=== PATIENT | female | born 1950 | race Caucasian/White ===

== ENCOUNTER 2022-01-04 08:15 | Outpatient (RCR) | payer OTHER, SELFPAY ==
[2021-12-28 10:35] VITALS: BP 167/90; PULSE 66; TEMP 36.6
--- NOTE | 2021-12-28 10:52 | HP.PCM_ITS ---
History of Present Illness Date of Service: 12/28/21 Progress of Wound: This 71-year-old female was seen for varicosities noted to bilateral legs with edema and irritation to her medial left ankle there is no evidence of full- thickness wound formation at this time patient denies any constitutional symptoms denies any pain to the site itchiness or irritation. Patient denies any use of elevation compression for edema management. No other complaints at this time. PFSH Home Medications calcium 167 mg-vitamin D3 1.67 mcg-magnesium 83 mg capsule cap PO 12/28/21 [History Last Taken Unknown] omega-3 fatty acids PO 12/28/21 [History Last Taken Unknown] Physical Exam Narrative Patient is alert oriented person place and time. Vascular: Dorsalis pedis posterior tibial pulses palpable 2 out of 4 to bilateral lower extremity. +1 pitting edema noted to Venkatesh malleoli region bilaterally. There is noted to be tortuous white varicosities bilaterally with hemosiderin deposits and a focal varicosity noted to the medial malleoli region as well as the distal lateral malleolus on the left side. Some skin irritation to the site. Patient notes is from tape from a dressing she has been applying at home. Neurologic: Light touch protective sensation intact to bilateral feet and Achilles tendon deep tendon reflex intact. Dermatologic: No evidence of full-thickness wound breakdown at this time. Musculoskeletal: No pain with calf squeeze or palpation of popliteal fossa. No gross deformity at this time. Debridement Note Debridement Note Post-Debridement Measurements and Additional Note: Post-Debridement Measurements/Treatment WC - Nurse 2 - General Ulcer CM Notes Start: 12/28/21 10:30 Freq: Status: Active Protocol: Activity Type Activity Date Activity User E-sign Co-sign Detail Recorded Client Recorded Date Recorded By Document 12/28/21 10:30 MW [id number] 12/28/21 10:33 MW 12/28/21 10:30 Pain Scale: 0-10 Numeric Is Patient Pain Free? Yes Assessment/Plan Assessment/Plan (1) Venous insufficiency (chronic) (peripheral): CODE(S): I87.2 - Venous insufficiency (chronic) (peripheral) PLAN: Patient examined evaluated, all findings cussed patient detail. Patient is condition and etiology as well as prognosis and treatment discussed with patient in great detail. Irritation appears to be secondary to venous insufficiency. At this time I recommend compression, elevation and exercise for edema management. Today we ordered venous studies Patient was wrapped in an Unna boot she will follow-up in 1 week for evaluation by Dr. Pugh. In the meantime she will continue compression elevation and exercise for edema management, patient will likely require compression stockings to to manage edema long-term and pending venous studies she will follow up with Dr. Pugh for possible intervention.
[2022-01-04 08:31] VITALS: BP 155/61; PULSE 87; TEMP 36.3
--- NOTE | 2022-01-04 14:10 | HP.PCM_ITS ---
History of Present Illness Date of Service: 01/04/22 Chief Complaint: Chronic venous insufficiency, venous hypertension with in flammation and ulceration, venous ulceration of the left lower extremity History of Wound: This is a 71-year-old female with a longstanding history of chronic venous disease. She has had swelling and edema in her lower extremities for many years. She has had 2 recent episodes of spontaneous bleeding from a varicosity near the left medial malleolus. She is currently being treated with an Unna boot to the left lower extremity. The patient sleeps on a flat surface at night. She claims to be active. She denies a history of thrombophlebitis. She is a Ab0. COUNT INCLUDES THE [facility] Medical History Arthritis Leg edema Leg swelling Spontaneous hemorrhage Venous hypertension, chronic, with ulcer and inflammation Venous stasis ulcer of ankle Home Medications calcium 167 mg-vitamin D3 1.67 mcg-magnesium 83 mg capsule cap PO 12/28/21 [H istory Last Taken Unknown] omega-3 fatty acids PO 12/28/21 [History Last Taken Unknown] Vital Signs Vital Signs Vital Signs: 01/04/22 08:31 Temperature 97.4 F L Temperature Source Temporal Pulse Rate 87 Blood Pressure 155/61 H Blood Pressure Mean 92 Blood Pressure Source Monitor Blood Pressure Position Sitting Blood Pressure Location Right Arm Physical Exam Const alert, oriented x3, no apparent distress and well nourished General Appearance: cooperative, comfortable, well kempt and well developed Orientation / Consciousness: awake, oriented to person, oriented to place and oriented to time HEENT normocephalic and head/scalp atraumatic Head and Scalp: normal to inspection, normocephalic and atraumatic External Ear: external ears normal Eyes PERRL and EOMs intact bilaterally General Eye: normal appearance of both eyes Resp normal respiratory effort, normal air movement, no retractions and no use of accessory muscles Effort and Inspection: able to speak in complete sentences Extremity no calf tenderness General Extremity: Negative for clubbing or cyanosis Skin Wound Narrative: Multiple large varicosities are noted in the lower extremities bilaterally. The varicosities are more prominent in the left lower extremity, and located primarily in the calf. A prominent vein is noted overlying the left medial malleolus, the site of 2 recent episodes of spontaneous bleeding. Mild hemosiderin staining is noted in the left gaiter area. Neuro oriented x3 and CN's II-XII intact bilaterally Sensorium / Orientation: awake, alert, oriented to person, oriented to place and oriented to time Psych Appearance: grossly normal and appropriate Attitude: calm Activity / Motor Behavior: appropriate eye contact Speech: normal speech Mood & Affect: euthymic mood Thought Process: normal thought process Thought Content: normal thought content Attention / Concentration: attention grossly intact Debridement Note Debridement Note Post-Debridement Measurements and Additional Note: Post-Debridement Measurements/Treatment - Nurse 1 - General Ulcer Assessment Start: 12/28/21 10:30 Freq: Status: Active Protocol: [employer] Activity Type Activity Date Activity User E-sign Co-sign Detail Recorded Client Recorded Date Recorded By Document 12/28/21 10:35 [email or web address] [id number] 12/28/21 10:53 AK Document 01/04/22 08:31 KR [id number] 01/04/22 08:36 KR 12/28/21 01/04/22 10:35 08:31 - Today's Visit Information Type of service Initial Visit 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 Any new allergies or adverse reactions No Had a fall/change in ADL's that may No increase risk of falls Signs or symptoms of abuse and/or No neglect since last visit Have you been in the hospital since your No last visit? Has dressing in place as prescribed Yes Has compression in place as prescribed Yes Has offloadiing in place as prescribed N/A Experienced any changes in pain level or No management Left Footwear Regular Shoe Regular Shoe Right Footwear Regular Shoe Regular Shoe Pain Scale: 0-10 Numeric Is Patient Pain Free? Yes Yes - Nurse 1 - General Ulcer Measurement Start: 12/28/21 10:30 Freq: Status: Active Protocol: Activity Type Activity Date Activity User E-sign Co-sign Detail Recorded Client Recorded Date Recorded By Document 12/28/21 10:35 AK [id number] 12/28/21 10:53 AK Document 01/04/22 08:31 KR [id number] 01/04/22 08:36 KR 12/28/21 01/04/22 10:35 08:31 Wound Center Nurse 1 Lower Limb Edema Present No Right Calf (cm) 31 Right Ankle (cm) 22 Left Calf (cm) 35 36 Left Ankle (cm) 22.5 23 WC - Nurse 2 - General Ulcer CM Notes Start: 12/28/21 10:30 Freq: Status: Active Protocol: Activity Type Activity Date Activity User E-sign Co-sign Detail Recorded Client Recorded Date Recorded By Document 12/28/21 10:30 MW [id number] 12/28/21 10:33 MW 12/28/21 10:30 Pain Scale: 0-10 Numeric Is Patient Pain Free? Yes - Nurse 3 - General Ulcer D/C NN Start: 12/28/21 10:30 Freq: Status: Active Protocol: Activity Type Activity Date Activity User E-sign Co-sign Detail Recorded Client Recorded Date Recorded By Document 12/28/21 10:53 AK [id number] 12/28/21 10:53 AK Document 01/04/22 10:01 KR [id number] 01/04/22 10:01 KR 12/28/21 01/04/22 10:53 10:01 Wound Care Nurse 3 Right -Tubular Bandage Double Layer -Size of Tubigrip Used Size D -Size D ($) 2 Left -Multi-Layered Wrap Application Unna Boot - Left ($) -Tubular Bandage Double Layer -Size of Tubigrip Used Size D -Size D ($) 2 Pain Scale: 0-10 Numeric Is Patient Pain Free? Yes Yes WC - Visit Discharge Discharge Condition Stable Stable Ambulatory Status Ambulatory Ambulatory Transportation Private Auto Private Auto Accompanied by daughter Medication Reconcilliation completed & Yes provided to patient/care provider Clinical Summary of Care Provided Yes Assessment/Plan Assessment/Plan (1) Venous insufficiency (chronic) (peripheral): CODE(S): I87.2 - Venous insufficiency (chronic) (peripheral) (2) Venous hypertension, chronic, with ulcer and inflammation: CODE(S): I87.339 - Chronic venous hypertension (idiopathic) with ulcer and inflammation of unspecified lower extremity; L97.909 - Non-pressure chronic ulcer of unspecified part of unspecified lower leg with unspecified severity (3) Venous stasis ulcer of ankle: CODE(S): I83.003 - Varicose veins of unspecified lower extremity with ulcer of ankle; L97.309 - Non-pressure chronic ulcer of unspecified ankle with unspecified severity (4) Leg swelling: CODE(S): M79.89 - Other specified soft tissue disorders (5) Leg edema: CODE(S): R60.0 - Localized edema (6) Spontaneous hemorrhage: CODE(S): R58 - Hemorrhage, not elsewhere classified (7) Arthritis: CODE(S): M19.90 - Unspecified osteoarthritis, unspecified site PLAN: Plan This is a 71-year-old female with very profound and severe venous insufficiency in her lower extremities. She has large varicosities in both lower extremities, particularly on the left. She has had 2 recent episodes of spontaneous bleeding from the superficial varicosity near the left medial malleolus. We are to implement conservative treatment measures relative to the patient's venous disease. Leg elevation has been recommended. The patient is to continue sleeping on a flat surface at night. Her legs are to be elevated to heart level, or higher, is much as possible each day. Activity has been encouraged. Prolonged idle sitting has been discouraged. A prescription has been provided for graduated compression stockings of 20 to 30 mmHg compression these are to be obtained and worn on a daily basis, from the time she arises in the morning, until bedtime. Until which time she obtains the graduated compression stockings, Tubigrip's of 20 to 30 mmHg compression have been dispensed. The patient is scheduled for a venous duplex examination to evaluate the deep and superficial venous systems in the lower extremities. She is to return in 3 weeks for reevaluation. It is likely that she will be a candidate for a venous ablation procedure, which will depend upon the findings on venous duplex examination. Total time: 60 minutes
== END 2022-01-23 23:59 | disposition home or self-care (01) ==
LOC: WC 08:15
PROVIDERS: PCP Nurse Practitioner Family; Visit Provider Surgery
DX: I83.893 Varicose veins of bilateral lower extremities with other complications (principal); L97.309 Non-pressure chronic ulcer of unspecified ankle with unspecified severity; I87.2 Venous insufficiency (chronic) (peripheral); M19.90 Unspecified osteoarthritis, unspecified site; R60.0 Localized edema; M79.89 Other specified soft tissue disorders
CPT/HCPCS: 29580; 99203; 99213; G0463

== ENCOUNTER 2022-02-01 07:54 | Outpatient (RCR) | payer OTHER, SELFPAY ==
[2022-01-24 00:06] VITALS: BP 155/61; PULSE 87; TEMP 36.3
--- NOTE | 2022-02-01 07:57 | VDLE_ITS ---
Reason For Study: Edema RIGHT LEFT GSV is normal. GSV is normal. CFV is compressible, spontaneous, phasic, CFV is compressible, spontaneous, phasic, competent and demonstrates normal competent, and demonstrates normal augmentation. augmentation. FV is compressible, spontaneous, phasic, FV is compressible, spontaneous, phasic, competent and demonstrates normal competent and demonstrates normal augmentation. augmentation. POP V is compressible, spontaneous, phasic, POP V is compressible, spontaneous, phasic, competent and demonstrates normal competent and demonstrates normal augmentation. augmentation. T/P Trunk is compressible. T/P Trunk is compressible. PTV is compressible. PTV is compressible. RT PerV is compressible. LT PerV is compressible. Procedure This is a venous duplex using B-mode, color flow and spectral Doppler. Exam performed in department. A preliminary report was called and/or faxed to . VL/Venous Duplex US - Alejandro Extrem Interpretation Summary Deep veins of the lower extremities are bilaterally patent and compressible seg mentally. There is no evidence of deep vein thrombosis on either side. Valvular competence appears in tact within the proximal deep venous systems bilaterally. The great saphenous veins appear bila terally patent and compressible segmentally. Ordering Physician: Cornell Yun Referring Physician: Peace Silver Performed By: Shayy Mcallister RVT
[2022-02-01 08:34] VITALS: BP 153/77; PULSE 63; RESP 20; TEMP 36.6
--- NOTE | 2022-02-01 09:07 | PCM.WC.HP ---
History of Present Illness Date of Service: 02/01/22 Chief Complaint: Chronic venous insufficiency, venous hypertension with inflammation and ulceration, venous ulceration of the left lower extremity History of Wound: This is a 71-year-old female with a longstanding history of chronic venous disease. She has had swelling and edema in her lower extremities for many years. She has had 2 recent episodes of spontaneous bleeding from a varicosity near the left medial malleolus. Upon intake, she was being treated with an Unna boot to the left lower extremity. The patient sleeps on a flat surface at night. She claims to be active. She denies a history of thrombophlebitis. She is a Ab0. [facility] Medical History Arthritis Leg edema Leg swelling Spontaneous hemorrhage Venous hypertension, chronic, with ulcer and inflammation Venous stasis ulcer of ankle Home Medications calcium 167 mg-vitamin D3 1.67 mcg-magnesium 83 mg capsule cap PO 12/28/21 [History Last Taken Unknown] omega-3 fatty acids PO 12/28/21 [History Last Taken Unknown] Vital Signs Vital Signs Vital Signs: 02/01/22 08:34 Temperature 97.9 F Temperature Source Temporal Pulse Rate 63 Respiratory Rate 20 H Blood Pressure 153/77 H Blood Pressure Mean 102 Blood Pressure Source Monitor Weight Weight: 143 lb 4.176 oz Physical Exam Const alert, oriented x3, no apparent distress and well nourished General Appearance: cooperative, comfortable, well kempt and well developed Orientation / Consciousness: awake, oriented to person, oriented to place and oriented to time HEENT normocephalic and head/scalp atraumatic Head and Scalp: normal to inspection, normocephalic and atraumatic External Ear: external ears normal Eyes PERRL and EOMs intact bilaterally General Eye: normal appearance of both eyes Resp normal respiratory effort, normal air movement, no retractions and no use of accessory muscles Effort and Inspection: able to speak in complete sentences Extremity no calf tenderness General Extremity: Negative for clubbing or cyanosis Skin Wound Narrative: Multiple large varicosities are noted in the lower extremities bilaterally. The varicosities are more prominent in the left lower extremity, and located primarily in the calf. A prominent vein is noted overlying the left medial malleolus, the site of 2 recent episodes of spontaneous bleeding. A small, punctate scab is noted at the site of previous bleeding. No active bleeding is currently noted. Mild hemosiderin staining is noted in the left gaiter area. Neuro oriented x3, CN's II-XII intact bilaterally and moves all extremities Sensorium / Orientation: awake, alert, oriented to person, oriented to place and oriented to time Psych Appearance: grossly normal and appropriate Attitude: calm Activity / Motor Behavior: appropriate eye contact Speech: normal speech Mood & Affect: euthymic mood Thought Process: normal thought process Thought Content: normal thought content Attention / Concentration: attention grossly intact Debridement Note Debridement Note No debridement was completed: No debridement was completed today (There are no open wounds or ulcerations.) Post-Debridement Measurements and Additional Note: Post-Debridement Measurements/Treatment WC - Nurse 1 - General Ulcer Assessment Start: 02/01/22 08:34 Freq: Status: Active Protocol: EDUARDO.MAITE Activity Type Activity Date Activity User E-sign Co-sign Detail Recorded Client Recorded Date Recorded By Document 02/01/22 08:34 DL [id number] 02/01/22 08:42 DL 02/01/22 08:34 WC - Today's Visit Information Type of service Follow-up 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 (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 [employer] ) Arrival Mode Ambulatory Transfer Assistance None Patient Identification Verified (Name & Yes ) Patient Requires Transmission-Based No Precautions Height and Weight Weight 143 lb 4.176 oz Weight in Pounds 143.3 lbs Weight Measurement Method Standing Scale Vital Signs Temperature (97.8 F-99.1 F) 97.9 F Temperature Source Temporal Pulse Rate (60-100) 63 Pulse Location Monitor Respiratory Rate (12-18) 20 H Respiratory rate source Observation Blood Pressure (90/60-120/80) 153/77 H Blood Pressure Mean 102 Source Monitor History Since Last Visit- (Skip if this is Patient's initial visit) Have you changed medications since your No last visit? Any new allergies or adverse reactions No Had a fall/change in ADL's that may No increase risk of falls Signs or symptoms of abuse and/or No neglect since last visit Have you been in the hospital since your No last visit? Has dressing in place as prescribed Yes Has offloadiing in place as prescribed N/A Left Footwear Regular Shoe Right Footwear Regular Shoe Pain Scale: 0-10 Numeric Is Patient Pain Free? Yes - Nurse 1 - General Ulcer Measurement Start: 02/01/22 08:34 Freq: Status: Active Protocol: Activity Type Activity Date Activity User E-sign Co-sign Detail Recorded Client Recorded Date Recorded By Document 02/01/22 08:34 DL [id number] 02/01/22 08:42 DL 02/01/22 08:34 Wound Center Nurse 1 #1 L Med Ankle -Current Size (cm) - Length 0.1 -Current Size (cm) - Width 0.1 -Current Size (cm) - Depth 0.1 -Total Square Cm 0.01 -Photo Taken No -Exudate Amt None Present -Wound Margin Flat & Intact -Granulation Amt None Present (0 %) -Necrosis Amt None Present (0 %) -Structure Exposed N/A -Texture (Tanya-wound Skin Appearance) No Abnormality -Moisture (Tanya-wound Skin Appearance) No Abnormality -Color (Tanya-wound Skin Appearance) No Abnormality -Temperature (Tanya-wound Skin No Abnormality Appearance) (Pt Warm) -Tenderness on Palpation (Tanya-wound No Skin Appearance) -Ulcer Cleansing Rinsed/ Irrigated with Saline -Foul Odor after Cleansing No Left Calf (cm) 34 Left Ankle (cm) 21 WC - Nurse 3 - General Ulcer D/C NN Start: 02/01/22 08:34 Freq: Status: Active Protocol: Activity Type Activity Date Activity User E-sign Co-sign Detail Recorded Client Recorded Date Recorded By Document 02/01/22 09:02 MW Desktop 02/01/22 09:04 MW 02/01/22 09:02 Wound Care Nurse 3 Left -Lotion applied to leg before No compression wrap -Size of Tubigrip Used Size E -Size E ($) 1 -Stockings No Treatment Response Procedure Tolerated Well Pain Scale: 0-10 Numeric Is Patient Pain Free? Yes Teaching: Wound Center Compression Wraps & Stockings -Person Taught Patient -Teaching Method Discussion -Response to teaching Verbalize understanding WC - Visit Discharge Discharge Condition Stable Ambulatory Status Ambulatory Transportation Transportation Medication Reconcilliation completed & No provided to patient/care provider Clinical Summary of Care Provided Yes Assessment/Plan Assessment/Plan (1) Venous insufficiency (chronic) (peripheral): CODE(S): I87.2 - Venous insufficiency (chronic) (peripheral) (2) Venous hypertension, chronic, with ulcer and inflammation: CODE(S): I87.339 - Chronic venous hypertension (idiopathic) with ulcer and inflammation of unspecified lower extremity; L97.909 - Non-pressure chronic ulcer of unspecified part of unspecified lower leg with unspecified severity (3) Venous stasis ulcer of ankle: CODE(S): I83.003 - Varicose veins of unspecified lower extremity with ulcer of ankle; L97.309 - Non-pressure chronic ulcer of unspecified ankle with unspecified severity (4) Leg swelling: CODE(S): M79.89 - Other specified soft tissue disorders (5) Leg edema: CODE(S): R60.0 - Localized edema (6) Spontaneous hemorrhage: CODE(S): R58 - Hemorrhage, not elsewhere classified (7) Arthritis: CODE(S): M19.90 - Unspecified osteoarthritis, unspecified site PLAN: Plan This is a 71-year-old female with very profound and severe venous insufficiency in her lower extremities. She has large varicosities in both lower extremities, particularly on the left. She has had 2 recent episodes of spontaneous bleeding from the superficial varicosity near the left medial malleolus. We are to continue conservative treatment measures relative to the patient's venous disease. Leg elevation has been recommended. The patient is to continue sleeping on a flat surface at night. Her legs are to be elevated to heart level, or higher, as much as possible each day. Activity has been encouraged. Prolonged idle sitting has been discouraged. A prescription has been provided for graduated compression stockings of 20 to 30 mmHg compression, which the patient has obtained. She has been advised to wear on a daily basis, donning each morning, and wearing until bedtime each day. However, the patient has been noncompliant with this recommendation. She has been advised once again to wear her compression stockings daily. The patient is scheduled for a venous duplex examination to evaluate the deep and superficial venous systems in the lower extremities. A venous duplex examination was performed today, but limited as to assessment for thrombosis. Arrangements are to be made for the patient return for assessment of competence in the deep and superficial venous system in the left lower extremity. She will then return thereafter, for discussion of the results, and a determination as to whether procedural intervention may be to her benefit. It is likely that she will be a candidate for a venous ablation procedure, which will depend upon the findings on venous duplex examination. Total time: 29 minutes
== END 2022-02-23 23:59 | disposition home or self-care (01) ==
LOC: WC 07:54
PROVIDERS: PCP Nurse Practitioner Family; Referring Provider Podiatrist; Visit Provider Surgery
DX: L97.319 Non-pressure chronic ulcer of right ankle with unspecified severity (principal); L97.329 Non-pressure chronic ulcer of left ankle with unspecified severity; M19.90 Unspecified osteoarthritis, unspecified site; R60.0 Localized edema; I87.2 Venous insufficiency (chronic) (peripheral); I83.90 Asymptomatic varicose veins of unspecified lower extremity
CPT/HCPCS: 93970; 99213; G0463

== ENCOUNTER 2022-03-15 08:49 | Outpatient (RCR) | payer OTHER, SELFPAY ==
[2022-03-11 00:04] VITALS: BP 153/77; PULSE 63; RESP 20; TEMP 36.6
[2022-03-15 08:57] VITALS: BP 138/56; PULSE 55; RESP 16; TEMP 36.1
--- NOTE | 2022-03-15 15:07 | HP.PCM_ITS ---
History of Present Illness Date of Service: 03/15/22 Chief Complaint: Chronic venous insufficiency, venous hypertension with in flammation and ulceration, venous ulceration of the left lower extremity History of Wound: This is a 71-year-old female with a longstanding history of chronic venous disease. She has had swelling and edema in her lower extremities for many years. She has had 2 recent episodes of spontaneous bleeding from a varicosity near the left medial malleolus. Upon intake, she was being treated with an Unna boot to the left lower extremity. The patient sleeps on a flat surface at night. She claims to be active. She denies a history of thrombophlebitis. She is a Ab0. [facility] Medical History Arthritis Leg edema Leg swelling Spontaneous hemorrhage Venous hypertension, chronic, with ulcer and inflammation Venous stasis ulcer of ankle Home Medications calcium 167 mg-vitamin D3 1.67 mcg-magnesium 83 mg capsule cap PO 12/28/21 [History Last Taken Unknown] omega-3 fatty acids PO 12/28/21 [History Last Taken Unknown] Vital Signs Vital Signs Vital Signs: 03/15/22 08:57 Temperature 97.0 F L Temperature Source Temporal Pulse Rate 55 L Respiratory Rate 16 Blood Pressure 138/56 H Blood Pressure Mean 83 Blood Pressure Source Monitor Blood Pressure Position Sitting Blood Pressure Location Right Forearm Oxygen Delivery Method Room Air Weight Weight: 143 lb 4.176 oz Physical Exam Const alert, oriented x3, no apparent distress and well nourished General Appearance: cooperative, comfortable, well kempt and well developed Orientation / Consciousness: awake, oriented to person, oriented to place and oriented to time HEENT normocephalic and head/scalp atraumatic Head and Scalp: normal to inspection, normocephalic and atraumatic External Ear: external ears normal Eyes PERRL and EOMs intact bilaterally General Eye: normal appearance of both eyes Resp normal respiratory effort, normal air movement, no retractions and no use of accessory muscles Effort and Inspection: able to speak in complete sentences Extremity no calf tenderness General Extremity: Negative for clubbing or cyanosis Skin Wound Narrative: Multiple large varicosities are noted in the lower extremities bilaterally. The varicosities are more prominent in the left lower extremity, and located primarily in the calf. A prominent vein is noted overlying the left medial malleolus, the site of 2 recent episodes of spontaneous bleeding. A small, punctate scab is noted at the site of previous bleeding. No active bleeding is currently noted, and the patient denies any recent bleeding episodes. Mild hemosiderin staining is noted in the left gaiter area. Neuro oriented x3, CN's II-XII intact bilaterally and moves all extremities Sensorium / Orientation: awake, alert, oriented to person, oriented to place and oriented to time Psych Appearance: grossly normal and appropriate Attitude: calm Activity / Motor Behavior: appropriate eye contact Speech: normal speech Mood & Affect: euthymic mood Thought Process: normal thought process Thought Content: normal thought content Attention / Concentration: attention grossly intact Debridement Note Debridement Note No debridement was completed: No debridement was completed today Post-Debridement Measurements and Additional Note: Post-Debridement Measurements/Treatment - Nurse 1 - General Ulcer Assessment Start: 03/15/22 08:56 Freq: Status: Active Protocol: WC.LOWEXT Activity Type Activity Date Activity User E-sign Co-sign Detail Recorded Client Recorded Date Recorded By Document 03/15/22 08:57 [id number] 03/15/22 09:01 03/15/22 08:57 - Today's Visit Information Type of service Follow-up Visit (Physician/ENGINEER PROCESS ) Arrival Mode Ambulatory Transfer Assistance None Accompanied by self Patient Identification Verified (Name & Yes ) Patient Requires Transmission-Based No Precautions Vital Signs Temperature (97.8 F-99.1 F) 97.0 F L Temperature Source Temporal Pulse Rate (60-100) 55 L Pulse Location Monitor Respiratory Rate (12-18) 16 Respiratory rate source Observation Oxygen Delivery Method Room Air Blood Pressure (90/60-120/80) 138/56 H Blood Pressure Mean 83 Source Monitor Position Sitting Blood Pressure Location Right Forearm History Since Last Visit- (Skip if this is Patient's initial visit) Have you changed medications since your No last visit? Any new allergies or adverse reactions No Had a fall/change in ADL's that may No increase risk of falls Signs or symptoms of abuse and/or No neglect since last visit Have you been in the hospital since your No last visit? Has dressing in place as prescribed Yes Has compression in place as prescribed Yes Has offloadiing in place as prescribed N/A Experienced any changes in pain level or No management Left Footwear Regular Shoe Right Footwear Regular Shoe Pain Scale: 0-10 Numeric Is Patient Pain Free? Yes Teaching: Wound Center Compression Wraps & Stockings -Person Taught Patient -Teaching Method Discussion -Response to teaching Verbalize understanding WC - Nurse 1 - General Ulcer Measurement Start: 03/15/22 08:56 Freq: Status: Active Protocol: Activity Type Activity Date Activity User E-sign Co-sign Detail Recorded Client Recorded Date Recorded By Document 03/15/22 08:57 MW [id number] 03/15/22 09:01 MW 03/15/22 08:57 Wound Center Nurse 1 #1 L Med Ankle -Combined with other wound No -Current Size (cm) - Length 0 -Current Size (cm) - Width 0 -Current Size (cm) - Depth 0 -Total Square Cm 0 -Photo Taken No -Epithelialization Large 67-100% -Tunneling No -Undermining/Tunneling No -Circular Undermining No Lower Limb Edema Present Yes Right Calf (cm) 34.0 Right Ankle (cm) 20.0 Left Calf (cm) 33.0 Left Ankle (cm) 20.4 WC - Nurse 2 - General Ulcer CM Notes Start: 03/15/22 08:56 Freq: Status: Active Protocol: Activity Type Activity Date Activity User E-sign Co-sign Detail Recorded Client Recorded Date Recorded By Document 03/15/22 09:15 MW [id number] 03/15/22 09:17 MW 03/15/22 09:15 Wound Center Nurse 2 #1 L Med Ankle -Time 09:15 -Correct Patient Yes -Correct Side, Site, Position Yes -Correct Procedure Yes -Procedure Performed No -Post Debridement (cm) - Length 0 -Post Debridement (cm) - Width 0 -Post Debridement (cm) - Depth 0 -Total Square (Post) (cm) 0 -Tunneling No -Undermining/Tunneling No -Circular Undermining No -Wound/Ulcer Outcome Healed- Epithelialized Pain Scale: 0-10 Numeric Is Patient Pain Free? Yes WC - Nurse 3 - General Ulcer D/C NN Start: 03/15/22 08:56 Freq: Status: Active Protocol: Activity Type Activity Date Activity User E-sign Co-sign Detail Recorded Client Recorded Date Recorded By Document 03/15/22 09:17 MW [id number] 03/15/22 09:21 MW 03/15/22 09:17 Wound Care Nurse 3 Right -Lotion applied to leg before No compression wrap -Stockings Yes Left -Lotion applied to leg before No compression wrap -Stockings Yes Pain Scale: 0-10 Numeric Is Patient Pain Free? Yes Teaching: Wound Center Control Swelling with Leg Elevation -Person Taught Patient -Teaching Method Discussion -Response to teaching Verbalize understanding Compression Wraps & Stockings -Person Taught Patient -Teaching Method Discussion -Response to teaching Verbalize understanding WC - Visit Discharge Discharge Condition Stable Ambulatory Status Ambulatory Transportation Private Auto Accompanied by self Medication Reconcilliation completed & No provided to patient/care provider Clinical Summary of Care Provided Yes Assessment/Plan Assessment/Plan (1) Venous insufficiency (chronic) (peripheral): CODE(S): I87.2 - Venous insufficiency (chronic) (peripheral) (2) Venous hypertension, chronic, with ulcer and inflammation: CODE(S): I87.339 - Chronic venous hypertension (idiopathic) with ulcer and inflammation of unspecified lower extremity; L97.909 - Non-pressure chronic u lcer of unspecified part of unspecified lower leg with unspecified severity (3) Venous stasis ulcer of ankle: CODE(S): I83.003 - Varicose veins of unspecified lower extremity with u lcer of ankle; L97.309 - Non-pressure chronic ulcer of unspecified ankle with unspecified severity (4) Leg swelling: CODE(S): M79.89 - Other specified soft tissue disorders (5) Leg edema: CODE(S): R60.0 - Localized edema (6) Spontaneous hemorrhage: CODE(S): R58 - Hemorrhage, not elsewhere classified (7) Arthritis: CODE(S): M19.90 - Unspecified osteoarthritis, unspecified site PLAN: Plan This is a 71-year-old female with very profound and severe venous insufficiency and venous hypertension in her lower extremities. She has large varicosities in both lower extremities, particularly on the left. She has had 2 recent episodes of spontaneous bleeding from the superficial varicosity near the left medial malleolus. The patient underwent venous duplex examination earlier today, where it was noted that the patient had incompetence of the left great saphenous vein, the left small saphenous vein, and a auto body mechanic apprentice vein approximately 8 cm proximal to the left medial malleolus. The implications of this finding have been discussed with the patient in detail. The options of management have been thoroughly explained. We are to continue conservative treatment measures relative to the patient's venous disease. Leg elevation has been recommended. The patient is to continue sleeping on a flat surface at night. Her legs are to be elevated to heart level, or higher, as much as possible each day. Activity has been encouraged. Prolonged idle sitting has been discouraged. A p rescription has been provided for graduated compression stockings of 20 to 30 mmHg compression, which the patient has obtained. She has been advised to wear on a daily basis, donning each morning, and wearing until bedtime each day. A more aggressive and definitive approach has been discussed with the patient as well, which includes endothermal ablation of the left great saphenous vein and incompetent auto body mechanic apprentice vein. The nature of the procedure has been discussed with the patient. Its indications and risks have been discussed. Expectations have been explained as well. It would be anticipated that the procedure itself would minimize the likelihood of spontaneous bleeding from the varicosity near the left medial malleolus. The patient's questions have been answered. She has considered her options, and has decided to forego any consideration of an endothermal ablation procedure at this time. Currently, she appears to be benefiting from the conservative treatment measures which have been implemented, and is to be discharged at this time. She will follow-up henceforth on an as- needed basis. She has indicated that any further bleeding episodes will likely prompt her to reconsider the option of endothermal ablation of the incompetent superficial veins in the left lower extremity. Total time: 28 minutes
== END 2022-03-15 16:06 | disposition home or self-care (01) ==
LOC: WC 08:49
PROVIDERS: PCP Nurse Practitioner Family; Referring Provider Podiatrist; Visit Provider Surgery
DX: I83.223 Varicose veins of left lower extremity with both ulcer of ankle and inflammation (principal); L97.329 Non-pressure chronic ulcer of left ankle with unspecified severity; R60.0 Localized edema; M19.90 Unspecified osteoarthritis, unspecified site
CPT/HCPCS: 99212; G0463

== ENCOUNTER → 2022-03-15 | Outpatient (CLI) | payer SELFPAY, OTHER ==
--- NOTE | 2022-03-15 07:56 | VDLE_ITS ---
Reason For Study: wound Procedure LEFT This is a venous duplex using B-mode, color CFV is compressible, spontaneous, phasic, flow and spectral Doppler. competent, and demonstrates normal Exam performed in department. augmentation. The exam was abbreviated due to the COVID 19 FV is compressible, spontaneous, phasic, protocol. competent and demonstrates normal The exam was diagnostic. augmentation. POP V is compressible, spontaneous, phasic, competent and demonstrates normal augmentation. T/P Trunk is compressible. PTV is compressible. LT PerV is compressible. SFJ is INCOMPETENT and measures .91 cm. GSV proximal thigh measures 1.04 x 1.07 cm. GSV at knee measures .71 x .69 cm. GSV INCOMPETENT throughout for greater than 0.5 seconds. SSV proximal calf is INCOMPETENT for greater than 0.5 seconds and measures .42 x .51 cm. Brinell Tester V 8 cm proximal to the medial malleolus is incompetent for greater than .5 seconds. VL/Venous Duplex US, Unilateral Interpretation Summary Deep veins of the left lower extremity are patent and compressible segmentally. There is no evidence of left lower extremity deep vein thrombosis. Valvular competence appears intac t within the proximal deep venous system on the left . The left great saphenous vein appears patent a nd compressible segmentally. The left sapheno-femoral junction is incompetent . The left great saphenous vein appears segmentally incompetent. The left small saphenous vein is patent and in competent. An incompetent assistant property manager vein is noted in the left calf, located 8 centimeters pr oximal to the left medial malleolus. Ordering Physician: Sam Pugh Performed By: Fab Puckett RVT
== END | disposition home or self-care (01) ==
LOC: CVS 07:54
PROVIDERS: PCP Nurse Practitioner Family; Referring Provider Surgery; Visit Provider Surgery
DX: S81.802A Unspecified open wound, left lower leg, initial encounter (principal)
CPT/HCPCS: 93971

== ENCOUNTER 2025-05-07 20:33 | Inpatient (IN) | payer OTHER, SELFPAY ==
[2025-05-07] VITALS (7 sets, daily range): BP systolic 140–185; BP diastolic 85–105; PULSE 64–75; RESP 16–19; TEMP -17.7–35.6; O2SAT 93–98; BMI 26.6
--- NOTE | 2025-05-07 20:52 | EKG12_ITS ---
Test Reason : DIZZY Blood Pressure : */* mmHG Vent. Rate : 72 BPM Atrial Rate : * BPM P-R Int : * ms QRS Dur : 100 ms QT Int : 418 ms P-R-T Axes : * 43 25 degrees QTcB Int : 457 ms Atrial fibrillation Minimal voltage criteria for LVH, may be normal variant ( Sokolow-Dias ) Septal infarct , age undetermined Abnormal ECG Confirmed by VIRIDIANA CHARLES, DOMENIC ([id number]), associate editor CLAUS ALMEIDA ([id number]) on 05/12/2025 8:28:11 AM Referred By: Confirmed By: DOMENIC KEMP MD
[2025-05-07] MEDS: 0.9% Normal Saline (1000mL) 1,000 ML 999 ML IV (21:09)
--- NOTE | 2025-05-07 21:20 | CT_ITS ---
PROCEDURE: ABDOMEN/PELVIS W IV CONT ONLY 05/07/2025 REASON FOR EXAM: ABDOMINAL PAIN TECHNIQUE: Procedure Code: [id number] Modality: CT Procedure: ABDOMEN/PELVIS W IV CONT ONLY Coronal and Sagittal reconstruction series were provided. CONTRAST: OMNIPAQUE 350 VOLUME: 100 mL One or more dose reduction techniques were used (e.g., Automated exposure control, adjustment of the mA and/or kV according to patient size, use of iterative reconstruction technique. RADIATION DOSE SUMMARY: CTDlvol: 17.51 mGy DLP: 1681 mGycm COMPARISON: None. FINDINGS: Bilateral basilar atelectatic pulmonary changes. Mild cardiomegaly. Distended bladder. Mild bilateral fullness of the collecting systems, probably reflux. Moderate amount of fecal residue in the rectum. Diffuse colonic diverticulosis. Thickening of the sigmoid colon, probably acute diverticulitis without perforation or abscess formation. Diffuse thickening of the stomach suggestive of gastritis. Fat containing umbilical hernia without incarceration. 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 Moderate focal spondylosis at L5-S1. Left renal simple cyst measuring 1.5 cm. Right adrenal nodule measuring 1.6 cm, probably benign adenoma. Normal liver. Normal gallbladder and extrahepatic biliary system. Normal spleen. Normal pancreas. Normal left adrenal gland. Normal size of the right kidney. There is no right renal mass. There are no right renal calculi. Normal size of the left kidney. There is no left renal mass. There are no left renal calculi. Normal visualized stomach. Normal small intestine. The appendix is visualized and appears normal. There is no demonstrated peritoneal fluid. Normal abdominal aorta. Normal inferior vena cava. Normal retroperitoneum. There is no pelvic mass lesion or lymphadenopathy. There is no pelvic fluid. CT/Abdomen/Pelvis W IV Cont ONLY IMPRESSION: Bilateral basilar atelectatic pulmonary changes. Mild cardiomegaly. Distended bladder. Mild bilateral fullness of the collecting systems, probably reflux. Moderate amount of fecal residue in the rectum. Diffuse colonic diverticulosis. Thickening of the sigmoid colon, probably acute diverticulitis without perforat ion or abscess formation. Diffuse thickening of the stomach suggestive of gastritis. Fat containing umbilical hernia without incarceration. 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 Moderate focal spondylosis at L5-S1. Left renal simple cyst measuring 1.5 cm. Right adrenal nodule measuring 1.6 cm, probably benign adenoma. Reading Location: [facility]
--- NOTE | 2025-05-07 21:20 | CT_ITS ---
PROCEDURE: CT BRAIN/HEAD WITHOUT CONTRAST 05/07/2025 REASON FOR EXAM: AMS TECHNIQUE: Procedure Code: CTBR Modality: CT Procedure: BRAIN/HEAD WITHOUT CONTRAST Coronal and Sagittal reconstruction series were provided. One or more dose reduction techniques were used (e.g., Automated exposure control, adjustment of the mA and/or kV according to patient size, use of iterative reconstruction technique. RADIATION DOSE SUMMARY: CTDlvol: 44.99 mGy DLP: 779.24 mGycm COMPARISON: None. FINDINGS: No acute intracranial hemorrhage, extra-axial collection, mass effect or evidence of acute infarct. Mild generalized brain parenchymal volume loss and chronic microangiopathic changes. Unremarkable orbits. Intact skull base and calvarium. Clear imaged paranasal sinuses and mastoids. CT/Brain/Head without Contrast IMPRESSION: No acute intracranial abnormality. Mild parenchymal volume loss and chronic microangiopathic changes. Reading Location: [id number]
--- NOTE | 2025-05-07 21:25 | RAD_ITS ---
PROCEDURE: CHEST 1 VIEW (PORTABLE) 05/07/2025 REASON FOR EXAM: EVAL FOR PNEUMONIA TECHNIQUE: Frontal view of the chest. FINDINGS: Right basilar ill-defined opacity suspicious for pneumonia. The heart borders are unremarkable. No acute osseous abnormalities. RAD/Chest 1 View (Portable) IMPRESSION: Probable pneumonia. Reading Location: [id number]
[2025-05-07 21:34] LABS: SITE Not entered; VBG BASE EXCESS 7 mmol/L (-1.0-3.5); VBG PO2 26 mmHg (25-40); VBG SO2 44 % (50-70); VBG TCO2 35 mmol/L (23-33)
[2025-05-07 21:44] LABS: Mucous, Urine 0 SEEN /hpf (<or=2+); Squamous Epithelial Cells - UA 0 SEEN /hpf (5-10)
[2025-05-07 21:52] LABS: Hematocrit 45.4 % (37-47); Hemoglobin 15.0 g/dL (12.0-15.0); Immature Granulocytes Count 0.010 X10^3/uL (0.0-0.0); Mean Corp Hgb Conc 33.0 g/dL (32-36); Mean Corpuscular Volume 89.9 fL (81-99); Mean Platelet Vol. 10.4 fl (6.2-12.0); NRBC Flagged by Analyzer 0 % (0-5); Platelet Count 214 K/mm3 (150-450); RBC Distribution Width CV 12.7 % (11.6-14.6); RBC Distribution Width SD 41.8 fl (35.1-43.9); Red Blood Count 5.05 M/mm3 (4.2-5.4); White Blood Count 6.3 K/mm3 (4.4-11.0)
[2025-05-07 21:56] LABS: Color, Urine Straw (Yellow); Glucose, Dipstick Normal (Normal); Ketone-Dipstick Negative (Negative); Leukocyte Esterase-Dipstick Negative /ul (Negative); Nitrite-Dipstick Negative (Negative); Occult Blood-Urine 25 /ul (Negative); Protein-Dipstick 15 mg/dl (Negative); Specific Gravity, Urine 1.010 (1.002-1.030); Urine Bilirubin Dipstick Negative (Negative)
--- OUTSIDE RECORDS SUMMARY | 2025-05-07 21:56 | XMS RPT_ITS | CCD ---
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 Date Transcribed: 03/15/22 2330 Welfare Case Worker: Signed [facility] History AND Physic yao 03-15-2022 Wound Ctr History & Physical [facility] [address] [place] [address] H P Exam - Wound Care 03/15/22 1507 MR#: [id number] Acct: [id number] Name: PHANI OLSEN Rep #: [id number] : 1950 71 From: Sam Pugh MD PCP: SARAHY Govea Status:REG RCR Location: History of Present Illness Date of Service: 03/15/22 Chief Complaint: Chronic venous insufficiency, venous hypertension with inflammation and ulceration, venous ulceration of the left lower extremity History of Wound: This is a 71-year-old female with a longstanding history of chronic venous disease. She has had swelling and edema in her lower extremities for many years. She has had 2 recent episodes of spontaneous bleeding from a varicosity near the left medial malleolus. Upon intake, she was being treated with an Unna boot to the left lower extremity. The patient sleeps on a flat surface at night. She claims to be active. She denies a history of thrombophlebitis. She is a Ab0. [facility] Medical History Arthritis Leg edema Leg swelling Spontaneous hemorrhage Venous hypertension, chronic, with ulcer and inflammation Venous stasis ulcer of ankle Home Medications calcium 167 mg-vitamin D3 1.67 mcg-magnesium 83 mg capsule cap PO 12/28/21 [History Last Taken Unknown] omega-3 fatty acids PO 12/28/21 [History Last Taken Unknown] Vital Signs Vital Signs Vital Signs: 03/15/22 08:57 Temperature 97.0 F L Temperature Source Temporal Pulse Rate 55 L Respiratory Rate 16 Blood Pressure 138/56 H Blood Pressure Mean 83 Blood Pressure Source Monitor Blood Pressure Position Sitting Blood Pressure Location Right Forearm Oxygen Delivery Method Room Air Weight Weight: 143 lb 4.176 oz Physical Exam Const alert, oriented x3, no apparent distress and well nourished General Appearance: cooperative, comfortable, well kempt and well developed Orientation / Consciousness: awake, oriented to person, oriented to place and oriented to time HEENT normocephalic and head/scalp atraumatic Head and Scalp: normal to inspection, normocephalic and atraumatic External Ear: external ears normal Eyes PERRL and EOMs intact bilaterally General Eye: normal appearance of both eyes Resp normal respiratory effort, normal air movement, no retractions and no use of accessory muscles Effort and Inspection: able to speak in complete sentences Extremity no calf tenderness General Extremity: Negative for clubbing or cyanosis Skin Wound Narrative: Multiple large varicosities are noted in the lower extremities bilaterally. The varicosities are more prominent in the left lower extremity, and located primarily in the calf. A prominent vein is noted overlying the left medial malleolus, the site of 2 recent episodes of spontaneous bleeding. A small, punctate scab is noted at the site of previous bleeding. No active bleeding is currently noted, and the patient denies any recent bleeding episodes. Mild hemosiderin staining is noted in the left gaiter area. Neuro oriented x3, CN's II-XII intact bilaterally and moves all extremities Sensorium / Orientation: awake, alert, oriented to person, oriented to place and oriented to time Psych Appearance: grossly normal and appropriate Attitude: calm Activity / Motor Behavior: appropriate eye contact Speech: normal speech Mood Affect: euthymic mood Thought Process: normal thought process Thought Content: normal thought content Attention / Concentration: attention grossly intact Debridement Note Debridement Note No debridement was completed: No debridement was completed today Post-Debridement Measurements and Additional Note: Post-Debridement Measurements/Treatmen t - Nurse 1 - General Ulcer Assessment Start: 03/15/22 08:56 Freq: Status: Active Protocol: WC.LOWEXT Activity Type Activity Date Activity User E-sign Co-sign Detail Recorded Client Recorded Date Recorded By Document 03/15/22 08:57 [id number] 03/15/22 09:01 03/15/22 08:57 - Today's Visit Information Type of service Follow-up Visit (Physician/WILDLIFE BIOSTATION RESEARCH ECOLOGIST ) Arrival Mode Ambulatory Transfer Assistance None Accompanied by self Patient Identification Verified (Name Yes ) Patient Requires Transmission-Based No Precautions Vital Signs Temperature (97.8 F-99.1 F) 97.0 F L Temperature Source Temporal Pulse Rate (60-100) 55 L Pulse Location Monitor Respiratory Rate (12-18) 16 Respiratory rate source Observation Oxygen Delivery Method Room Air Blood Pressure (90/60-120/80) 138/56 H Blood Pressure Mean 83 Source Monitor Position Sitting Blood Pressure Location Right Forearm History Since Last Visit- (Skip if this is Mel (more content not included)... [facility] Venous Duplex US - Alejandro Extre [facility] 02-01-2022 Venous Duplex US - Alejandro Extrem [facility] [address] [place] [address] Venous Duplex US - Alejandro Extrem 02/01/22 0808 MR#: [id number] Acct: [id number] Name: PHANI OLSEN Rep #: [id number] : 1950 71 From: Sam Pugh MD Attending Dr: Dr. Cornell Yun, DPM Status: R EG RCR Ordering Dr: Cornell Yun DPM Date: 02/01/22 Location: [facility]S Sex: F C Admitted: Reason For Study: Edema RIGHT LEFT GSV is normal. GSV is normal. CFV is compressible, spontaneous, phasic, CFV is compressible, spontaneous, phasic, competent and demonstrates normal competent, and demonstrates normal augmentation. augmentation. FV is compressible, spontaneous, phasic, FV is compressible, spontaneous, phasic, competent and demonstrates normal competent and demonstrates normal augmentation. augmentation. POP V is compressible, spontaneous, phasic, POP V is compressible, spontaneous, phasic, competent and demonstrates normal competent and demonstrates normal augmentation. augmentation. T/P Trunk is compressible. T/P Trunk is compressible. PTV is compressible. PTV is compressible. RT PerV is compressible. LT PerV is compressible. Procedure This is a venous duplex using B-mode, color flow and spectral Doppler. Exam performed in department. A preliminary report was called and/or faxed to . VL/Venous Duplex US - Alejandro Extrem Interpretation Summary Deep veins of the lower extremities are bilaterally patent and compressible segmentally. There is no evidence of deep vein thrombosis on either side. Valvular competence appears intact within the proximal deep venous systems bilaterally. The great saphenous veins appear bilaterally patent and compressible segmentally. _ Ordering Physician: Cornell Yun Referring Physician: Melonie Silver Performed By: Shayy Mcallister RVHair 02/01/222209 Date Sam Pugh MD CC: DPOdalys Yun; DIRECTOR OF ANNUAL GIVING-C Melonie Silver Date Dictated: 02/01/22807 Date Transcribed: 02/01/222209 Welfare Case Worker: Signed [facility] History AND Physic yao 02-01-2022 Wound Ctr History & Physical [facility] [address] [place] [address] H P Exam - Wound Care 02/01/22906 MR#: [id number] Acct: [id number] Name: PHANI OLSEN Rep #: [id number] : 1950 71 From: Sam Pugh MD PCP: SARAHY Govea Status:REG RCR Location: [facility] History of Present Illness Date of Service: 02/01/22 Chief Complaint: Chronic venous insufficiency, venous hypertension with inflammation and ulceration, venous ulceration of the left lower extremity History of Wound: This is a 71-year-old female with a longstanding history of chronic venous disease. She has had swelling and edema in her lower extremities for many years. She has had 2 recent episodes of spontaneous bleeding from a varicosity near the left medial malleolus. Upon intake, she was being treated with an Unna boot to the left lower extremity. The patient sleeps on a flat surface at night. She claims to be active. She denies a history of thrombophlebitis. She is a Ab0. [facility] Medical History Arthritis Leg edema Leg swelling Spontaneous hemorrhage Venous hypertension, chronic, with ulcer and inflammation Venous stasis ulcer of ankle Home Medications calcium 167 mg-vitamin D3 1.67 mcg-magnesium 83 mg capsule cap PO 12/28/21 [History Last Taken Unknown] omega-3 fatty acids PO 12/28/21 [History Last Taken Unknown] Vital Signs Vital Signs Vital Signs: 02/01/22 08:34 Temperature 97.9 F Temperature Source Temporal Pulse Rate 63 Respiratory Rate 20 H Blood Pressure 153/77 H Blood Pressure Mean 102 Blood Pressure Source Monitor Weight Weight: 143 lb 4.176 oz Physical Exam Const alert, oriented x3, no apparent distress and well nourished General Appearance: cooperative, comfortable, well kempt and well developed Orientation / Consciousness: awake, oriented to person, oriented to place and oriented to time HEENT normocephalic and head/scalp atraumatic Head and Scalp: normal to inspection, normocephalic and atraumatic External Ear: external ears normal Eyes PERRL and EOMs intact bilaterally General Eye: normal appearance of both eyes Resp normal respiratory effort, normal air movement, no retractions and no use of accessory muscles Effort and Inspection: able to speak in complete sentences Extremity no calf tenderness General Extremity: Negative for clubbing or cyanosis Skin Wound Narrative: Multiple large varicosities are noted in the lower extremities bilaterally. The varicosities are more prominent in the left lower extremity, and located primarily in the calf. A prominent vein is noted overlying the left medial malleolus, the site of 2 recent episodes of spontaneous bleeding. A small, punctate scab is noted at the site of previous bleeding. No active bleeding is currently noted. Mild hemosiderin staining is noted in the left gaiter area. Neuro oriented x3, CN's II-XII intact bilaterally and moves all extremities Sensorium / Orientation: awake, alert, oriented to person, oriented to place and oriented to time Psych Appearance: grossly normal and appropriate Attitude: calm Activity / Motor Behavior: appropriate eye contact Speech: normal speech Mood Affect: euthymic mood Thought Process: normal thought process Thought Content: normal thought content Attention / Concentration: attention grossly intact Debridement Note Debridement Note No debridement was completed: No debridement was completed today (There are no open wounds or ulcerations.) Post-Debridement Measurements and Additional Note: Post-Debridement Measurements/Treatmen t - Nurse 1 - General Ulcer Assessment Start: 02/01/22 08:34 Freq: Status: Active Protocol: WC.LOWEXT Activity Type Activity Date Activity User E-sign Co-sign Detail Recorded Client Recorded Date Recorded By Document 02/01/22 08:34 DL [id number] 02/01/22 08:42 DL 02/01/22 08:34 - Today's Visit Information Type of service Follow-up Visit (Physician/WILDLIFE BIOSTATION RESEARCH ECOLOGIST ) Arrival Mode Ambulatory Transfer Assistance None Patient Identification Verified (Name Yes ) Patient Requires Transmission-Based No Precautions Height and Weight Weight 143 lb 4.176 oz Weight in Pounds 143.3 lbs Weight Measurement Method Standing Scale Vital Signs Temperature (97.8 F-99.1 F) 97.9 F Temperature Source Temporal Pulse Rate (60-100) 63 Pulse Location Monitor Respiratory Rate (12-18) 20 H Respiratory rate source Observation Blood Pressure (90/60-120/80) 153/77 H Blood Pressure Mean 102 Source Monitor History Since Last Visit- (Skip if this is Patient's initial visit) Have you changed medications since your No last visit? Any new allergies or adverse reacti (more content not included)... [facility] History AND Physic yao 01-04-2022 Wound Ctr History & Physical [facility] [address] [place] [address] H P Exam - Wound Care 01/04/22 1410 MR#: [id number] Acct: [id number] Name: PHAIN OLSEN Rep #: [id number] : 1950 71 From: Sam Pugh MD PCP: SARAHY Govea Status:REG RCR Location: History of Present Illness Date of Service: 01/04/22 Chief Complaint: Chronic venous insufficiency, venous hypertension with inflammation and ulceration, venous ulceration of the left lower extremity History of Wound: This is a 71-year-old female with a longstanding history of chronic venous disease. She has had swelling and edema in her lower extremities for many years. She has had 2 recent episodes of spontaneous bleeding from a varicosity near the left medial malleolus. She is currently being treated with an Unna boot to the left lower extremity. The patient sleeps on a flat surface at night. She claims to be active. She denies a history of thrombophlebitis. She is a Ab0. [facility] Medical History Arthritis Leg edema Leg swelling Spontaneous hemorrhage Venous hypertension, chronic, with ulcer and inflammation Venous stasis ulcer of ankle Home Medications calcium 167 mg-vitamin D3 1.67 mcg-magnesium 83 mg capsule cap PO 12/28/21 [History Last Taken Unknown] omega-3 fatty acids PO 12/28/21 [History Last Taken Unknown] Vital Signs Vital Signs Vital Signs: 01/04/22 08:31 Temperature 97.4 F L Temperature Source Temporal Pulse Rate 87 Blood Pressure 155/61 H Blood Pressure Mean 92 Blood Pressure Source Monitor Blood Pressure Position Sitting Blood Pressure Location Right Arm Physical Exam Const alert, oriented x3, no apparent distress and well nourished General Appearance: cooperative, comfortable, well kempt and well developed Orientation / Consciousness: awake, oriented to person, oriented to place and oriented to time HEENT normocephalic and head/scalp atraumatic Head and Scalp: normal to inspection, normocephalic and atraumatic External Ear: external ears normal Eyes PERRL and EOMs intact bilaterally General Eye: normal appearance of both eyes Resp normal respiratory effort, normal air movement, no retractions and no use of accessory muscles Effort and Inspection: able to speak in complete sentences Extremity no calf tenderness General Extremity: Negative for clubbing or cyanosis Skin Wound Narrative: Multiple large varicosities are noted in the lower extremities bilaterally. The varicosities are more prominent in the left lower extremity, and located primarily in the calf. A prominent vein is noted overlying the left medial malleolus, the site of 2 recent episodes of spontaneous bleeding. Mild hemosiderin staining is noted in the left gaiter area. Neuro oriented x3 and CN's II-XII intact bilaterally Sensorium / Orientation: awake, alert, oriented to person, oriented to place and oriented to time Psych Appearance: grossly normal and appropriate Attitude: calm Activity / Motor Behavior: appropriate eye contact Speech: normal speech Mood Affect: euthymic mood Thought Process: normal thought process Thought Content: normal thought content Attention / Concentration: attention grossly intact Debridement Note Debridement Note Post-Debridement Measurements and Additional Note: Post-Debridement Measurements/Treatmen t - Nurse 1 - General Ulcer Assessment Start: 12/28/21 10:30 Freq: Status: Active Protocol: RAY Activity Type Activity Date Activity User E-sign Co-sign Detail Recorded Client Recorded Date Recorded By Document 12/28/21 10:35 AK [id number] 12/28/21 10:53 AK Document 01/04/22 08:31 KR [id number] 01/04/22 08:36 KR 12/28/21 01/04/22 10:35 08:31 - Today's Visit Information Type of service Initial Visit Follow-up Visit (Physician/WILDLIFE BIOSTATION RESEARCH ECOLOGIST ) Arrival Mode Ambulatory Ambulatory Patient Identification Verified (Name Yes Yes ) Patient Requires Transmission-Based No Precautions Vital Signs Temperature (97.8 F-99.1 F) 97.9 F 97.4 F L Temperature Source Temporal Temporal Pulse Rate (60-100) 66 87 Pulse Location Monitor Monitor Blood Pressure (90/60-120/80) 167/90 H 155/61 H Blood Pressure Mean 115 92 Source Monitor Monitor Position Sitting Blood Pressure Location Right Arm History Since Last Visit- (Skip if this is Patient's initial visit) Have you changed medications since your No last visit? Any new allergies or adverse reactions No Had a fall/change in ADL's that may No increase risk of falls Signs or symptoms of abuse and/or No neglect since last visit Have you been in the hospital since your No last visit? Has dressing in place as prescribed Yes Thompson (more content not included)... [facility] History AND Physic yao 12-28-2021 Wound Ctr History & Physical [facility] [address] [place] [address] H P Exam - Wound Care 12/28/21 1052 MR#: [id number] Acct: [id number] Name: PHANI OLSEN Rep #: [id number] : 1950 71 From: Cornell Yun DPM PCP: SARAHY Govea Status:REG RCR Location: History of Present Illness Date of Service: 12/28/21 Progress of Wound: This 71-year-old female was seen for varicosities noted to bilateral legs with edema and irritation to her medial left ankle there is no evidence of full-thickness wound formation at this time patient denies any constitutional symptoms denies any pain to the site itchiness or irritation. Patient denies any use of elevation compression for edema management. No other complaints at this time. [facility] Home Medications calcium 167 mg-vitamin D3 1.67 mcg-magnesium 83 mg capsule cap PO 12/28/21 [History Last Taken Unknown] omega-3 fatty acids PO 12/28/21 [History Last Taken Unknown] Physical Exam Narrative Patient is alert oriented person place and time. Vascular: Dorsalis pedis posterior tibial pulses palpable 2 out of 4 to bilateral lower extremity. +1 pitting edema noted to Venkatesh malleoli region bilaterally. There is noted to be tortuous white varicosities bilaterally with hemosiderin deposits and a focal varicosity noted to the medial malleoli region as well as the distal lateral malleolus on the left side. Some skin irritation to the site. Patient notes is from tape from a dressing she has been applying at home. Neurologic: Light touch protective sensation intact to bilateral feet and Achilles tendon deep tendon reflex intact. Dermatologic: No evidence of full-thickness wound breakdown at this time. Musculoskeletal: No pain with calf squeeze or palpation of popliteal fossa. No gross deformity at this time. Debridement Note Debridement Note Post-Debridement Measurements and Additional Note: Post-Debridement Measurements/Treatmen t WC - Nurse 2 - General Ulcer CM Notes Start: 12/28/21 10:30 Freq: Status: Active Protocol: Activity Type Activity Date Activity User E-sign Co-sign Detail Recorded Client Recorded Date Recorded By Document 12/28/21 10:30 MW [id number] 12/28/21 10:33 MW 12/28/21 10:30 Pain Scale: 0-10 Numeric Is Patient Pain Free? Yes Assessment/Plan Assessment/Plan (1) Venous insufficiency (chronic) (peripheral): CODE(S): I87.2 - Venous insufficiency (chronic) (peripheral) PLAN: Patient examined evaluated, all findings cussed patient detail. Patient is condition and etiology as well as prognosis and treatment discussed with patient in great detail. Irritation appears to be secondary to venous insufficiency. At this time I recommend compression, elevation and exercise for edema management. Today we ordered venous studies Patient was wrapped in an Unna boot she will follow-up in 1 week for evaluation by Dr. Pugh. In the meantime she will continue compression elevation and exercise for edema management, patient will likely require compression stockings to to manage edema long-term and pending venous studies she will follow up with Dr. Pugh for possible intervention. 12/28/21 1058 Cosigner Signature (if applicable): CC: Signed [facility] EMERGENCY REPORTon EMERGENCY REPORT [facility] EMERGENCY ROOM REPORT NAME ACCOUNT SEX AGE ADMIT DISCHARGE PT MED. RECORD# NUMBER DATE DATE TYPE PHANI OLSEN [id number] F 70 01/21/21 01/21/21 3 ROOM: ER DATE OF : 1950 DICTATING PHYSICIAN: Enrrique Hunt CHIEF COMPLAINT: Fall with facial and nasal injury. HISTORY OF PRESENT ILLNESS: The patient states that she was pulling up a small incline on her driveway and slipped, falling directly forward onto the driveway onto her face. She states that her face and nose struck directly causing marked nasal bleeding. She did not have any loss of consciousness. She was able to get up and was ambulatory since. He is complaining of pain only to the face and nasal area. No neck pain. No chest pain. No extremity pain. No numbness or tingling to the extremities. She states that she had a lot of bleeding initially from the front of the nose. She states now it feels like her nose is all stuffy and clotted, and she has some mild blood running down her throat. No respiratory distress or other complaints. PAST MEDICAL HISTORY: Significant for hypertension. Otherwise, no medical problems. She has had diverticulitis in the past. She is not on any blood thinning products. PAST SURGICAL HISTORY: She has not had previous surgeries. ALLERGIES: No allergies. SOCIAL HISTORY: The patient is Protestant. She lives at home. She does not smoke or drink alcohol, accompanied here with family. REVIEW OF SYSTEMS: No recent illnesses. No injuries, cough or congestion. No underlying heart or lung disease or bowel or bladder symptoms. PHYSICAL EXAMINATION: This is a 70-year-old, generally thin Protestant female who is awake, alert and appropriate. She does not appear toxic. Her skin is pink, warm and dry. She has moderate nasal swelling diffusely but no open areas. No obvious deformity. There is some blood in the nares but no septal hematoma or any obvious active bleeding. Head and scalp appear normal. Pupils are equal, round and reactive to light. Extraocular muscles are intact. TMs are normal. Nose is normal. Mouth and throat appear normal. Neck is supple without adenopathy. Lungs are clear without crackles or wheezes. She moves all extremities appropriately without any pain or tenderness to the extremities. Normal neurovascular examination. Vital signs: Temperature is 97.6, pulse 71, respirations 17, blood pressure 174/107, and oxygen saturation 98%. Page 1 of 2 PHANI OLSEN Emergency Room Report PHANI OLSEN : 1950 DIAGNOSTIC DATA: CT did not show any definitive fracture, though there was significant edema to the right superior and inferior nasal turbinates. Air-fluid level in the maxillary sinuses. EMERGENCY DEPARTMENT COURSE AND TREATMENT: We proceeded to get a facial CT. No findings that would suggest any surgical need. I discussed management with them. I recommended limited activity over the next 24-48 hours. Ice to the area. I did give her a prescription for amoxicillin for 5 to 7 days. She is to return if symptoms worsen. Follow up with family doctor in 2 to 3 days. DIAGNOSIS: Fall with significant nasal and facial contusions - suspect occult nasal and possible maxillary fractures. Dictated By: Enrrique Hunt MD 01/21/21 21:17 JOB #: [id number] Transcribed By: felicity 01/22/21 09:08 Electronically signed by: ALICE Hunt M.D. 01/29/21 07:24 Page 2 of 2 PHANI OLSEN Emergency Room Report [facility] CT FACIAL BONES W/O CONTRAST on 01-21-2021 CT FACIAL BONES W/O CONTRAST [place] [address] Patient: PHANI OLSEN. Phone#: : 1950 Age: 70 Gender: F Pt. Type: ER Account: [id number] Location: 052 Ordering: ENRRIQUE HUNT Exam Date: 01/21/2021/17:41 Family Phys: GATITO HUNT Charge Code: 032408 Physician: [place] Order #: [id number] DLP Dose#: 27.8 PROCEDURE: CT FACIAL BONES WITHOUT CONTRAST COMPARISON: None. INDICATIONS: Trauma. TECHNIQUE: After obtaining the patient's consent, CT images were created without non-ionic intravenous contrast. All CT scans at this facility use dose modulation, iterative reconstruction, and/or weight based dosing when appropriate to reduce radiation dose to as low as reasonably achievable. IV CONTRAST: No IV contrast used,0ml TOTAL DOSE: 27.8 CTDIvol(mGy) FINDINGS: FACIAL BONES: Normal. No bony lesion or fracture SINUSES: There is mucosal thickening in the right orbital meatal junction. There is minimal mucosal thickening in the ethmoid and maxillary sinuses. NASAL FOSSA: Nasal septum is deviated to the left. The right superior and inferior nasal turbinates are edematous. SKULL BASE: Normal. No mass or bone destruction. ORBITS: Normal. No visible mass, hematoma, edema or fracture. CAVERNOUS SINUS: Normal. Symmetric appearance with no visible lesion. SALIVARY GLANDS: Normal. The parotid and submandibular glands are unremarkable. OTHER: Degenerative changes of the spine are present.. The nasopharynx, oropharynx, and oral cavity are unremarkable. No lymphadenopathy. CONCLUSION: 1. There is no evidence of acute fracture. 2. There is edema of the right superior and inferior nasal turbinates. 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 [place] [id number] Patient: PHANI OLSEN Phone#: : [phone] Age: 70 Gender: F Pt. Type: ER Account: [id number] Location: [id number] Ordering: ENRRIQUE HUNT Exam Date: 01/21/2021/17:41 Family Phys: GATITO GILBERT Charge Code: [id number] Physician: [place] Order #: [id number] DLP Dose#: [id number] Dictated by: Marzena Zaragoza MD on 01/21/2021 at 17:51 Approved by: Marzena Zaragoza MD on 01/21/2021 at 17:55 Normal [facility] Laboratory - Chemistry and C hemistry - challengeon 02-21-2018 Cholesterol [Mass/Vol] 267 mg/dL Abnormal 50 - 199 mg/dL [facility] Cholesterol in HDL [Mass/Vol] 85 mg/dL Abnormal 40 - 59 mg/dL [facility]. Cholesterol in LDL [Mass/Vol] 163 mg/dL Abnormal 0 - 129 mg/dL [facility] Triglyceride [Mass/Vol] 96 mg/dL Normal 3 - 149 mg/dL [facility] Laboratory - Chemistry and C hemistry - challengeon 08-02-2017 Albumin BCP dye [Mass/Vol] 4.1 g/dL Normal 3.2 - 4.8 g/dL [facility] Albumin/Globulin [Mass ratio] 1.1 {ratio} Normal 0.9 - 1.6 {ratio} [facility]. ALP [Catalytic activity/Vol] 88 U/L Normal 38 - 126 U/L [facility]. ALT With P-5'-P [Catalytic activity/Vol] 30 U/L Normal 10 - 49 U/L [facility]. AST With P-5'-P [Catalytic activity/Vol] 25 U/L Normal 8 - 34 U/L [facility]. Bilirubin [Mass/Vol] 0.7 mg/dL Normal 0.2 - 1.2 mg/dL [facility] Calcium [Mass/Vol] 9.3 mg/dL Normal 8.4 - 10. 1 mg/dL [facility] Chloride [Moles/Vol] 106 mmol/L Normal 98 - 110 meq/L [facility] Cholesterol [Mass/Vol] 280 mg/dL Abnormal 50 - 199 mg/dL [facility] Cholesterol in HDL [Mass/Vol] 90 mg/dL Abnormal 40 - 59 mg/dL [facility] Cholesterol in LDL [Mass/Vol] 164 mg/dL Abnormal 0 - 129 mg/dL [facility] CO2 [Moles/Vol] 30 mmol/L Normal 22 - 32 meq/L [facility]; [facility] Creatinine [Mass/Vol] 0.88 mg/dL Normal 0.50 - 1.20 mg/dL [facility] GFR/1.73 sq M.predicted among blacks MDRD (S/P/Bld) [Vol rate/Area] mL/min/{1.73_m2} Normal [facility] Work Phone: GFR/1.73 sq M.predicted among non-blacks MDRD (S/P/Bld) [Vol rate/Area] mL/min/{1.73_m2} Normal [facility] Work Phone: Globulin (S) [Mass/Vol] 3.6 g/dL Normal 1.5 - 3.8 g/dL [facility] Glucose [Mass/Vol] 79 mg/dL Abnormal 82 - 115 mg/dL [facility]; [facility] Glucose Glucometer (BldC) [Moles/Vol] 82 mg/dL Normal 60 - 105 mg/dL [facility] Iron [Mass/Vol] 149 ug/dL Normal 37 - 170 ug/dL [facility] Potassium [Moles/Vol] 4.2 mmol/L Normal 3.5 - 5.0 meq/L [facility] Protein [Mass/Vol] 7.7 g/dL Normal 6.0 - 8.5 g/dL [facility] Sodium [Moles/Vol] 142 mmol/L Normal 136 - 145 meq/L [facility]; [facility] Triglyceride [Mass/Vol] 129 mg/dL Normal 3 - 149 mg/dL [facility] TSH Qn 2.870 m[IU]/L Normal 0.360 - 3.740 {mcIU/mL} [facility] Urea nitrogen [Mass/Vol] 17.0 mg/dL Normal 8.0 - 22.0 mg/dL [facility] Urea nitrogen/Creatinine [Mass ratio] 19.3 {ratio} Normal 10.0 - 22.0 {ratio} [facility] Laboratory - Hematology and Cell countson 08-02-2017 Basophils (Bld) [#/Vol] 0.10 10 Normal 0.00 - 0.27 10 [facility] Work Phone: Basophils/100 WBC (Bld) 1.4 % Normal 0.0 - 2.5 % [facility] Work Phone: Eosinophils/100 WBC (Bld) 1.8 % Normal 0.0 - 6.0 % [facility] Work Phone: Erythrocyte distribution width (RBC) [Ratio] 13.8 % Normal 11.5 - 15.5 % [facility] Hematocrit (Bld) [Volume fraction] 40.9 % Normal 34.0 - 46.0 % [facility] Hemoglobin (Bld) [Mass/Vol] 13.6 g/dL Normal 12.0 - 16.0 g/dL [facility].; [facility] Lymphocytes (Bld) [#/Vol] 1.60 10 Normal 0.90 - 4.[address] [facility].; [facility]. Work Phone: Lymphocytes/100 WBC (Bld) 34.7 % Normal 20.0 - 40.0 % [facility]. Work Phone: MCH (RBC) [Entitic mass] 29.7 pg Normal 27.0 - 33.0 pg [facility].; [facility]. MCHC (RBC) [Mass/Vol] 33.1 g/dL Normal 32.0 - 36.0 g/dL [facility]. MCV (RBC) [Entitic vol] 89.7 fL Normal 80.0 - 99.[address] [facility].; [facility]. Monocytes (Bld) [#/Vol] 0.40 10 Normal 0.09 - 1.40 10 [facility].; [facility]. Work Phone: Monocytes/100 WBC (Bld) 8.8 % Normal 2.0 - 13.0 % [facility].; [facility]. Work Phone: Neutrophils (Bld) [#/Vol] 2.50 10 Normal 2.25 - 8.10 10 [facility].; [facility]. Work Phone: Neutrophils/100 WBC (Bld) 53.3 % Normal 50.0 - 75.0 % [facility].; [facility]. Work Phone: Platelet mean volume (Bld) [Entitic vol] 8.5 fL Normal 6.6 - 10.[address] [facility].; [facility] Platelets (Bld) [#/Vol] 213 10 Normal 150 - 450 10 [facility].; [facility]. RBC (Bld) [#/Vol] 4.56 10 Normal 4.10 - 5.30 10 [facility]. WBC (Bld) [#/Vol] 4.70 10 Normal 4.50 - 10.80 10 [facility]. No Panel Informationon 08-02 Electrolyte Balance 6.0 meq/L Normal 4.0 - 15 .0 meq/L [facility].; [facility] Eosinophil, Absolute 0.10 10 Normal 0.00 - 0.65 10 [facility].; [facility] Work Phone: Laboratory - Chemistry and C hemistry - challengeon 04-16-2016 Albumin [Mass/Vol] 4.2 g/dL Normal 3.4 - 4.8 g/dL [facility].; [facility]. Work Phone: Albumin [Mass/Vol] 1.7 g/dL Abnormal 0.9 - 1.6 [facility].; [facility]. Work Phone: ALT [Catalytic activity/Vol] 21 U/L Normal 8 - 35 U/L [facility].; [facility] Work Phone: Anion gap [Moles/Vol] 14 mmol/L Normal 10 - 20 mmol/L [facility].; [facility]. Work Phone: AST [Catalytic activity/Vol] 37 U/L Normal 13 - 39 U/L [facility]. Work Phone: Bilirubin [Mass/Vol] 0.4 mg/dL Normal 0.0 - 1.5 mg/dL [facility] Work Phone: Calcium [Mass/Vol] 9.1 mg/dL Normal 8.6 - 10. 2 mg/dL [facility]. Work Phone: Chloride [Moles/Vol] 106 mmol/L Normal 98 - 107 mmol/L [facility] Work Phone: CO2 [Moles/Vol] 27.0 mmol/L Normal 21.0 - 31.0 mmol/L [facility]. Work Phone: Creatinine [Mass/Vol] 0.9 mg/dL Normal 0.6 - 1.2 mg/dL [facility]. Work Phone: GFR/1.73 sq M.predicted among blacks MDRD (S/P/Bld) [Vol rate/Area] mL/min/{1.73_m2} Normal 60 - 999 {ML/MINUTE} [facility].; [facility]. Work Phone: GFR/1.73 sq M.predicted MDRD (S/P/Bld) [Vol rate/Area] mL/min/{1.73_m2} Normal 60 - 999 {ML/MINUTE} [facility].; [facility]. Work Phone: Globulin (S) [Mass/Vol] 2.5 g/dL Normal 1.5 - 3.8 g/dL [facility] Work Phone: Glucose [Mass/Vol] 87 mg/dL Normal 74 - 106 mg/dL [facility]; [facility] Work Phone: Potassium [Moles/Vol] 4.6 mmol/L Normal 3.5 - 5.1 mmol/L [facility] Work Phone: Protein [Mass/Vol] 6.7 g/dL Normal 6.4 - 8.3 g/dL [facility]; [facility] Work Phone: Sodium [Moles/Vol] 142 mmol/L Normal 136 - 145 mmol/L [facility] Work Phone: Troponin I.cardiac Qn 0.01 ng/mL Normal 0.00 - 0.05 ng/mL [facility] Work Phone: Urea nitrogen [Mass/Vol] 21 mg/dL Abnormal 6 - 20 mg/dL [facility] Work Phone: Urea nitrogen/Creatinine [Mass ratio] 23 {ratio} Normal 0 - 30 {ratio} [facility] Work Phone: Laboratory - Hematology and Cell countson 04-16-2016 Basophils (Bld) [#/Vol] 0.10 {x10EE3/UL} Normal 0.00 - 0.10 {x10EE3/UL} [facility] Work Phone: Basophils/100 WBC (Bld) 1.2 % Normal 0.0 - 2.0 % [facility] Work Phone: CBC panel Auto (Bld) Normal [facility] Work Phone: Eosinophils (Bld) [#/Vol] 0.10 {x10EE3/UL} Normal 0.00 - 0.50 {x10EE3/UL} [facility]. Work Phone: Eosinophils/100 WBC (Bld) 2.3 % Normal 0.0 - 7.0 % [facility] Work Phone: Erythrocyte distribution width (RBC) [Ratio] 13.3 % Normal 12.0 - 15.6 % [facility] Work Phone: Hematocrit (Bld) [Volume fraction] 40.2 % Normal 34.0 - 46.0 % [facility] Work Phone: Hemoglobin (Bld) [Mass/Vol] 13.5 g/dL Normal 12.0 - 16.0 g/dL [facility]. Work Phone: Lymphocytes (Bld) [#/Vol] 1.70 {x10EE3/UL} Normal 0.80 - 2.80 {x10EE3/UL} [facility] Work Phone: Lymphocytes/100 WBC (Bld) 26.6 % Normal 20.0 - 45.0 % [facility] Work Phone: MCH (RBC) [Entitic mass] 29 pg Normal 27 - 33 pg [facility] Work Phone: MCHC (RBC) [Mass/Vol] 34 {X10_3} Normal 32 - 36 {X10_3} [facility]; [facility] Work Phone: MCV (RBC) [Entitic vol] 88 fL Normal 80 - 99 fL [facility]; [facility] Work Phone: Monocytes (Bld) [#/Vol] 0.50 {x10EE3/UL} Normal 0.20 - 1.00 {x10EE3/UL} [facility].; [facility]. Work Phone: Monocytes/100 WBC (Bld) 7.4 % Normal 0.0 - 10.0 % [facility]; [facility]. Work Phone: Morphology Silas (Bld) [Interp] N/A Normal [facility]; [facility]. Work Phone: Neutrophils (Bld) [#/Vol] 4.00 {x10EE3/UL} Normal 1.50 - 7.10 {x10EE3/UL} [facility].; [facility] Work Phone: Neutrophils/100 WBC (Bld) 62.5 % Normal 46.0 - 76.0 % [facility]; [facility] Work Phone: Platelet mean volume (Bld) [Entitic vol] 8.3 fL Normal 6.6 - 10.5 fL [facility]; [facility] Work Phone: Platelets (Bld) [#/Vol] 254 {x10EE3/UL} Normal 150 - 450 {x10EE3/UL} [facility]. Work Phone: RBC (Bld) [#/Vol] 4.57 {x_10EE6/UL} Normal 4.10 - 5.30 {x_10EE6/UL} [facility] Work Phone: WBC (Bld) [#/Vol] 6.4 {x_10EE3/UL} Normal 4.5 - 10.8 {x_10EE3/UL} [facility] Work Phone: No Panel Informationon 04-16 AGE 65 {years} Normal [facility].; [facility]. Work Phone: ALK PHOS 59 U/L Normal 38 - 126 U/L [facility] [employer] [place]; [employer] [facility]. Work Phone: CMP with eGFR Normal [facility] [place]; [facility]. Work Phone: MANUAL DIFF N/A Normal [facility]; [facility]. Work Phone: Laboratory - Chemistry and C hemistry - challengeon 08-18-2014 TSH Qn 2.19 m[IU]/L Normal 0.36 - 3.74 {mcIU/mL} [facility].; [facility] Laboratory - Hematology and Cell countson 08-18-2014 ESR Photometric method (Bld) [Velocity] 26 mm/h Normal 0 - 30 mm/h [facility]; [facility] Vital Signs Date Time Vital Sign Value Performing Clinician Faci lity 09-02-2024 16:04-0400 Body height 160.02 cm Dilcia Culver RN [facility]; [facility] 09-02-2024 16:04-0400 Body mass index (BMI) [Ratio] 24.8 kg/m2 Dilcia Culver RN [facility] 09-02-2024 16:04-0400 Body surface area Derived from formula 1.66 m2 Dilcia Culver RN [facility] 09-02-2024 16:04-0400 Body weight 63.5 kg Dilcia Culver RN [facility].; [facility] 09-02-2024 16:04-0400 Diastolic blood pressure 78 mm[Hg] Dilcia Culver RN [facility] [employer]. Comment on above: Patient Position: Sitting; Cuff Location : Left Arm; Cuff Size: Large 09-02-2024 16:04-0400 Heart rate 62 /min Dilcia Culver RN [facility]. Comment on above: Pattern: Regular 09-02-2024 16:04-0400 Systolic blood pressure 158 mm[Hg] Dilcia Culver RN [facility]. Comment on above: Patient Position: Sitting; Cuff Location : Left Arm; Cuff Size: Large 08-16-2022 14:57-0500 Body height 160.02 cm Dilcia Culver RN [facility] 08-16-2022 14:57-0500 Body mass index (BMI) [Ratio] 24.8 kg/m2 Dilcia Culver RN [facility] 08-16-2022 14:57-0500 Body surface area Derived from formula 1.66 m2 Dilcia Culver RN [facility] 08-16-2022 14:57-0500 Body temperature 99.4 [degF] Dilcia Culver RN [facility].; [place] [facility]. Comment on above: Method: Oral 08-16-2022 14:57-0500 Body weight 63.5 kg Dilcia Culver RN [facility].; [facility] 08-16-2022 14:57-0500 Diastolic blood pressure 77 mm[Hg] Dilcia Culver RN [facility].; [facility]. Comment on above: Patient Position: Sitting; Cuff Location : Left Arm; Cuff Size: Large 08-16-2022 14:57-0500 Heart rate 98 /min Dilcia Culver RN [facility].; [facility]. Comment on above: Pattern: Regular 08-16-2022 14:57-0500 Inhaled oxygen concentration 21 % Dilcia Culver RN [facility].; [facility]. Comment on above: Room air 08-16-2022 14:57-0500 SaO2% (BldA) [Mass fraction] 94 % Dilcia Culver RN [facility].; [facility]. 08-16-2022 14:57-0500 Systolic blood pressure 130 mm[Hg] Dilcia Culver RN [facility].; [facility]. Comment on above: Patient Position: Sitting; Cuff Location : Left Arm; Cuff Size: Large 03-15-2022 08:57-0400 Body temperature 97 [degF] [facility] Work Phone: 03-15-2022 08:57-0400 Diastolic blood pressure 56 mm[Hg] [facility] Work Phone: 03-15-2022 08:57-0400 Heart rate 55 /min [facility] Work Phone: 03-15-2022 08:57-0400 Respiratory rate 16 /min [facility] Work Phone: 03-15-2022 08:57-0400 Systolic blood pressure 138 mm[Hg] [facility] Work Phone: 03-11-2022 00:04-0400 Body weight 64.98 kg [facility] Work Phone: 02-01-2022 08:34-0400 Body temperature 97.9 [degF] [facility] Work Phone: 02-01-2022 08:34-0400 Body weight 64.98 kg [facility] Work Phone: 02-01-2022 08:34-0400 Diastolic blood pressure 77 mm[Hg] [facility] Work Phone: 02-01-2022 08:34-0400 Heart rate 63 /min [facility] Work Phone: 02-01-2022 08:34-0400 Respiratory rate 20 /min [facility] Work Phone: 02-01-2022 08:34-0400 Systolic blood pressure 153 mm[Hg] [facility] Work Phone: 01-04-2022 08:31-0400 Body temperature 97.4 [degF] [facility] Work Phone: 01-04-2022 08:31-0400 Diastolic blood pressure 61 mm[Hg] [facility] Work Phone: 01-04-2022 08:31-0400 Heart rate 87 /min [facility] Work Phone: 01-04-2022 08:31-0400 Systolic blood pressure 155 mm[Hg] [facility] Work Phone: 11-03-2021 15:39-0400 Body height 160.02 cm Dilcia Culver RN [facility].; [facility]. 11-03-2021 15:39-0400 Body mass index (BMI) [Ratio] 26.39 kg/m2 Dilcia Culver RN [facility].; [facility]. 11-03-2021 15:39-0400 Body surface area Derived from formula 1.71 m2 Dilcia Culver RN [facility].; [facility]. 11-03-2021 15:39-0400 Body temperature 97.9 [degF] Dilcia Culver RN [facility], [employer].; [facility] Comment on above: Method: Oral 11-03-2021 15:39-0400 Body weight 67.59 kg Dilcia Culver RN [facility] 11-03-2021 15:39-0400 Diastolic blood pressure 79 mm[Hg] Dilcia Culver RN [facility], [facility].; [facility] Comment on above: Patient Position: Sitting; Cuff Location : Left Arm; Cuff Size: Large 11-03-2021 15:39-0400 Heart rate 57 /min Dilcia Culver RN [facility], [employer].; [facility] Comment on above: Pattern: Regular 11-03-2021 15:39-0400 Inhaled oxygen concentration 21 % Dilcia Culver RN [facility] Comment on above: Room air 11-03-2021 15:39-0400 SaO2% (BldA) [Mass fraction] 96 % Dilcia Culver RN [facility] 11-03-2021 15:39-0400 Systolic blood pressure 158 mm[Hg] Dilcia Culver RN [facility] [place] [facility] Comment on above: Patient Position: Sitting; Cuff Location : Left Arm; Cuff Size: Large 04-15-2020 13:54-0400 Body height 160.02 cm Dilcia Culver RN [facility] 04-15-2020 13:54-0400 Body mass index (BMI) [Ratio] 25.54 kg/m2 Dilcia Culver RN [facility], Inc.; [facility], Inc. 04-15-2020 13:54-0400 Body surface area Derived from formula 1.68 m2 Dilcia Culver RN [facility], Inc.; [facility], Inc. 04-15-2020 13:54-0400 Body temperature 97.8 [degF] Dilcia Culver RN [facility] [employer] [facility] Emergency DepartmentLGL/[employer].; [employer], Inc. Comment on above: Method: Oral 04-15-2020 13:54-0400 Body weight 65.41 kg Dilcia Culver RN [facility] [facility], Inc.; [employer], Inc. 04-15-2020 13:54-0400 Diastolic blood pressure 85 mm[Hg] Dilcia Culver RN [facility] [facility], Inc.; [employer], Inc. Comment on above: Patient Position: Sitting; Cuff Location : Left Arm; Cuff Size: Large 04-15-2020 13:54-0400 Heart rate 69 /min Dilcia Culver RN [facility] [facility], [employer], [employer]. Comment on above: Pattern: Regular 04-15-2020 13:54-0400 Systolic blood pressure 146 mm[Hg] Dilcia Culver RN [facility] [employer] [facility], Inc.; [employer], Inc. Comment on above: Patient Position: Sitting; Cuff Location : Left Arm; Cuff Size: Large 10-25-2018 13:12-0400 Body height 160.02 cm Dilcia Culver RN [facility], Inc.; [employer] [facility] Antony [employer] [facility], Inc. 10-25-2018 13:12-0400 Body mass index (BMI) [Ratio] 25.33 kg/m2 Dilcia Culver RN [facility] [facility], Inc.; [employer] [facility] Antony [facility], Inc. 10-25-2018 13:12-0400 Body surface area Derived from formula 1.68 m2 Dilcia Culver RN [facility] [facility], Inc.; [employer] [facility] [employer], Inc. 10-25-2018 13:12-0400 Body weight 64.86 kg Dilcia Culver RN [facility], Inc.; [employer] [facility] Antony [employer], Inc[employer] 10-25-2018 13:12-0400 Diastolic blood pressure 74 mm[Hg] Dilcia Culver RN [facility] [facility], Inc.; [employer], Inc. Comment on above: Patient Position: Sitting; Cuff Location : Left Arm; Cuff Size: Large 10-25-2018 13:12-0400 Heart rate 62 /min Dilcia Culver RN [employer] [facility], Inc.; [employer], Inc. Comment on above: Pattern: Regular 10-25-2018 13:12-0400 Systolic blood pressure 125 mm[Hg] Dilcia Culver RN [facility] [employer] [facility], Inc.; [employer], Inc. Comment on above: Patient Position: Sitting; Cuff Location : Left Arm; Cuff Size: Large 10-11-2018 13:43-0400 Body height 160.02 cm Dilcia Culver RN [facility] [employer] [facility], Inc.; [employer], Inc. 10-11-2018 13:43-0400 Body mass index (BMI) [Ratio] 24.98 kg/m2 Dilcia Culver RN [facility] [employer] [facility], Inc.; [employer], Inc. 10-11-2018 13:43-0400 Body surface area Derived from formula 1.67 m2 Dilcia Culver RN [facility] [employer] [facility], Inc.; [employer], Inc. 10-11-2018 13:43-0400 Body weight 63.96 kg Dilcia Culver RN [facility] [employer] [facility], Inc.; [employer], Inc. 10-11-2018 13:43-0400 Diastolic blood pressure 99 mm[Hg] Dilcia Culver RN [facility] [employer] [facility], Inc.; [employer], Inc. Comment on above: Patient Position: Sitting; Cuff Location : Left Arm; Cuff Size: Large 10-11-2018 13:43-0400 Heart rate 81 /min Dilcia Culver RN [facility] [employer], Inc.; [employer], Inc. Comment on above: Pattern: Regular 10-11-2018 13:43-0400 Systolic blood pressure 159 mm[Hg] Dilcia Culver RN [employer], [employer], Inc. Comment on above: Patient Position: Sitting; Cuff Location : Left Arm; Cuff Size: Large 09-29-2018 11:06-0400 Body height 160.02 cm Apple El RN [employer], Inc.; [employer], Inc. 09-29-2018 11:06-0400 Body mass index (BMI) [Ratio] 24.62 kg/m2 Apple El RN [facility], Inc.; [employer] [facility] Antony [facility], Inc. 09-29-2018 11:06-0400 Body surface area Derived from formula 1.66 m2 Apple El RN [facility], Inc.; [employer] [facility] Antony [facility], Inc. 09-29-2018 11:06-0400 Body temperature 97.9 [degF] Apple El RN [facility] [facility], Inc.; [employer], Inc. Comment on above: Method: Oral 09-29-2018 11:060400 Body weight 63.05 kg Apple El RN [facility], Inc.; [employer] [facility] Antony [employer], Inc[employer] 09-29-2018 11:06-0400 Diastolic blood pressure 86 mm[Hg] Apple El RN [facility], Inc.; [employer], Inc. Comment on above: Patient Position: Sitting; Cuff Location : Left Arm; Cuff Size: Standard 09-29-2018 11:06-0400 Heart rate 77 /min Apple El RN [facility] [facility], Inc.; [employer] [facility] [employer], Inc. Comment on above: Pattern: Regular 09-29-2018 11:06-0400 Systolic blood pressure 135 mm[Hg] Apple El RN [facility] [facility], Inc.; [employer] [facility] [employer], Inc. Comment on above: Patient Position: Sitting; Cuff Location : Left Arm; Cuff Size: Standard 03-23-2018 13:090400 Body height 160.02 cm Apple El RN [facility] Antony [facility], Inc.; [employer] [facility] Anotny [employer], Inc. 03-23-2018 13:09-0400 Body mass index (BMI) [Ratio] 24.45 kg/m2 Apple El RN [facility], Inc.; [employer] [facility] [employer], Inc[employer] 03-23-2018 13:09-0400 Body surface area Derived from formula 1.65 m2 Apple El RN [facility] [facility], Inc.; [employer], Inc. 03-23-2018 13:09-0400 Body temperature 97.7 [degF] Apple El RN [facility] [facility], Inc.; [employer] [facility], Inc. Comment on above: Method: Oral 03-23-2018 13:0400 Body weight 62.6 kg Apple El RN [facility], Inc.; [employer], Inc. 03-23-2018 13:090400 Diastolic blood pressure 70 mm[Hg] Apple El RN [facility] [facility], Inc.; [employer], Inc. Comment on above: Patient Position: Sitting; Cuff Location : Left Arm; Cuff Size: Standard 03-23-2018 13:0400 Heart rate 60 /min Apple El RN [facility] [employer] [facility], Inc.; [employer] [facility] Antony [employer], Inc. Comment on above: Pattern: Regular 03-23-2018 13:090400 Systolic blood pressure 138 mm[Hg] Apple El RN [facility] [employer] [facility], Inc.; [employer], Inc. Comment on above: Patient Position: Sitting; Cuff Location : Left Arm; Cuff Size: Standard 03-16-2018 13:450400 Body height 160.02 cm Apple El RN [facility] [facility], Inc.; [facility], Inc. 03-16-2018 13:45-0400 Body mass index (BMI) [Ratio] 24.09 kg/m2 Apple El RN [facility] [facility], Inc.; [employer] [facility] Antony [facility] [facility], Inc. 03-16-2018 13:45-0400 Body surface area Derived from formula 1.64 m2 Apple El RN [facility] [employer] [facility], Inc.; [employer], Inc. 03-16-2018 13:45-0400 Body temperature 97.7 [degF] Apple El RN [facility] [employer] [facility], Inc.; [employer], Inc. Comment on above: Method: Oral 03-16-2018 13:450400 Body weight 61.69 kg Apple El RN [facility] [employer] [facility], Inc.; [employer], Inc. 03-16-2018 13:45-0400 Diastolic blood pressure 74 mm[Hg] Apple El RN [facility], Inc.; [employer] [facility] [facility], Inc. Comment on above: Patient Position: Sitting; Cuff Location : Left Arm; Cuff Size: Standard 03-16-2018 13:45-0400 Heart rate 71 /min Apple El RN [facility], Inc.; [employer] [facility] Antony [employer], Inc. Comment on above: Pattern: Regular 03-16-2018 13:45-0400 Systolic blood pressure 135 mm[Hg] Apple El RN [facility] [facility], Inc.; [employer] [facility] [employer] [facility], Inc. Comment on above: Patient Position: Sitting; Cuff Location : Left Arm; Cuff Size: Standard 03-09-2018 12:49-0400 Body height 160.02 cm rEin Christian RN [facility] [facility], Inc.; [employer] [facility], Inc. 03-09-2018 12:49-0400 Body mass index (BMI) [Ratio] 24.27 kg/m2 Erin Christian RN [facility] [facility], Inc.; [employer] [facility], Inc. 03-09-2018 12:49-0400 Body surface area Derived from formula 1.65 m2 Erin Christian RN [facility] [employer] [facility], Inc.; [employer] [facility], Inc. 03-09-2018 12:49-0400 Body temperature 97.9 [degF] Erin Christian RN [facility] [employer] [facility], Inc.; [employer] [facility] [employer], Inc. Comment on above: Method: Oral 03-09-2018 12:49-0400 Body weight 62.14 kg Erin Christian RN [facility] [employer] [facility], Inc.; [employer] [facility] Antony [employer], Inc. 03-09-2018 12:49-0400 Diastolic blood pressure 77 mm[Hg] Erin hCristian RN [facility] [employer] [facility], Inc.; [employer] [facility] [employer], Inc. Comment on above: Patient Position: Sitting; Cuff Location : Left Arm; Cuff Size: Large 03-09-2018 12:49-0400 Heart rate 58 /min Erin Christian RN [facility] [employer] [facility], Inc.; [employer] [facility] [employer], Inc. Comment on above: Pattern: Regular 03-09-2018 12:49-0400 Systolic blood pressure 123 mm[Hg] Erin Christian RN [facility] [employer] [facility], [employer] [facility], Inc. Comment on above: Patient Position: Sitting; Cuff Location : Left Arm; Cuff Size: Large 02-21-2018 09:07-0400 Body height 160.02 cm Apple El RN [facility] [employer] [facility], Inc.; [employer] [facility], Inc. 02-21-2018 09:07-0400 Body mass index (BMI) [Ratio] 24.45 kg/m2 Apple El RN [facility] [employer] [facility], Inc.; [employer] [facility] [employer] [facility], Inc. 02-21-2018 09:07-0400 Body surface area Derived from formula 1.65 m2 Apple El RN [facility] [employer] [facility], Inc.; [employer], Inc. 02-21-2018 09:07-0400 Body temperature 98 [degF] Apple El [email or web address], Inc.; [employer], Inc. Comment on above: Method: Oral 02-21-2018 09:07-0400 Body weight 62.6 kg Apple El RN [facility] [employer] [facility], Inc.; [employer] [facility] Antony [employer], Inc. 02-21-2018 09:07-0400 Diastolic blood pressure 75 mm[Hg] Apple El RN [facility] [employer] [facility], Inc.; [employer], Inc. Comment on above: Patient Position: Sitting; Cuff Location : Left Arm; Cuff Size: Standard 02-21-2018 09:07-0400 Heart rate 60 /min Apple El RN [facility] [employer] [facility], Inc.; [employer] [facility] [employer], Inc. Comment on above: Pattern: Regular 02-21-2018 09:07-0400 Systolic blood pressure 121 mm[Hg] Apple El RN [facility] [employer] [facility], Inc.; [employer] [facility] [employer], Inc. Comment on above: Patient Position: Sitting; Cuff Location : Left Arm; Cuff Size: Standard 08-16-2017 10:08-0500 Body height 160.02 cm Dilcia Culver RN [email or web address], Inc.; [employer] 08-16-2017 10:08-0500 Body mass index (BMI) [Ratio] 23.91 kg/m2 Dilcia Culver RN [facility] [employer] [facility], Inc.; [employer] [facility], Inc. 08-16-2017 10:08-0500 Body surface area Derived from formula 1.64 m2 Dilcia Culver RN [facility] [employer] [facility], Inc.; [employer], Inc. 08-16-2017 10:08-0500 Body weight 61.24 kg Dilcia Culver RN [facility] [employer] [facility] Emergency DepartmentLGL/[employer].; [employer], Inc. 08-16-2017 10:08-0500 Diastolic blood pressure 68 mm[Hg] Dilcia Culver RN [employer] [facility] Emergency DepartmentLGL/[employer].; [employer], [employer]. Comment on above: Patient Position: Sitting; Cuff Location : Left Arm; Cuff Size: Large 08-16-2017 10:08-0500 Heart rate 59 /min Dilcia Culver RN [facility] [facility] Emergency DepartmentLGL/[employer].; [employer]. Comment on above: Pattern: Regular 08-16-2017 10:08-0500 Systolic blood pressure 149 mm[Hg] Dilcia Culver RN [employer] [facility] Emergency DepartmentLGL/[employer]. Comment on above: Patient Position: Sitting; Cuff Location : Left Arm; Cuff Size: Large 08-02-2017 10:21-0500 Body height 160.02 cm Divina Graham [employer] [facility] Emergency DepartmentLGL/[employer].; [employer], Inc. 08-02-2017 10:21-0500 Body mass index (BMI) [Ratio] 23.74 kg/m2 Divina Coleman [employer], Inc[employer] 08-02-2017 10:21-0500 Body surface area Derived from formula 1.63 m2 Divina Coleman [employer], Inc.; [employer], Inc. 08-02-2017 10:21-0500 Body temperature 97.4 [degF] Divina Coleman [employer], Inc. Comment on above: Method: Oral 08-02-2017 10:21-0500 Body weight 60.78 kg Divina Coleman [employer], Inc.; [employer], Inc. 08-02-2017 10:21-0500 Diastolic blood pressure 78 mm[Hg] Divina Coleman [employer], Inc.; [employer], Inc. Comment on above: Patient Position: Sitting; Cuff Location : Left Arm; Cuff Size: Standard 08-02-2017 10:21-0500 Heart rate 54 /min Divina Graham [employer], Inc.; [employer], Inc. Comment on above: Pattern: Regular 08-02-2017 10:21-0500 Systolic blood pressure 173 mm[Hg] Divina Graham [employer], Inc.; [employer], Inc. Comment on above: Patient Position: Sitting; Cuff Location : Left Arm; Cuff Size: Standard 02-09-2017 10:48-0400 Body height 159.38 cm Erin Christian RN [facility] [employer] [facility], Inc.; [employer], Inc. 02-09-2017 10:48-0400 Body mass index (BMI) [Ratio] 23.57 kg/m2 Erin Christian RN [facility] [employer] [facility], Inc.; [employer] [facility] [employer] [facility], Inc. 02-09-2017 10:48-0400 Body surface area Derived from formula 1.62 m2 Erin Christian RN [facility] [employer] [facility], Inc.; [employer] [facility] [employer], Inc. 02-09-2017 10:48-0400 Body weight 59.88 kg Erin Christian RN [facility] [employer] [facility], Inc.; [employer], Inc. 02-09-2017 10:48-0400 Diastolic blood pressure 74 mm[Hg] Erin Christian RN [facility] [employer] [facility], Inc.; [employer], Inc. Comment on above: Patient Position: Sitting; Cuff Location : Left Arm; Cuff Size: Large 02-09-2017 10:48-0400 Heart rate 56 /min Erin Christian RN [facility] [employer] [facility], Inc.; [employer], Inc. Comment on above: Pattern: Regular 02-09-2017 10:48-0400 Systolic blood pressure 143 mm[Hg] Erin Christian RN [employer]. Comment on above: Patient Position: Sitting; Cuff Location : Left Arm; Cuff Size: Large 12-23-2016 13:06-0400 Body height 159.38 cm [employer] Work Phone: [employer] 12-23-2016 13:06-0400 Body mass index (BMI) [Ratio] 23.75 kg/m2 [employer] Work Phone: [employer] 12-23-2016 13:06-0400 Body surface area Derived from formula 1.62 m2 [employer] Work Phone: [employer] 12-23-2016 13:06-0400 Body weight 60.33 kg [employer] Work Phone: [employer]. 12-17-2015 13:50-0400 Body height 160.02 cm Dilcia Culver RN [employer]. 12-17-2015 13:50-0400 Body mass index (BMI) [Ratio] 24.98 kg/m2 Dilcia Culver RN [employer] 12-17-2015 13:50-0400 Body surface area Derived from formula 1.67 m2 Dilcia Culver RN [employer]. 12-17-2015 13:50-0400 Body weight 63.96 kg Dilcia Culver RN [employer]. 12-17-2015 13:50-0400 Diastolic blood pressure 91 mm[Hg] Dilcia Culver RN [facility], Inc.; [facility] [employer] [facility], Inc. Comment on above: Patient Position: Sitting; Cuff Location : Left Arm; Cuff Size: Standard 12-17-2015 13:50-0400 Heart rate 55 /min Dilcia Culver RN [facility], Inc.; [facility] [employer] [facility], Inc. Comment on above: Pattern: Regular 12-17-2015 13:50-0400 Systolic blood pressure 152 mm[Hg] Dilcia Culver RN [facility], Inc.; [facility] [employer] [facility], Inc. Comment on above: Patient Position: Sitting; Cuff Location : Left Arm; Cuff Size: Standard 08-18-2014 09:55-0500 Body height 160.66 cm Apple El RN [facility], Inc.; [facility], Inc. 08-18-2014 09:55-0500 Body mass index (BMI) [Ratio] 24.69 kg/m2 Apple El RN [facility], Inc.; [facility] [employer] [facility], Inc. 08-18-2014 09:55-0500 Body surface area Derived from formula 1.67 m2 Apple El RN [facility], Inc.; [facility] [employer] [facility], Inc. 08-18-2014 09:55-0500 Body temperature 98.4 [degF] Apple El RN [facility], Inc.; [employer] [facility], Inc. Comment on above: Method: Oral 08-18-2014 09:55-0500 Body weight 63.73 kg Apple El RN [facility], Inc.; [employer] [facility] [employer], Inc. 08-18-2014 09:55-0500 Diastolic blood pressure 85 mm[Hg] Apple El RN [facility], Inc.; [employer] [facility] [employer] [facility], Inc. Comment on above: Patient Position: Sitting; Cuff Location : Left Arm; Cuff Size: Standard 08-18-2014 09:55-0500 Heart rate 71 /min Apple El RN [facility] [employer] [facility], Inc.; [employer] [facility] Antony [employer] [facility], Inc. Comment on above: Pattern: Regular 08-18-2014 09:55-0500 Systolic blood pressure 146 mm[Hg] Apple El RN [facility], Inc.; [employer] [facility], [employer]. Comment on above: Patient Position: Sitting; Cuff Location : Left Arm; Cuff Size: Standard 05-06-2014 11:05-0500 Body height 160.02 cm Erin Christian RN [facility] 05-06-2014 11:05-0500 Body mass index (BMI) [Ratio] 25.15 kg/m2 Erin Christian RN [facility] 05-06-2014 11:05-0500 Body surface area Derived from formula 1.67 m2 Erin Christian RN [facility], [facility] 05-06-2014 11:05-0500 Body temperature 97.7 [degF] Erin Christian RN [facility] Comment on above: Method: Oral 05-06-2014 11:05-0500 Body weight 64.41 kg Erin Christian RN [facility].; [facility] 05-06-2014 11:05-0500 Diastolic blood pressure 81 mm[Hg] Erni Christian RN [facility] Comment on above: Patient Position: Sitting; Cuff Location : Left Arm; Cuff Size: Large 05-06-2014 11:05-0500 Heart rate 78 /min Erin Christian RN [facility] Comment on above: Pattern: Regular 05-06-2014 11:05-0500 Systolic blood pressure 136 mm[Hg] Erin Christian RN [facility] Comment on above: Patient Position: Sitting; Cuff Location : Left Arm; Cuff Size: Large 07-16-2012 14:50-0500 Body height 160.02 cm Erin Christian RN [facility], [facility] 07-16-2012 14:50-0500 Body mass index (BMI) [Ratio] 25.86 kg/m2 Erin Christian RN [facility] 07-16-2012 14:50-0500 Body surface area Derived from formula 1.69 m2 Erin Christian RN [facility] 07-16-2012 14:50-0500 Body weight 66.23 kg Erin Christian RN [facility] 07-16-2012 14:50-0500 Diastolic blood pressure 101 mm[Hg] Erin Christian RN [facility], [facility], [employer]. Comment on above: Patient Position: Sitting; Cuff Location : Left Arm; Cuff Size: Large 07-16-2012 14:50-0500 Heart rate 60 /min Erin Christian RN [facility], [facility] [employer]. Comment on above: Pattern: Regular 07-16-2012 14:50-0500 Systolic blood pressure 171 mm[Hg] Erin Christian RN [facility], [facility], [employer]. Comment on above: Patient Position: Sitting; Cuff Location : Left Arm; Cuff Size: Large 10-24-2011 10:45-0400 Body height 160.02 cm Erin Christian RN [facility] 10-24-2011 10:45-0400 Body mass index (BMI) [Ratio] 24.8 kg/m2 Erin Christian RN [facility] 10-24-2011 10:45-0400 Body surface area Derived from formula 1.66 m2 Erin Christian RN [facility], [employer]. 10-24-2011 10:45-0400 Body temperature 97.9 [degF] Erin Christian RN [facility], [employer] [facility] Comment on above: Method: Oral 10-24-2011 10:45-0400 Body weight 63.5 kg Erin Christian RN [facility] 10-24-2011 10:45-0400 Diastolic blood pressure 88 mm[Hg] Erin Christian RN [facility] Comment on above: Patient Position: Sitting; Cuff Location : Left Arm; Cuff Size: Large 10-24-2011 10:45-0400 Heart rate 71 /min Erin Christian RN [facility] Comment on above: Pattern: Regular 10-24-2011 10:45-0400 Systolic blood pressure 144 mm[Hg] Erin Christian RN [facility] Comment on above: Patient Position: Sitting; Cuff Location : Left Arm; Cuff Size: Large 10-11-2010 11:03-0400 Body height 162.56 cm Erin Christian RN [facility] 10-11-2010 11:03-0400 Body mass index (BMI) [Ratio] 25.06 kg/m2 Erin Christian RN [facility] 10-11-2010 11:03-0400 Body surface area Derived from formula 1.71 m2 Erin Christian RN [facility] 10-11-2010 11:03-0400 Body weight 66.23 kg Erin Christian RN [facility], [employer].; [facility] 10-11-2010 11:03-0400 Diastolic blood pressure 74 mm[Hg] Erin Christian RN [facility] Comment on above: Patient Position: Sitting; Cuff Location : Left Arm; Cuff Size: Large 10-11-2010 11:03-0400 Heart rate 58 /min Erin Christian RN [facility] [employer] [facility] DepartmentL[facility]/[employer].; [facility], [employer]. Comment on above: Pattern: Regular 10-11-2010 11:03-0400 Systolic blood pressure 151 mm[Hg] Erin Christian [email or web address] DepartmentL[facility]/[employer].; [employer] [facility] Comment on above: Patient Position: Sitting; Cuff Location : Left Arm; Cuff Size: Large 09-03-2010 09:11-0500 Body temperature 97.7 [degF] Erin Christian RN [email or web address] DepartmentL[facility]/[employer].; [facility] Comment on above: Method: Oral 09-03-2010 09:11-0500 Diastolic blood pressure 81 mm[Hg] Erin Christian RN [email or web address] DepartmentLGL/[employer].; [employer] [facility], [employer]. Comment on above: Patient Position: Sitting; Cuff Location : Left Arm; Cuff Size: Large 09-03-2010 09:11-0500 Heart rate 61 /min Erin Christian RN [facility] [employer] [facility] DepartmentLGL/[employer].; [employer] [facility] Emergency DepartmentSeaMicro Inc. Comment on above: Pattern: Regular 09-03-2010 09:11-0500 Systolic blood pressure 171 mm[Hg] Eirn Christian RN [facility] [employer] [facility] DepartmentLGL/[employer].; [facility] Comment on above: Patient Position: Sitting; Cuff Location : Left Arm; Cuff Size: Large 09-03-2010 08:56-0500 Body height 160.02 cm ANDREZ RIZZO TILTING HEAD BAND SAWYER-C Work Phone: [email or web address] Emergency DepartmentLGL/[employer].; [employer] [facility] Emergency DepartmentSeaMicro Inc. 09-03-2010 08:56-0500 Body mass index (BMI) [Ratio] 26.22 kg/m2 ANDREZ ANALIA TILTING HEAD BAND SAWYER-C Work Phone: [email or web address] Emergency DepartmentLGL/[employer].; [employer] [facility] 09-03-2010 08:56-0500 Body surface area Derived from formula 1.7 m2 ANDREZ TIM [employer]-C Work Phone: [facility]; [facility] 09-03-2010 08:56-0500 Body weight 67.13 kg ANDREZ TURNERLABACH TILTING HEAD BAND SAWYER-C Work Phone: [facility]; [facility] Encounters Encounter Date Encounter Type Care Provider Facility Start: 09-02-2024 End: 09-02-2024 Office outpatient visit 10 minutes ANDREZ ANALIA TILTING HEAD BAND SAWYER-C Work Phone: [facility] Start: 08-22-2024 Review [facility]REZ [facility] [facility] [employer]-C Work Phone: [facility] Start: 08-16-2022 End: 08-16-2022 Office outpatient visit 15 minutes ANDREZ ANALIA TILTING [employer] B[employer] SAWYER-C Work Phone: [facility] Start: 03-15-2022 End: 03-15-2022 ambulatory [facility] Facility:[facility] Start: 03-15-2022 End: 03-15-2022 [facility] Start: 03-15-2022 End: 03-15-2022 ambulatory [facility] Work Phone: Start: 03-15-2022 End: 03-15-2022 Patient encounter procedure [facility] Start: 02-01-2022 End: 02-24-2022 ambulatory [facility] Facility:[facility] Start: 02-01-2022 End: 02-23-2022 ambulatory [facility] Work Phone: Start: 02-01-2022 End: 02-23-2022 [facility] Start: 01-04-2022 End: 01-24-2022 ambulatory [facility] Facility:[facility] Start: 01-04-2022 End: 01-23-2022 [facility] Start: 11-24-2021 End: 11-24-2021 Transition of Care ANDREZ ANALIA TILTING HEAD BAND SAWYER-C Work Phone: [facility] [employer] Start: 11-03-2021 End: 11-03-2021 Office outpatient visit 10 minutes ANDREZ ANALIA TILTING HEAD BAND SAWYER-C Work Phone: [employer] Start: 01-21-2021 End: 01-21-2021 Emergency department patient visit DR ENRRIQUE HUNT [facility] Start: 04-15-2020 End: 04-15-2020 Office outpatient visit 10 minutes ANDREZ ANALIA TILTING [employer] B[employer] SAWYER-C Work Phone: [employer] Start: 10-25-2018 End: 10-25-2018 Office outpatient visit 10 minutes ANDREZ ANALIA TILTING [employer] BAND SAWYER-C Work Phone: [employer] Start: 10-11-2018 End: 10-11-2018 Office outpatient visit 15 minutes ANDREZ ANALIA TILTING [employer]ER-C Work Phone: [employer] Start: 09-29-2018 End: 09-29-2018 Office outpatient visit 15 minutes ANDREZ ANALIA TILTING [employer]-C Work Phone: [employer] Start: 03-23-2018 End: 03-23-2018 Office outpatient visit 10 minutes ANDREZ ANALIA TILTING [employer]-C Work Phone: [employer] Start: 03-16-2018 End: 03-16-2018 Office outpatient visit 10 minutes ANDREZ ANALIA TILTING [employer]-C Work Phone: [employer] Start: 03-09-2018 End: 03-09-2018 Office outpatient visit 10 minutes ANDREZ ANALIA TILTING [employer] B[employer] SAWYER-C Work Phone: [employer] Start: 02-22-2018 End: 02-22-2018 Results Review ANDREZ ANALIA TILTING HEAD BAND SAWYER-C Work Phone: [facility] [employer] Start: 02-21-2018 End: 02-21-2018 Office outpatient visit 15 minutes ANDERZ TURNERLABACH TILTING HEAD BAND SAWYER-C Work Phone: [employer] [facility] [employer]. Start: 02-21-2018 End: 02-21-2018 Physical examination ANDREZ RIZZO TILTING HEAD BAND SAWYER-C Work Phone: [facility] [employer] [facility] [employer] Start: 08-16-2017 End: 08-16-2017 Historical Summary ANDREZ TURNERLABACH TILTING HEAD BAND SAWYER-C Work Phone: [facility] [employer]. Start: 08-16-2017 End: 08-16-2017 Office outpatient visit 15 minutes ANDREZ TURNERLABACH TILTING HEAD B[employer] SAWYER-C Work Phone: [employer] [facility] [employer]. Start: 08-08-2017 End: 08-08-2017 Follow-up encounter ANDREZ TURNERLABACH TILTING HEAD BAND SAWYER-C Work Phone: [employer] [facility] [employer]. Start: 08-03-2017 End: 08-03-2017 Nutrition therapy ANDREZ TURNERLABACH TILTING [employer] B[employer] SAWYER-C Work Phone: [facility] [employer]. Start: 08-02-2017 End: 08-02-2017 Office outpatient visit 15 minutes ANDREZ TURNERLABACH TILTING [employer] B[employer] SAWYER-C Work Phone: [employer] [facility] [employer]. Start: 02-09-2017 End: 02-09-2017 Office outpatient visit 10 minutes NADREZ ANALIA TILTING [employer]-C Work Phone: [employer] [facility] [employer]. Start: 12-23-2016 End: 12-23-2016 Office outpatient visit 10 minutes ANDREZ ANALIA TILTING [employer]-C Work Phone: [employer] [facility] [employer]. Start: 04-20-2016 End: 04-20-2016 Historical Summary ANDREZ ANALIA TILTING HEAD B[employer] SAWYER-C Work Phone: [facility] Emergency DepartmentLGL/[employer]. Start: 04-18-2016 End: 04-18-2016 Procedure Order ANDREZ ANALIA TILTING HEAD [employer]-C Work Phone: [facility] [facility] Start: 12-17-2015 End: 12-17-2015 Office outpatient visit 10 minutes ANDREZ ANALIA TILTING [employer]-C Work Phone: [facility] Start: 08-18-2014 End: 08-18-2014 Results Review ANDREZ ANALIA TILTING HEAD B[employer]WYER-C Work Phone: [facility] Emergency DepartmentLGL/[employer]. Start: 08-18-2014 End: 08-18-2014 Office outpatient visit 10 minutes ANDREZ ANALIA TILTING HEAD [employer]-C Work Phone: [employer] [facility] [employer]. Start: 05-06-2014 End: 05-06-2014 Office outpatient visit 15 minutes ANDREZ ANALIA TILTING HEAD BAND SAWYER-C Work Phone: [employer] [facility] [employer] Start: 07-16-2012 End: 07-16-2012 Patient encounter procedure ANDREZ ANALIA TILTING HEAD BAND SAWYER-C Work Phone: [facility] Start: 10-24-2011 End: 10-24-2011 Patient encounter procedure ANDREZ ANALIA TILTING HEAD BAND SAWYER-C Work Phone: [facility] Emergency DepartmentSeaMicro Inc. Start: 10-11-2010 End: 10-11-2010 Patient encounter procedure ANDREZ ANALIA TILTING HEAD BAND SAWYER-C Work Phone: [employer] [facility] [employer]. Start: 09-03-2010 End: 09-03-2010 Patient encounter procedure ANDREZ ANALIA TILTING HEAD BAND SAWYER-C Work Phone: [employer] [facility] [employer]. Start: 09-03-2010 End: 10-24-2011 Historical Summary ANDREZ ANALIA TILTING HEAD BAND [employer]WYER-C Work Phone: [facility] Physical examination MELONIE CANADA TILTING HEAD BAND SAWYER-C [facility] Procedures Date Procedure Procedure Detail Performing Clinician Start: 09-02-2024 End: 09-02-2024 Dischrg meds reconciled w/current med list GATITO HUNT MD Work Phone: Start: 08-16-2022 End: 08-16-2022 Ecg routine ecg w/least 12 lds w/i&r R VAHID DELONG MD Work Phone: Start: 08-16-2022 End: 08-16-2022 Dischrg meds reconciled w/current med list Christian DELONG MD Work Phone: Start: 11-03-2021 End: 11-03-2021 Removal impacted cerumen irrigation/lvg unilat MELONIE SILVER TILTING HEAD BAND SAWYER-C Start: 11-03-2021 End: 11-03-2021 Dischrg meds reconciled w/current med list MELONIE GROSS-C Start: 04-15-2020 End: 04-15-2020 Dischrg meds reconciled w/current med list MELONIE SILVER TILTING HEAD BAND SAWYER-C Start: 04-15-2020 End: 04-15-2020 Urinary Incontinence Dilcia Culver RN Comment on above: Negative. Start: 10-25-2018 End: 10-25-2018 Dischrg meds reconciled w/current med list VAHID HUNT MD Work Phone: Start: 10-11-2018 End: 10-11-2018 Dischrg meds reconciled w/current med list VAHID HUNT MD Work Phone: Start: 09-29-2018 End: 09-29-2018 Dischrg meds reconciled w/current med list VAHID HUNT MD Work Phone: Start: 03-09-2018 End: 03-09-2018 Adacel MELONIE GROSS-C Start: 02-21-2018 End: 02-21-2018 Fall Risk Assessment MELONIE SILVER TILTING HEAD BAND SAWYER-C Comment on above: 0 Start: 08-16-2017 End: 08-16-2017 Removal impacted cerumen irrigation/lvg unilat ZANE QUEZADA MD Work Phone: Start: 08-02-2017 End: 08-08-2017 Complete tthrc echo congenital cardiac anomaly ZANE QUEZADA MD Work Phone: Start: 08-02-2017 End: 08-08-2017 Duplex scan extracranial art compl bi study ZANE QUEZADA MD Work Phone: Start: 08-02-2017 End: 08-08-2017 Mri brain brain stem w/o contrast material ZANE QUEZADA MD Work Phone: Start: 02-09-2017 End: 02-09-2017 Falls risk assessment documented GATITO HUNT MD Work Phone: Start: 07-27-2016 End: 07-27-2016 Ophthalmic examination and evaluation MELONIE GROSS-Gemma Comment on above: Within Normal Limits. Start: 04-19-2016 End: 04-19-2016 Cardiovascular Stress Test - Lexiscan MELONIE GROSS-Gemma Comment on above: Negative. EF 67% Start: 05-06-2014 End: 05-10-2014 Ct abdomen & pelvis w/contrast material Christian DELONG MD Work Phone: Comment on above: Please evaluate for diverticulitis, abce ss, etc. Start: 12-23-2009 End: 12-23-2009 Esophagogastroduodenoscopy MELONIE GROSS-Gemma Comment on above: Abnormal. gastritis Start: 12-23-2009 End: 12-23-2009 Screening colonoscopy MELONIE ROTHMAN Comment on above: diverticulosis No Known Past Surgical History MELONIE OLMSTEADP-Gemma Screening mammography UMER GROSS-Gemma Comment on above: iaz thompson Plan of Treatment Date Care Activity Detail Author Start: 08-16-2022 Blood occult peroxidase actv qual feces 1 deter OCCULT BLOOD FECES SCREEN X3 (IN OFFICE) (48541) Start: 16-Aug-2022 16:49-05:00 Request [employer]; [employer]. Start: 08-16-2022 Adv care pln/ no alt dcsn mkr docd or refusal ADV CARE PLAN DISCUSSED & DOCUMENTED, NO SURROGATE OR PLAN (1124F) Start: 16-Aug-2022 Intent [employer]; [employer]. Start: 10-25-2018 Dup-scan xtr veins unilateral/limited study VENOUS US FOR DVT (13969) Start: 25-Oct-2018 Intent [employer]; [employer]. Start: 09-29-2018 Patient Education SPRAINS Indication: Sprain o f left knee, subsequent encounter Start: 29-Sep-2018 Instruction Type: Patient Education [employer]; [employer]. Start: 02-21-2018 End: 02-21-2018 Falls risk assessment documented FALL RISK ASSESSMENT (3288F) Date: 21-Feb-2018 [employer]; [employer]. Start: 08-16-2017 Patient Education HYPERLIPIDEMIA Indication: Hypercholesteremia (Renamed from Hypercholesterolemia) Start: 16-Aug-2017 Instruction Type: Patient Education [employer]; [employer]. Start: 08-02-2017 Patient Education TIA Indication: Transient cerebral ischemia, unspecified type Start: 02-Aug-2017 Instruction Type: Patient Education [employer]; [employer]. Start: 08-02-2017 End: 08-02-2017 Falls risk assessment documented FALL RISK ASSESSMENT (3288F) Date: 02-Aug-2017 [employer]; [employer]. Start: 04-18-2016 Cv strs tst xers&/or rx cont ecg w/si&r CARDIOVASCULAR EXERCISE STRESS TEST - WITH IMAGING (31210) ([id number]) Start: 18-Apr-2016 Intent [employer]; [employer]. Start: 08-18-2014 Patient Education FATIGUE Indication: Fatigue, unspecified type Start: 18-Aug-2014 Instruction Type: Patient Education [employer]. Start: 05-06-2014 Assay of amylase AMYLASE ([id number]) Start: 06-May-2014 12:04-05:00 Request [employer]. Start: 05-06-2014 Assay of lipase LIPASE ([id number]) Start: 06-May-2014 12:04-05:00 [employer]. Start: 05-06-2014 C-reactive protein C-REACTIVE PROTEIN ([id number]) Start: 06-May-2014 12:03-05:00 Request [employer] [facility] [employer]. Start: 05-06-2014 Comprehensive metabolic panel METABOLIC PANEL, COMPREHENSIVE ([id number]) Start: 06-May-2014 12:03-05:00 [employer]. Start: 09-03-2010 Patient Education DASH Diet: blood pressure Indication: Elevated blood pressure reading Start: 03-Sep-2010 Instruction Type: Patient Education [employer]. Work Phone: Immunizations Immunization Date Immunization Notes Care Provider Lizandro roman 03-09-2018 *IMMUNIZATION ADMIN ([id number]) ANDREZ ANALIA TILTING HEAD BAND SAWYER-C Work Phone: [employer]; [employer]. 03-09-2018 tetanus toxoid, redu anuel diphtheria toxoid, and acellular pertussis vaccine, adsorbed ANDREZ ANALIA TILTING HEAD BAND SAWYER-C Work Phone: [employer]; [employer]. Comment on above: Site: Right Funmi goodman: * Tdap (Tetanus, Diphtheria, Pertussis) (08/19/14) 07-16-2012 tetanus toxoid, redu anuel diphtheria toxoid, and acellular pertussis vaccine, adsorbed ANDREZ ANALIA TILTING HEAD BAND SAWYER-C Work Phone: [employer]; [facility] Emergency DepartmentClickyreserva Comment on above: Site: Gluteus (Right ) 07-16-2012 *IMMUNIZATION ADMIN ([id number]) ANDREZ TURNERLABACH TILTING HEAD BAND SAWYER-C Work Phone: [employer]; [employer] [facility] [facility] Emergency DepartmentLGL/[employer]. influenza virus vaccine, unspecified formulation ANDREZ ANALIA TILTING HEAD BAND SAWYER-C Work Phone: [employer]; [employer] [facility] Emergency DepartmentClickyreserva Comment on above: Refused. 04/15/2020 pneumococcal conjuga te vaccine, 13 valent ANDREZ ANALIA TILTING HEAD BAND SAWYER-C Work Phone: [employer]; [employer] [facility] H5 Comment on above: Refused. 08/16/2017 pneumococcal Conjuga te, unspecified formulation ANDREZ ANALIA TILTING HEAD BAND SAWYER-C Work Phone: [employer]; [employer] [facility] [employer]. Comment on above: Refused. 08/16/2017 Payers Date Payer Category Payer Unknown . [id number] 2021 Self-pay [id number] 2021 Unknown [id number] 2021 Unknown [id number] 1950 Unknown [id number] Unknown 74 Unknown [facility] [id number] Unknown [id number] [id number] Unknown [id number] Unknown [id number] [id number] Unknown [id number] [id number] Social History Date Type [facility]ail [facility] Work Phone: Start: 1950 Sex Assigned At Female W [facility] Work Phone: Alcohol Use: Alcohol Use: ; N o Alcohol Use. [employer]; [employer] [facility] [employer] Education [employer] velma Attained: Highest Education Level Attained: ; Less than high school. [employer]; [employer] [facility] [employer] Tobacco use: Tobacco use: ; N ever smoker. [employer]; [employer] [facility] [employer] Never smoked tobacco [facility] H5; [employer] [facility] [employer] Work Phone: Evaluation note Note Date & Type Note Facility Evaluation note Diagnosis Onset Date Arthritis acute Leg edema acute Leg swelling acute Spontaneous hemorrhage acute Venous stasis ulcer of ankle acute Venous hypertension, chronic , with ulcer and inflammation chronic Venous insufficiency (chronic) (peripheral) [facility] Work Phone: Evaluation note Note Date & Type Note Facility Evaluation note Diagnosis Onset Date Arthritis acute Leg edema acute Leg swelling acute Spontaneous hemorrhage acute Venous stasis ulcer of ankle acute Venous hypertension, chronic , with ulcer and inflammation chronic Venous insufficiency (chronic) (peripheral) chronic Arthritis acute Leg edema acute Leg swelling acute Spontaneous hemorrhage acute Venous stasis ulcer of ankle acute Venous hypertension, chronic , with ulcer and inflammation chronic Venous insufficiency (chronic) (peripheral) [facility] Work Phone: Evaluation note Note Date & Type Note Facility Evaluation note Diagnosis Onset Date Arthritis acute Leg edema acute Leg swelling acute Spontaneous hemorrhage acute Venous stasis ulcer of ankle acute Venous hypertension, chronic , with ulcer and inflammation chronic Venous insufficiency (chronic) (peripheral) chronic Arthritis acute Leg edema acute Leg swelling acute Spontaneous hemorrhage acute Venous stasis ulcer of ankle acute Venous hypertension, chronic , with ulcer and inflammation chronic Venous insufficiency (chronic) (peripheral) chronic Arthritis acute Leg edema acute Leg swelling acute Spontaneous hemorrhage acute Venous stasis ulcer of ankle acute Venous hypertension, chronic , with ulcer and inflammation chronic Venous insufficiency (chronic) (peripheral) chronic [facility] Work Phone: Summary Purpose Family History Brother (s) Status:Active Comments:In good health. 7 Daughter (s) Status:Active Comments:In good health. 4 one with anxiety Father Status:Active Comments: d. age 80's altzheimers Mother Status:Active Comments: d. age 92, PVD Sister (s) Status:Active Comments:6 oldes t from cancer Son (s) Status:Active Comments:In good health. 5 Advance Directives No Advanced Directives Records FoundNo Advanced Directives Records Found Chief Complaint and Reason for Visit Chief Complaint WOUND Reason for Visit Arthritis Leg edema Leg swelling Spontaneous hemorrhage Venous stasis ulcer of ankle Venous hypertension, chronic, with ulcer and inflammation Venous insufficiency (chronic) (peripheral) Chief Complaint WOUND WOUND Reason for Visit Arthritis Leg edema Leg swelling Spontaneous hemorrhage Venous stasis ulcer of ankle Venous hypertension, chronic, with ulcer and inflammation Venous insufficiency (chronic) (peripheral) Arthritis Leg edema Leg swelling Spontaneous hemorrhage Venous stasis ulcer of ankle Venous hypertension, chronic, with ulcer and inflammation Venous insufficiency (chronic) (peripheral) Chief Complaint WOUND WOUND NON HEALING WOUND *WOUND CENTER PROTOCOL* WOUND Reason for Visit Arthritis Leg edema Leg swelling Spontaneous hemorrhage Venous stasis ulcer of ankle Venous hypertension, chronic, with ulcer and inflammation Venous insufficiency (chronic) (peripheral) Arthritis Leg edema Leg swelling Spontaneous hemorrhage Venous stasis ulcer of ankle Venous hypertension, chronic, with ulcer and inflammation Venous insufficiency (chronic) (peripheral) Arthritis Leg edema Leg swelling Spontaneous hemorrhage Venous stasis ulcer of ankle Venous hypertension, chronic, with ulcer and inflammation Venous insufficiency (chronic) (peripheral) Additional Source Comments INFORMATION SOURCE (unrecogn ized section and content) DATE CREATED AUTHOR 01/30/2021 Eren Paredes [facility] DATE CREATED AUTHOR AUTHOR'S LOBO ROSS 05/05/2022 [facility] Goals (unrecognized section and content) Goals may be documented in a n alternate sectionGoals may be documented in an alternate sectionGoals may be documented in an alternate sectionGoals may be documented in an alternate section FOR RECORDS PERTAINING TO PATIENTS WHO ARE OR HAVE BEEN ENROLLED IN A CHEMICAL DEPENDENCY/SUBSTANCEABUSE PROGRAM, SOME INFORMATION MAY BE OMITTED. This clinical summary was aggregated from multiple sources. Caution should be exercised in using it in the provision of clinical care. This summary normalizes information from multiple sources, and as a consequence, information in this document may materially change the coding, format and clinical context of patient data. In addition, data may be omitted in some cases. CLINICAL DECISIONS SHOULD BE BASED ON THE PRIMARY CLINICAL RECORDS. [facility] provides no warranty or guarantee of the accuracy or completeness of information in this document.
[2025-05-07 22:02] LABS: Red Blood Cells-Urine 5-10 SEEN /hpf (0-5)
[2025-05-07 22:10] LABS: AST(SGOT) 29 U/L (<=31); Alanine Aminotransfer ALT/SGPT 21 U/L (<=34); Albumin, Serum 4.8 g/dL (3.4-4.8); Alkaline Phosphatase 91 U/L (35-104); Anion Gap 13 (5-15); BUN 21 mg/dL (4-19); BUN/Creat Ratio 22.5 RATIO (10-20); Calcium,Total 10.2 mg/dL (7.6-11.0); Carbon Dioxide 26.9 mmol/L (21.0-32.0); Chloride 103 mmol/L (98-108); Estimated Creatinine Clearance 45.61 ml/min (50-250); Globulin 3.6 g/dL (2.2-4.2); Glucose 136 mg/dL (70-99); Potassium 3.1 mmol/L (3.3-5.1); Troponin T High Sensitivity < 6 ng/L (<=14)
[2025-05-07 22:13] LABS: Prothrombin Time (Protime)PT. 11.9 SECONDS (11.7-14.9)
[2025-05-07 22:14] LABS: Partial Thromboplast Time 28.8 Seconds (24.1-36.2)
[2025-05-07] MEDS: Ceftriaxone 2 GM in 0.9% Normal Saline (50mL MB+) 50 ML IV (22:50)
[2025-05-07 23:32] LABS: Troponin T High Sens 2 HR < 6 ng/L (<=14)
--- NOTE | 2025-05-07 23:48 | EDS_ITS ---
HPI History of Present Illness Chief Complaint: Dizziness Narrative Narrative: Patient was seen and examined after presenting to ED for acting unlike herself and having multiple episodes of emesis this began around 1930 according to her family as she was otherwise her normal self prior to this. [facility] Medical History Venous insufficiency (chronic) (peripheral) Arthritis Home Medications Medication Instructions Recorded Last Taken Type calcium 167 mg-vitamin D3 1.67 cap PO 12/28/21 Unknown History mcg-magnesium 83 mg capsule omega-3 fatty acids PO 12/28/21 Unknown History Allergy/AdvReac Type Severity Reaction Status Date / Time No Known Allergies Allergy Verified 05/07/25 20:50 Social History household members: spouse and family Smoking Status: Never smoker alcohol intake: never substance use type: does not use ROS ROS ED ROS Narrative Acute care caveat applies EXAM Physical Exam Narrative Exam Narrative: Patient is hypothermic she is tachycardic and tachypneic she appears unwell actively vomiting abdomen is soft nondistended but diffusely tender she has intact MSPs in her extremities she is encephalopathic Const Vital Signs: 05/07/25 20:38 05/07/25 20:52 05/07/25 21:12 Temperature 0 F L Temperature Source Oral Pulse Rate 71 Respiratory Rate 16 Respiratory Effort Blood Pressure 185/105 H Blood Pressure Mean 131 Pulse Ox 98 95 Oxygen Delivery Method Room Air Room Air Room Air 05/07/25 21:15 05/07/25 21:33 05/07/25 22:00 Temperature 94.7 F L Temperature Source Rectal Pulse Rate 72 64 Respiratory Rate 16 19 H Respiratory Effort Normal Non-Labored Blood Pressure 167/92 H Blood Pressure Mean 117 Pulse Ox 96 93 Oxygen Delivery Method Room Air Room Air 05/07/25 22:53 05/07/25 23:43 05/07/25 23:53 Temperature 94.8 F L 96 F L 96.1 F L Temperature Source Rectal Core Core Pulse Rate 67 75 Respiratory Rate 16 18 Respiratory Effort Blood Pressure 157/98 H 140/85 H Blood Pressure Mean 117 103 Pulse Ox 98 97 Oxygen Delivery Method Room Air Room Air 05/08/25 01:00 05/08/25 01:00 Temperature 97.1 F L Temperature Source Core Pulse Rate 73 73 Respiratory Rate 17 17 Respiratory Effort Blood Pressure 139/79 H 139/79 H Blood Pressure Mean 99 99 Pulse Ox 99 99 Oxygen Delivery Method Room Air Sepsis Attestation Sepsis Alert: Yes Sepsis Attestation: Agree w/Sepsis Date exam was performed: 05/07/25 Time exam was performed: 20:39 Possible Source of Sepsis: Pulmonary Sepsis Organ Dysfunction Criteria Present: New/Unexplained change in mental status Fluid Resuscitation Fluid resuscitation indicated?: Yes Fluid Resuscitation ordered: Lesser volume fluid bolus ordered Amount of fluid ordered: 1,000 Reason for lesser fluid bolus:: Other (lactic acid less than 4 and not hypotensive) Sepsis Note Date exam was performed: 05/07/25 Time exam was performed: 23:48 Sepsis Attestation: Sepsis re-evaluation was performed Response to fluids: Fluid responsive hypotension (never hypotensive) MDM MDM MDM Narrative Medical decision making narrative: Nursing notes, triage notes, available previous documentation, and vital signs were reviewed. Any discrepancies noted were addressed. Differential Diagnoses: Sepsis either respiratory cause or intra-abdominal or urinary source Interventions: Zofran Antibiotics Given: Ceftriaxone Fluids Given: 1 L normal saline Labs Reviewed: No leukocytosis or leukopenia or anemia coagulopathy or significant electrolyte abnormality creatinine was 0.9 no transaminitis lactic acid was 1.6 troponin was less than 6 with delta troponin also less than 6. Urine without evidence of infection Imaging Reviewed: Personally reviewed and interpreted by me: Chest x-ray it appears that she has pneumonia CT head was without acute pathology EKG: Rate of [address] segment elevation sinus rhythm with arrhythmia. EKG interpretation is noted and agreed to in the EMR. The interpretation of this patient's EKG contributed directly to the care and management of this patient. Previous Documentation Reviewed: None available or applicable at this time. ED Course: Patient presenting with encephalopathy treating her as sepsis appears to have pneumonia we are still waiting on her CT of her abdomen and pelvis patient is not hypotensive but she is hypothermic respiratory panel is unremarkable. 05/08/2025 0130: Still pending the results of the patient CT of the abdomen and pelvis this has been endorsed to oncoming physician plan is to still admit this patient but it depends on whether there is a surgical process that needs to be addressed This note was made utilizing voice recognition software. All attempts were made to correct spelling or other errors prior to note completion. However, due to the fast-paced nature of emergency medicine, some errors may still be present. Lab Data Labs: Laboratory Results - last 24 hr 05/07/25 05/07/25 05/07/25 20:39 20:45 21:04 WBC 6.3 RBC 5.05 Hgb 15.0 Hct 45.4 MCV 89.9 MCH 29.7 MCHC 33.0 RDW Std Deviation 41.8 RDW Coeff of Shane 12.7 Plt Count 214 MPV 10.4 Immature Gran % (Auto) 0.200 Neut % (Auto) 39.4 L Lymph % (Auto) 49.8 H Ventura % (Auto) 7.6 Eos % (Auto) 1.7 Baso % (Auto) 1.3 H Absolute Neuts (auto) 2.5 Absolute Lymphs (auto) 3.15 Nucleated RBC % 0 PT 11.9 INR 0.9 APTT 28.8 Sodium 142 Potassium 3.1 L Chloride 103 Carbon Dioxide 26.9 Anion Gap 13 BUN 21 H Creatinine 0.95 Estim Creat Clear Calc 45.61 L Est GFR (MDRD) Non-Af 63 BUN/Creatinine Ratio 22.5 H Glucose 136 H Lactic Acid 1.6 Calcium 10.2 Total Bilirubin 0.35 AST 29 ALT 21 Alkaline Phosphatase 91 Troponin T High Sens < 6 Troponin T Hi Sens 2 Hr Total Protein 8.3 Albumin 4.8 Globulin 3.6 Albumin/Globulin Ratio 1.3 Urine Color Straw Urine Clarity Clear Urine pH 7.0 Ur Specific Newton 1.010 Urine Protein 15 H Urine Glucose (UA) Normal Urine Ketones Negative Urine Occult Blood 25 H Urine Nitrite Negative Urine Bilirubin Negative Urine Urobilinogen Normal Ur Leukocyte Esterase Negative Urine RBC 5-10 SEEN Urine WBC 0 SEEN Ur Squamous Epith Cells 0 SEEN Urine Bacteria RARE Urine Mucus 0 SEEN POC Glucose 131 H 05/07/25 22:58 WBC RBC Hgb Hct MCV MCH MCHC RDW Std Deviation RDW Coeff of Shane Plt Count MPV Immature Gran % (Auto) Neut % (Auto) Lymph % (Auto) Ventura % (Auto) Eos % (Auto) Baso % (Auto) Absolute Neuts (auto) Absolute Lymphs (auto) Nucleated RBC % PT INR APTT Sodium Potassium Chloride Carbon Dioxide Anion Gap BUN Creatinine Estim Creat Clear Calc Est GFR (MDRD) Non-Af BUN/Creatinine Ratio Glucose Lactic Acid Calcium Total Bilirubin AST ALT Alkaline Phosphatase Troponin T High Sens Troponin T Hi Sens 2 Hr < 6 Total Protein Albumin Globulin Albumin/Globulin Ratio Urine Color Urine Clarity Urine pH Ur Specific Newton Urine Protein Urine Glucose (UA) Urine Ketones Urine Occult Blood Urine Nitrite Urine Bilirubin Urine Urobilinogen Ur Leukocyte Esterase Urine RBC Urine WBC Ur Squamous Epith Cells Urine Bacteria Urine Mucus POC Glucose ABG Data ABG results: ABG 05/07/25 21:30 Specimen Type ALEKSANDRA Sample Site Not entered VBG pH 7.35 VBG pO2 26 VBG HCO3 33 H VBG Total CO2 35 H VBG O2 Sat (Calc) 44 L VBG Base Excess 7 H POC Mix VBG pCO2 Pt Tmp 59.6 H O2 Delivery Device Room Air Radiography Diagnostic Testing: Clinical Impression(s) from Imaging Studies Brain CT 05/07/25 21:20 IMPRESSION: No acute intracranial abnormality. Mild parenchymal volume loss and chronic microangiopathic changes. Reading Location: [facility] Chest X-Ray 05/07/25 21:25 IMPRESSION: Probable pneumonia. Reading Location: [facility] Discharge Plan Triage Chief Complaint: Dizziness ED Provider: Pura Woods Dx/Rx/DC Orders Clinical Impression: Sepsis, Pneumonia, Nausea & vomiting, Encephalopathy Prescriptions: No Action Yamil 3 Fish Oil Concentrate Capsule PO calcium 26-vit D3-magnesium 15 167 mg calcium- 1.67 mcg-83 mg Capsule PO Primary Care Provider: Jhon Herrera Referrals: Care Physician,No Primary [Non-Staff, Medical] Print Language: Croatian D/C Safety Score for UGIB Assessment Ralph-Blatchford Bleeding Score (GBS): Stratifies upper GI bleeding patients who are "low-risk" and candidates for outpatient management. Hemoglobin, BUN, Recent Vital Signs: Hgb 15.0 g/dL (12.0-15.0) 05/07/25 20:45 BUN 21 mg/dL (4-19) H 05/07/25 20:45 Pulse Rate 73 Blood Pressure 139/79 Score Interpretation: Score of 0: A GBS of 0 is a “Low Risk” GI bleed, and is highly sensitive (99.6% in a 2007 retrospective study) for predicting which patients did not require any “medical intervention”: blood transfusion, endoscopy, or surgery. This was confirmed in a 2009 Lanc study where patients with a score of 0 were actually discharged and had no GI bleeding mortality at 6 month followup Score above 0: A GBS greater than zero suggests a “High Risk” GI bleed that is likely to require “medical intervention”: transfusion, endoscopy, or surgery. A higher GBS also correlated with a higher likelihood of needing intervention Scores >/= 6 are associated with >50% risk of needing intervention D/C Safety Score for LGIB Assessment Assessment Tool: Readmission and adverse event risk in patients with acute lower GI bleeding. Hemoglobin and Recent Vital Signs: Hgb 15.0 g/dL (12.0-15.0) 05/07/25 20:45 Pulse Rate 73 05/08/25 01:00 Blood Pressure 139/79 05/08/25 01:00 Score Interpretation: Probability Percentage of safe discharge (absence of rebleeding, blood transfusion, therapeutic intervention, 28 day readmission, or ) Score of 8 or below: Consider discharge, with appropriate precautions. Score of 9 or above: Discharge NOT recommended. Consider admission with further workup and resuscitation as necessary.
[2025-05-08] VITALS (18 sets, daily range): BP systolic 139–169; BP diastolic 67–85; PULSE 63–81; RESP 13–20; TEMP 36.2–37.6; O2SAT 94–100; BMI 26.6
--- NOTE | 2025-05-08 02:51 | HP.PCM.HOS_ITS ---
HPI - General General Date of Admission: 05/08/25 Date of Service: 05/08/25 Chief Complaint: N,V, abd pain, confusion, ? aphasia. HPI Narrative The patient is a 74 y/o F w/ PMHx: Chronc venous insufficiency who presents to [facility] ED on 05/08/2025 with history of significant onset at approximately 1930 on the day prior nausea and intractable emesis with confusion/encephalopathy and dizziness with difficulty following commands and altered speech noted upon ED arrival.in the ED patient noted to have difficulty expressing herself although encephalopathic. Workup in the ED included T94.7 Rectal, heart rate 71, BP 185/105, respiratory rate 16, 98% on room air with most recent repeat vitals T94.8 Rectal, heart rate 67, BP 157/98, respiratory rate 16, 98% room air, CBC with WBC 6.3, Heenan 15, platelet 214 without marked shift, unremarkable coags, VBG with pH 7.35, pO2 26, bicarb 33, total CO2 35, CMP with potassium 3.1, BUN/Cryan 21/0.95, GFR 63, glucose 136, initial troponin less than 6, lactic acid 1.6, unremarkable hepatic profile, urinalysis unremarkable, CT of the brain with no acute intracranial findings with mild parenchymal volume loss and chronic microangiopathic changes, chest x-ray with right basilar ill-defined opacity suspicious for pneumonia, CT abdomen and pelvis with bibasilar bilateral atelectatic changes but no infiltrate, mild cardiomegaly, distended bladder, moderate amount fecal residue in the rectum, probable acute diverticulitis without perforation or abscess in the sigmoid colon, diffuse thickening of the stomach suggestive of gastritis, EKG with sinus rhythm with arrhythmia however concern on telemetry monitoring for possible PAF. In the ED NIH stroke scale assessment 6 with 1 for level of consciousness, 2 for LOC questions, 2 for LOC commands and 1 for mild to moderate aphasia. In the ED patient ministered Zofran 4 mg IV x 2, 1 L normal saline as well as Rocephin 2 g IV x 1. In the ED urinary catheter placed. Once CT A/P resulted patient administered IV zosyn. [facility] Medical History (Updated 05/08/25 @ 02:[address] Enmanuel Ceja, DO) Venous insufficiency (chronic) (peripheral) Arthritis Home Medications Medication Instructions Recorded Last Taken Type calcium 167 mg-vitamin D3 1.67 cap PO 12/28/21 Unknown History mcg-magnesium 83 mg capsule omega-3 fatty acids PO 12/28/21 Unknown History Allergy/AdvReac Type Severity Reaction Status Date / Time No Known Allergies Allergy Verified 05/07/25 20:50 Family History (Updated 05/08/25 @ 03:[address] Teressa Carey MD) Sister CVA (cerebral vascular accident) Hypertension Mother No problems noted. Father No problems noted. Surgical History (Updated 05/08/25 @ 03:[address] Teressa Carey MD) No history of previous surgery Social History household members: spouse and family Smoking Status: Never smoker alcohol intake: never substance use type: does not use ROS Review of Systems ROS Unobtainable: due to encephalopathy Vital Signs Vital Signs Vital Signs: 05/07/25 20:38 05/07/25 20:52 05/07/25 21:12 Temperature 0 F L Temperature Source Oral Pulse Rate 71 Respiratory Rate 16 Respiratory Effort Blood Pressure 185/105 H Blood Pressure Mean 131 Pulse Ox 98 95 Oxygen Delivery Method Room Air Room Air Room Air 05/07/25 21:15 05/07/25 21:33 05/07/25 22:00 Temperature 94.7 F L Temperature Source Rectal Pulse Rate 72 64 Respiratory Rate 16 19 H Respiratory Effort Normal Non-Labored Blood Pressure 167/92 H Blood Pressure Mean 117 Pulse Ox 96 93 Oxygen Delivery Method Room Air Room Air 05/07/25 22:53 05/07/25 23:43 05/07/25 23:53 Temperature 94.8 F L 96 F L 96.1 F L Temperature Source Rectal Core Core Pulse Rate 67 75 Respiratory Rate 16 18 Respiratory Effort Blood Pressure 157/98 H 140/85 H Blood Pressure Mean 117 103 Pulse Ox 98 97 Oxygen Delivery Method Room Air Room Air 05/08/25 01:00 05/08/25 01:00 05/08/25 02:00 Temperature 97.1 F L 97.4 F L Temperature Source Core Core Pulse Rate 73 73 81 Respiratory Rate 17 17 16 Respiratory Effort Blood Pressure 139/79 H 139/79 H 142/73 H Blood Pressure Mean 99 99 96 Pulse Ox 99 99 97 Oxygen Delivery Method Room Air Room Air Weight Weight: 145 lb 8.081 oz Body Mass Index (BMI) 26.6 Physical Exam Narrative Physical Examination: General: Awakens to stimuli, not markedly alert, not oriented, very slow to answer questions, lethargic, laying in the ED bed, ill-appearing. Skin: Normal color, normal turgor, no icterus, no cyanosis except occasional stage ecchymoses, abrasion as well as venous stasis skin changes. HEENT: AT/NC, EOM difficult to assess given encephalopathy/lethargy, PERRLA, dry MM, no carotid bruits or JVD noted. Lungs: Diminished, greater bases, currently appropriate effort with no evidence of any distress, no rales, ronchi or wheezing. Heart: Improved, regular rate and rhythm; no gallop, rub audible. Abdomen: Soft, general tenderness to palpation but no rebound or guarding, mildly distended but no tympany or any tenseness, hyperactive BS, no appreciated HSM however difficult evaluation given discomfort with diffuse palpation. Extremities: No cyanosis, no clubbing, no significant distal pitting edema. Neurological: Awakens to stimuli, not markedly alert, not oriented, very slow to answer questions, lethargic, laying in the ED bed, ill-appearing, cognitive function not baseline intact, pupils equally reactive to light and accommodation, cranial nerves difficult to assess given lethargy, spontaneously moving extremities, no obvious focal deficits, sensation intact, equivocal Babinski, patient unable to perform any finger-nose/[id number] given encephalopathy, able to speak some but very slow. Psychiatric: Affect appears flat, lethargic, no acute evidence of depressive or anxiety feelings. Results Lab / Micro Data 05/07/25 20:45 05/07/25 20:45 Labs: Laboratory Results - last 24 hr 05/07/25 20:39: POC Glucose 131 H 05/07/25 20:45: WBC 6.3, RBC 5.05, Hgb 15.0, Hct 45.4, MCV 89.9, MCH 29.7, MCHC 33.0, RDW Std Deviation 41.8, RDW Coeff of Shane 12.7, Plt Count 214, MPV 10.4, Immature Gran % (Auto) 0.200, Neut % (Auto) 39.4 L, Lymph % (Auto) 49.8 H, Grayson % (Auto) 7.6, Eos % (Auto) 1.7, Baso % (Auto) 1.3 H, Absolute Neuts (auto) 2.5, Absolute Lymphs (auto) 3.15, Nucleated RBC % 0, PT 11.9, INR 0.9, APTT 28.8, Sodium 142, Potassium 3.1 L, Chloride 103, Carbon Dioxide 26.9, Anion Gap 13, B UN 21 H, Creatinine 0.95, Estim Creat Clear Calc 45.61 L, Est GFR (MDRD) Non-Af 63, BUN/Creatinine Ratio 22.5 H, Glucose 136 H, Lactic Acid 1.6, Calcium 10.2, Total Bilirubin 0.35, AST 29, ALT 21, Alkaline Phosphatase 91, Troponin T High Sens < 6, Total Protein 8.3, Albumin 4.8, Globulin 3.6, Albumin/Globulin Ratio 1.3 05/07/25 21:04: Urine Color Straw, Urine Clarity Clear, Urine pH 7.0, Ur Specific [place] 1.010, Urine Protein 15 H, Urine Glucose (UA) Normal, Urine Ketones Negative, Urine Occult Blood 25 H, Urine Nitrite Negative, Urine Bilirubin Negative, Urine Urobilinogen Normal, Ur Leukocyte Esterase Negative, Urine RBC 5-10 SEEN, Urine WBC 0 SEEN, Ur Squamous Epith Cells 0 SEEN, Urine Bacteria RARE, Urine Mucus 0 SEEN 05/07/25 22:58: Troponin T Hi Sens 2 Hr < 6 Micro: Microbiology 05/07/25 21:11 Mucosa - Nose SARS-CoV-2, Influenza & RSV (PCR) - Final ABG Data ABG results: ABG 05/07/25 21:30 Specimen Type ALEKSANDRA Sample Site Not entered VBG pH 7.35 VBG pO2 26 VBG HCO3 33 H VBG Total CO2 35 H VBG O2 Sat (Calc) 44 L VBG Base Excess 7 H POC Mix VBG pCO2 Pt Tmp 59.6 H O2 Delivery Device Room Air Imaging Radiology Impression Abdomen/Pelvis CT 05/07/25 21:20 IMPRESSION: Bilateral basilar atelectatic pulmonary changes. Mild cardiomegaly. Distended bladder. Mild bilateral fullness of the collecting systems, probably reflux. Moderate amount of fecal residue in the rectum. Diffuse colonic diverticulosis. Thickening of the sigmoid colon, probably acute diverticulitis without perforation or abscess formation. Diffuse thickening of the stomach suggestive of gastritis. Fat containing umbilical hernia without incarceration. 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 Moderate focal spondylosis at L5-S1. Left renal simple cyst measuring 1.5 cm. Right adrenal nodule measuring 1.6 cm, probably benign adenoma. [facility] 05/07/25 21:20 IMPRESSION: No acute intracranial abnormality. Mild parenchymal volume loss and chronic microangiopathic changes. Reading Location: [facility] Chest X-Ray 05/07/25 21:25 IMPRESSION: Probable pneumonia. Reading Location: [facility] Assessment & Plan Assessment/Plan (1) Encephalopathy: (2) Diverticulitis: PLAN: Plan The patient is a 74 y/o F w/ PMHx: Chronc venous insufficiency who presents to [facility] ED on 05/08/2025 with history of significant onset at approximately 1930 on the day prior nausea and intractable emesis with confusion/encephalopathy and dizziness with difficulty following commands and altered speech noted upon ED arrival.in the ED patient noted to have difficulty expressing herself although encephalopathic. #1. Acute encephalopathy, intractable nausea and emesis likely secondary to #2 however concern for possible aphasia, possibly multifactorial secondary to infectious presentation #2 however concern for possible posterior CVA: Will admit to PCU, will obtain MRI Brain, CTA head and Neck, ECHO, PT/OT/Speech/Nutrition evaluation per protocol. Will allow permissive HTN, maintain on asa with NV option if necessary, add statin pending further workup w/ AM FLP, fall precautions. Mag, TSH, FLP, HgbA1c requested. Maintain on fall and aspiration precautions. Neurology consulted. #2. Acute diverticulitis (ED noting concern for sepsis with SIRS and mental status change however no endorgan damage noted and confounded presentation given possibility of CVA as noted #1 thus at this time would rule out): Will maintain on IV Zosyn, will maintain on IV PPI, allow clear liquids until clinically improving once oral intake allowed after swallow evaluation, will have pain regimen as well as antiemetic regimen. #3. Questionable possible paroxsymal atrial fibrillation, new onset: EKG in ED w/ sinus arrhythmia however on telemetry some concern for atrial fibrillation with rate controlled. Will maintain on telemetry, obtain magnesium level, obtain ECHO, obtain TSH level. Will continue to monitor telemetry and repeat EKGs as needed to ascertain if true A-fib. Will hold off on initiating rate controlling agent given permissive hypertension unless absolutely necessary. Will maintain on chemoprophylaxis pending MRI of the brain, as long as not significant area involved if in fact acute stroke then would initiate Eliquis at that time if appropriate clinically to avoid risk of conversion. #4. Hypokalemia: Admission K+ 3.1, magnesium level requested, supplementation given, repeat level in AM. #5. Hyperglycemia, mild: Admission glucose 136, possibly stress response, no diabetic history, hemoglobin A1c requested as noted #1. #6. Possible Chronic Kidney Disease Stage II per GFR trending versus renal insufficiency versus COURTNEY, uncertain given no comparison labs: Admission BUN/Cr 21/0.95, GFR 63, baseline renal function unknown, repeat BMP in AM to further elucidate chronicity level. #7. DVT prophylaxis: Will maintain on chemoprophylaxis pending MRI of the brain, as long as not significant area involved if in fact acute stroke then would initiate Eliquis at that time to avoid risk of conversion if in fact PAF confirmed. #8. CODE status: Patient does not have healthcare part returning or living will in place but her family present notes her and family would be her medical decision makers. Discussed CODE status at length including difference between FULL code, DNR-CCA and DNR-CC status with family. Following discussions about the differences in these status, requested Full Code status. Charges/Coding Visit Charges Inpatient E&M: 41117 Init Hosp L3 D/C Safety Score for UGIB Assessment [place] Bleeding Score (GBS): Stratifies upper GI bleeding patients who are "low-risk" and candidates for outpatient management. Hemoglobin, BUN, Recent Vital Signs: Hgb 15.0 g/dL (12.0-15.0) 05/07/25 20:45 BUN 21 mg/dL (4-19) H 05/07/25 20:45 Pulse Rate 81 Blood Pressure 142/73 Score Interpretation: Score of 0: A GBS of 0 is a “Low Risk” GI bleed, and is highly sensitive (99.6% in a 2007 retrospective study) for predicting which patients did not require any “medical intervention”: blood transfusion, endoscopy, or surgery. This was confirmed in a 2009 [facility] study where patients with a score of 0 were actually discharged and had no GI bleeding mortality at 6 month followup Score above 0: A GBS greater than zero suggests a “High Risk” GI bleed that is likely to require “medical intervention”: transfusion, endoscopy, or surgery. A higher GBS also correlated with a higher likelihood of needing intervention Scores >/= 6 are associated with >50% risk of needing intervention D/C Safety Score for LGIB Assessment Assessment Tool: Readmission and adverse event risk in patients with acute lower GI bleeding. Hemoglobin and Recent Vital Signs: Hgb 15.0 g/dL (12.0-15.0) 05/07/25 20:45 Pulse Rate 81 05/08/25 02:00 Blood Pressure 142/73 05/08/25 02:00 Score Interpretation: Probability Percentage of safe discharge (absence of rebleeding, blood transfusion, therapeutic intervention, 28 day readmission, or ) Score of 8 or below: Consider discharge, with appropriate precautions. Score of 9 or above: Discharge NOT recommended. Consider admission with further workup and resuscitation as necessary.
[2025-05-08] MEDS: Piperacil/Tazobactam 3.375 GM in 0.9% Normal Saline (50mL MB+) 50 ML IV ×3 (03:12→21:50)
[2025-05-08 03:25] LABS: Magnesium 1.9 mg/dL (1.5-2.2)
[2025-05-08] MEDS: Pantoprazole Sodium 40 MG in 0.9% Normal Saline (100mL MB+) 100 ML 300 MG IV (03:30)
[2025-05-08] MEDS: Lactated Ringers 1,000 ML 999 ML IV (08:14)
--- NOTE | 2025-05-08 09:08 | EKG12_ITS ---
Test Reason : ARRYTH Blood Pressure : */* mmHG Vent. Rate : 61 BPM Atrial Rate : 61 BPM P-R Int : 180 ms QRS Dur : 86 ms QT Int : 414 ms P-R-T Axes : 72 16 25 degrees QTcB Int : 416 ms Normal sinus rhythm Possible Left atrial enlargement Borderline ECG When compared with ECG of 07-May-2025 21:34, MANUAL COMPARISON REQUIRED DATA IS UNCONFIRMED Confirmed by VIRIDIANA CHARLES, DOMENIC ([id number]), order editor CLAUS ALMEIDA ([id number]) on 05/12/2025 9:29:26 AM Referred By: Confirmed By: DOMENIC KEMP MD
--- NOTE | 2025-05-08 09:08 | MRI_ITS ---
PROCEDURE: BRAIN WITHOUT CONTRAST 05/08/2025 REASON FOR EXAM: TIA/CVA TECHNIQUE: Procedure Code: MRIBR Modality: MR Procedure: BRAIN WITHOUT CONTRAST Multiplanar and multisequence images were obtained. COMPARISON: CT head dated 05/07/2025. FINDINGS: Multiple areas of restricted diffusion are noted within the right cerebellar hemisphere and the right side of the cerebellar vermis, compatible with an acute ischemic infarction. Corresponding FLAIR hyperintensity is noted. A few scattered nonspecific FLAIR hyperintense foci are noted within the bilateral cerebral white matter, nonspecific but likely representing mild chronic microvascular ischemic changes. The midline structures are intact, specifically the corpus callosum, septum pellucidum, pituitary gland, and cerebellar vermis. The cervicomedullary junction appears unremarkable. The orbits and their contents appear unremarkable. The paranasal sinuses and mastoid air cells are clear. MRI/Brain without Contrast IMPRESSION: Acute ischemic infarction within the right cerebellum and right side of the cer ebellar vermis. Mild chronic microvascular ischemic changes. Red Alert: Acute ischemic infarction. The critical findings in the findings and impression above were relayed to micki pascual by telephone, and then verify to Teressa Carey on 05/08/2025 at 4:37 pm with readback verification. Reading Location: [id number]
--- NOTE | 2025-05-08 09:08 | CT_ITS ---
PROCEDURE: CTA HEAD AND NECK W/ CONTRAST 05/08/2025 REASON FOR EXAM: TIA/CVA, PERFORM ONCE ABLE GIVEN RECENT CONTRAST TECHNIQUE: Procedure Code: CTCTA.HDNCK Modality: CT Procedure: CTA HEAD AND NECK W/ CONTRAST Multiplanar Sagittal and Coronal images were obtained. 3D post processing was performed CONTRAST: Isovue 3 7 VOLUME: 100 mL One or more dose reduction techniques were used (e.g., Automated exposure control, adjustment of the mA and/or kV according to patient size, use of iterative reconstruction technique). RADIATION DOSE SUMMARY: CTDlvol: 20 mGy DLP: 1475.96 mGycm COMPARISON: Prior CT scan of the brain dated May 07, 2025. FINDINGS: Aortic Arch: Unremarkable Brachiocephalic and Subclavians: Minimal plaque formation at the origin of the left subclavian artery and brachiocephalic artery. RIGHT Carotid: Right CCA: Unremarkable. Right ICA: Minimal calcific plaque at the origin of the right internal carotid artery. Maximum stenosis (NASCET): Less than 10% % Right ECA: Unremarkable. LEFT Carotid: Left CCA: Unremarkable. Left ICA: Unremarkable. Left ECA: Unremarkable. Vertebrals: Codominant. Arise from the subclavians. Both vertebrals form the basilar. RIGHT Vertebral: Unremarkable. LEFT Vertebral: Unremarkable. Anatomy: [place] anatomy is normal. Aneurysm or avm: No intracranial aneurysms or large vascular malformations are identified. Anterior cerebral arteries: Unremarkable: Middle cerebral arteries: Unremarkable. Basilar artery: Unremarkable. Posterior cerebral arteries: Unremarkable. Other major branches of the posterior circulation: Unremarkable. Major venous structures: Unremarkable. Other findings: Neck: Lungs: Bones: CT/CTA Head AND Neck W/ Contrast IMPRESSION: Minimal plaque formation at the origin of the left internal carotid artery. Reading Location: [place] [id number]
[2025-05-08] MEDS: 0.9% Normal Saline (1000mL) 1,000 ML 100 ML IV (11:14)
[2025-05-08] MEDS: Pantoprazole Sodium 40 MG in 0.9% Normal Saline (100mL MB+) 100 ML 330 MG IV ×2 (11:14→21:26)
[2025-05-08] MEDS: Potassium Chloride 20mEq/100mL 20 MEQ/100 ML IV.SOLN. 100 MEQ IV BOLUS (11:18)
--- NOTE | 2025-05-08 11:56 | CON.PCM.NE_ITS ---
Assessment and Plan: Stroke Assessment/Plan PHANI OLSEN is a 74 F admitted with acute dizziness and severe vomiting. Symptoms started around 1830 yesterday and finally resolved this AM around 1100. She did not have dizziness at rest and was provoked by movement. No visual changes. No associated weakness/numbness or other focal complaint. No reported recent head/neck trauma. NIHSS 0. Initial CT/A unremarkable. Presentation is more suggestive of peripheral etiology however it is reasonable to rule out stroke/central causes. - MRI pending. If stroke is present will complete remainder of the stroke work up. Otherwise non-ischemic etiologies can be worked up per primary team or can be further discussed with general neurology if needed. HPI Consult Data Date of Consult: 05/08/25 HPI Narrative HPI Narrative: PHANI OLSEN, is a 74 F who presents [ ] [facility] Medical History (Updated 05/08/25 @ 02:[address] Enmanuel Ceja DO) Venous insufficiency (chronic) (peripheral) Arthritis Home Medications Medication Instructions Recorded Last Taken Type calcium 167 mg-vitamin D3 1.67 cap PO 12/28/21 Unknown History mcg-magnesium 83 mg capsule omega-3 fatty acids PO 12/28/21 Unknown History Allergy/AdvReac Type Severity Reaction Status Date / Time No Known Allergies Allergy Verified 05/07/25 20:50 Family History (Updated 05/08/25 @ 03:[address] Teressa Carey MD) Sister CVA (cerebral vascular accident) Hypertension Mother No problems noted. Father No problems noted. Surgical History (Updated 05/08/25 @ 03:[address] Teressa Carey MD) No history of previous surgery Social History household members: spouse and family Smoking Status: Never smoker alcohol intake: never substance use type: does not use Vital Signs Vital Signs Vital Signs: 05/07/25 20:38 05/07/25 20:52 05/07/25 21:12 Temperature 0 F L Temperature Source Oral Pulse Rate 71 Pulse Strength Respiratory Rate 16 Respiratory Effort Blood Pressure 185/105 H Blood Pressure Mean 131 Pulse Ox 98 95 Oxygen Delivery Method Room Air Room Air Room Air 05/07/25 21:15 05/07/25 21:33 05/07/25 22:00 Temperature 94.7 F L Temperature Source Rectal Pulse Rate 72 64 Pulse Strength Respiratory Rate 16 19 H Respiratory Effort Normal Non-Labored Blood Pressure 167/92 H Blood Pressure Mean 117 Pulse Ox 96 93 Oxygen Delivery Method Room Air Room Air 05/07/25 22:53 05/07/25 23:43 05/07/25 23:53 Temperature 94.8 F L 96 F L 96.1 F L Temperature Source Rectal Core Core Pulse Rate 67 75 Pulse Strength Respiratory Rate 16 18 Respiratory Effort Blood Pressure 157/98 H 140/85 H Blood Pressure Mean 117 103 Pulse Ox 98 97 Oxygen Delivery Method Room Air Room Air 05/08/25 01:00 05/08/25 01:00 05/08/25 02:00 Temperature 97.1 F L 97.4 F L Temperature Source Core Core Pulse Rate 73 73 81 Pulse Strength Respiratory Rate 17 17 16 Respiratory Effort Blood Pressure 139/79 H 139/79 H 142/73 H Blood Pressure Mean 99 99 96 Pulse Ox 99 99 97 Oxygen Delivery Method Room Air Room Air 05/08/25 02:57 05/08/25 03:00 05/08/25 03:07 Temperature 98.8 F 98.8 F 98.8 F Temperature Source Oral Core Pulse Rate 72 69 70 Pulse Strength Respiratory Rate 18 18 18 Respiratory Effort Blood Pressure 150/73 H 150/79 H Blood Pressure Mean 98 102 Pulse Ox 97 97 97 Oxygen Delivery Method Room Air Room Air 05/08/25 04:00 05/08/25 05:00 05/08/25 06:00 Temperature 98.9 F 99.3 F H 99.5 F H Temperature Source Core Core Core Pulse Rate 65 68 69 Pulse Strength Respiratory Rate 17 18 18 Respiratory Effort Blood Pressure 145/78 H 141/68 H 145/68 H Blood Pressure Mean 100 92 93 Pulse Ox 95 97 97 Oxygen Delivery Method Room Air Room Air Room Air 05/08/25 07:00 05/08/25 08:00 05/08/25 09:20 Temperature 99.5 F H 99.4 F H Temperature Source Core Core Pulse Rate 71 70 Pulse Strength Normal (2+) Respiratory Rate 18 13 Respiratory Effort Blood Pressure 143/67 H 153/73 H Blood Pressure Mean 92 99 Pulse Ox 99 Oxygen Delivery Method Room Air Weight Weight: 66 kg Body Mass Index (BMI) 26.6 EEG Results Procedure Details EEG Procedure Details: PHANI OLSEN is a 74 year old F with a past medical history of , who presents for evaluation of Electroencephalogram on DATE at TIME Lab / Micro Data 05/07/25 20:45 05/07/25 20:45 Labs: Laboratory Results - last 24 hr 05/07/25 20:39: POC Glucose 131 H 05/07/25 20:45: WBC 6.3, RBC 5.05, Hgb 15.0, Hct 45.4, MCV 89.9, MCH 29.7, MCHC 33.0, RDW Std Deviation 41.8, RDW Coeff of Shane 12.7, Plt Count 214, MPV 10.4, Immature Gran % (Auto) 0.200, Neut % (Auto) 39.4 L, Lymph % (Auto) 49.8 H, [place] % (Auto) 7.6, Eos % (Auto) 1.7, Baso % (Auto) 1.3 H, Absolute Neuts (auto) 2.5, Absolute Lymphs (auto) 3.15, Nucleated RBC % 0, PT 11.9, INR 0.9, APTT 28.8, Sodium 142, Potassium 3.1 L, Chloride 103, Carbon Dioxide 26.9, Anion Gap 13, B UN 21 H, Creatinine 0.95, Estim Creat Clear Calc 45.61 L, Est GFR (MDRD) Non-Af 63, BUN/Creatinine Ratio 22.5 H, Glucose 136 H, Hemoglobin A1c 5.5, Lactic Acid 1.6, Calcium 10.2, Total Bilirubin 0.35, AST 29, ALT 21, Alkaline Phosphatase 91, Troponin T High Sens < 6, Total Protein 8.3, Albumin 4.8, Globulin 3.6, Albumin/Globulin Ratio 1.3 05/07/25 21:04: Urine Color Straw, Urine Clarity Clear, Urine pH 7.0, Ur Specific [place] 1.010, Urine Protein 15 H, Urine Glucose (UA) Normal, Urine Ketones Negative, Urine Occult Blood 25 H, Urine Nitrite Negative, Urine Bilirubin Negative, Urine Urobilinogen Normal, Ur Leukocyte Esterase Negative, Urine RBC 5-10 SEEN, Urine WBC 0 SEEN, Ur Squamous Epith Cells 0 SEEN, Urine Bacteria RARE, Urine Mucus 0 SEEN 05/07/25 22:58: Magnesium 1.9, Troponin T Hi Sens 2 Hr < 6, TSH 2.010 Micro: Microbiology 05/07/25 21:11 Mucosa - Nose SARS-CoV-2, Influenza & RSV (PCR) - Final ABG Data ABG results: ABG 05/07/25 21:30 Specimen Type ALEKSANDRA Sample Site Not entered VBG pH 7.35 VBG pO2 26 VBG HCO3 33 H VBG Total CO2 35 H VBG O2 Sat (Calc) 44 L VBG Base Excess 7 H POC Mix VBG pCO2 Pt Tmp 59.6 H O2 Delivery Device Room Air Imaging Radiology Impression Abdomen/Pelvis CT 05/07/25 21:20 IMPRESSION: Bilateral basilar atelectatic pulmonary changes. Mild cardiomegaly. Distended bladder. Mild bilateral fullness of the collecting systems, probably reflux. Moderate amount of fecal residue in the rectum. Diffuse colonic diverticulosis. Thickening of the sigmoid colon, probably acute diverticulitis without perforation or abscess formation. Diffuse thickening of the stomach suggestive of gastritis. Fat containing umbilical hernia without incarceration. 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 Moderate focal spondylosis at L5-S1. Left renal simple cyst measuring 1.5 cm. Right adrenal nodule measuring 1.6 cm, probably benign adenoma. Reading Location: [place] [id number] 05/07/25 21:20 IMPRESSION: No acute intracranial abnormality. Mild parenchymal volume loss and chronic microangiopathic changes. Reading Location: [facility] Chest X-Ray 05/07/25 21:25 IMPRESSION: Probable pneumonia. Reading Location: [id number] Head/Neck CTA 05/08/25 09:08 IMPRESSION: Minimal plaque formation at the origin of the left internal carotid artery. Reading Location: [facility] Active Medications Active Medications Active Medications: Current Medications Generic Name Dose Route Start Last Admin Trade Name Freq PRN Reason Stop Dose Admin Acetaminophen 650 mg 05/08/25 09:08 Acetaminophen 650 Mg Suppository RC Q4H PRN PRN Fever, pain 1-10 Acetaminophen 650 mg 05/08/25 09:08 Acetaminophen 325 Mg Tablet PO Q4H PRN PRN Fever, pain 1-04/04 Al Hydroxide/Mg Hydroxide 30 ml 05/08/25 09:08 Mag Hydrox/Al Hydrox/Simeth 30 Ml Udc PO Q6H PRN PRN Gastric Burning Albuterol Sulfate 2.5 mg 05/08/25 09:08 Albuterol 2.5 Mg/3 Ml Vial.Neb. INHALATION Q2H PRN PRN Dyspnea, wheezing Aspirin 81 mg 05/08/25 09:08 05/08/25 11:18 Aspirin 81 Mg Tab.Chew PO 81 mg BREAKFAST YUE Administration Atorvastatin Calcium 40 mg 05/08/25 22:00 Atorvastatin Calcium 40 Mg Tablet PO QHS YUE Enoxaparin Sodium 40 mg 05/08/25 10:00 05/08/25 11:18 Enoxaparin 40 Mg/0.4 Ml Syringe SC 40 mg DAILY YUE Administration Guaifenesin 20 ml 05/08/25 09:08 Guaifenesin 10 Ml Udc (200mg/10ml) PO Q4H PRN PRN COUGH Hydralazine HCl 5 mg 05/08/25 09:08 Hydralazine 20 Mg/Ml Vial IV 05/09/25 09:08 Q30M PRN maintain BP parameters with HR <60 Sodium Chloride 1,000 mls @ 100 mls/hr 05/08/25 09:08 05/08/25 11:14 IV 05/08/25 19:07 100 mls/hr .Q10H YUE Administration Pantoprazole Sodium 40 mg/ 100 mls @ 330 mls/hr 05/08/25 10:00 05/08/25 11:14 Sodium Chloride IV 330 mls/hr Q12 YUE Administration Piperacillin Sod/Tazobactam 50 mls @ 12.5 mls/hr 05/08/25 14:00 Sod 3.375 gm/ Sodium Chloride IV Q8 YUE Labetalol HCl 10 - 20 mg 05/08/25 09:08 Labetalol 20 Mg/4 Ml Vial IV 05/09/25 09:08 Q10M PRN PRN maintain BP parameters with HR >/=60 Melatonin 3 mg 05/08/25 09:08 Melatonin 3 Mg Tablet PO QHS PRN PRN INSOMNIA Morphine Sulfate 2 mg 05/08/25 09:08 Morphine 2 Mg/Ml Syringe IV Q3H PRN PRN Pain Score 6-10 Ondansetron HCl 4 mg 05/08/25 09:08 Ondansetron 4 Mg/2 Ml Vial IV Q8H PRN PRN NAUSEA/VOMITING Oxycodone HCl 5 mg 05/08/25 09:08 Oxycodone 5 Mg Tablet PO Q4H PRN PRN Pain Score 4-10 NIHSS NIHSS Nursing Documentation NIHSS Nursing Documentation: NIH Stroke Scale Start: 05/07/25 21:18 Freq: Status: Discharge Protocol: Activity Type Activity Date Activity User E-sign Co-sign Detail Recorded Client Recorded Date Recorded By Document 05/07/25 20:40 MLM [id number] 05/07/25 21:20 MLM 05/07/25 20:40 NIH Stroke Scale [NIHSS] A score of 0 is "normal" or asymptomatic . Total possible score is 42. Inpatient: RN or Physician to activate a stroke alert for onset of new stroke symptoms or with NIHSS increase >/= 3 points. Following change in neurological status, NIHSS will be performed per physician order or more frequently PRN. -1a. Level of Consciousness 1 - Not alert; Arousable by minor stimuli to obey, answer & respond -1b. LOC Questions 2 - Answers NEITHER question correctly -1c. LOC Commands 2 - Performs NEITHER task correctly -2. Best Gaze 0 - Normal -3. Visual 0 - No visual loss -4. Facial Palsy 0 - Normal symmetrical movements -'UN' explanation unable to follow commands -'UN' explanation uable to follow commands -'UN' explanation unable to follow commands -'UN' explanation unable to follow commands -'UN' explanation unable to follow commands -9. Best Language 1 - Mild-to- moderate aphasia; -10. Dysarthria 0 - Normal -Total 6 Query Text:A score of 0 is "normal" or asymptomatic. Total possible score is 42 . ED: Notify Physician for NIHSS increase by > / = 3 points. Inpatient: RN or Physician to activate a stroke alert for NIHSS increase of > / = 3 points. NIHSS: Ischemic Stroke/TIA Start: 05/08/25 09:08 Text: For PCU Patients: NIH and Neuro Check every 4 Status: Active hours, PRN and with change in RN caregiver. Freq: [id number] Protocol: Activity Type Activity Date Activity User E-sign Co-sign Detail Recorded Client Recorded Date Recorded By Document 05/08/25 11:29 [id number] 05/08/25 11:52 CD 05/08/25 11:29 -1a. Level of Consciousness 0 - Alert; keenly responsive -1b. LOC Questions 0 - Answers BOTH questions correctly -1c. LOC Commands 0 - Performs BOTH tasks correctly -2. Best Gaze 0 - Normal -3. Visual 0 - No visual loss -4. Facial Palsy 0 - Normal symmetrical movements -5a. Left Arm 0 - No drift; arm holds 90 ( or 45) degrees for full 10 seconds -5b. Right Arm 0 - No drift; arm holds 90 ( or 45) degrees for full 10 seconds -6a. Left Leg 0 - No drift; leg holds 30- degree position for full 5 seconds -6b. Right Leg 0 - No drift; leg holds 30- degree position for full 5 seconds -7. Limb Ataxia 0 - Absent -8. Sensory 0 - Normal; no sensory loss -9. Best Language 0 - No aphasia; normal -10. Dysarthria 0 - Normal -11. Extinction and Inattention 0 - No abnormality -Total 0 Query Text:A score of 0 is "normal" or asymptomatic. Total possible score is 42 . ED: Notify Physician for NIHSS increase by > / = 3 points. Inpatient: RN or Physician to activate a stroke alert for NIHSS increase of > / = 3 points. Coma Scale [Assess] -Eye Opening Spontaneous -Motor Obeys Commands -Verbal Oriented [Total] -Coma Scale Total 15
--- NOTE | 2025-05-08 15:39 | PN.HOSP_ITS ---
Reason for Visit Chief Complaint: N,V, abd pain, confusion, ? aphasia. Objective Data Objective Data Vital Signs: Vital Signs Temp Pulse Resp BP Pulse Ox O2 Del Method 99.6 F H 63 18 169/78 H 100 Room Air 05/08/25 11:00 05/08/25 11:00 05/08/25 11:00 05/08/25 11:00 05/08/25 11:50 05/08/25 11:50 Oxygen Delivery Method Room Air Weight: 145 lb 8.081 oz Body Mass Index (BMI) 26.6 Intake & Output: Intake and Output for Last 24 Hours 05/06/25 05/07/25 05/08/25 23:59 23:59 23:59 Intake Total 1050 / 1050 1450 / 1450 Balance 1050 / 1050 1450 / 1450 Lab / Micro Data 05/07/25 20:45 05/07/25 20:45 Labs: Laboratory Results - last 24 hr 05/07/25 20:39: POC Glucose 131 H 05/07/25 20:45: WBC 6.3, RBC 5.05, Hgb 15.0, Hct 45.4, MCV 89.9, MCH 29.7, MCHC 33.0, RDW Std Deviation 41.8, RDW Coeff of Shane 12.7, Plt Count 214, MPV 10.4, Immature Gran % (Auto) 0.200, Neut % (Auto) 39.4 L, Lymph % (Auto) 49.8 H, [place] % (Auto) 7.6, Eos % (Auto) 1.7, Baso % (Auto) 1.3 H, Absolute Neuts (auto) 2.5, Absolute Lymphs (auto) 3.15, Nucleated RBC % 0, PT 11.9, INR 0.9, APTT 28.8, Sodium 142, Potassium 3.1 L, Chloride 103, Carbon Dioxide 26.9, Anion Gap 13, B UN 21 H, Creatinine 0.95, Estim Creat Clear Calc 45.61 L, Est GFR (MDRD) Non-Af 63, BUN/Creatinine Ratio 22.5 H, Glucose 136 H, Hemoglobin A1c 5.5, Lactic Acid 1.6, Calcium 10.2, Total Bilirubin 0.35, AST 29, ALT 21, Alkaline Phosphatase 91, Troponin T High Sens < 6, Total Protein 8.3, Albumin 4.8, Globulin 3.6, Albumin/Globulin Ratio 1.3 05/07/25 21:04: Urine Color Straw, Urine Clarity Clear, Urine pH 7.0, Ur Specific [place] 1.010, Urine Protein 15 H, Urine Glucose (UA) Normal, Urine Ketones Negative, Urine Occult Blood 25 H, Urine Nitrite Negative, Urine Bilirubin Negative, Urine Urobilinogen Normal, Ur Leukocyte Esterase Negative, Urine RBC 5-10 SEEN, Urine WBC 0 SEEN, Ur Squamous Epith Cells 0 SEEN, Urine Bacteria RARE, Urine Mucus 0 SEEN 05/07/25 22:58: Magnesium 1.9, Troponin T Hi Sens 2 Hr < 6, TSH 2.010 Micro: Microbiology 05/07/25 21:11 Mucosa - Nose SARS-CoV-2, Influenza & RSV (PCR) - Final ABG Data ABG results: ABG 05/07/25 21:30 Specimen Type ALEKSANDRA Sample Site Not entered VBG pH 7.35 VBG pO2 26 VBG HCO3 33 H VBG Total CO2 35 H VBG O2 Sat (Calc) 44 L VBG Base Excess 7 H POC Mix VBG pCO2 Pt Tmp 59.6 H O2 Delivery Device Room Air Radiography Diagnostic Testing: Radiology Impression Abdomen/Pelvis CT 05/07/25 21:20 IMPRESSION: Bilateral basilar atelectatic pulmonary changes. Mild cardiomegaly. Distended bladder. Mild bilateral fullness of the collecting systems, probably reflux. Moderate amount of fecal residue in the rectum. Diffuse colonic diverticulosis. Thickening of the sigmoid colon, probably acute diverticulitis without perforation or abscess formation. Diffuse thickening of the stomach suggestive of gastritis. Fat containing umbilical hernia without incarceration. 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 Moderate focal spondylosis at L5-S1. Left renal simple cyst measuring 1.5 cm. Right adrenal nodule measuring 1.6 cm, probably benign adenoma. [id number] 05/07/25 21:20 IMPRESSION: No acute intracranial abnormality. Mild parenchymal volume loss and chronic microangiopathic changes. Reading Location: [id number] Chest X-Ray 05/07/25 21:25 IMPRESSION: Probable pneumonia. Reading Location: [id number] Head/Neck CTA 05/08/25 09:08 IMPRESSION: Minimal plaque formation at the origin of the left internal carotid artery. Reading Location: [facility] Assessment & Plan Assessment/Plan (1) Encephalopathy: (2) Diverticulitis: PLAN: Plan The patient is a 74 y/o F who was admitted with dizziness, nausea vomiting. Patient also had abdominal pain at home but not in ED. w/ PMHx: Chronc venous insufficiency who presents to [facility] ED on 05/08/2025 with history of significant onset at approximately 1930 on the day prior nausea and intractable emesis with confusion/encephalopathy and dizziness with difficulty following commands and altered speech noted upon ED arrival.in the ED patient noted to have difficulty expressing herself although encephalopathic. #1. Acute encephalopathy with intractable nausea/vomiting, dizziness, clinically no focal lateralization symptoms therefore suspicion for stroke is low: Patient is being admitted in PCU but currently in ER. Seen in the morning and afternoon. IV Reglan symptomatic management was done. CT head and neck shows minimal plaque. MRI brain done report pending. PT, OT, speech therapy/swallow evaluation and management, nursing NIH stroke scale, BP and glucose monitoring and control as per stroke protocol. TSH 2.01, A1c 5.5. MRI brain and 2D echo with bubble contrast study ordered. She had dizziness which provoked by movement. No visual changes. No focal signs or symptoms of weakness numbness. Neurologist recommendation appreciated #2. Acute diverticulitis: Patient having nausea and vomiting in the morning. On IV antibiotic Zosyn. Symptomatic management. CT abdomen reviewed with the patient's daughter and son. He shows thickening of the sigmoid colon probably acute diverticulitis without perforation or abscess formation. Diffuse colonic diverticulosis. Moderate amount of fecal residue in the rectum. #3. Sinus arrhythmia: EKG in ED shows sinus arrhythmia. Serum magnesium normal. Repeat EKG ordered to ascertain A-fib. #4. Hypokalemia: Admission K+ 3.1, serum magnesium normal. Potassium replacement #5. Hyperglycemia, mild: Admission glucose 136, A1c 5.5. Prediabetes or diabetes mellitus ruled DVT prophylaxis: Will maintain on chemoprophylaxis pending MRI of the brain, as long as not significant area involved if in fact acute stroke then would initiate Eliquis at that time to avoid risk of conversion if in fact PAF confirmed. CODE status: Patient does not have healthcare part returning or living will in place but her family present notes her and family would be her medical decision makers. Discussed CODE status at length including difference between FULL code, DNR-CCA and DNR-CC status with family. Following discussions about the differences in these status, requested Full Code status. Microbiology Past 72 Hours 05/07/25 21:11 Mucosa - Nose SARS-CoV-2, Influenza & RSV (PCR) - Final Laboratory Results 05/07/25 20:39: POC Glucose 131 H 05/07/25 20:45: WBC 6.3, RBC 5.05, Hgb 15.0, Hct 45.4, MCV 89.9, MCH 29.7, MCHC 33.0, RDW Std Deviation 41.8, RDW Coeff of Shane 12.7, Plt Count 214, MPV 10.4, Immature Gran % (Auto) 0.200, Neut % (Auto) 39.4 L, Lymph % (Auto) 49.8 H, [place] % (Auto) 7.6, Eos % (Auto) 1.7, Baso % (Auto) 1.3 H, Absolute Neuts (auto) 2.5, Absolute Lymphs (auto) 3.15, Nucleated RBC % 0, PT 11.9, INR 0.9, APTT 28.8, Sodium 142, Potassium 3.1 L, Chloride 103, Carbon Dioxide 26.9, Anion Gap 13, B UN 21 H, Creatinine 0.95, Estim Creat Clear Calc 45.61 L, Est GFR (MDRD) Non-Af 63, BUN/Creatinine Ratio 22.5 H, Glucose 136 H, Hemoglobin A1c 5.5, Lactic Acid 1.6, Calcium 10.2, Total Bilirubin 0.35, AST 29, ALT 21, Alkaline Phosphatase 91, Troponin T High Sens < 6, Total Protein 8.3, Albumin 4.8, Globulin 3.6, Albumin/Globulin Ratio 1.3 05/07/25 21:04: Urine Color Straw, Urine Clarity Clear, Urine pH 7.0, Ur Specific [place] 1.010, Urine Protein 15 H, Urine Glucose (UA) Normal, Urine Ketones Negative, Urine Occult Blood 25 H, Urine Nitrite Negative, Urine Bilirubin Negative, Urine Urobilinogen Normal, Ur Leukocyte Esterase Negative, Urine RBC 5-10 SEEN, Urine WBC 0 SEEN, Ur Squamous Epith Cells 0 SEEN, Urine Bacteria RARE, Urine Mucus 0 SEEN 05/07/25 21:30: Specimen Type ALEKSANDRA, Sample Site Not entered, VBG pH 7.35, VBG pO2 26, VBG HCO3 33 H, VBG Total CO2 35 H, VBG O2 Sat (Calc) 44 L, VBG Base Excess 7 H, POC Mix VBG pCO2 Pt Tmp 59.6 H, O2 Delivery Device Room Air 05/07/25 22:58: Magnesium 1.9, Troponin T Hi Sens 2 Hr < 6, TSH 2.010 Charges/Coding Visit Charges Inpatient E&M: 76748 Subs Hosp L2 NIHSS NIHSS Nursing Documentation NIHSS Nursing Documentation: NIH Stroke Scale Start: 05/07/25 21:18 Freq: Status: Discharge Protocol: Activity Type Activity Date Activity User E-sign Co-sign Detail Recorded Client Recorded Date Recorded By Document 05/07/25 20:40 MLM [id number] 05/07/25 21:20 MLM 05/07/25 20:40 NIH Stroke Scale [NIHSS] A score of 0 is "normal" or asymptomatic . Total possible score is 42. Inpatient: RN or Physician to activate a stroke alert for onset of new stroke symptoms or with NIHSS increase >/= 3 points. Following change in neurological status, NIHSS will be performed per physician order or more frequently PRN. -1a. Level of Consciousness 1 - Not alert; Arousable by minor stimuli to obey, answer & respond -1b. LOC Questions 2 - Answers NEITHER question correctly -1c. LOC Commands 2 - Performs NEITHER task correctly -2. Best Gaze 0 - Normal -3. Visual 0 - No visual loss -4. Facial Palsy 0 - Normal symmetrical movements -'UN' explanation unable to follow commands -'UN' explanation uable to follow commands -'UN' explanation unable to follow commands -'UN' explanation unable to follow commands -'UN' explanation unable to follow commands -9. Best Language 1 - Mild-to- moderate aphasia; -10. Dysarthria 0 - Normal -Total 6 Query Text:A score of 0 is "normal" or asymptomatic. Total possible score is 42 . ED: Notify Physician for NIHSS increase by > / = 3 points. Inpatient: RN or Physician to activate a stroke alert for NIHSS increase of > / = 3 points. NIHSS: Ischemic Stroke/TIA Start: 05/08/25 09:08 Text: For PCU Patients: NIH and Neuro Check every 4 Status: Active hours, PRN and with change in RN caregiver. Freq: [id number] Protocol: Activity Type Activity Date Activity User E-sign Co-sign Detail Recorded Client Recorded Date Recorded By Document 05/08/25 13:54 [id number] 05/08/25 13:58 05/08/25 13:54 -1a. Level of Consciousness 0 - Alert; keenly responsive -1b. LOC Questions 0 - Answers BOTH questions correctly -1c. LOC Commands 0 - Performs BOTH tasks correctly -2. Best Gaze 0 - Normal -3. Visual 0 - No visual loss -4. Facial Palsy 0 - Normal symmetrical movements -5a. Left Arm 0 - No drift; arm holds 90 ( or 45) degrees for full 10 seconds -5b. Right Arm 0 - No drift; arm holds 90 ( or 45) degrees for full 10 seconds -6a. Left Leg 0 - No drift; leg holds 30- degree position for full 5 seconds -6b. Right Leg 0 - No drift; leg holds 30- degree position for full 5 seconds -7. Limb Ataxia 0 - Absent -8. Sensory 0 - Normal; no sensory loss -9. Best Language 0 - No aphasia; normal -10. Dysarthria 0 - Normal -11. Extinction and Inattention 0 - No abnormality -Total 0 Query Text:A score of 0 is "normal" or asymptomatic. Total possible score is 42 . ED: Notify Physician for NIHSS increase by > / = 3 points. Inpatient: RN or Physician to activate a stroke alert for NIHSS increase of > / = 3 points. Coma Scale [Assess] -Eye Opening Spontaneous -Motor Obeys Commands -Verbal Oriented [Total] -Coma Scale Total 15
--- NOTE | 2025-05-08 15:41 | ECHOD_ITS ---
Reason For Study Reason For Study: TIA/CVA Procedure This was a 2D Doppler, Color Flow transthoracic echocardiogram. Exam performed portable in patient room. Left Ventricle Normal LV size. The estimated ejection fraction is 70 %. Unable to assess diastolic dysfunction. No regional wall motion abnormalities noted. Right Ventricle Normal RV size. Normal systolic function. Atria There is mild biatrial dilatation. No doppler evidence for ASD. Mitral Valve There is moderate mitral annular calcification. Mitral valve area. Trivial mitral valve insufficiency. Tricuspid Valve There is no tricuspid stenosis. Mild (1+) tricuspid valve insufficiency. Pulmonary artery systolic pressure is 45 mmHg. Aortic Valve Trisinus/trileaflet aortic valve. There is no aortic stenosis. No aortic valve insufficiency. Pulmonic Valve There is no pulmonic valvular stenosis. No pulmonic valve insufficiency. Great Vessels Normal sized aortic root. Pericardium/Pleural No pericardial effusion. MMode/2D Measurements & Calculations LVIDd: 4.8 cm IVSd: 0.87 cm Ao root diam: 3.2 cm LVIDs: 2.7 cm LVPWd: 0.78 cm RVDd: 3.7 cm FS: 44.0 % LAV(MOD-bp): 64.9 ml LVAd ap4: 22.4 cm2 LVAd ap2: 25.3 cm2 LAV(MOD-bp) Indexed: 38.9 ml/m2 LVLd ap4: 6.2 cm LVLd ap2: 7.3 cm LAV(MOD-sp2): 60.4 ml EDV(MOD-sp4): 67.0 ml EDV(MOD-sp2): 75.2 ml LAV(MOD-sp4): 64.7 ml EDV(sp4-el): 68.7 ml EDV(sp2-el): 74.4 ml LVAs ap4: 10.1 cm2 LVAs ap2: 10.6 cm2 LVLs ap4: 4.8 cm LVLs ap2: 5.1 cm ESV(MOD-sp4): 19.2 ml ESV(MOD-sp2): 19.0 ml ESV(sp4-el): 17.7 ml ESV(sp2-el): 18.7 ml EF(MOD-sp4): 71.4 % EF(MOD-sp2): 74.7 % EF(sp4-el): 74.2 % SV(MOD-sp4): 47.8 ml SV(MOD-sp2): 56.2 ml SV(sp4-el): 51.0 ml SI(MOD-sp4): 28.7 ml/m2 SI(MOD-sp2): 33.7 ml/m2 LA A4 area: 21.0 cm2 LA dimension(2D): 4.4 cm RA A4 area: 16.1 cm2 TAPSE: 2.4 cm Time Measurements MV dec time: 0.21 sec Doppler Measurements & Calculations MV E max lyle: 102.7 cm/sec Lat Peak E' Lyle: 7.0 cm/sec Med Peak E' Lyle: 6.9 cm/sec MV A max lyle: 107.0 cm/sec E/E' lat: 14.6 E/E' med: 14.9 MV E/A: 0.96 Ao V2 max: 188.1 cm/sec LV V1 max: 112.7 cm/sec MV dec slope: 498.2 cm/sec2 Ao max P.2 mmHg LV V1 max P.1 mmHg Ao V2 mean: 124.6 cm/sec LV V1 mean P.8 mmHg Ao mean P.3 mmHg LV V1 mean: 77.4 cm/sec Ao V2 VTI: 41.2 cm LV V1 VTI: 22.3 cm AV (velocity ratio): 0.54 PA V2 max: 102.5 cm/sec TR max lyle: 297.7 cm/sec TR max P.4 mmHg ECHO/Echo Complete Interpretation Summary The estimated ejection fraction is 70 %. Unable to assess diastolic dysfunction. There is mild biatrial dilatation. Trivial mitral valve insufficiency. Ordering Physician: Chucho Lamar Referring Physician: Jhon Herrera Performed By: Pancho Osborn RDCS
--- NOTE | 2025-05-08 17:09 | PCM.HOSP.N ---
Hospitalist Note Radiologist called me for critical reporting of a stroke on MRI. It is reported multiple areas of restricted diffusion within the right cerebellar hemisphere and the right side of cerebellar vermis compatible with acute ischemic infarction. As per the radiologist, Dr. Shade Bustamante who called me and states it is multiple punctate involving the area of at least one third of right cerebellar hemisphere. Patient tolerating baby aspirin and atorvastatin. Was seen by neurologist [facility] Dr. Sierra but at that time MRI was pending. I tried to text him through backline but he is not on backline. I called was the direct #[phone] to connect with him informed of the critical finding of MRI and if any further recommendation. I asked him whether to add dual antiplatelet agent but he said only aspirin statin will be sufficient CTA shows minimal plaque otherwise eklutna of Hoang unremarkable.
[2025-05-08] MEDS: Senna/Docusate Sodium 1 Tablet 2 TABLET PO (21:28)
[2025-05-09] VITALS (8 sets, daily range): BP systolic 144–175; BP diastolic 65–85; PULSE 63–70; RESP 14–16; TEMP 36.6–37; O2SAT 94–97; BMI 27.2
[2025-05-09 04:23] LABS: Hematocrit 37.9 % (37-47); Hemoglobin 12.9 g/dL (12.0-15.0); Immature Granulocytes Count 0.050 X10^3/uL (0.0-0.0); Mean Corp Hgb Conc 34.0 g/dL (32-36); Mean Corpuscular Volume 89.4 fL (81-99); Mean Platelet Vol. 10.4 fl (6.2-12.0); NRBC Flagged by Analyzer 0 % (0-5); Platelet Count 190 K/mm3 (150-450); RBC Distribution Width CV 13.1 % (11.6-14.6); RBC Distribution Width SD 42.8 fl (35.1-43.9); Red Blood Count 4.24 M/mm3 (4.2-5.4); White Blood Count 10.9 K/mm3 (4.4-11.0)
[2025-05-09] MEDS: Piperacil/Tazobactam 3.375 GM in 0.9% Normal Saline (50mL MB+) 50 ML IV ×3 (05:30→22:00)
[2025-05-09 06:04] LABS: AST(SGOT) 27 U/L (<=31); Alanine Aminotransfer ALT/SGPT 18 U/L (<=34); Albumin, Serum 3.9 g/dL (3.4-4.8); Alkaline Phosphatase 69 U/L (35-104); Anion Gap 8 (5-15); BUN 18 mg/dL (4-19); BUN/Creat Ratio 19.1 RATIO (10-20); Calcium,Total 9.3 mg/dL (7.6-11.0); Carbon Dioxide 25.0 mmol/L (21.0-32.0); Chloride 107 mmol/L (98-108); Cholesterol 203 mg/dL (<=200); Estimated Creatinine Clearance 46.12 ml/min (50-250); Globulin 2.9 g/dL (2.2-4.2); Glucose 104 mg/dL (70-99); Low Density Lipoprotein Calc. 115 mg/dL; Potassium 3.5 mmol/L (3.3-5.1); Triglycerides 89 mg/dL; Very Low Density Lipoprotein 18 mg/dL (5-40); cholesterol:hdl ratio screen 2.80
--- NOTE | 2025-05-09 08:21 | PCM.PN.HOSP ---
Reason for Visit Chief Complaint: N,V, abd pain, confusion, ? aphasia. Objective Data Objective Data Vital Signs: Vital Signs Temp Pulse Resp BP Pulse Ox O2 Del Method 98.4 F 66 16 163/82 H 95 Room Air 05/09/25 05:15 05/09/25 05:15 05/09/25 05:15 05/09/25 05:15 05/09/25 05:15 05/09/25 07:55 Oxygen Delivery Method Room Air Weight: 149 lb 0.52 oz Body Mass Index (BMI) 27.2 Intake & Output: Intake and Output for Last 24 Hours 05/07/25 05/08/25 05/09/25 23:59 23:59 23:59 Intake Total 1050 / 1050 2840 / 2840 50 / 50 Output Total 500 / 500 150 / 150 Balance 1050 / 1050 2340 / 2340 -100 / -100 Lab / Micro Data 05/09/25 03:44 05/09/25 03:44 Labs: Laboratory Results - last 24 hr 05/09/25 03:44: WBC 10.9, RBC 4.24, Hgb 12.9, Hct 37.9, MCV 89.4, MCH 30.4, MCHC 34.0, RDW Std Deviation 42.8, RDW Coeff of Shane 13.1, Plt Count 190, MPV 10.4, Immature Gran % (Auto) 0.500, Neut % (Auto) 75.3 H, Lymph % (Auto) 17.2 L, Mcdonough % (Auto) 6.5, Eos % (Auto) 0.1, Baso % (Auto) 0.4, Absolute Neuts (auto) 8.2 H, Absolute Lymphs (auto) 1.87, Nucleated RBC % 0, Sodium 140, Potassium 3.5, Chloride 107, Carbon Dioxide 25.0, Anion Gap 8, BUN 18, Creatinine 0.95, Estim Creat Clear Calc 46.12 L, Est GFR (MDRD) Non-Af 62, BUN/Creatinine Ratio 19.1, Glucose 104 H, Calcium 9.3, Total Bilirubin 0.91, AST 27, ALT 18, Alkaline Phosphatase 69, Total Protein 6.7, Albumin 3.9, Globulin 2.9, Albumin/Globulin Ratio 1.4, Triglycerides 89, Cholesterol 203 H, LDL Cholesterol, Calc 115, VLDL Cholesterol 18, HDL Cholesterol 73, Cholesterol/HDL Ratio 2.80 Micro: Microbiology 05/07/25 21:11 Mucosa - Nose SARS-CoV-2, Influenza & RSV (PCR) - Final Radiography Diagnostic Testing: Radiology Impression Brain MRI 05/08/25 09:08 IMPRESSION: Acute ischemic infarction within the right cerebellum and right side of the cerebellar vermis. Mild chronic microvascular ischemic changes. Red Alert: Acute ischemic infarction. The critical findings in the findings and impression above were relayed to verify by telephone, and then verify to Teressa Carey on 05/08/2025 at 4:37 pm with readback verification. Reading Location: [id number] Head/Neck CTA 05/08/25 09:08 IMPRESSION: Minimal plaque formation at the origin of the left internal carotid artery. Reading Location: [id number] Physical Exam Narrative Seen and examined Patient did not have abdominal pain yesterday and today. Dizziness and lightheadedness got better Family members had a lot of questions and it was answered to their satisfaction Physical exam General: Alert, Oriented x3, Cooperative. BMI 27.3 kg/m² HEENT: Atraumatic, PERRLA, EOMI, Normocephalic. Oral: No Gingival or Mucosal Lesions/ Ulcerations Neck: Supple, No JVD, Negative Carotid Bruits Chest wall/Lungs: Air entry diminished in bilateral lung bases. No crepitation/rhonchi Cardiovascular: Regular rate and rhythm, Normal S1,S2, No M/G/R Abdomen: Bowel Sounds sluggish, Soft, Non Tender, Non-Distended : No dysuria. No renal angle tenderness. No suprapubic tenderness. Extremities: No edema, Capillary Refill Less than 3 Seconds Skin: No rashes, No breakdown Musculoskeletal: No Tenderness to Palpation of Joints or Extremities Neurological: Cranial nerves II-XII grossly intact, DTR 2+/4. No acute focal neurological deficit. Dizziness resolved. Psych/Mental Status: Flat affect Assessment & Plan Assessment/Plan (1) Encephalopathy: (2) Diverticulitis: PLAN: Plan The patient is a 74 y/o F who was admitted with dizziness, nausea vomiting. Patient also had abdominal pain at home but not in ED. #1. 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 Seen in the morning and afternoon. IV Reglan symptomatic management was done. CT head and neck shows minimal plaque. MRI brain done report pending. PT, OT, speech therapy/swallow evaluation and management, nursing NIH stroke scale, BP and glucose monitoring and control as per stroke protocol. TSH 2.01, A1c 5.5. MRI brain and 2D echo with bubble contrast study ordered. She had dizziness which provoked by movement. No visual changes. No focal signs or symptoms of weakness numbness. Neurologist recommendation appreciated 05/09: MRI brain reported yesterday as mentioned above involving at least one third to half of right cerebellar hemisphere involving cerebellar vermis. Etiology is cryptogenic. Patient tolerating baby aspirin and atorvastatin. Patient's family and daughter has the concern that MRI was delayed therefore did not get thrombolytics but tried to reconcile that MRI was ordered and IV thrombolytics are not dictated by MRI but depends on NIH stroke scale score, timing and acuity of the symptoms. As per the neurology she did not meet criteria for IV thrombolytics. CTA showed mild plaque therefore probability of inflammatory source or rare cause. Though the neurologist recommended yesterday monotherapy of baby aspirin and statin but he recommended dual antiplatelet therapy today, aspirin and Plavix for 21 days and then aspirin monotherapy indefinitely. 30-day event monitoring. Lipid profile shows elevated cholesterol 203, LDL 115, HDL normal. #2. Acute diverticulitis: Patient having nausea and vomiting in the morning. On IV antibiotic Zosyn. Symptomatic management. CT abdomen reviewed with the patient's daughter and son. 8 shows thickening of the sigmoid colon probably acute diverticulitis without perforation or abscess formation. Diffuse colonic diverticulosis. Moderate amount of fecal residue in the rectum. 04/26 continue IV antibiotic #3. Sinus arrhythmia: EKG in ED shows sinus arrhythmia. Serum magnesium normal. Repeat EKG ordered to ascertain A-fib. #4. Hypokalemia: Admission K+ 3.1, serum magnesium normal. Potassium replacement 05/09: Repeat BMP is normal, K3.4. 1 dose of potassium chloride, 40 mEq given #5. Hyperglycemia, mild: Admission glucose 136, A1c 5.5. Prediabetes or diabetes mellitus ruled DVT prophylaxis: Will maintain on chemoprophylaxis pending MRI of the brain, as long as not significant area involved if in fact acute stroke then would initiate Eliquis at that time to avoid risk of conversion if in fact PAF confirmed. CODE status: Patient does not have healthcare part returning or living will in place but her family present notes her and family would be her medical decision makers. Discussed CODE status at length including difference between FULL code, DNR-CCA and DNR-CC status with family. Following discussions about the differences in these status, requested Full Code status. Microbiology Past 72 Hours 05/07/25 21:11 Mucosa - Nose SARS-CoV-2, Influenza & RSV (PCR) - Final Laboratory Results 05/09/25 03:44: WBC 10.9, RBC 4.24, Hgb 12.9, Hct 37.9, MCV 89.4, MCH 30.4, MCHC 34.0, RDW Std Deviation 42.8, RDW Coeff of Shane 13.1, Plt Count 190, MPV 10.4, Immature Gran % (Auto) 0.500, Neut % (Auto) 75.3 H, Lymph % (Auto) 17.2 L, Mcdonough % (Auto) 6.5, Eos % (Auto) 0.1, Baso % (Auto) 0.4, Absolute Neuts (auto) 8.2 H, Absolute Lymphs (auto) 1.87, Nucleated RBC % 0, Sodium 140, Potassium 3.5, Chloride 107, Carbon Dioxide 25.0, Anion Gap 8, BUN 18, Creatinine 0.95, Estim Creat Clear Calc 46.12 L, Est GFR (MDRD) Non-Af 62, BUN/Creatinine Ratio 19.1, Glucose 104 H, Calcium 9.3, Total Bilirubin 0.91, AST 27, ALT 18, Alkaline Phosphatase 69, Total Protein 6.7, Albumin 3.9, Globulin 2.9, Albumin/Globulin Ratio 1.4, Triglycerides 89, Cholesterol 203 H, LDL Cholesterol, Calc 115, VLDL Cholesterol 18, HDL Cholesterol 73, Cholesterol/HDL Ratio 2.80 Charges/Coding Visit Charges Inpatient E&M: 13925 Subs Hosp L2 NIHSS NIHSS Nursing Documentation NIHSS Nursing Documentation: NIH Stroke Scale Start: 05/07/25 21:18 Freq: Status: Discharge Protocol: Activity Type Activity Date Activity User E-sign Co-sign Detail Recorded Client Recorded Date Recorded By Document 05/07/25 20:40 [facility] [id number] 05/07/25 21:20 [facility] 05/07/25 20:40 NIH Stroke Scale [NIHSS] A score of 0 is "normal" or asymptomatic . Total possible score is 42. Inpatient: RN or Physician to activate a stroke alert for onset of new stroke symptoms or with NIHSS increase >/= 3 points. Following change in neurological status, NIHSS will be performed per physician order or more frequently PRN. -1a. Level of Consciousness 1 - Not alert; Arousable by minor stimuli to obey, answer & respond -1b. LOC Questions 2 - Answers NEITHER question correctly -1c. LOC Commands 2 - Performs NEITHER task correctly -2. Best Gaze 0 - Normal -3. Visual 0 - No visual loss -4. Facial Palsy 0 - Normal symmetrical movements -'UN' explanation unable to follow commands -'UN' explanation uable to follow commands -'UN' explanation unable to follow commands -'UN' explanation unable to follow commands -'UN' explanation unable to follow commands -9. Best Language 1 - Mild-to- moderate aphasia; -10. Dysarthria 0 - Normal -Total 6 Query Text:A score of 0 is "normal" or asymptomatic. Total possible score is 42 . ED: Notify Physician for NIHSS increase by > / = 3 points. Inpatient: RN or Physician to activate a stroke alert for NIHSS increase of > / = 3 points. NIHSS: Ischemic Stroke/TIA Start: 05/08/25 09:08 Text: For PCU Patients: NIH and Neuro Check every 4 Status: Active hours, PRN and with change in RN caregiver. Freq: [id number] Protocol: Activity Type Activity Date Activity User E-sign Co-sign Detail Recorded Client Recorded Date Recorded By Document 05/09/25 05:15 MG [id number] 05/09/25 05:34 MG 05/09/25 05:15 -1a. Level of Consciousness 0 - Alert; keenly responsive -1b. LOC Questions 0 - Answers BOTH questions correctly -1c. LOC Commands 0 - Performs BOTH tasks correctly -2. Best Gaze 0 - Normal -3. Visual 0 - No visual loss -4. Facial Palsy 0 - Normal symmetrical movements -5a. Left Arm 0 - No drift; arm holds 90 ( or 45) degrees for full 10 seconds -5b. Right Arm 0 - No drift; arm holds 90 ( or 45) degrees for full 10 seconds -6a. Left Leg 0 - No drift; leg holds 30- degree position for full 5 seconds -6b. Right Leg 0 - No drift; leg holds 30- degree position for full 5 seconds -7. Limb Ataxia 0 - Absent -8. Sensory 0 - Normal; no sensory loss -9. Best Language 0 - No aphasia; normal -10. Dysarthria 0 - Normal -11. Extinction and Inattention 0 - No abnormality -Total 0 Query Text:A score of 0 is "normal" or asymptomatic. Total possible score is 42 . ED: Notify Physician for NIHSS increase by > / = 3 points. Inpatient: RN or Physician to activate a stroke alert for NIHSS increase of > / = 3 points. Coma Scale [Assess] -Eye Opening Spontaneous -Motor Obeys Commands -Verbal Oriented [Total] -Coma Scale Total 15
[2025-05-09] MEDS: Polyethylene Glycol 3350 17 GM PACKET PO (09:27)
[2025-05-09] MEDS: Senna/Docusate Sodium 1 Tablet 2 TABLET PO (09:27)
--- NOTE | 2025-05-09 09:50 | CASEMGMT ---
Addendum entered by Ester Molina 05/09/25 15:42: Script for OP PT/OT faxed to [facility]. Call to [facility]. They will call pt's home on Monday to schedule appt. Pt & family made aware and they were provided w/[facility]'s contact info. Per ST Katy, she has worked w/pt today and states if voice issues continue, she has informed pt & family that follow-up w/ENT is recommended. She also states a script for OP ST would also be beneficial, if issues persist. Script obtained from Dr Lamar and provided to family & they were made aware they can use this if issues persist. Pt and family deny having further discharge needs or concerns. Addendum entered by Ester Molina 05/09/25 15:06: 11:30 AM: PT/OT evals completed. Pt ambulated in halls w/use of walker, additional therapy recommended. APURVA CM to room to talk w/pt and family again. Pt would like to discharge home. Discussed HHC and OP therapy and pricing. Questions answered. They all decided they would like pt to have [facility] come to her home for OP PT & OT. It is still TBD re: ST recommendations re: OP ST. Pt & family state they will take a script for OP ST and if they decide to have pt do OP ST, they may be interested in pt going to [facility]. Info for [facility] provided as well as [facility] van transportation. Discussed therapy's recommendations for FWW. Provided them w/[facility] information. Also made aware hernandez is $77.13 to purchase a walker. They are not sure if they would like to buy one or not. They would like to decide when pt is closer to being ready for discharge. Per Breonna @ [employer], if pt/family decide they want a walker over the weekend prior to discharge a walker can be provided to them from [facility]. Breonna asked for APURVA CANNON to obtain contact info from someone who has a credit card for billing. If they are given a walker @ discharge, she will call them on Monday to get payment. Family provided the following phone #'s to call Monday: [phone] or [phone]. These were e-mailed to Breonna. Green sheet on chart for walker if pt and family decide they want to a walker @ discharge. Original Note: RN CM ASSESSMENT RN CM to room to meet with patient for initial transition planning/care coordination assessment. RN DAVIS introduced self and role at [facility]. Pt voices understanding and consents to assessment at this time. Pt resting in bed in no distress at this time. Family @ bedside. Pt is A/O at this time and answers all questions appropriately. Care providers, pharmacy, and demographics verified/updated at this time. Strata: 1 PCP: Dr Herrera Specialists: none Preferred Pharmacy: [facility] @ discharge. If pt unable to get medications from [facility] pharmacy, then they would like to get new Rx's from [facility] [place] [facility] [place]it: none LNOK: , Caio. Adult children Living Arrangements: Lives w/ in 2-story home w/no steps to enter. [employer]. Son lives in separate home across the yard. Pt independent w/ADL's and IADL's prior to CVA. Transportation: Hire drivers. DME: Pt states she has a shower that can go in the tub, if needed. Discussed discharge planning. PT/OT evals are pending. Per ST, it is TBD if pt OP ST is recommended. Discussed discharge planning w/pt and family. They would all like to wait to see how pt does PT/OT before making decisions re: discharge planning. They were informed RN DAVIS would return after after PT & OT evals completed. PLAN: TBD, PT/OT evals pending. Ronny ORTEZ RN, CM
--- NOTE | 2025-05-09 10:12 | CASEMGMT ---
Social Work Patient scored a 0 on the PHQ9. TIMMY Carcamo
[2025-05-09] MEDS: Pantoprazole Sodium 40 MG in 0.9% Normal Saline (100mL MB+) 100 ML 330 MG IV ×2 (11:25→21:33)
--- NOTE | 2025-05-09 12:24 | STROKE.PNOTE ---
Objective Data Objective Data Vital Signs: Vital Signs Temp Pulse Resp BP Pulse Ox O2 Del Method 98.1 F 67 14 175/85 H 94 Room Air 05/09/25 09:21 05/09/25 09:21 05/09/25 09:21 05/09/25 09:21 05/09/25 10:15 05/09/25 10:15 Oxygen Delivery Method Room Air Weight: 67.6 kg Body Mass Index (BMI) 27.2 Intake & Output: Intake and Output for Last 24 Hours 05/07/25 05/08/25 05/09/25 23:59 23:59 23:59 Intake Total 1050 / 1050 2840 / 2840 200 / 200 Output Total 500 / 500 150 / 150 Balance 1050 / 1050 2340 / 2340 50 / 50 Lab / Micro Data 05/09/25 03:44 05/09/25 03:44 Labs: Laboratory Results - last 24 hr 05/09/25 03:44: WBC 10.9, RBC 4.24, Hgb 12.9, Hct 37.9, MCV 89.4, MCH 30.4, MCHC 34.0, RDW Std Deviation 42.8, RDW Coeff of Shane 13.1, Plt Count 190, MPV 10.4, Immature Gran % (Auto) 0.500, Neut % (Auto) 75.3 H, Lymph % (Auto) 17.2 L, [place] % (Auto) 6.5, Eos % (Auto) 0.1, Baso % (Auto) 0.4, Absolute Neuts (auto) 8.2 H, Absolute Lymphs (auto) 1.87, Nucleated RBC % 0, Sodium 140, Potassium 3.5, Chloride 107, Carbon Dioxide 25.0, Anion Gap 8, BUN 18, Creatinine 0.95, Estim Creat Clear Calc 46.12 L, Est GFR (MDRD) Non-Af 62, BUN/Creatinine Ratio 19.1, Glucose 104 H, Calcium 9.3, Total Bilirubin 0.91, AST 27, ALT 18, Alkaline Phosphatase 69, Total Protein 6.7, Albumin 3.9, Globulin 2.9, Albumin/Globulin Ratio 1.4, Triglycerides 89, Cholesterol 203 H, LDL Cholesterol, Calc 115, VLDL Cholesterol 18, HDL Cholesterol 73, Cholesterol/HDL Ratio 2.80 Micro: Microbiology 11/12/25 21:11 Mucosa - Nose SARS-CoV-2, Influenza & RSV (PCR) - Final Radiography Diagnostic Testing: Radiology Impression Brain MRI 05/08/25 09:08 IMPRESSION: Acute ischemic infarction within the right cerebellum and right side of the cerebellar vermis. Mild chronic microvascular ischemic changes. Red Alert: Acute ischemic infarction. The critical findings in the findings and impression above were relayed to verify by telephone, and then verify to Teressa Carey on 05/08/2025 at 4:37 pm with readback verification. Reading Location: [id number] Subject: Neurology Subjective PHANI OLSEN is a 74 year old F, who we are seeing in consultation today for advice on the management of and related patient care. EEG Results Procedure Details EEG Procedure Details: PHANI OLSEN is a 74 year old F with a past medical history of , who presents for evaluation of Electroencephalogram on DATE at TIME Assessment and Plan: Stroke Assessment/Plan PHANI OLSEN is a 74 F with acute Rt cerebellar stroke. Etiology cryptogenic. Symptoms vastly improved compared to yesterday. CTA without significant vascular stenosis or atherosclerotic disease. Initial recommendations had been for ASA monotherapy, and she did initially receive a dose of plavix as well. Given her progression and low NIHSS to date I would ultimately move forward with dual anti-platelet therapy (ASA 81mg daily+ plavix 75mg daily) for 21 days followed by ASA monotherapy indefinitely. She should continue her statin mediacation. She should be set up with outpatient cardiac monitoring to evaluate for underlying atrial fibrillation. 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 Total possible score is 42. Inpatient: RN or Physician to activate a stroke alert for onset of new stroke symptoms or with NIHSS increase >/= 3 points. Following change in neurological status, NIHSS will be performed per physician order or more frequently PRN. -1a. Level of Consciousness 1 - Not alert; Arousable by minor stimuli to obey, answer & respond -1b. LOC Questions 2 - Answers NEITHER question correctly -1c. LOC Commands 2 - Performs NEITHER task correctly -2. Best Gaze 0 - Normal -3. Visual 0 - No visual loss -4. Facial Palsy 0 - Normal symmetrical movements -'UN' explanation unable to follow commands -'UN' explanation uable to follow commands -'UN' explanation unable to follow commands -'UN' explanation unable to follow commands -'UN' explanation unable to follow commands -9. Best Language 1 - Mild-to- moderate aphasia; -10. Dysarthria 0 - Normal -Total 6 Query Text:A score of 0 is "normal" or asymptomatic. Total possible score is 42 . ED: Notify Physician for NIHSS increase by > / = 3 points. Inpatient: RN or Physician to activate a stroke alert for NIHSS increase of > / = 3 points. NIHSS: Ischemic Stroke/TIA Start: 05/08/25 09:08 Text: For PCU Patients: NIH and Neuro Check every 4 Status: Active hours, PRN and with change in RN caregiver. Freq: [id number] Protocol: Activity Type Activity Date Activity User E-sign Co-sign Detail Recorded Client Recorded Date Recorded By Document 05/09/25 09:21 KG [id number] 05/09/25 09:21 KG 05/09/25 09:21 -1a. Level of Consciousness 0 - Alert; keenly responsive -1b. LOC Questions 0 - Answers BOTH questions correctly -1c. LOC Commands 0 - Performs BOTH tasks correctly -2. Best Gaze 0 - Normal -3. Visual 0 - No visual loss -4. Facial Palsy 0 - Normal symmetrical movements -5a. Left Arm 0 - No drift; arm holds 90 ( or 45) degrees for full 10 seconds -5b. Right Arm 0 - No drift; arm holds 90 ( or 45) degrees for full 10 seconds -6a. Left Leg 0 - No drift; leg holds 30- degree position for full 5 seconds -6b. Right Leg 0 - No drift; leg holds 30- degree position for full 5 seconds -7. Limb Ataxia 0 - Absent -8. Sensory 0 - Normal; no sensory loss -9. Best Language 0 - No aphasia; normal -10. Dysarthria 0 - Normal -11. Extinction and Inattention 0 - No abnormality -Total 0 Query Text:A score of 0 is "normal" or asymptomatic. Total possible score is 42 . ED: Notify Physician for NIHSS increase by > / = 3 points. Inpatient: RN or Physician to activate a stroke alert for NIHSS increase of > / = 3 points. Coma Scale [Assess] -Eye Opening Spontaneous -Motor Obeys Commands -Verbal Oriented [Total] -Coma Scale Total 15
[2025-05-10] VITALS (7 sets, daily range): BP systolic 138–172; BP diastolic 61–81; PULSE 58–73; RESP 15–20; TEMP 36.4–37.1; O2SAT 93–98; BMI 26.2
[2025-05-10] MEDS: Piperacil/Tazobactam 3.375 GM in 0.9% Normal Saline (50mL MB+) 50 ML IV ×3 (05:55→20:58)
--- NOTE | 2025-05-10 05:55 | CT_ITS ---
PROCEDURE: BRAIN/HEAD WITHOUT CONTRAST 05/10/2025 REASON FOR EXAM: FOOLOW UP CEREBELLAR ISCHEMIC INFARCTION TECHNIQUE: Procedure Code: CTBR Modality: CT Procedure: BRAIN/HEAD WITHOUT CONTRAST Coronal and Sagittal reconstruction series were provided. One or more dose reduction techniques were used (e.g., Automated exposure control, adjustment of the mA and/or kV according to patient size, use of iterative reconstruction technique. RADIATION DOSE SUMMARY: CTDlvol: 44.99 mGy DLP: 762.36 mGycm COMPARISON: CT head May 08, 2025. FINDINGS: Brain: Evolving acute infarctions in the right cerebellum and vermis. No acute intracranial hemorrhage. No mass-effect or midline shift. Diffuse white matter hypodensities which are nonspecific but likely due to chronic small-vessel ischemia. Parenchymal volume loss consistent with brain atrophy. No ventriculomegaly. The orbits are unremarkable. The craniocervical junction is unremarkable. CSF Spaces: Moderate generalized cerebral atrophy Sinuses/Mastoids: Clear at visualized levels Bones: No acute bony abnormalities. CT/Brain/Head without Contrast IMPRESSION: Evolving acute infarctions in the right cerebellum and vermis as reported on CT head May 08, 2025. No acute intracranial hemorrhage. Reading Location: [id number]
[2025-05-10] MEDS: Aspirin E.C. 325 MG Tablet PO (10:51)
--- NOTE | 2025-05-10 11:48 | PN.NEURO_ITS ---
Assessment and Plan: Neuro Assessment/Plan Telestroke Attending Progress Note (Audio/Video Interface) Today, she reports feeling better as compared to yesterday. Discussed with family at bedside. Repeat CT head looks stable with no evidence of bleed Diagnosis: Right cerebellar stroke. Cardioembolic/Afib Plan: Continue ASA 325mg daily along with statin. Switch to Eliquis on 06/13 if patient continues to improve. Control of vascular risk factors. 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 Sign off for now and please call us for any questions. I personally attended this patient and spent a total time of 35 minutes evaluating this patient including clinical assessment, review of chart, medical history imaging, and determining appropriate treatment and workup. Subject: Neurology Subjective No acute events overnight. Today, reports feeling better. Repeat CT head - stable. EEG Results Procedure Details EEG Procedure Details: PHANI OLSEN is a 74 year old F with a past medical history of , who presents for evaluation of Electroencephalogram on DATE at TIME Objective Data Objective Data Vital Signs: Vital Signs Temp Pulse Resp BP Pulse Ox O2 Del Method 97.6 F L 73 16 138/61 H 98 Room Air 05/10/25 09:28 05/10/25 09:28 05/10/25 09:28 05/10/25 09:28 05/10/25 09:28 05/10/25 09:28 Oxygen Delivery Method Room Air Weight: 65.1 kg Body Mass Index (BMI) 26.2 Intake & Output: Intake and Output for Last 24 Hours 05/08/25 05/09/25 05/10/25 23:59 23:59 23:59 Intake Total 2840 / 2840 350 / 350 100 / 100 Output Total 500 / 500 150 / 150 Balance 2340 / 2340 200 / 200 100 / 100 Lab / Micro Data 05/09/25 03:44 05/09/25 03:44 Micro: Microbiology 05/07/25 21:04 Urine, Catheterized Urine Culture - Final Culture exhibits no growth. 05/07/25 21:12 Blood Culture (Wb) #2 - Anticubital Right Blood Culture - Preliminary No growth in 48 hours. 05/07/25 20:45 Blood Culture (Wb) - Anticubital Left Blood Culture - Preliminary No growth in 48 hours. 05/07/25 21:11 Mucosa - Nose SARS-CoV-2, Influenza & RSV (PCR) - Final Radiography Diagnostic Testing: Radiology Impression Echocardiogram 05/08/25 15:41 Interpretation Summary The estimated ejection fraction is 70 %. Unable to assess diastolic dysfunction. There is mild biatrial dilatation. Trivial mitral valve insufficiency. Ordering Physician: Chucho Lamar Referring Physician: Jhon Herrera Performed By: Pancho Osborn RDCS Brain CT 05/10/25 05:55 IMPRESSION: Evolving acute infarctions in the right cerebellum and vermis as reported on CT head May 08, 2025. No acute intracranial hemorrhage. Reading Location: [facility] Physical Exam Narrative General: The patient appears nutritionally appropriate, well-groomed, and appears comfortable in no acute distress. Mental Status: The patient’s mental status was normal including orientation. Language was intact. Cranial nerves: Visual whalen full, and extra-ocular motion was intact. Symmetric face. Motor: Normal strength in all extremities. Sensation: Intact to touch in all extremities. Coordination: Bilateral finger to nose was normal. There was no dysmetria. Gait: deferred. NIHSS NIHSS Nursing Documentation NIHSS Nursing Documentation: NIH Stroke Scale Start: 05/07/25 21:18 Freq: Status: Discharge Protocol: Activity Type Activity Date Activity User E-sign Co-sign Detail Recorded Client Recorded Date Recorded By Document 05/07/25 20:40 MLM [id number] 05/07/25 21:20 MLM 05/07/25 20:40 NIH Stroke Scale [NIHSS] A score of 0 is "normal" or asymptomatic . Total possible score is 42. Inpatient: RN or Physician to activate a stroke alert for onset of new stroke symptoms or with NIHSS increase >/= 3 points. Following change in neurological status, NIHSS will be performed per physician order or more frequently PRN. -1a. Level of Consciousness 1 - Not alert; Arousable by minor stimuli to obey, answer & respond -1b. LOC Questions 2 - Answers NEITHER question correctly -1c. LOC Commands 2 - Performs NEITHER task correctly -2. Best Gaze 0 - Normal -3. Visual 0 - No visual loss -4. Facial Palsy 0 - Normal symmetrical movements -'UN' explanation unable to follow commands -'UN' explanation uable to follow commands -'UN' explanation unable to follow commands -'UN' explanation unable to follow commands -'UN' explanation unable to follow commands -9. Best Language 1 - Mild-to- moderate aphasia; -10. Dysarthria 0 - Normal -Total 6 Query Text:A score of 0 is "normal" or asymptomatic. Total possible score is 42 . ED: Notify Physician for NIHSS increase by > / = 3 points. Inpatient: RN or Physician to activate a stroke alert for NIHSS increase of > / = 3 points. NIHSS: Ischemic Stroke/TIA Start: 05/08/25 09:08 Text: For PCU Patients: NIH and Neuro Check every 4 Status: Active hours, PRN and with change in RN caregiver. Freq: [id number] Protocol: Activity Type Activity Date Activity User E-sign Co-sign Detail Recorded Client Recorded Date Recorded By Document 05/10/25 09:29 [id number] 05/10/25 09:34 05/10/25 09:29 -1a. Level of Consciousness 0 - Alert; keenly responsive -1b. LOC Questions 0 - Answers BOTH questions correctly -1c. LOC Commands 0 - Performs BOTH tasks correctly -2. Best Gaze 0 - Normal -3. Visual 0 - No visual loss -4. Facial Palsy 0 - Normal symmetrical movements -5a. Left Arm 0 - No drift; arm holds 90 ( or 45) degrees for full 10 seconds -5b. Right Arm 0 - No drift; arm holds 90 ( or 45) degrees for full 10 seconds -6a. Left Leg 0 - No drift; leg holds 30- degree position for full 5 seconds -6b. Right Leg 0 - No drift; leg holds 30- degree position for full 5 seconds -7. Limb Ataxia 0 - Absent -8. Sensory 0 - Normal; no sensory loss -9. Best Language 0 - No aphasia; normal -10. Dysarthria 0 - Normal -11. Extinction and Inattention 0 - No abnormality -Total 0 Query Text:A score of 0 is "normal" or asymptomatic. Total possible score is 42 . ED: Notify Physician for NIHSS increase by > / = 3 points. Inpatient: RN or Physician to activate a stroke alert for NIHSS increase of > / = 3 points. Coma Scale [Assess] -Eye Opening Spontaneous -Motor Obeys Commands -Verbal Oriented [Total] -Coma Scale Total 15 NIHSS 1a. Level of Consciousness: 0 - Alert; keenly responsive 1b. LOC Questions: 0 - Answers BOTH questions correctly 1c. LOC Commands: 0 - Performs BOTH tasks correctly 2. Best Gaze: 0 - Normal 3. Visual: 0 - No visual loss 4. Facial Palsy: 0 - Normal symmetrical movements 5a. Left Arm: 0 - No drift; arm holds 90 (or 45) degrees for full 10 seconds 5b. Right Arm: 0 - No drift; arm holds 90 (or 45) degrees for full 10 seconds 6a. Left Le - No drift; leg holds 30-degree position for full 5 seconds 6b. Right Le - No drift; leg holds 30-degree position for full 5 seconds 7. Limb Ataxia: 0 - Absent 8. Sensory: 0 - Normal; no sensory loss 9. Best Language: 0 - No aphasia; normal 10. Dysarthria: 0 - Normal 11. Extinction and Inattention: 0 - No abnormality Total: 0
--- NOTE | 2025-05-10 13:06 | PN.HOSP_ITS ---
Reason for Visit Chief Complaint: N,V, abd pain, confusion, ? aphasia. Objective Data Objective Data Vital Signs: Vital Signs Temp Pulse Resp BP Pulse Ox O2 Del Method 97.6 F L 73 16 138/61 H 98 Room Air 05/10/25 09:28 05/10/25 09:28 05/10/25 09:28 05/10/25 09:28 05/10/25 09:28 05/10/25 09:28 Oxygen Delivery Method Room Air Weight: 143 lb 8.335 oz Body Mass Index (BMI) 26.2 Intake & Output: Intake and Output for Last 24 Hours 05/08/25 05/09/25 05/10/25 23:59 23:59 23:59 Intake Total 2840 / 2840 350 / 350 100 / 100 Output Total 500 / 500 150 / 150 Balance 2340 / 2340 200 / 200 100 / 100 Lab / Micro Data 05/09/25 03:44 05/09/25 03:44 Micro: Microbiology 05/07/25 21:04 Urine, Catheterized Urine Culture - Final Culture exhibits no growth. 05/07/25 21:12 Blood Culture (Wb) #2 - Anticubital Right Blood Culture - Preliminary No growth in 48 hours. 05/07/25 20:45 Blood Culture (Wb) - Anticubital Left Blood Culture - Preliminary No growth in 48 hours. 05/07/25 21:11 Mucosa - Nose SARS-CoV-2, Influenza & RSV (PCR) - Final Radiography Diagnostic Testing: Radiology Impression Brain CT 05/10/25 05:55 IMPRESSION: Evolving acute infarctions in the right cerebellum and vermis as reported on CT head May 08, 2025. No acute intracranial hemorrhage. Reading Location: [facility] Physical Exam Narrative Seen and examined No acute issues overnight. Patient had CT head in the morning and does not show acute bleed. Discussed with the family. Patient did not have abdominal pain after admission. Dizziness and lightheadedness resolved Physical exam General: Alert, Oriented x3, Cooperative. BMI 27.3 kg/m² HEENT: Atraumatic, PERRLA, EOMI, Normocephalic. Oral: No Gingival or Mucosal Lesions/ Ulcerations Neck: Supple, No JVD, Negative Carotid Bruits Chest wall/Lungs: Air entry diminished in bilateral lung bases. No crepitation/rhonchi Cardiovascular: Regular rate and rhythm, Normal S1,S2, No M/G/R Abdomen: Bowel Sounds sluggish, Soft, Non Tender, Non-Distended : No dysuria. No renal angle tenderness. No suprapubic tenderness. Extremities: No edema, Capillary Refill Less than 3 Seconds Skin: No rashes, No breakdown Musculoskeletal: No Tenderness to Palpation of Joints or Extremities Neurological: Cranial nerves II-XII grossly intact, DTR 2+/4. No acute focal neurological deficit. Dizziness resolved. Psych/Mental Status: Flat affect Assessment & Plan Assessment/Plan (1) Encephalopathy: (2) Diverticulitis: PLAN: Plan The patient is a 74 y/o F who was admitted with dizziness, nausea vomiting. Patient also had abdominal pain at home but not in ED. #1. 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 Seen in the morning and afternoon. IV Reglan symptomatic management was done. CT head and neck shows minimal plaque. MRI brain done report pending. PT, OT, speech therapy/swallow evaluation and management, nursing NIH stroke scale, BP and glucose monitoring and control as per stroke protocol. TSH 2.01, A1c 5.5. MRI brain and 2D echo with bubble contrast study ordered. She had dizziness which provoked by movement. No visual changes. No focal signs or symptoms of weakness numbness. Neurologist recommendation appreciated 05/09: MRI brain reported yesterday as mentioned above involving at least one third to half of right cerebellar hemisphere involving cerebellar vermis. Etiology is cryptogenic. Patient tolerating baby aspirin and atorvastatin. Patient's family and daughter has the concern that MRI was delayed therefore did not get thrombolytics but tried to reconcile that MRI was ordered and IV thrombolytics are not dictated by MRI but depends on NIH stroke scale score, timing and acuity of the symptoms. As per the neurology she did not meet criteria for IV thrombolytics. CTA showed mild plaque therefore probability of inflammatory source or rare cause. Though the neurologist recommended yesterday monotherapy of baby aspirin and statin but he recommended dual antiplatelet therapy today, aspirin and Plavix for 21 days and then aspirin monotherapy indefinitely. 30-day event monitoring. Lipid profile shows elevated cholesterol 203, LDL 115, HDL normal. 05/10: Repeat CT head does not show acute bleed but similar findings to the previous scan, right cerebellar infarct. I discussed with the neurologist Dr. Mosquera. Agreed on aspirin 325 mg along with statin. Switch to Eliquis on 06/13 patient continues to improve. PT OT and speech evaluation. Neurologist signed off. #2. Acute diverticulitis: Patient having nausea and vomiting in the morning. On IV antibiotic Zosyn. Symptomatic management. CT abdomen reviewed with the patient's daughter and son. 8 shows thickening of the sigmoid colon probably acute diverticulitis without perforation or abscess formation. Diffuse colonic diverticulosis. Moderate amount of fecal residue in the rectum. 04/26 continue IV antibiotic #3. Sinus arrhythmia: EKG in ED shows sinus arrhythmia. Serum magnesium normal. Repeat EKG ordered to ascertain A-fib. #4. Hypokalemia: Admission K+ 3.1, serum magnesium normal. Potassium replacement 05/09: Repeat BMP is normal, K3.4. 1 dose of potassium chloride, 40 mEq given #5. Hyperglycemia, mild: Admission glucose 136, A1c 5.5. Prediabetes or diabetes mellitus ruled DVT prophylaxis: Will maintain on chemoprophylaxis pending MRI of the brain, as long as not significant area involved if in fact acute stroke then would initiate Eliquis at that time to avoid risk of conversion if in fact PAF confirmed. CODE status: Patient does not have healthcare part returning or living will in place but her family present notes her and family would be her medical decision makers. Discussed CODE status at length including difference between FULL code, DNR-CCA and DNR-CC status with family. Following discussions about the differences in these status, requested Full Code status. Microbiology Past 72 Hours 05/07/25 21:11 Mucosa - Nose SARS-CoV-2, Influenza & RSV (PCR) - Final Laboratory Results 05/09/25 03:44: WBC 10.9, RBC 4.24, Hgb 12.9, Hct 37.9, MCV 89.4, MCH 30.4, MCHC 34.0, RDW Std Deviation 42.8, RDW Coeff of Shane 13.1, Plt Count 190, MPV 10.4, Immature Gran % (Auto) 0.500, Neut % (Auto) 75.3 H, Lymph % (Auto) 17.2 L, Hernando % (Auto) 6.5, Eos % (Auto) 0.1, Baso % (Auto) 0.4, Absolute Neuts (auto) 8.2 H, Absolute Lymphs (auto) 1.87, Nucleated RBC % 0, Sodium 140, Potassium 3.5, Chloride 107, Carbon Dioxide 25.0, Anion Gap 8, BUN 18, Creatinine 0.95, Estim Creat Clear Calc 46.12 L, Est GFR (MDRD) Non-Af 62, BUN/Creatinine Ratio 19.1, G lucose 104 H, Calcium 9.3, Total Bilirubin 0.91, AST 27, ALT 18, Alkaline Phosphatase 69, Total Protein 6.7, Albumin 3.9, Globulin 2.9, Albumin/Globulin Ratio 1.4, Triglycerides 89, Cholesterol 203 H, LDL Cholesterol, Calc 115, VLDL Cholesterol 18, HDL Cholesterol 73, Cholesterol/HDL Ratio 2.80 Charges/Coding Visit Charges Inpatient E&M: 59627 Subs Hosp L2 NIHSS NIHSS Nursing Documentation NIHSS Nursing Documentation: NIH Stroke Scale Start: 05/07/25 21:18 Freq: Status: Discharge Protocol: Activity Type Activity Date Activity User E-sign Co-sign Detail Recorded Client Recorded Date Recorded By Document 05/07/25 20:40 MLM [id number] 05/07/25 21:20 MLM 05/07/25 20:40 NIH Stroke Scale [NIHSS] A score of 0 is "normal" or asymptomatic . Total possible score is 42. Inpatient: RN or Physician to activate a stroke alert for onset of new stroke symptoms or with NIHSS increase >/= 3 points. Following change in neurological status, NIHSS will be performed per physician order or more frequently PRN. -1a. Level of Consciousness 1 - Not alert; Arousable by minor stimuli to obey, answer & respond -1b. LOC Questions 2 - Answers NEITHER question correctly -1c. LOC Commands 2 - Performs NEITHER task correctly -2. Best Gaze 0 - Normal -3. Visual 0 - No visual loss -4. Facial Palsy 0 - Normal symmetrical movements -'UN' explanation unable to follow commands -'UN' explanation uable to follow commands -'UN' explanation unable to follow commands -'UN' explanation unable to follow commands -'UN' explanation unable to follow commands -9. Best Language 1 - Mild-to- moderate aphasia; -10. Dysarthria 0 - Normal -Total 6 Query Text:A score of 0 is "normal" or asymptomatic. Total possible score is 42 . ED: Notify Physician for NIHSS increase by > / = 3 points. Inpatient: RN or Physician to activate a stroke alert for NIHSS increase of > / = 3 points. NIHSS: Ischemic Stroke/TIA Start: 05/08/25 09:08 Text: For PCU Patients: NIH and Neuro Check every 4 Status: Active hours, PRN and with change in RN caregiver. Freq: [id number] Protocol: Activity Type Activity Date Activity User E-sign Co-sign Detail Recorded Client Recorded Date Recorded By Document 05/10/25 09:29 [id number] 05/10/25 09:34 05/10/25 09:29 -1a. Level of Consciousness 0 - Alert; keenly responsive -1b. LOC Questions 0 - Answers BOTH questions correctly -1c. LOC Commands 0 - Performs BOTH tasks correctly -2. Best Gaze 0 - Normal -3. Visual 0 - No visual loss -4. Facial Palsy 0 - Normal symmetrical movements -5a. Left Arm 0 - No drift; arm holds 90 ( or 45) degrees for full 10 seconds -5b. Right Arm 0 - No drift; arm holds 90 ( or 45) degrees for full 10 seconds -6a. Left Leg 0 - No drift; leg holds 30- degree position for full 5 seconds -6b. Right Leg 0 - No drift; leg holds 30- degree position for full 5 seconds -7. Limb Ataxia 0 - Absent -8. Sensory 0 - Normal; no sensory loss -9. Best Language 0 - No aphasia; normal -10. Dysarthria 0 - Normal -11. Extinction and Inattention 0 - No abnormality -Total 0 Query Text:A score of 0 is "normal" or asymptomatic. Total possible score is 42 . ED: Notify Physician for NIHSS increase by > / = 3 points. Inpatient: RN or Physician to activate a stroke alert for NIHSS increase of > / = 3 points. Coma Scale [Assess] -Eye Opening Spontaneous -Motor Obeys Commands -Verbal Oriented [Total] -Coma Scale Total 15
[2025-05-11 01:00] VITALS: BP 147/77; PULSE 57; RESP 16; TEMP 36.6; O2SAT 96
[2025-05-11 05:00] VITALS: BP 174/78; PULSE 68; RESP 16; TEMP 36.3; O2SAT 96
[2025-05-11 05:23] VITALS: BMI 26.2
[2025-05-11] MEDS: Piperacil/Tazobactam 3.375 GM in 0.9% Normal Saline (50mL MB+) 50 ML IV (05:32)
[2025-05-11 05:56] LABS: Hematocrit 43.2 % (37-47); Hemoglobin 14.6 g/dL (12.0-15.0); Immature Granulocytes Count 0.010 X10^3/uL (0.0-0.0); Mean Corp Hgb Conc 33.8 g/dL (32-36); Mean Corpuscular Volume 88.7 fL (81-99); Mean Platelet Vol. 10.0 fl (6.2-12.0); NRBC Flagged by Analyzer 0 % (0-5); Platelet Count 225 K/mm3 (150-450); RBC Distribution Width CV 12.3 % (11.6-14.6); RBC Distribution Width SD 39.8 fl (35.1-43.9); Red Blood Count 4.87 M/mm3 (4.2-5.4); White Blood Count 7.6 K/mm3 (4.4-11.0)
[2025-05-11 06:32] LABS: Anion Gap 9 (5-15); BUN 17 mg/dL (4-19); BUN/Creat Ratio 19.5 RATIO (10-20); Calcium,Total 9.6 mg/dL (7.6-11.0); Carbon Dioxide 25.7 mmol/L (21.0-32.0); Chloride 105 mmol/L (98-108); Estimated Creatinine Clearance 50.06 ml/min (50-250); Glucose 96 mg/dL (70-99); Potassium 3.5 mmol/L (3.3-5.1)
[2025-05-11 07:26] VITALS: O2SAT 93
[2025-05-11 08:21] VITALS: BP 174/75; PULSE 55; RESP 16; TEMP 36.5; O2SAT 95
[2025-05-11 08:40] VITALS: BMI 26.2
--- NOTE | 2025-05-11 08:53 | DCINST_ITS ---
Discharge Instructions DC O2, CPAP, BIPAP needs Home O2 Discharge instructions: No Dressing / Incision Discharge Activity: Return to Normal Activity Weight Bearing Status: Weight bearing as tolerated Dressing / Incision Call your doctor if you observe: Fever of 101 or Higher, Coldness, Increased Pain, Numbness or Tingling, Change in Color, Inability to urinate, Inability to have a bowel movement, Shortness of breath, Dizziness, Fainting spells, Swelling in the ankles, Chest pain, Prolonged hiccupping, Increased palpitations (irregular heartbeat) and Calf discomfort Follow Up Care When: IN 2 WEEKS Test Results: Test results from this visit will be discussed in further detail at your follow- up appointment, if applicable. Discharge Plan Admission Admit Date/Time: 05/08/25 02:52 Primary Reason for Your Visit: Acute ischemic stroke and sigmoid diverticulitis Attending Provider: Chucho Lamar Primary Care Provider: Jhon Herrera Consulting Providers: Adolfo Sierra; Francisco Murphy; Lili Hensley; Randi Frances; Manda Nazario; Rishi Mosquera; Annel Black; Jesus Woo; Harjinder Blackwell; Sam Ewing; Marguerite Goel; Itzel Byrd; Jordon Adorno; Raquel Leal; Catalina Tucker; Willian Figueroa; Godfrey Calvillo; Sabi Torres; Jun Dodge; Barbara Spann; Jamshid Herman; Teressa Carey Discharge Orders/Prescriptions Prescriptions: New atorvastatin 40 mg Tablet 40 mg PO QHS 30 Days Qty: 30 2RF aspirin 325 mg Tablet,Delayed Release (Dr/Ec) 325 mg PO BREAKFAST 2 Days Qty: 2 0RF Rx Instructions: switch to Eliquis on 05/14/25 lisinopril 10 mg Tablet 10 mg PO DAILY 30 Days Qty: 30 2RF Eliquis 5 mg tablet 5 mg PO BID 30 Days Qty: 60 2RF Rx Instructions: Start from 05/14/2025. Discontinue if platelet count drops less than 50,000 or hemoglobin less than 8 g% amoxicillin-pot clavulanate 875-125 mg tablet 1 tab PO BID 5 Days Qty: 10 0RF pantoprazole [Protonix] 40 mg tablet,delayed release (DR/EC) 40 mg PO DAILY 30 Days Qty: 30 2RF Continued calcium 26-vit D3-magnesium 15 167 mg calcium- 1.67 mcg-83 mg Capsule PO Discontinued Yamil 3 Fish Oil Concentrate Capsule PO Referrals / Follow Up: Isreal Mejia MD [Med Staff - Active Staff, Cardiology] - Within 1 Month Referral Note: for Transient/PAfib, stroke Pato Cristina MD [Non-Staff -Ordering Privileges, Neurology] - Within 1 Month Cristy Shrestha MD [Med Staff - Active Staff, General Surgery] - Within 1 Month Referral Note: Sigmoid diverticulitis. Possible colonoscopy after 1 month of diverticulitis Jhon Herrera MD [Primary Care Provider, Medical] - In 1 Week Care Physician,No Primary [Non-Staff, Medical] Disposition Disposition (needs filled in before D/C Order can be placed): Home, Self Care
--- NOTE | 2025-05-11 10:30 | DS.PCM_ITS ---
Providers Date of Admission: 05/08/25 Primary Care Physician: Dr. Jhon Herrera MD Consultations 05/08/25 09:08 Consult: Tele-Neurology Routine Consulting Provider: [facility] Reason for Consult: Acute Ischemic Stroke/TIA EMERGENT Consult: No MD Notified: Yes Date Notified: 05/08/25 Time Notified: 09:14 Method of Notification: Answering Service Nursing Unit Staff Notify [facility] of Tele-Neurology Consult: Yes Reason For Visit: ENCEPHALOPATHY, DIVERTICULITIS, ? CVA Diagnosis Discharge Diagnosis (1) Encephalopathy: Status: Acute Code(s): G93.40 - Encephalopathy, unspecified (2) Diverticulitis: Status: Acute Code(s): K57.92 - Diverticulitis of intestine, part unspecified, without perforation or abscess without bleeding Plan The patient is a 74 y/o F who was admitted with dizziness, nausea vomiting. Patient also had abdominal pain at home but not in ED. #1. 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 Seen in the morning and afternoon. IV Reglan symptomatic management was done. CT head and neck shows minimal plaque. MRI brain done report pending. PT, OT, speech therapy/swallow evaluation and management, nursing NIH stroke scale, BP and glucose monitoring and control as per stroke protocol. TSH 2.01, A1c 5.5. MRI brain and 2D echo with bubble contrast study ordered. She had dizziness which provoked by movement. No visual changes. No focal signs or symptoms of weakness numbness. Neurologist recommendation appreciated 05/09: MRI brain reported yesterday as mentioned above involving at least one third to half of right cerebellar hemisphere involving cerebellar vermis. Etiology is cryptogenic. Patient tolerating baby aspirin and atorvastatin. Patient's family and daughter has the concern that MRI was delayed therefore did not get thrombolytics but tried to reconcile that MRI was ordered and IV thrombolytics are not dictated by MRI but depends on NIH stroke scale score, timing and acuity of the symptoms. As per the neurology she did not meet criteria for IV thrombolytics. CTA showed mild plaque therefore probability of inflammatory source or rare cause. Though the neurologist recommended yesterday monotherapy of baby aspirin and statin but he recommended dual antiplatelet therapy today, aspirin and Plavix for 21 days and then aspirin monotherapy indefinitely. 30-day event monitoring. Lipid profile shows elevated cholesterol 203, LDL 115, HDL normal. 05/10: Repeat CT head does not show acute bleed but similar findings to the previous scan, right cerebellar infarct. I discussed with the neurologist Dr. Mosquera. Agreed on aspirin 325 mg along with statin. Switch to Eliquis on 06/13 patient continues to improve. PT OT and speech evaluation. Neurologist signed off. #2. Acute diverticulitis: Patient having nausea and vomiting in the morning. On IV antibiotic Zosyn. Symptomatic management. CT abdomen reviewed with the patient's daughter and son. 8 shows thickening of the sigmoid colon probably acute diverticulitis without perforation or abscess formation. Diffuse colonic diverticulosis. Moderate amount of fecal residue in the rectum. 04/26 continue IV antibiotic #3. Sinus arrhythmia: EKG in ED shows sinus arrhythmia. Serum magnesium normal. Repeat EKG ordered to ascertain A-fib. #4. Hypokalemia: Admission K+ 3.1, serum magnesium normal. Potassium replacement 05/09: Repeat BMP is normal, K3.4. 1 dose of potassium chloride, 40 mEq given #5. Hyperglycemia, mild: Admission glucose 136, A1c 5.5. Prediabetes or diabetes mellitus ruled DVT prophylaxis: Will maintain on chemoprophylaxis pending MRI of the brain, as long as not significant area involved if in fact acute stroke then would initiate Eliquis at that time to avoid risk of conversion if in fact PAF confirmed. CODE status: Patient does not have healthcare part returning or living will in place but her family present notes her and family would be her medical decision makers. Discussed CODE status at length including difference between FULL code, DNR-CCA and DNR-CC status with family. Following discussions about the differences in these status, requested Full Code status. Microbiology Past 72 Hours 05/07/25 21:11 Mucosa - Nose SARS-CoV-2, Influenza & RSV (PCR) - Final Laboratory Results 05/09/25 03:44: WBC 10.9, RBC 4.24, Hgb 12.9, Hct 37.9, MCV 89.4, MCH 30.4, MCHC 34.0, RDW Std Deviation 42.8, RDW Coeff of Shane 13.1, Plt Count 190, MPV 10.4, Immature Gran % (Auto) 0.500, Neut % (Auto) 75.3 H, Lymph % (Auto) 17.2 L, [place] % (Auto) 6.5, Eos % (Auto) 0.1, Baso % (Auto) 0.4, Absolute Neuts (auto) 8.2 H, Absolute Lymphs (auto) 1.87, Nucleated RBC % 0, Sodium 140, Potassium 3.5, Chloride 107, Carbon Dioxide 25.0, Anion Gap 8, BUN 18, Creatinine 0.95, Estim Creat Clear Calc 46.12 L, Est GFR (MDRD) Non-Af 62, BUN/Creatinine Ratio 19.1, G lucose 104 H, Calcium 9.3, Total Bilirubin 0.91, AST 27, ALT 18, Alkaline Phosphatase 69, Total Protein 6.7, Albumin 3.9, Globulin 2.9, Albumin/Globulin Ratio 1.4, Triglycerides 89, Cholesterol 203 H, LDL Cholesterol, Calc 115, VLDL Cholesterol 18, HDL Cholesterol 73, Cholesterol/HDL Ratio 2.80 Medications at Discharge Home Medications calcium 167 mg-vitamin D3 1.67 mcg-magnesium 83 mg capsule cap PO 12/28/21 amoxicillin 875 mg-potassium clavulanate 125 mg tablet 1 tab PO BID 5 days #10 tabs 05/11/25 apixaban 5 mg tablet (Eliquis) 5 mg PO BID 1 month #60 tabs 05/11/25 aspirin 325 mg tablet,delayed release 325 mg PO BREAKFAST 2 days #2 tabs 05/11/25 atorvastatin 40 mg tablet 40 mg PO QHS 30 days #30 tabs 05/11/25 lisinopril 10 mg tablet 10 mg PO DAILY 30 days #30 tabs 05/11/25 pantoprazole 40 mg tablet,delayed release (Protonix) 40 mg PO DAILY 1 month #30 tabs 05/11/25 Weight / BMI Weight Weight: 143 lb 8.335 oz Body Mass Index (BMI) 26.2 ABG / Lab / Microbiology Data 05/11/25 05:33 05/11/25 05:33 Laboratory: Laboratory Results - last 24 hr 05/11/25 05:33: WBC 7.6, RBC 4.87, Hgb 14.6, Hct 43.2, MCV 88.7, MCH 30.0, MCHC 33.8, RDW Std Deviation 39.8, RDW Coeff of Shane 12.3, Plt Count 225, MPV 10.0, Immature Gran % (Auto) 0.100, Neut % (Auto) 61.8, Lymph % (Auto) 27.8, [place] % (Auto) 7.4, Eos % (Auto) 1.7, Baso % (Auto) 1.2 H, Absolute Neuts (auto) 4.7, Absolute Lymphs (auto) 2.11, Nucleated RBC % 0, Sodium 140, Potassium 3.5, Chloride 105, Carbon Dioxide 25.7, Anion Gap 9, BUN 17, Creatinine 0.86, Estim Creat Clear Calc 50.06, Est GFR (MDRD) Non-Af 71, BUN/Creatinine Ratio 19.5, Glucose 96, Calcium 9.6 Microbiology: Microbiology 05/07/25 21:04 Urine, Catheterized Urine Culture - Final Culture exhibits no growth. 05/07/25 21:12 Blood Culture (Wb) #2 - Anticubital Right Blood Culture - Preliminary No growth in 48 hours. 05/07/25 20:45 Blood Culture (Wb) - Anticubital Left Blood Culture - Preliminary No growth in 48 hours. 05/07/25 21:11 Mucosa - Nose SARS-CoV-2, Influenza & RSV (PCR) - Final D/C Instructions Weight Bearing Status: Weight bearing as tolerated Call your doctor if you observe: Fever of 101 or Higher, Coldness, Increased Pain, Numbness or Tingling, Change in Color, Inability to urinate, Inability to have a bowel movement, Shortness of breath, Dizziness, Fainting spells, Swelling in the ankles, Chest pain, Prolonged hiccupping, Increased palpitations (irregular heartbeat) and Calf discomfort DC O2, CPAP, BIPAP Needs Home O2 Discharge instructions: No When: IN 2 WEEKS Meaningful Use Info Meaningful Use Meaningful Use Diagnoses (Choose all that apply): Ischemic CVA CVA Therapy Assessed for PT,OT and/or ST?: Yes Ischemic Stroke Antithrombotic order at d/c?: Yes Dx of Atrial fib/flutter?: Yes Anticoagulant at discharge?: Yes Statins at discharge?: Yes Primary Dx Acute Ischemic CVA?: Yes Discharge Plan Admission Admit Date/Time: 05/08/25 02:52 Primary Reason for Your Visit: Acute ischemic stroke and sigmoid diverticulitis Attending Provider: Chucho Lamar Primary Care Provider: Jhon Herrera Consulting Providers: Adolfo Sierra; Francisco Murphy; Lili Hensley; Randi Frances; Manda Nazario; Rishi Mosquera; Annel Black; Jesus Woo; Harjinder Blackwell; Sam Ewing; Marguerite Goel; Itzel Byrd; Jordon Adorno; Raquel Leal; Catalina Tucker; Willian Figueroa; Godfrey Calvillo; Sabi Torres; Jun Dodge; Barbara Spann; Jamshid Herman; Teressa Carey Instructions Additional Instructions / Restrictions: Probiotics,( lactobacillus and acidobacillus) 1 tablet 3 times daily Advised follow-up with neurologist Dr. Cristina or referred by PCP. Discharge Orders/Prescriptions Prescriptions: New atorvastatin 40 mg Tablet 40 mg PO QHS 30 Days Qty: 30 2RF aspirin 325 mg Tablet,Delayed Release (Dr/Ec) 325 mg PO BREAKFAST 2 Days Qty: 2 0RF Rx Instructions: switch to Eliquis on 05/14/25 lisinopril 10 mg Tablet 10 mg PO DAILY 30 Days Qty: 30 2RF Eliquis 5 mg tablet 5 mg PO BID 30 Days Qty: 60 2RF Rx Instructions: Start from 05/14/2025. Discontinue if platelet count drops less than 50,000 or hemoglobin less than 8 g% amoxicillin-pot clavulanate 875-125 mg tablet 1 tab PO BID 5 Days Qty: 10 0RF pantoprazole [Protonix] 40 mg tablet,delayed release (DR/EC) 40 mg PO DAILY 30 Days Qty: 30 2RF Continued calcium 26-vit D3-magnesium 15 167 mg calcium- 1.67 mcg-83 mg Capsule PO Discontinued Yamil 3 Fish Oil Concentrate Capsule PO Referrals / Follow Up: Isreal Mejia MD [Med Staff - Active Staff, Cardiology] - Within 1 Month Referral Note: for Transient/PAfib, stroke Pato Cristina MD [Non-Staff -Ordering Privileges, Neurology] - Within 1 Month Cristy Shrestha MD [Med Staff - Active Staff, General Surgery] - Within 1 Month Referral Note: Sigmoid diverticulitis. Possible colonoscopy after 1 month of diverticulitis Jhon Herrera MD [Primary Care Provider, Medical] - In 1 Week Care Physician,No Primary [Non-Staff, Medical] Disposition Disposition (needs filled in before D/C Order can be placed): Home, Self Care
[2025-05-11 10:33] VITALS: BP 159/73; PULSE 59; RESP 16; O2SAT 98
--- NOTE | 2025-05-11 10:34 | PCM.DC.SUM ---
Providers Date of Admission: 05/08/25 Date of Discharge: 05/11/25 Primary Care Physician: Dr. Jhon Herrera MD Consultations 05/08/25 09:08 Consult: Tele-Neurology Routine Consulting Provider: [facility] Reason for Consult: Acute Ischemic Stroke/TIA EMERGENT Consult: No MD Notified: Yes Date Notified: 05/08/25 Time Notified: 09:14 Method of Notification: Answering Service Nursing Unit Staff Notify [facility] of Tele-Neurology Consult: Yes Reason For Visit: ENCEPHALOPATHY, DIVERTICULITIS, ? CVA Diagnosis Discharge Diagnosis (1) Encephalopathy: Status: Acute Code(s): G93.40 - Encephalopathy, unspecified (2) Diverticulitis: Status: Acute Code(s): K57.92 - Diverticulitis of intestine, part unspecified, without perforation or abscess without bleeding Plan The patient is a 74 y/o F who was admitted with dizziness, nausea vomiting. Patient also had abdominal pain at home but not in ED. #1. 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 Seen in the morning and afternoon. IV Reglan symptomatic management was done. CT head and neck shows minimal plaque. MRI brain done report pending. PT, OT, speech therapy/swallow evaluation and management, nursing NIH stroke scale, BP and glucose monitoring and control as per stroke protocol. TSH 2.01, A1c 5.5. MRI brain and 2D echo with bubble contrast study ordered. She had dizziness which provoked by movement. No visual changes. No focal signs or symptoms of weakness numbness. Neurologist recommendation appreciated 05/09: MRI brain reported yesterday as mentioned above involving at least one third to half of right cerebellar hemisphere involving cerebellar vermis. Etiology is cryptogenic. Patient tolerating baby aspirin and atorvastatin. Patient's family and daughter has the concern that MRI was delayed therefore did not get thrombolytics but tried to reconcile that MRI was ordered and IV thrombolytics are not dictated by MRI but depends on NIH stroke scale score, timing and acuity of the symptoms. As per the neurology she did not meet criteria for IV thrombolytics. CTA showed mild plaque therefore probability of inflammatory source or rare cause. Though the neurologist recommended yesterday monotherapy of baby aspirin and statin but he recommended dual antiplatelet therapy today, aspirin and Plavix for 21 days and then aspirin monotherapy indefinitely. 30-day event monitoring. Lipid profile shows elevated cholesterol 203, LDL 115, HDL normal. 05/10: Repeat CT head does not show acute bleed but similar findings to the previous scan, right cerebellar infarct. I discussed with the neurologist Dr. Mosquera. Agreed on aspirin 325 mg along with statin. Switch to Eliquis on patient continues to improve. PT OT and speech evaluation. Neurologist signed off. 05/11: Discussed with the neurologist. Prescription given as mentioned above for aspirin through 1217 and switch to Eliquis 5 mg twice daily on 06/13. Prescription also given for atorvastatin. Advised follow-up with a neurologist Dr. Cristina in 1 month. Patient has bilateral lower legs varicose vein left leg more than right and had once or twice spontaneous venous varicose vein burst but was controlled. Risk and benefit of anticoagulants including Eliquis discussed and if patient gets bleeding, of varicose vein burst, advised local pressure and contact PCP or ER. #2. Acute diverticulitis: Patient having nausea and vomiting in the morning. On IV antibiotic Zosyn. Symptomatic management. CT abdomen reviewed with the patient's daughter and son. 8 shows thickening of the sigmoid colon probably acute diverticulitis without perforation or abscess formation. Diffuse colonic diverticulosis. Moderate amount of fecal residue in the rectum. 05/10 continue IV antibiotic : 05/11: Patient having mild diarrhea/loose bowel movement. Lactobacillus prescribed. Patient had 3 days of IV antibiotics Cipro discharged 5 more days of Augmentin. Continue lactobacillus for 10 days. Advised follow-up in surgical associate, Dr. Cardenas in 1 month to evaluate sigmoid diverticulitis and for possible. She had last colonoscopy about 5 to 6 years ago. Exact findings not known #3. Sinus arrhythmia: EKG in ED shows sinus arrhythmia. Serum magnesium normal. Repeat EKG ordered to ascertain A-fib. 05/11: First EKG in ED was atrial fibrillation on 05/07 night. Probably transient A-fib or paroxysmal A-fib. Discussed with the neurologist. Does not need 30-day event monitor as patient already being discharged on Eliquis. Follow-up in cardiology office to within a month for new diagnosis of A-fib. Patient discharged on Eliquis and low-dose metoprolol succinate 12.5 mg daily. #4. Hypokalemia: Admission K+ 3.1, serum magnesium normal. Potassium replacement 05/09: Repeat BMP is normal, K3.4. 1 dose of potassium chloride, 40 mEq given 05/10:, potassium is normal #5. Hyperglycemia, mild: Admission glucose 136, A1c 5.5. Prediabetes or diabetes mellitus ruled DVT prophylaxis: Will maintain on chemoprophylaxis pending MRI of the brain, as long as not significant area involved if in fact acute stroke then would initiate Eliquis at that time to avoid risk of conversion if in fact PAF confirmed. CODE status: Patient does not have healthcare part returning or living will in place but her family present notes her and family would be her medical decision makers. Discussed CODE status at length including difference between FULL code, DNR-CCA and DNR-CC status with family. Following discussions about the differences in these status, requested Full Code status. Discharge medication reconciliation done. Discharge follow-up instructions completed. Discharge process discussed with the patient and all questions were answered to patient's satisfaction. Follow with PCP in 1 to 2 weeks Total time spent, exact 35 minutes on discharge meds reconciliation, examination, coordination of care with nurses and ancillary staff, review of imaging and blood test and discussion with the patient on follow-up instructions. Microbiology Past 72 Hours 05/07/25 21:11 Mucosa - Nose SARS-CoV-2, Influenza & RSV (PCR) - Final Laboratory Results 05/09/25 03:44: WBC 10.9, RBC 4.24, Hgb 12.9, Hct 37.9, MCV 89.4, MCH 30.4, MCHC 34.0, RDW Std Deviation 42.8, RDW Coeff of Shane 13.1, Plt Count 190, MPV 10.4, Immature Gran % (Auto) 0.500, Neut % (Auto) 75.3 H, Lymph % (Auto) 17.2 L, [place] % (Auto) 6.5, Eos % (Auto) 0.1, Baso % (Auto) 0.4, Absolute Neuts (auto) 8.2 H, Absolute Lymphs (auto) 1.87, Nucleated RBC % 0, Sodium 140, Potassium 3.5, Chloride 107, Carbon Dioxide 25.0, Anion Gap 8, BUN 18, Creatinine 0.95, Estim Creat Clear Calc 46.12 L, Est GFR (MDRD) Non-Af 62, BUN/Creatinine Ratio 19.1, Glucose 104 H, Calcium 9.3, Total Bilirubin 0.91, AST 27, ALT 18, Alkaline Phosphatase 69, Total Protein 6.7, Albumin 3.9, Globulin 2.9, Albumin/Globulin Ratio 1.4, Triglycerides 89, Cholesterol 203 H, LDL Cholesterol, Calc 115, VLDL Cholesterol 18, HDL Cholesterol 73, Cholesterol/HDL Ratio 2.80 Medications at Discharge Home Medications calcium 167 mg-vitamin D3 1.67 mcg-magnesium 83 mg capsule cap PO 12/28/21 amoxicillin 875 mg-potassium clavulanate 125 mg tablet 1 tab PO BID 5 days #10 tabs 05/11/25 apixaban 5 mg tablet (Eliquis) 5 mg PO BID 1 month #60 tabs 05/11/25 aspirin 325 mg tablet,delayed release 325 mg PO BREAKFAST 2 days #2 tabs 05/11/25 atorvastatin 40 mg tablet 40 mg PO QHS 30 days #30 tabs 05/11/25 lisinopril 10 mg tablet 10 mg PO DAILY 30 days #30 tabs 05/11/25 metoprolol succinate 25 mg tablet,extended release 24 hr (Toprol XL) 12.5 mg (1/2 x 25 mg) PO DAILY 60 days #30 tabs 05/11/25 pantoprazole 40 mg tablet,delayed release (Protonix) 40 mg PO DAILY 1 month #30 tabs 05/11/25 Physical Exam Narrative Seen and examined Patient is doing well. Tolerated aspirin good. H&H 14.6/43.2%. No acute issues overnight. Physical exam General: Alert, Oriented x3, Cooperative. BMI 27.3 kg/m² HEENT: Atraumatic, PERRLA, EOMI, Normocephalic. Oral: No Gingival or Mucosal Lesions/ Ulcerations Neck: Supple, No JVD, Negative Carotid Bruits Chest wall/Lungs: Air entry equal in bilateral lung bases. No crepitation/rhonchi Cardiovascular: Regular rate and rhythm, Normal S1,S2, No M/G/R Abdomen: Bowel Sounds sluggish, Soft, Non Tender, Non-Distended : No dysuria. No renal angle tenderness. No suprapubic tenderness. Extremities: No edema, Capillary Refill Less than 3 Seconds Skin: No rashes, No breakdown Musculoskeletal: No Tenderness to Palpation of Joints or Extremities Neurological: Cranial nerves II-XII grossly intact, DTR 2+/4. No acute focal neurological deficit. Dizziness resolved. Psych/Mental Status: Flat affect Weight / BMI Weight Weight: 143 lb 8.335 oz Body Mass Index (BMI) 26.2 ABG / Lab / Microbiology Data 05/11/25 05:33 05/11/25 05:33 Laboratory: Laboratory Results - last 24 hr 05/11/25 05:33: WBC 7.6, RBC 4.87, Hgb 14.6, Hct 43.2, MCV 88.7, MCH 30.0, MCHC 33.8, RDW Std Deviation 39.8, RDW Coeff of Shane 12.3, Plt Count 225, MPV 10.0, Immature Gran % (Auto) 0.100, Neut % (Auto) 61.8, Lymph % (Auto) 27.8, [place] % (Auto) 7.4, Eos % (Auto) 1.7, Baso % (Auto) 1.2 H, Absolute Neuts (auto) 4.7, Absolute Lymphs (auto) 2.11, Nucleated RBC % 0, Sodium 140, Potassium 3.5, Chloride 105, Carbon Dioxide 25.7, Anion Gap 9, BUN 17, Creatinine 0.86, Estim Creat Clear Calc 50.06, Est GFR (MDRD) Non-Af 71, BUN/Creatinine Ratio 19.5, Glucose 96, Calcium 9.6 Microbiology: Microbiology 05/07/25 21:04 Urine, Catheterized Urine Culture - Final Culture exhibits no growth. 05/07/25 21:12 Blood Culture (Wb) #2 - Anticubital Right Blood Culture - Preliminary No growth in 48 hours. 05/07/25 20:45 Blood Culture (Wb) - Anticubital Left Blood Culture - Preliminary No growth in 48 hours. 05/07/25 21:11 Mucosa - Nose SARS-CoV-2, Influenza & RSV (PCR) - Final D/C Instructions Weight Bearing Status: Weight bearing as tolerated Call your doctor if you observe: Fever of 101 or Higher, Coldness, Increased Pain, Numbness or Tingling, Change in Color, Inability to urinate, Inability to have a bowel movement, Shortness of breath, Dizziness, Fainting spells, Swelling in the ankles, Chest pain, Prolonged hiccupping, Increased palpitations (irregular heartbeat) and Calf discomfort DC O2, CPAP, BIPAP Needs Home O2 Discharge instructions: No When: IN 2 WEEKS Meaningful Use Info Meaningful Use Meaningful Use Diagnoses (Choose all that apply): Ischemic CVA CVA Therapy Assessed for PT,OT and/or ST?: Yes Ischemic Stroke Antithrombotic order at d/c?: Yes Dx of Atrial fib/flutter?: Yes Anticoagulant at discharge?: Yes Statins at discharge?: Yes Primary Dx Acute Ischemic CVA?: Yes Discharge Plan Admission Admit Date/Time: 05/08/25 02:52 Primary Reason for Your Visit: Acute ischemic stroke and sigmoid diverticulitis Attending Provider: Chucho Lamar Primary Care Provider: Jhon Herrera Consulting Providers: Adolfo Sierra; Francisco Murphy; Lili Hensley; Randi Frances; Manda Nazario; Rishi Mosquera; Annel Black; Jesus Woo; Harjinder Blackwell; Sam Ewing; Marguerite Goel; Itzel Byrd; Jordon Adorno; Raquel Leal; Catalina Tucker; Willian Figueroa; Godfrey Calvillo; Sabi Torres; Jun Dodge; Barbara Spann; Jamshid Herman; Teressa Carey Instructions Additional Instructions / Restrictions: Probiotics,( lactobacillus and acidobacillus) 1 tablet 3 times daily Advised follow-up with neurologist Dr. Cristina or referred by PCP. Discharge Orders/Prescriptions Prescriptions: New atorvastatin 40 mg Tablet 40 mg PO QHS 30 Days Qty: 30 2RF aspirin 325 mg Tablet,Delayed Release (Dr/Ec) 325 mg PO BREAKFAST 2 Days Qty: 2 0RF Rx Instructions: switch to Eliquis on 05/14/25 lisinopril 10 mg Tablet 10 mg PO DAILY 30 Days Qty: 30 2RF Eliquis 5 mg tablet 5 mg PO BID 30 Days Qty: 60 2RF Rx Instructions: Start from 05/14/2025. Discontinue if platelet count drops less than 50,000 or hemoglobin less than 8 g% amoxicillin-pot clavulanate 875-125 mg tablet 1 tab PO BID 5 Days Qty: 10 0RF pantoprazole [Protonix] 40 mg tablet,delayed release (DR/EC) 40 mg PO DAILY 30 Days Qty: 30 2RF metoprolol succinate [Toprol XL] 25 mg tablet extended release 24 hr 12.5 mg PO DAILY 60 Days Qty: 30 1RF Rx Instructions: Hold for heart less than 60 or systolic blood pressure less than 100 mmHg. Continued calcium 26-vit D3-magnesium 15 167 mg calcium- 1.67 mcg-83 mg Capsule PO Discontinued Yamil 3 Fish Oil Concentrate Capsule PO Referrals / Follow Up: Isreal Mejia MD [Med Staff - Active Staff, Cardiology] - Within 1 Month Referral Note: for Transient/PAfib, stroke Pato Cristina MD [Non-Staff -Ordering Privileges, Neurology] - Within 1 Month Cristy Shrestha MD [Med Staff - Active Staff, General Surgery] - Within 1 Month Referral Note: Sigmoid diverticulitis. Possible colonoscopy after 1 month of diverticulitis Jhon Herrera MD [Primary Care Provider, Medical] - In 1 Week Care Physician,No Primary [Non-Staff, Medical] Disposition Disposition (needs filled in before D/C Order can be placed): Home, Self Care Charges/Coding Visit Charges Inpatient E&M: 40266 Disch Hosp >30min
[2025-05-11] MEDS: Aspirin E.C. 325 MG Tablet PO (10:39)
== END 2025-05-11 12:16 | disposition home or self-care (01) | DRG 65 ==
LOC: ED 05-08 02:55 → PCU 05-08 08:58
PROVIDERS: Admitting Provider Family Medicine; Emergency Provider Specialist/Technologist Athletic Trainer; PCP Family Medicine; Visit Provider Internal Medicine
DX: I63.9 Cerebral infarction, unspecified (principal); K57.32 Diverticulitis of large intestine without perforation or abscess without bleeding; G93.40 Encephalopathy, unspecified; I48.91 Unspecified atrial fibrillation; E87.6 Hypokalemia; I49.8 Other specified cardiac arrhythmias; I83.93 Asymptomatic varicose veins of bilateral lower extremities; E78.00 Pure hypercholesterolemia, unspecified; N18.2 Chronic kidney disease, stage 2 (mild); I87.2 Venous insufficiency (chronic) (peripheral); R29.700 NIHSS score 0; R73.9 Hyperglycemia, unspecified; Z79.899 Other long term (current) drug therapy; Z79.82 Long term (current) use of aspirin
CPT/HCPCS: 36415; 51702; 70450; 70496; 70498; 70551; 71045; 74177; 80048; 80053; 80061; 81001; 82803; 82962; 83036; 83605; 83735; 84443; 84484; 85025; 85610; 85730; 87040; 87086; 87631; 92507; 92524; 92526; 92610; 93005; 93306; 94668; 94762; 97116; 97163; 97167; 97530; 99285; Q9967; A4216; J0696; J2405

== ENCOUNTER 2025-05-12 11:32 | Inpatient (IN) | payer OTHER, SELFPAY ==
[2025-05-12] VITALS (13 sets, daily range): BP systolic 77–134; BP diastolic 45–83; PULSE 53–72; RESP 13–18; TEMP 35.5–36.7; O2SAT 96–100; BMI 28.4; BMI 25.7
--- NOTE | 2025-05-12 12:29 | EKG12_ITS ---
Test Reason : N/V Blood Pressure : */* mmHG Vent. Rate : 63 BPM Atrial Rate : 63 BPM P-R Int : 152 ms QRS Dur : 86 ms QT Int : 412 ms P-R-T Axes : 43 14 30 degrees QTcB Int : 421 ms Sinus rhythm with Premature atrial complexes in a pattern of bigeminy Otherwise normal ECG Confirmed by NIURKA CHARLES, EDGAR ([id number]), multimedia editor CLAUS ALMEIDA ([id number]) on 05/13/2025 12:21:12 PM Referred By: Confirmed By: EDGAR BAH MD
--- NOTE | 2025-05-12 12:30 | EDS_ITS ---
HPI History of Present Illness Chief Complaint: Nausea/Vomiting Detail of Chief Complaint: Vomiting and abdominal pain Informant: patient Narrative Narrative: Patient presents to the emergency department with complaint of vomiting. She was just discharged from the hospital yesterday. Patient had been admitted for stroke and also was diagnosed with diverticulitis. She apparently went home and had a good night sleep but woke up this morning with a headache and some chest discomfort and abdominal pain. She has vomited multiple times. Still taking antibiotics for diverticulitis. She denies fever at home. Having some diarrhea. Denies blood in her stool. [facility] Medical History Venous insufficiency (chronic) (peripheral) Arthritis Home Medications ?Medication ?Instructions ?Recorded ?Last Taken ?Type amoxicillin 875 mg-potassium 1 tab PO BID 5 days #10 t abs 05/11/25 05/12/25 Rx clavulanate 125 mg tablet apixaban 5 mg tablet (Eliquis) 5 mg PO BID 1 month #60 tabs 05/11/25 05/12/25 Rx aspirin 325 mg tablet,delayed 325 mg PO BREAKFAST 2 da ys #2 tabs 05/11/25 05/12/25 Rx release atorvastatin 40 mg tablet 40 mg PO QHS 30 days #30 tab s 05/11/25 05/11/25 Rx lisinopril 10 mg tablet 10 mg PO DAILY 30 days #30 t abs 05/11/25 05/11/25 Rx metoprolol succinate 25 mg 12.5 mg (1/2 x 25 mg) PO DA BRYAN 60 05/11/25 05/12/25 Rx tablet,extended release 24 hr days #30 tabs (Toprol XL) pantoprazole 40 mg tablet,delayed 40 mg PO DAILY 1 mon #30 tabs 05/11/25 05/12/25 Rx release (Protonix) Allergy/AdvReac Type Severity Reaction Status Date / Time No Known Allergies Allergy Verified 05/12/25 11:33 Family History (Updated 05/08/25 @ 03:[address] Teressa Carey MD) Sister CVA (cerebral vascular accident) Hypertension Mother No problems noted. Father No problems noted. Surgical History No history of previous surgery Social History household members: spouse and family Smoking Status: Never smoker alcohol intake: never substance use type: does not use ROS ROS ED Review of Systems ROS Unobtainable: other Constitutional Constitutional ED: Reports lethargy; Denies chills, fever(s), sweats or weight loss Eyes Eyes: Denies blurry vision, change in vision or diplopia ENT ENT ED: Denies rhinorrhea or sore throat Cardiovascular Cardiovascular: Reports chest pain; Denies orthopnea or racing heartbeat Respiratory/Chest Respiratory/Chest: Denies cough, dyspnea, dyspnea on exertion, orthopnea or sputum Gastrointestinal Gastrointestinal: Reports abdominal pain, nausea and vomiting; Denies diarrhea Genitourinary Genitourinary ED: Denies dysuria, hematuria or urinary frequency Musculoskeletal Musculoskeletal: Denies arthralgias, back pain, myalgias or neck pain Integumentary Denies abscess, Abrasions or rash Neurologic Neurologic: Reports headache(s); Denies weakness Psychiatric Psychiatric: Denies anxiety, depression or suicidal thoughts Endocrine Endocrinology: Denies polydipsia, polyphagia or polyuria Hematologic/Lymphatic Hematologic/Lymphatic: Denies easy bleeding, easy bruising or lymphadenopathy Allergic/Immunologic Allergic/Immunologic ED: Denies mouth swelling, tongue swelling or urticaria EXAM Physical Exam Const Vital Signs: 05/12/25 11:33 05/12/25 11:36 05/12/25 12:36 Temperature 96 F L 96 F L Temperature Source Temporal Oral Pulse Rate 65 64 72 Respiratory Rate 18 14 16 Blood Pressure 92/68 128/72 H 112/70 Blood Pressure Mean 76 90 84 Pulse Ox 96 96 98 Oxygen Delivery Method Room Air Room Air 05/12/25 13:00 05/12/25 13:06 05/12/25 13:36 Temperature 97.6 F L Temperature Source Temporal Pulse Rate 58 L 55 L Respiratory Rate 13 Blood Pressure 77/45 L 83/55 L 99/60 Blood Pressure Mean 55 64 73 Pulse Ox 97 97 Oxygen Delivery Method Room Air 05/12/25 14:00 05/12/25 14:00 Temperature 96.9 F L Temperature Source Oral Pulse Rate 58 L 63 Respiratory Rate 14 15 Blood Pressure 99/60 128/78 H Blood Pressure Mean 73 94 Pulse Ox 97 99 Oxygen Delivery Method Room Air Room Air Positive well nourished and well developed General Appearance ED: well developed and NAD HEENT Reports TM's clear and moist mucous membranes normocephalic and atraumatic; Negative for trauma or tenderness Tympanic Membrane ED: Yes TM's clear Eyes PERRL and EOMs intact bilaterally General Eye ED: Negative for pale conjunctiva or scleral icterus Neck no lymphadenopathy, supple and no JVD General: Negative for tenderness Chest Wall inspection of chest normal and palpation of chest normal Chest: Negative for tenderness Resp normal respiratory effort and clear to auscultation bilaterally Effort and Inspection: Negative for respiratory distress or pain with movement Auscultation: Negative for rhonchi, wheezes or diminished lung sounds Cardio regular rate, regular rhythm, S1 normal heart sound, S2 normal heart sound and no murmurs Peripheral Pulses: pulses 2+ throughout GI normal to inspection, nondistended, normoactive bowel sounds, soft to palpation, non-distended and no masses GI Narrative: Diffuse tenderness on exam with some guarding. There is no rebound or rigidity. No peritoneal signs Back/Spine no CVA tenderness and no thoracic nor lumbar tenderness Extremity normal to inspection General Extremety ED: Negative for edema General Extremity: Negative for edema Neuro oriented x3, CN's II-XII intact bilaterally, no sensory deficits noted and gait normal Sensorium / Orientation: awake, alert, oriented to person, oriented to place and oriented to time Motor Exam: strength 5/5 throughout and strength abnormal Psych mental status grossly normal Skin no rashes or lesions noted and no wounds MDM MDM Lab Data Labs: Laboratory Results - last 24 hr 05/12/25 05/12/25 05/12/25 11:52 14:19 14:27 WBC 20.6 H RBC 6.35 H Hgb 19.2 H* Hct 56.8 H MCV 89.4 MCH 30.2 MCHC 33.8 RDW Std Deviation 40.2 RDW Coeff of Shane 12.2 Plt Count 355 MPV 10.3 Immature Gran % (Auto) 0.500 Neut % (Auto) 82.6 H Lymph % (Auto) 9.2 L [place] % (Auto) 6.9 Eos % (Auto) 0.3 Baso % (Auto) 0.5 Absolute Neuts (auto) 17.0 H Absolute Lymphs (auto) 1.90 Nucleated RBC % 0 Sodium 138 Potassium 4.3 Chloride 99 Carbon Dioxide 17.5 L Anion Gap 21 H BUN 21 H Creatinine 1.37 H Estim Creat Clear Calc 32.65 L Est GFR (MDRD) Non-Af 40 L BUN/Creatinine Ratio 15.0 Glucose 112 H Lactic Acid 1.1 Calcium 10.7 Total Bilirubin 0.91 AST 80 H ALT 38 H Alkaline Phosphatase 89 Troponin T High Sens < 6 Troponin T Hi Sens 2 Hr < 6 Total Protein 8.5 H Albumin 4.3 Globulin 4.3 H Albumin/Globulin Ratio 1.0 Lipase 33 Urine Color Yellow Urine Clarity Clear Urine pH 7.0 Ur Specific [place] 1.010 Urine Protein 30 H Urine Glucose (UA) Normal Urine Ketones 5 H Urine Occult Blood 250 H Urine Nitrite Negative Urine Bilirubin Negative Urine Urobilinogen Normal Ur Leukocyte Esterase Negative Radiography Diagnostic Testing: Clinical Impression(s) from Imaging Studies Abdomen/Pelvis CT 05/12/25 13:20 IMPRESSION: Findings suggestive of pryor colitis as well as enteritis of the distal ileum with a small amount of ascites in the pelvis and perihepatic and perisplenic regions. Questionable sludge or tiny gallstones along the dependent portion of the gallbladder lumen. Reading Location: [facility] Brain CT 05/12/25 13:20 IMPRESSION: Cerebral atrophy. Stable focal area of decreased attenuation in the medial aspect of the posterior right cerebellar lobe in keeping with recent infarction. Reading Location: [facility] EKG Initial EKG: Attestation: I personally reviewed and interpreted this EKG as follows: Comments: Sinus rhythm with PACs and ventricular rate of 63 beats per Discharge Plan Triage Chief Complaint: Nausea/Vomiting ED Provider: Naren Walters Dx/Rx/DC Orders Prescriptions: No Action atorvastatin 40 mg Tablet 40 mg PO QHS 30 Days Qty: 30 2RF aspirin 325 mg Tablet,Delayed Release (Dr/Ec) 325 mg PO BREAKFAST 2 Days Qty: 2 0RF Rx Instructions: switch to Eliquis on 05/14/25 lisinopril 10 mg Tablet 10 mg PO DAILY 30 Days Qty: 30 2RF Eliquis 5 mg tablet 5 mg PO BID 30 Days Qty: 60 2RF Rx Instructions: Start from 05/14/2025. Discontinue if platelet count drops less than 50,000 or hemoglobin less than 8 g% amoxicillin-pot clavulanate 875-125 mg tablet 1 tab PO BID 5 Days Qty: 10 0RF pantoprazole [Protonix] 40 mg tablet,delayed release (DR/EC) 40 mg PO DAILY 30 Days Qty: 30 2RF metoprolol succinate [Toprol XL] 25 mg tablet extended release 24 hr 12.5 mg PO DAILY 60 Days Qty: 30 1RF Rx Instructions: Hold for heart less than 60 or systolic blood pressure less than 100 mmHg. Primary Care Provider: Jhon Herrera Referrals: Jhon Herrera MD [Primary Care Provider, Medical] Print Language: Polish
[2025-05-12] MEDS: 0.9% Normal Saline (1000mL) 1,000 ML 150 ML IV (12:39)
[2025-05-12 12:42] LABS: Immature Granulocytes Count 0.100 X10^3/uL (0.0-0.0); Mean Corp Hgb Conc 33.8 g/dL (32-36); Mean Corpuscular Volume 89.4 fL (81-99); Mean Platelet Vol. 10.3 fl (6.2-12.0); NRBC Flagged by Analyzer 0 % (0-5); Platelet Count 355 K/mm3 (150-450); RBC Distribution Width CV 12.2 % (11.6-14.6); RBC Distribution Width SD 40.2 fl (35.1-43.9); Red Blood Count 6.35 M/mm3 (4.2-5.4); White Blood Count 20.6 K/mm3 (4.4-11.0)
[2025-05-12 12:45] LABS: Hematocrit 56.8 % (37-47)
[2025-05-12 12:46] LABS: Hemoglobin 19.2 g/dL (12.0-15.0)
--- NOTE | 2025-05-12 13:06 | ED.RN ---
per dr. hernandez, give IV fluids at a rate of 999 mL/hr for hypotensive episodes
--- NOTE | 2025-05-12 13:20 | CT_ITS ---
PROCEDURE: ABDOMEN/PELVIS W IV CONT ONLY 05/12/2025 REASON FOR EXAM: ABDOMINAL PAIN, VOMITTING, RECENT DIVERTICULITIS TECHNIQUE: Procedure Code: [id number] Modality: CT Procedure: ABDOMEN/PELVIS W IV CONT ONLY Coronal and Sagittal reconstruction series were provided. CONTRAST: Isovue-300 VOLUME: 100 mL One or more dose reduction techniques were used (e.g., Automated exposure control, adjustment of the mA and/or kV according to patient size, use of iterative reconstruction technique. RADIATION DOSE SUMMARY: CTDlvol: 10.64 mGy DLP: 513.65 mGycm COMPARISON: May 07, 2025. FINDINGS: Lung bases: Stable increased linear markings in the anterior aspect of the right middle lobe suggestive of scarring. Liver: Small amount of perihepatic and Tanya splenic fluid. Borderline hepatomegaly. Gallbladder: Findings suggestive of sludge and/or small gallstones along the dependent portion of the gallbladder lumen. Spleen: Normal size. Pancreas: Normal size without evidence of mass surrounding inflammation or ductal dilation. Adrenals: Unremarkable Kidneys: Normal renal sizes. No hydronephrosis. Bladder: The urinary bladder is not well-distended. Reproductive Organs: Unremarkable Bowel: Abnormal appearance of the colon with the haustral thickening suggestive of colitis. There is evidence of abnormally thickened distal small bowel loops suggestive of enteritis. Appendix: The appendix is not identified. There is no inflammatory process identified in the right lower quadrant to suggest appendicitis. Lymph nodes: Unremarkable. Vasculature: Mild diffuse atherosclerotic calcifications are noted. Peritoneum / Retroperitoneum: Small amount of free fluid in the cul-de-sac. Bones: Grade 1 anterior listhesis of L5 on S1 most likely secondary to facet joint osteoarthritis. CT/Abdomen/Pelvis W IV Cont ONLY IMPRESSION: Findings suggestive of pryor colitis as well as enteritis of the distal ileum wit h a small amount of ascites in the pelvis and perihepatic and perisplenic regions. Questionable sludge or tiny gallstones along the dependent portion of the gallb ladder lumen. Reading Location: [id number]
--- NOTE | 2025-05-12 13:20 | CT_ITS ---
PROCEDURE: BRAIN/HEAD WITHOUT CONTRAST 05/12/2025 REASON FOR EXAM: VOMITTING, RECENT STROKE TECHNIQUE: Procedure Code: CTBR Modality: CT Procedure: BRAIN/HEAD WITHOUT CONTRAST Coronal and Sagittal reconstruction series were provided. One or more dose reduction techniques were used (e.g., Automated exposure control, adjustment of the mA and/or kV according to patient size, use of iterative reconstruction technique. RADIATION DOSE SUMMARY: CTDlvol: 47.06 mGy DLP: 872.68 mGycm COMPARISON: May 10, 2025. FINDINGS: Brain: Low density in the periventricular white matter suggests mild chronic small vessel ischemic changes. Stable focal area of decreased attenuation in the medial aspect of the right posterior cerebellar lobe in keeping with a recent infarction. CSF Spaces: Mild generalized cerebral atrophy Sinuses/Mastoids: Clear at visualized levels Bones: Unremarkable CT/Brain/Head without Contrast IMPRESSION: Cerebral atrophy. Stable focal area of decreased attenuation in the medial aspect of the posterio r right cerebellar lobe in keeping with recent infarction. Reading Location: [facility]
[2025-05-12 13:58] LABS: Lipase 33 U/L (13-75)
[2025-05-12 14:11] LABS: AST(SGOT) 80 U/L (<=31); Alanine Aminotransfer ALT/SGPT 38 U/L (<=34); Albumin, Serum 4.3 g/dL (3.4-4.8); Alkaline Phosphatase 89 U/L (35-104); Anion Gap 21 (5-15); BUN 21 mg/dL (4-19); BUN/Creat Ratio 15.0 RATIO (10-20); Calcium,Total 10.7 mg/dL (7.6-11.0); Carbon Dioxide 17.5 mmol/L (21.0-32.0); Chloride 99 mmol/L (98-108); Estimated Creatinine Clearance 32.65 ml/min (50-250); Globulin 4.3 g/dL (2.2-4.2); Glucose 112 mg/dL (70-99); Potassium 4.3 mmol/L (3.3-5.1); Troponin T High Sensitivity < 6 ng/L (<=14)
[2025-05-12 14:21] LABS: Mucous, Urine 0 SEEN /hpf (<or=2+)
--- NOTE | 2025-05-12 14:40 | US_ITS ---
PROCEDURE: GALLBLADDER 05/12/2025 REASON FOR EXAM: ABDOMINAL PAIN TECHNIQUE: Procedure Code: USGB Modality: US Procedure: GALLBLADDER COMPARISON: Reviewed FINDINGS: Small amount of ascites in the right upper quadrant is nonspecific. Exam limited due to overlying bowel gas. The liver is otherwise unremarkable with no focal masses. Gallbladder is distended however contains no stones, no pericholecystic fluid, and a negative sonographic Woo's sign. Common bile duct normal at 5 mm. Pancreas is unremarkable. Right kidney is also unremarkable. US/Gallbladder IMPRESSION: No marked sonographic abnormalities apart from mild gallbladder distention. Sm all amount of ascites in the right upper quadrant. Reading Location: [facility]
[2025-05-12] MEDS: Piperacil/Tazobactam 4.5 GM in 0.9% Normal Saline (100mL MB+) 100 ML IV (14:42)
--- NOTE | 2025-05-12 14:49 | PCM.HP.STD ---
HPI - General General Date of Admission: 05/12/25 Date of Service: 05/12/25 Chief Complaint: Recurrent abdominal pain with nausea/vomiting and diarrhea HPI Narrative PHANI OLSEN, is a 74 F who presented to [facility] ED 05/12/25 with recurrent abdominal pain with nausea/vomiting and diarrhea. She was hospitalized here from 05/08-05/11 for both acute sigmoid diverticulitis as well as acute CVA of the right cerebellar hemisphere. Abdominal pain and nausea/vomiting improved during hospitalization and she was discharged home on Augmentin. Last night and into this morning she developed significant diarrhea and recurrent nausea/vomiting and lower abdominal pain so she came back in for further evaluation. CT abdomen pelvis showed new finding of suspected pancolitis as well as enteritis of the distal ileum. Labs appeared significantly hemoconcentrated but also showed WBC count 20, creatinine 1.37 (baseline around 0.8), bicarb 17. She was hypotensive to the 80s over 50s in the ED and this improved significantly to the 120s over 70s with IV fluid resuscitation. Given her presentation, hospitalist was contacted for admission. I saw the patient at bedside in the ED, and other family were present. Patient was fatigued appearing but was otherwise sitting back comfortably in bed, answering questions appropriately, in no acute distress. She reported only mild diffuse abdominal pain currently and noted that she did subjectively feel better with IV fluid resuscitation. She denied any fevers or chills. She did family do report that they think that she had an episode of C. difficile about 15 years ago but they are not sure about this. No other acute concerns currently. Will be admitted for further management. [facility] Medical History (Updated 05/12/25 @ 17:[address] Yoel Gray, DO) Venous insufficiency (chronic) (peripheral) Arthritis Home Medications ?Medication ?Instructions ?Recorded ?Last Taken ?Type amoxicillin 875 mg-potassium 1 tab PO BID 5 days #10 tabs 05/11/25 05/12/25 Rx clavulanate 125 mg tablet apixaban 5 mg tablet (Eliquis) 5 mg PO BID 1 month #60 tabs 05/11/25 05/12/25 Rx aspirin 325 mg tablet,delayed 325 mg PO BREAKFAST 2 days #2 tabs 05/11/25 05/12/25 Rx release atorvastatin 40 mg tablet 40 mg PO QHS 30 days #30 tabs 05/11/25 05/11/25 Rx lisinopril 10 mg tablet 10 mg PO DAILY 30 days #30 tabs 05/11/25 05/11/25 Rx metoprolol succinate 25 mg 12.5 mg (1/2 x 25 mg) PO DAILY 60 05/11/25 05/12/25 Rx tablet,extended release 24 hr days #30 tabs (Toprol XL) pantoprazole 40 mg tablet,delayed 40 mg PO DAILY 1 month #30 tabs 05/11/25 05/12/25 Rx release (Protonix) Allergy/AdvReac Type Severity Reaction Status Date / Time No Known Allergies Allergy Verified 05/12/25 11:33 Family History (Updated 05/08/25 @ 03:[address] Teressa Carey MD) Sister CVA (cerebral vascular accident) Hypertension Mother No problems noted. Father No problems noted. Surgical History No history of previous surgery Social History household members: spouse and family Smoking Status: Never smoker alcohol intake: never substance use type: does not use ROS Constitutional Constitutional: Reports fatigue; Denies chills, fever(s) or weakness Cardiovascular Cardiovascular: Denies chest pain, dyspnea on exertion, edema, lightheadedness or palpitations Respiratory/Chest Respiratory/Chest: Denies cough or shortness of breath at rest Gastrointestinal Gastrointestinal: Reports abdominal pain, diarrhea, nausea and vomiting; Denies constipation, hematochezia or melena Genitourinary Genitourinary: Denies dysuria Musculoskeletal Musculoskeletal: Denies arthralgias or myalgias Neurologic Neurologic: Denies abnormal speech, confusion, disequilibrium, dizziness, focal weakness, headache(s), numbness or tingling Vital Signs Vital Signs Vital Signs: 05/12/25 11:33 05/12/25 11:36 05/12/25 12:36 Temperature 96 F L 96 F L Temperature Source Temporal Oral Pulse Rate 65 64 72 Respiratory Rate 18 14 16 Blood Pressure 92/68 128/72 H 112/70 Blood Pressure Mean 76 90 84 Pulse Ox 96 96 98 Oxygen Delivery Method Room Air Room Air 05/12/25 13:00 05/12/25 13:06 05/12/25 13:36 Temperature 97.6 F L Temperature Source Temporal Pulse Rate 58 L 55 L Respiratory Rate 13 Blood Pressure 77/45 L 83/55 L 99/60 Blood Pressure Mean 55 64 73 Pulse Ox 97 97 Oxygen Delivery Method Room Air 05/12/25 14:00 05/12/25 14:00 Temperature 96.9 F L Temperature Source Oral Pulse Rate 58 L 63 Respiratory Rate 14 15 Blood Pressure 99/60 128/78 H Blood Pressure Mean 73 94 Pulse Ox 97 99 Oxygen Delivery Method Room Air Room Air Weight Weight: 70.6 kg Body Mass Index (BMI) 28.4 Physical Exam Const alert, oriented x3, no apparent distress and average body habitus Constitutional Narrative: Pleasant elderly Y[employer] female, fatigued appearing but otherwise sitting back comfortably in bed, answering questions appropriately, in no acute distress. General Appearance: cooperative and comfortable HEENT normocephalic, head/scalp atraumatic, hearing grossly normal bilaterally and nasal mucous membranes and turbinates normal HEENT Narrative: Dry mucous membranes. Eyes PERRL, EOMs intact bilaterally and conjunctivae normal Neck full ROM Chest inspection of chest normal Resp normal respiratory effort, normal air movement, no use of accessory muscles and clear to auscultation bilaterally Cardio regular rate, regular rhythm, no murmurs and peripheral pulses 2+ throughout GI GI Narrative: Mild tenderness to palpation diffusely. Abdomen otherwise soft and nondistended. Back/Spine normal ROM Extremity normal to inspection, full ROM and no pedal edema Skin no rashes or lesions noted Neuro No moves all extremities and No no focal motor deficits Speech: Negative for speech normal Motor Exam: Negative for strength 5/5 throughout Psych mental status grossly normal Results Lab / Micro Data 05/12/25 11:52 05/12/25 11:52 Labs: Laboratory Results - last 24 hr 05/12/25 11:52: WBC 20.6 H, RBC 6.35 H, Hgb 19.2 H*, Hct 56.8 H, MCV 89.4, MCH 30.2, MCHC 33.8, RDW Std Deviation 40.2, RDW Coeff of Shane 12.2, Plt Count 355, MPV 10.3, Immature Gran % (Auto) 0.500, Neut % (Auto) 82.6 H, Lymph % (Auto) 9.2 L, [place] % (Auto) 6.9, Eos % (Auto) 0.3, Baso % (Auto) 0.5, Absolute Neuts (auto) 17.0 H, Absolute Lymphs (auto) 1.90, Nucleated RBC % 0, Sodium 138, Potassium 4.3, Chloride 99, Carbon Dioxide 17.5 L, Anion Gap 21 H, BUN 21 H, Creatinine 1.37 H, Estim Creat Clear Calc 32.65 L, Est GFR (MDRD) Non-Af 40 L, BUN/Creatinine Ratio 15.0, Glucose 112 H, Lactic Acid 1.1, Calcium 10.7, Total Bilirubin 0.91, AST 80 H, ALT 38 H, Alkaline Phosphatase 89, Troponin T High Sens < 6, Total Protein 8.5 H, Albumin 4.3, Globulin 4.3 H, Albumin/Globulin Ratio 1.0, Lipase 33 Imaging Radiology Impression Abdomen/Pelvis CT 05/12/25 13:20 IMPRESSION: Findings suggestive of pryor colitis as well as enteritis of the distal ileum with a small amount of ascites in the pelvis and perihepatic and perisplenic regions. Questionable sludge or tiny gallstones along the dependent portion of the gallbladder lumen. Reading Location: [id number] Brain CT 05/12/25 13:20 IMPRESSION: Cerebral atrophy. Stable focal area of decreased attenuation in the medial aspect of the posterior right cerebellar lobe in keeping with recent infarction. Reading Location: [id number] Assessment & Plan Assessment/Plan (1) Pancolitis: PLAN: Plan Patient is a 74-year-old female who presented to [facility] ED on 05/12/2025 with recurrent abdominal pain with nausea/vomiting and diarrhea. 1. Pancolitis, recent episode of acute diverticulitis ? Admit under patient status to [facility]. Recent hospitalization here from 05/08-05/11 for acute diverticulitis and acute CVA as below. CT abdomen pelvis on 05/07 showed thickening of the sigmoid colon consistent with acute diverticulitis without perforation or abscess. Was treated with IV Zosyn while inpatient and then discharged on Augmentin. Repeat CT abdomen pelvis on this admit with finding suggestive of pancolitis as well as enteritis of the distal ileum. Has had new onset diarrhea since discharge as well. Given her clinical picture, recent antibiotics and WBC count of 20, highest concern is for C. difficile infection. Will treat empirically with p.o. vancomycin and IV zosyn for now. Stool PCR panel and C. difficile testing ordered. Clear liquid diet ordered for now, can escalate as tolerated. Can consider GI consult as needed. 2. COURTNEY ? Creatinine 1.37 on admit, baseline around 0.8. Presumed prerenal due to GI losses in setting of infection above. Given IV fluids on admit. Follow-up a.m. BMP and monitor urine output. 3. Recent right cerebellar CVA ? Found on MRI brain on 05/08 to have an acute ischemic infarction within the right cerebellum and right side of the cerebellar vermis. Neurology followed and noted that highest concern was for cardioembolic origin. She was discharged on aspirin 325 mg daily as well as a high intensity statin, with plan being to switch to Eliquis 5 mg twice daily on 06/13 if patient continues to improve. Will continue aspirin and statin at this time. DVT prophylaxis: Lovenox CODE STATUS: Full code, verified Expected disposition: Home, TBD Total clinical time spent by myself addressing the patient's medical issues, reviewing all the data, and collaborating with patient's care team: 76 minutes. Charges/Coding Visit Charges Inpatient E&M: 36374 Init Hosp L3
[2025-05-12 14:53] LABS: Color, Urine Yellow (Yellow); Glucose, Dipstick Normal (Normal); Ketone-Dipstick 5 mg/dl (Negative); Leukocyte Esterase-Dipstick Negative /ul (Negative); Nitrite-Dipstick Negative (Negative); Occult Blood-Urine 250 /ul (Negative); Protein-Dipstick 30 mg/dl (Negative); Specific Gravity, Urine 1.010 (1.002-1.030); Urine Bilirubin Dipstick Negative (Negative)
[2025-05-12 15:08] LABS: Troponin T High Sens 2 HR < 6 ng/L (<=14)
[2025-05-12 15:37] LABS: Red Blood Cells-Urine 50-100 SEEN /hpf (0-5)
[2025-05-12 15:42] LABS: Squamous Epithelial Cells - UA 5-10 SEEN /hpf (5-10)
[2025-05-12] MEDS: Lactated Ringers 1,000 ML 150 ML IV (17:36)
[2025-05-12] MEDS: Vancomycin 125 MG/5 ML Susp PO.SYRINGE PO ×2 (17:36→23:24)
--- OUTSIDE RECORDS SUMMARY | 2025-05-12 18:42 | XMS RPT_ITS | CCD ---
Author Organization [facility] Care Team Providers Care Blind Stitch Machine Operator Name Role Phone DR ENRRIQUE HUNT Admitting [...] Care Unavailable Sam Pugh Attending Unavailable ANALIA NUT THREADER-CANDREZ Unavailable [facility] Unavailable Unavaildanelle DIANA Unavailable Unavailable Apple El RN Unavailable Unavailable VAHID HUNT MD Unavailable GATITO HUNT MD Unavailable PILAR CHARLES, ZANE Valles Unavailable JACI NUT THREADER-CMELONIE Unavailable Unav anisaable Christian DELONG MD Unavailable [phone] Divina Graham Unavailable Unavailable Edwar GRAHAM MD [...] 20 mg/ml oral solution (1 source) Uncompetitive P-sfiscm-U-aspartat e Receptor Antagonist, Sigma-1 Agonist Start: 09-02-2024 [...] Oral Tablet ; 1 daily (200 MG) Alda 3 1000 MG Oral Capsule (1 source) take 2 capsules by mouth once daily Alda 3 1000 MG Oral Capsule ; 2 daily (1000 MG) Alda-3 Fatty Acids (Yamil 3 Fish Oil Concentrate) Capsule (4 sources) Start: 12-28-2021 Alda-3 Fatty Acids (Yamil 3 Fish Oil Concentrate) [...] unspecified] 04-15-2020 Chronic Unclassified (1 source) ER [facility] Onset: 04-16-2016 04-15-2020 Comment on above: Chest [...] Unclassified (1 source) Congestion - Note for Congestion: Pt c/o head congestion and sinus pressure. Some cough and fever in the evenings. She had a sore throat, but that is better. Symptoms started 4 days ago. 08-16-2022 Unclassified (1 source) Skin lesion - Note for Skin lesion: Pt had a small 'scab' on her [...] Onset was 3 day(s) ago. Note for Abdominal pain: Pt started with diarrhea yesterday and her nausea got better after that. She has not been eating much since symptoms started. No fever. Pt has had diverticulitis in the past. She had some Amoxicillin at home and started that, she does feel a little better now. 04-15-2020 Unclassified (1 source) Knee Sprain/Strain - Note for Knee sprain/strain: Left knee. Pt said she does feel like her knee is impoving, but still having swelling. Worse in the evenings. Does not take pain medication for her knee.. 10-25-2018 Unclassified (1 source) Sprain/Strain, Unspecified - This is a sprain/strain of the left knee. The last clinic visit was 2 week(s) ago. Note for Unspecified sprain/strain: Pt said her left knee is feeling [...] in the leg (at knee). Note for Leg pain: Fell off steps coming down from the attic. See ER record and imaging. 09-29-2018 Unclassified (1 source) Cellulitis - The last clinic visit was 1 week(s) ago. Symptoms are located on the left leg (lower). Note for Cellulitis: Here for recheck. Less red and no pain. 03-23-2018 Unclassified (1 source) Cellulitis - The last clinic visit was 1 week(s) ago. Note for Cellulitis: Here for recheck of left lower leg. Less red and swelling is almost gone. No pain 03-16-2018 Unclassified (1 source) Leg pain - The onset of the leg pain has been acute and has been occurring in a persistent pattern for 1 day. The leg pain involves the left leg (lower). Note for Leg pain: pt had been powerwashing last week. 03-09-2018 Unclassified (1 source) !Patient notification of lab results - Pilar. The test(s) that you had done were/was a lipid panel (cholesterol and triglycerides). Note for !Patient notification of lab results : Continue about the same with a high bad and good cholesterol. I recommend Simvastatin 10 mg at bedtime to prevent the progression of the carotid disease and prevent stroke. 02-22-2018 Unclassified (1 source) [ADDITIONAL REASON] Blood pressure check - Symptoms do not include shortness of breath or chest pain. Note for Blood pressure check-up: Blood Pressures at home was 170/70 02-21-2018 [...] bad and good cholesterol . Note for !Patient notification of lab results : We will make recommendations concerning cholesterol lowering [...] been associated with diabetes mellitus. Note for Blurring of vision: Pt. took her blood pressure during the [...] have been associated with diarrhea. Note for Abdominal pain: Hx of diverticulitis. Started Amox at home for the last 2 days. 12-23-2016 Unclassified (1 source) Skin Lesion, Facial - Note for Facial skin lesion: Pt said she has a few spots [...] with headache and runny nose. Note for cough: Also concerned about throat. Has flet tight [...] with diarrhea and vomiting (x1). Note for Abdominal pain: Ate cabbage on 05-03-14. Hx of diverticulitis. [...] injury (pulled against the generator.). Note for Injury: NOTE ELEVATED BP.. 07-16-2012 Unclassified (1 source) [...] associated with bloating (c/o gas). Note for Abdominal pain: Has seen Dr Mcghee for divertiuclitis. 10-24-2011 Unclassified (1 source) recheck - hypertension and reports no headaches. Note for recheck: BP 171/81 6 WEEKS AGO. 10-11-2010 Unclassified (1 source) Foot pain - The onset of the pain has been acute and has been occurring for 10 days. Note for Foot pain: also has swelling. No injury. left foot. 09-03-2010 Results Test Name Value Interpretation Reference Range Facil ity Venous Duplex US, Unilateral on 03-15-2022 Venous Duplex US, Unilateral [facility] [address] [place] [address] Venous Duplex US, Unilateral 03/15/22 0800 MR#: [id number] Acct: [id number] Name: PHANI OLSEN Rep #: [id number] : 1950 71 From: Sam Pugh MD Attending Dr: Dr. Sam Pugh MD Status: REG CLI Ordering Dr: Sam Pugh MD Date: 03/15/22 [...] seconds and measures .42 x .51 cm. 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 Ordering Physician: Sam Pugh Performed By: Fab Puckett RVHair 03/15/222329 Date Sam Pugh MD CC: SARAHY Silver; Dr. Sam Pugh MD Date Dictated: 03/15/22 0800 Date Transcribed: 03/15/22 2330 Colliery Clerk: Signed Normal [facility] History AND Physic yao 03-15-2022 Wound Ctr History & Physical [facility] [address] [place] [address] H P Exam - Wound Care 03/15/22 1507 MR#: [id number] Acct: [id number] Name: PHANI OLSEN Rep #: [id number] : 1950 71 From: Sam Pugh MD PCP: Melonie Silver NP-C Status:REG RCR Location: History of Present Illness [...] history of thrombophlebitis. She is a Ab0. [facility] Medical History Arthritis Leg edema Leg swelling [...] Note: Post-Debridement Measurements/Treatmen t WC - Nurse 1 - General Ulcer Assessment Start: 03/15/22 08:56 Freq: Status: Active Protocol: EDUARDO.MAITE Activity Type Activity Date Activity User E-sign Co-sign Detail Recorded Client Recorded Date Recorded By Document 03/15/22 08:57 [id number] 03/15/22 09:01 03/15/22 08:57 - Today's Visit Information Type of service Follow-up Visit (Physician/TRANSFORMER MAKER ) Arrival Mode Ambulatory Transfer Assistance None [...] is Mel (more content not included)... Normal [facility] Venous Duplex US - Alejandro Extre [facility] 02-01-2022 Venous Duplex US - Alejandro Extrem [facility] [address] [place] [address] Venous Duplex US - Alejandro Extrem 02/01/22 0808 MR#: [id number] Acct: [id number] Name: PHANI OLSEN Rep #: [id number] : 1950 71 From: Sam Pugh MD Attending Dr: Dr. Cornell Yun DPM Status: R EG RCR Ordering Dr: [...] Referring Physician: Melonie Silver Performed By: Shayy Mcallister, RVT 02/01/222209 Date Sam Pugh MD CC: DPM Dr. Cornell Yun; SMELLER-C Melonie Silver Date Dictated: 02/01/22807 Date Transcribed: 02/01/222209 Colliery Clerk: Signed Normal [facility] History AND Physic yao 02-01-2022 Wound Ctr History & Physical [facility] [address] [place] [address] H P Exam - Wound Care 02/01/22906 MR#: [id number] Acct: [id number] Name: PHANI OLSEN Rep #: [id number] : 1950 71 From: Sam Pugh MD PCP: SARAHY Govea Status:REG R Location: [facility] History of Present Illness Date of Service: [...] history of thrombophlebitis. She is a Ab0. [facility] Medical History Arthritis Leg edema Leg swelling [...] Note: Post-Debridement Measurements/Treatmen t WC - Nurse 1 - General Ulcer Assessment Start: 02/01/22 08:34 Freq: Status: Active Protocol: WC.LOWEXT Activity Type Activity Date Activity User E-sign Co-sign Detail Recorded Client Recorded Date Recorded By Document 02/01/22 08:34 DL [id number] 02/01/22 08:42 DL 02/01/22 08:34 WC - Today's Visit Information Type of service Follow-up Visit (Physician/TRANSFORMER MAKER ) Arrival Mode Ambulatory Transfer Assistance None [...] adverse reacti (more content not included)... Normal [facility] History AND Physic yao 01-04-2022 Wound Ctr History & Physical [facility] [address] [place] [address] H P Exam - Wound Care 01/04/22 1410 MR#: [id number] Acct: [id number] Name: PHANI OLSEN Rep #: [id number] : 1950 71 From: Sam Pugh MD PCP: SAARHY Govea Status:REG RCR Location: History of Present [...] history of thrombophlebitis. She is a Ab0. [facility] Medical History Arthritis Leg edema Leg swelling [...] Note: Post-Debridement Measurements/Treatmen t WC - Nurse 1 - General Ulcer Assessment Start: 12/28/21 10:30 Freq: Status: Active Protocol: WC.LOWEXT Activity Type Activity Date Activity User E-sign Co-sign Detail Recorded Client Recorded Date Recorded By Document 12/28/21 10:35 MIKAYLA [id number] 12/28/21 10:53 AK Document 01/04/22 08:31 KR [id number] 01/04/22 08:36 KR 12/28/21 01/04/22 10:35 08:31 WC - Today's Visit Information Type of service Initial Visit Follow-up Visit (Physician/TRANSFORMER MAKER ) Arrival Mode Ambulatory Ambulatory Patient Identification [...] Yes Thompson (more content not included)... Normal [facility] History AND Physic yao 12-28-2021 Wound Ctr History & Physical [facility] [address] [place] [address] H P Exam - Wound Care 12/28/21 1052 MR#: [id number] Acct: [id number] Name: PHANI OLSEN Rep #: [id number] : 1950 71 From: Cornell Yun DPM [...] management. No other complaints at this time. PFSH Home Medications calcium 167 mg-vitamin D3 1.67 [...] Date Recorded By Document 12/28/21 10:30 MW [id number] 12/28/21 10:33 MW 12/28/21 10:30 Pain Scale: [...] Cosigner Signature (if applicable): CC: Signed Normal [facility] EMERGENCY REPORTon EMERGENCY REPORT [facility] EMERGENCY ROOM REPORT NAME ACCOUNT SEX AGE ADMIT DISCHARGE PT MED. RECORD# NUMBER DATE DATE TYPE PHANI OLSEN [id number] F 70 01/21/21 01/21/21 ROOM: ER DATE OF : 1950 DICTATING PHYSICIAN: Enrirque Hunt CHIEF COMPLAINT: Fall with facial and [...] No allergies. SOCIAL HISTORY: The patient is Mosque. She lives at home. She does not smoke or drink alcohol, accompanied here with family. REVIEW OF SYSTEMS: No recent illnesses. No injuries, cough or congestion. No underlying heart or lung disease or bowel or bladder symptoms. PHYSICAL EXAMINATION: This is a 70-year-old, generally thin Mosque female who is awake, alert and appropriate. [...] Enrrique Hunt MD 01/21/21 21:17 JOB #: [id number] Transcribed By: felicity 01/22/21 09:08 Electronically signed by: ALICE Hunt M.D. 01/29/21 07:24 Page 2 of 2 PHANI OLSEN Emergency Room Report Normal [facility] CT FACIAL BONES W/O CONTRAST on 01-21-2021 CT FACIAL BONES W/O CONTRAST [place] [address] Patient: PHANI OLSEN. Phone#: : 1950 Age: 70 Gender: F Pt. Type: ER Account: [id number] Location: 052 Ordering: ENRRIQUE HUNT Exam Date: 01/21/2021/17:41 Family Phys: GATITO GILBERT Charge Code: 655534 Physician: Curry Order #: [id number] DLP Dose#: 27.8 PROCEDURE: CT FACIAL BONES [...] turbinates. 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 [place] [address] Patient: PHANI OLSEN Phone#: : 1950 Age: 70 Gender: F Pt. Type: ER Account: [id number] Location: [facility] Ordering: ENRRIQUE HUNT Exam Date: 01/21/2021/17:41 Family Phys: GATITO HUNT Charge Code: 312536 Physician: Curry Order #: [id number] DLP Dose#: 27.8 Dictated by: Marzena Zaragoza MD on 01/21/2021 at 17:51 Approved by: Marzena Zaragoza MD on 01/21/2021 at 17:55 Normal [facility] Laboratory - Chemistry and C hemistry - challengeon 02-21-2018 Cholesterol [Mass/Vol] 267 mg/dL Abnormal 50 - 199 mg/dL [facility], [facility] Cholesterol in HDL [Mass/Vol] 85 mg/dL Abnormal 40 - 59 mg/dL [facility] Cholesterol in LDL [Mass/Vol] 163 mg/dL Abnormal 0 - 129 mg/dL [facility].; [facility], [facility]. Triglyceride [Mass/Vol] 96 mg/dL Normal 3 - 149 mg/dL [facility].; [facility] Laboratory - Chemistry and C hemistry - challengeon 08-02-2017 Albumin BCP dye [Mass/Vol] 4.1 g/dL Normal 3.2 - 4.8 g/dL [facility]; [facility] Albumin/Globulin [Mass ratio] 1.1 {ratio} Normal 0.9 - 1.6 {ratio} [facility]; [facility] ALP [Catalytic activity/Vol] 88 U/L Normal 38 - 126 U/L [facility]; [facility], [facility]. ALT With P-5'-P [Catalytic activity/Vol] 30 U/L Normal 10 - 49 U/L [facility]; [facility], [facility]. AST With P-5'-P [Catalytic activity/Vol] 25 U/L Normal 8 - 34 U/L [facility].; [facility], [facility]. Bilirubin [Mass/Vol] 0.7 mg/dL Normal 0.2 - 1.2 mg/dL [facility]; [facility], [facility]. Calcium [Mass/Vol] 9.3 mg/dL Normal 8.4 - 10. 1 mg/dL [facility]; [facility], [facility]. Chloride [Moles/Vol] 106 mmol/L Normal 98 - 110 meq/L [facility].; [facility], [facility]. Cholesterol [Mass/Vol] 280 mg/dL Abnormal 50 - 199 mg/dL [facility].; [facility], [facility] Cholesterol in HDL [Mass/Vol] 90 mg/dL Abnormal 40 - 59 mg/dL [facility].; [facility] Cholesterol in LDL [Mass/Vol] 164 mg/dL Abnormal 0 - 129 mg/dL [facility]; [facility] CO2 [Moles/Vol] 30 mmol/L Normal 22 - 32 meq/L [facility]; [facility] Creatinine [Mass/Vol] 0.88 mg/dL Normal 0.50 - 1.20 mg/dL [facility]; [facility]. GFR/1.73 sq M.predicted among blacks MDRD (S/P/Bld) [Vol rate/Area] mL/min/{1.73_m2} Normal [facility]; [facility] Work Phone: GFR/1.73 sq M.predicted among non-blacks MDRD (S/P/Bld) [Vol rate/Area] mL/min/{1.73_m2} Normal [facility].; [facility], [facility]. Work Phone: Globulin (S) [Mass/Vol] 3.6 g/dL Normal 1.5 - 3.8 g/dL [facility]; [facility], [facility]. Glucose [Mass/Vol] 79 mg/dL Abnormal 82 - 115 mg/dL [facility]; [facility] Glucose Glucometer (BldC) [Moles/Vol] 82 mg/dL Normal 60 - 105 mg/dL [facility]; [facility], [facility] Iron [Mass/Vol] 149 ug/dL Normal 37 - 170 ug/dL [facility]; [facility], [facility] Potassium [Moles/Vol] 4.2 mmol/L Normal 3.5 - 5.0 meq/L [facility]; [facility], [facility] Protein [Mass/Vol] 7.7 g/dL Normal 6.0 - 8.5 g/dL [facility]; [facility] Sodium [Moles/Vol] 142 mmol/L Normal 136 - 145 meq/L [facility] Triglyceride [Mass/Vol] 129 mg/dL Normal 3 - 149 mg/dL [facility]; [facility] TSH Qn 2.870 m[IU]/L Normal 0.360 - 3.740 {mcIU/mL} [facility]; [facility] Urea nitrogen [Mass/Vol] 17.0 mg/dL Normal 8.0 - 22.0 mg/dL [facility]; [facility] Urea nitrogen/Creatinine [Mass ratio] 19.3 {ratio} Normal 10.0 - 22.0 {ratio} [facility]; [facility] Laboratory - Hematology and Cell countson 08-02-2017 Basophils (Bld) [#/Vol] 0.10 10 Normal 0.00 - 0.27 10 [facility]; [facility] Work Phone: Basophils/100 WBC (Bld) 1.4 % Normal 0.0 - 2.5 % [facility]; [facility] Work Phone: Eosinophils/100 WBC (Bld) 1.8 % Normal 0.0 - 6.0 % [facility]; [facility], [facility] Work Phone: Erythrocyte distribution width (RBC) [Ratio] 13.8 % Normal 11.5 - 15.5 % [facility]; [facility], [facility] Hematocrit (Bld) [Volume fraction] 40.9 % Normal 34.0 - 46.0 % [facility]; [facility]. Hemoglobin (Bld) [Mass/Vol] 13.6 g/dL Normal 12.0 - 16.0 g/dL [facility]; [facility] Lymphocytes (Bld) [#/Vol] 1.60 10 Normal 0.90 - 4.32 10 [facility], [facility]. Work Phone: Lymphocytes/100 WBC (Bld) 34.7 % Normal 20.0 - 40.0 % [facility].; [facility], [facility]. Work Phone: MCH (RBC) [Entitic mass] 29.7 pg Normal 27.0 - 33.0 pg [facility]; [facility], [facility] MCHC (RBC) [Mass/Vol] 33.1 g/dL Normal 32.0 - 36.0 g/dL [facility].; [facility], [facility] MCV (RBC) [Entitic vol] 89.7 fL Normal 80.0 - 99.0 fL [facility].; [facility], [facility] Monocytes (Bld) [#/Vol] 0.40 10 Normal 0.09 - 1.40 10 [facility].; [facility], [facility]. Work Phone: Monocytes/100 WBC (Bld) 8.8 % Normal 2.0 - 13.0 % [facility].; [facility], [facility]. Work Phone: Neutrophils (Bld) [#/Vol] 2.50 10 Normal 2.25 - 8.10 10 [facility].; [facility], [facility]. Work Phone: Neutrophils/100 WBC (Bld) 53.3 % Normal 50.0 - 75.0 % [facility].; [facility], [facility]. Work Phone: Platelet mean volume (Bld) [Entitic vol] 8.5 fL Normal 6.6 - 10.5 fL [facility].; [facility], [facility] Platelets (Bld) [#/Vol] 213 10 Normal 150 - 450 10 [facility].; [facility], [facility]. RBC (Bld) [#/Vol] 4.56 10 Normal 4.10 - 5.30 10 [facility].; [facility], [facility]. WBC (Bld) [#/Vol] 4.70 10 Normal 4.50 - 10.80 10 [facility].; [facility], [facility]. No Panel Informationon 08-02 Electrolyte Balance 6.0 meq/L Normal 4.0 - 15 .0 meq/L [facility]; [facility], [facility] Eosinophil, Absolute 0.10 10 Normal 0.00 - 0.65 10 [facility].; [facility], [facility]. Work Phone: Laboratory - Chemistry and C hemistry - challengeon 04-16-2016 Albumin [Mass/Vol] 4.2 g/dL Normal 3.4 - 4.8 g/dL [facility].; [facility], [facility]. Work Phone: Albumin [Mass/Vol] 1.7 g/dL Abnormal 0.9 - 1.6 [facility].; [facility], [facility]. Work Phone: ALT [Catalytic activity/Vol] 21 U/L Normal 8 - 35 U/L [facility].; [facility], [facility]. Work Phone: Anion gap [Moles/Vol] 14 mmol/L Normal 10 - 20 mmol/L [facility].; [facility], [facility]. Work Phone: AST [Catalytic activity/Vol] 37 U/L Normal 13 - 39 U/L [facility] Work Phone: Bilirubin [Mass/Vol] 0.4 mg/dL Normal 0.0 - 1.5 mg/dL [facility]; [facility] Work Phone: Calcium [Mass/Vol] 9.1 mg/dL Normal 8.6 - 10. 2 mg/dL [facility]; [facility] Work Phone: Chloride [Moles/Vol] 106 mmol/L Normal 98 - 107 mmol/L [facility]; [facility] Work Phone: CO2 [Moles/Vol] 27.0 mmol/L Normal 21.0 - 31.0 mmol/L [facility]; [facility] Work Phone: Creatinine [Mass/Vol] 0.9 mg/dL Normal 0.6 - 1.2 mg/dL [facility]; [facility] Work Phone: GFR/1.73 sq M.predicted among blacks MDRD (S/P/Bld) [Vol rate/Area] mL/min/{1.73_m2} Normal 60 - 999 {ML/MINUTE} [facility]; [facility]. Work Phone: GFR/1.73 sq M.predicted MDRD (S/P/Bld) [Vol rate/Area] mL/min/{1.73_m2} Normal 60 - 999 {ML/MINUTE} [facility].; [facility], [facility]. Work Phone: Globulin (S) [Mass/Vol] 2.5 g/dL Normal 1.5 - 3.8 g/dL [facility]; [facility] Work Phone: Glucose [Mass/Vol] 87 mg/dL Normal 74 - 106 mg/dL [facility]; [facility] Work Phone: Potassium [Moles/Vol] 4.6 mmol/L Normal 3.5 - 5.1 mmol/L [facility]; [facility] Work Phone: Protein [Mass/Vol] 6.7 g/dL Normal 6.4 - 8.3 g/dL [facility]; [facility] Work Phone: Sodium [Moles/Vol] 142 mmol/L Normal 136 - 145 mmol/L [facility]; [facility] Work Phone: Troponin I.cardiac Qn 0.01 ng/mL Normal 0.00 - 0.05 ng/mL [facility]; [facility] Work Phone: Urea nitrogen [Mass/Vol] 21 mg/dL Abnormal 6 - 20 mg/dL [facility]; [facility] Work Phone: Urea nitrogen/Creatinine [Mass ratio] 23 {ratio} Normal 0 - 30 {ratio} [facility]; [facility] Work Phone: Laboratory - Hematology and Cell countson 04-16-2016 Basophils (Bld) [#/Vol] 0.10 {x10EE3/UL} Normal 0.00 - 0.10 {x10EE3/UL} [facility]; [facility] Work Phone: Basophils/100 WBC (Bld) 1.2 % Normal 0.0 - 2.0 % [facility]; [facility] Work Phone: CBC panel Auto (Bld) Normal [facility]; [facility] Work Phone: Eosinophils (Bld) [#/Vol] 0.10 {x10EE3/UL} Normal 0.00 - 0.50 {x10EE3/UL} [facility]; [facility] Work Phone: Eosinophils/100 WBC (Bld) 2.3 % Normal 0.0 - 7.0 % [facility]; [facility] Work Phone: Erythrocyte distribution width (RBC) [Ratio] 13.3 % Normal 12.0 - 15.6 % [facility]; [facility] Work Phone: Hematocrit (Bld) [Volume fraction] 40.2 % Normal 34.0 - 46.0 % [facility]; [facility] Work Phone: Hemoglobin (Bld) [Mass/Vol] 13.5 g/dL Normal 12.0 - 16.0 g/dL [facility]; [facility] Work Phone: Lymphocytes (Bld) [#/Vol] 1.70 {x10EE3/UL} Normal 0.80 - 2.80 {x10EE3/UL} [facility]; [facility] Work Phone: Lymphocytes/100 WBC (Bld) 26.6 % Normal 20.0 - 45.0 % [facility]; [facility] Work Phone: MCH (RBC) [Entitic mass] 29 pg Normal 27 - 33 pg [facility]; [facility] Work Phone: MCHC (RBC) [Mass/Vol] 34 {X10_3} Normal 32 - 36 {X10_3} [facility]. Work Phone: MCV (RBC) [Entitic vol] 88 fL Normal 80 - 99 fL [facility]; [facility]. Work Phone: Monocytes (Bld) [#/Vol] 0.50 {x10EE3/UL} Normal 0.20 - 1.00 {x10EE3/UL} [facility].; [facility], [facility]. Work Phone: Monocytes/100 WBC (Bld) 7.4 % Normal 0.0 - 10.0 % [facility]; [facility], [facility]. Work Phone: Morphology Silas (Bld) [Interp] N/A Normal [facility]; [facility]. Work Phone: Neutrophils (Bld) [#/Vol] 4.00 {x10EE3/UL} Normal 1.50 - 7.10 {x10EE3/UL} [facility].; [facility], [facility]. Work Phone: Neutrophils/100 WBC (Bld) 62.5 % Normal 46.0 - 76.0 % [facility]; [facility]. Work Phone: Platelet mean volume (Bld) [Entitic vol] 8.3 fL Normal 6.6 - 10.5 fL [facility]; [facility], [facility]. Work Phone: Platelets (Bld) [#/Vol] 254 {x10EE3/UL} Normal 150 - 450 {x10EE3/UL} [facility].; [facility], [facility]. Work Phone: RBC (Bld) [#/Vol] 4.57 {x_10EE6/UL} Normal 4.10 - 5.30 {x_10EE6/UL} [facility]; [employer] [facility]. Work Phone: WBC (Bld) [#/Vol] 6.4 {x_10EE3/UL} Normal 4.5 - 10.8 {x_10EE3/UL} [facility].; [employer] [facility] [employer] [facility]. Work Phone: No Panel Informationon 04-16 AGE 65 {years} Normal [facility]; [facility]. Work Phone: ALK PHOS 59 U/L Normal 38 - 126 U/L [facility] [facility]; [employer] [facility] [employer] [facility]. Work Phone: CMP with eGFR Normal [facility] [facility]; [employer] [facility] [employer] [facility]. Work Phone: MANUAL DIFF N/A Normal [facility] [facility]; [employer] [facility] [employer] [facility]. Work Phone: Laboratory - Chemistry and C hemistry - challengeon 08-18-2014 TSH Qn 2.19 m[IU]/L Normal 0.36 - 3.74 {mcIU/mL} [facility]; [employer] [facility] [employer] [facility]. Laboratory - Hematology and Cell countson 08-18-2014 ESR Photometric method (Bld) [Velocity] 26 mm/h Normal 0 - 30 mm/h [facility]; [employer] [facility] [employer] [facility] Vital Signs Date Time Vital Sign Value Performing Clinician Faci lity 09-02-2024 16:04-0400 Body height 160.02 cm Dilcia Culver RN [facility] [employer] [facility].; [facility] [facility]. 09-02-2024 16:04-0400 Body mass index (BMI) [Ratio] 24.8 kg/m2 Dilcia Culver RN [facility], [facility] 09-02-2024 16:04-0400 Body surface area Derived from formula 1.66 m2 Dilcia Culver RN [facility], [facility], Inc[facility] 09-02-2024 16:04-0400 Body weight 63.5 kg Dilcia Culver RN [facility], [facility], [facility] 09-02-2024 16:04-0400 Diastolic blood pressure 78 mm[Hg] Dilcia Culver RN [facility], [facility].; [employer] [facility] [employer] [facility] [facility], [employer] Comment on above: Patient Position: Sitting; Cuff Location : Left Arm; Cuff Size: Large 09-02-2024 16:04-0400 Heart rate 62 /min Dilcia Culver RN [facility], [facility].; [employer] [facility] [employer] [facility], [employer] Comment on above: Pattern: Regular 09-02-2024 16:04-0400 Systolic blood pressure 158 mm[Hg] Dilcia Culver RN [facility], [facility].; [facility] [employer] [facility] [facility], [employer] Comment on above: Patient Position: Sitting; Cuff Location : Left Arm; Cuff Size: Large 08-16-2022 14:57-0500 Body height 160.02 cm Dilcia Culver RN [facility], [facility].; [facility], Inc[facility] 08-16-2022 14:57-0500 Body mass index (BMI) [Ratio] 24.8 kg/m2 Dilcia Culver RN [facility], [facility], [facility] 08-16-2022 14:57-0500 Body surface area Derived from formula 1.66 m2 Dilcia Culver RN [facility], [facility].; [facility], Inc[facility] 08-16-2022 14:57-0500 Body temperature 99.4 [degF] Dilcia Culver RN [facility], [facility].; [facility] [employer] Comment on above: Method: Oral 08-16-2022 14:57-0500 Body weight 63.5 kg Dilcia Culver RN [facility], [employer].; [facility]. 08-16-2022 14:57-0500 Diastolic blood pressure 77 mm[Hg] Dilcia Culver RN [facility].; [facility]. Comment on above: Patient Position: Sitting; Cuff Location : Left Arm; Cuff Size: Large 08-16-2022 14:57-0500 Heart rate 98 /min Dilcia Culver RN [facility].; [facility]. Comment on above: Pattern: Regular 08-16-2022 14:57-0500 Inhaled oxygen concentration 21 % Dilcia Culver RN [facility].; [facility]. Comment on above: Room air 08-16-2022 14:57-0500 SaO2% (BldA) [Mass fraction] 94 % Dilcia Culver RN [facility].; [facility]. 08-16-2022 14:57-0500 Systolic blood pressure 130 mm[Hg] Dilcia Culver RN [facility].; [facility] [employer] [facility]. Comment on above: Patient Position: Sitting; Cuff Location : Left Arm; Cuff Size: Large 03-15-2022 08:57-0400 Body temperature 97 [degF] [facility] Work Phone: 03-15-2022 08:57-0400 Diastolic blood pressure 56 mm[Hg] [facility] Work Phone: 03-15-2022 08:57-0400 Heart rate 55 /min [facility] Work Phone: 03-15-2022 08:57-0400 Respiratory rate 16 /min [facility] Work Phone: 03-15-2022 08:57-0400 Systolic blood pressure 138 mm[Hg] [facility] Work Phone: 03-11-2022 00:04-0400 Body weight 64.98 kg [facility] Work Phone: 02-01-2022 08:34-0400 Body temperature 97.9 [degF] [facility] Work Phone: 02-01-2022 08:34-0400 Body weight 64.98 kg [facility] Work Phone: 02-01-2022 08:34-0400 Diastolic blood pressure 77 mm[Hg] [facility] Work Phone: 02-01-2022 08:34-0400 Heart rate 63 /min [facility] Work Phone: 02-01-2022 08:34-0400 Respiratory rate 20 /min [facility] Work Phone: 02-01-2022 08:34-0400 Systolic blood pressure 153 mm[Hg] [facility] Work Phone: 01-04-2022 08:31-0400 Body temperature 97.4 [degF] [facility] Work Phone: 01-04-2022 08:31-0400 Diastolic blood pressure 61 mm[Hg] [facility] Work Phone: 01-04-2022 08:31-0400 Heart rate 87 /min [facility] Work Phone: 01-04-2022 08:31-0400 Systolic blood pressure 155 mm[Hg] [facility] Work Phone: 11-03-2021 15:39-0400 Body height 160.02 cm Dilcia Culver RN [facility].; [facility]. 11-03-2021 15:39-0400 Body mass index (BMI) [Ratio] 26.39 kg/m2 Dilcia Culver RN [facility] [employer] [facility] HealthcareDr[facility]RAD [facility].; [facility]. 11-03-2021 15:39-0400 Body surface area Derived from formula 1.71 m2 Dilcia Culver RN [facility] [employer] [facility] HealthcareDr[facility]RAD [facility].; [facility]. 11-03-2021 15:39-0400 Body temperature 97.9 [degF] Dilcia Culver RN [facility].; [facility] Center[facility]. Comment on above: Method: Oral 11-03-2021 15:39-0400 Body weight 67.59 kg Dilcia Culver RN [facility]CH[facility].; [employer] [facility] [employer] [facility], [employer] 11-03-2021 15:39-0400 Diastolic blood pressure 79 mm[Hg] Dilcia Culver RN [facility].; [employer] [facility] [employer] [facility], [employer] Comment on above: Patient Position: Sitting; Cuff Location : Left Arm; Cuff Size: Large 11-03-2021 15:39-0400 Heart rate 57 /min Dilcia Culver RN [facility].; [employer] [facility] [employer] [facility], [employer]. Comment on above: Pattern: Regular 11-03-2021 15:39-0400 Inhaled oxygen concentration 21 % Dilcia Culver RN [facility].; [employer] [facility] [employer] [facility], [employer]. Comment on above: Room air 11-03-2021 15:39-0400 SaO2% (BldA) [Mass fraction] 96 % Dilcia Culver RN [facility].; [employer] [facility] [employer] [facility], [employer] 11-03-2021 15:39-0400 Systolic blood pressure 158 mm[Hg] Dilcia Culver RN [facility].; [employer] [facility] [facility], [employer]. Comment on above: Patient Position: Sitting; Cuff Location : Left Arm; Cuff Size: Large 04-15-2020 13:54-0400 Body height 160.02 cm Dilcia Culver RN [facility], [facility].; [facility] [employer] [facility], [employer] 04-15-2020 13:54-0400 Body mass index (BMI) [Ratio] 25.54 kg/m2 Dilcia Culver RN [facility] [employer] [facility], [facility].; [employer] [facility] [employer] [facility], [employer] 04-15-2020 13:54-0400 Body surface area Derived from formula 1.68 m2 Dilcia Culver RN [facility], [facility].; [employer] [facility] [employer] [facility], [employer] 04-15-2020 13:54-0400 Body temperature 97.8 [degF] Dilcia Culver RN [facility] [facility] HealthcareCH[facility].; [employer], [employer]. Comment on above: Method: Oral 04-15-2020 13:54-0400 Body weight 65.41 kg Dilcia Culver RN [employer] [facility]CH[facility].; [employer], [employer] 04-15-2020 13:54-0400 Diastolic blood pressure 85 mm[Hg] Dilcia Culver RN [facility] [employer] [facility], [employer].; [employer], [employer]. Comment on above: Patient Position: Sitting; Cuff Location : Left Arm; Cuff Size: Large 04-15-2020 13:54-0400 Heart rate 69 /min Dilcia Culver RN [employer], [employer].; [employer], [employer]. Comment on above: Pattern: Regular 04-15-2020 13:54-0400 Systolic blood pressure 146 mm[Hg] Dilcia Culver RN [employer] [facility], [employer].; [employer], [employer]. Comment on above: Patient Position: Sitting; Cuff Location : Left Arm; Cuff Size: Large 10-25-2018 13:12-0400 Body height 160.02 cm Dilcia Culver RN [facility] [employer] [facility], [employer].; [employer] 10-25-2018 13:12-0400 Body mass index (BMI) [Ratio] 25.33 kg/m2 Dilcia Culver RN [facility] [employer] [facility], [employer].; [employer], [employer] 10-25-2018 13:12-0400 Body surface area Derived from formula 1.68 m2 Dilcia Culver RN [facility] [employer] [facility], [employer].; [employer] 10-25-2018 13:12-0400 Body weight 64.86 kg Dilcia Culver RN [facility] [employer] [facility], Inc.; [employer], [employer] 10-25-2018 13:12-0400 Diastolic blood pressure 74 mm[Hg] Dilcia Culver RN [facility] [employer], [employer].; [employer], [employer] Comment on above: Patient Position: Sitting; Cuff Location : Left Arm; Cuff Size: Large 10-25-2018 13:12-0400 Heart rate 62 /min Dilcia Culver RN [facility] [employer], [employer].; [employer], [employer] Comment on above: Pattern: Regular 10-25-2018 13:12-0400 Systolic blood pressure 125 mm[Hg] Dilcia Culver RN [facility] [employer] [facility], [employer].; [employer] Comment on above: Patient Position: Sitting; Cuff Location : Left Arm; Cuff Size: Large 10-11-2018 13:43-0400 Body height 160.02 cm Dilcia Culver RN [facility] [employer] [facility], [employer].; [employer] 10-11-2018 13:43-0400 Body mass index (BMI) [Ratio] 24.98 kg/m2 Dilcia Culver RN [facility] [employer] [facility], [employer].; [employer] 10-11-2018 13:43-0400 Body surface area Derived from formula 1.67 m2 Dilcia Culver RN [facility] [employer] [facility] [facility], [employer].; [employer] 10-11-2018 13:43-0400 Body weight 63.96 kg Dilcia Culver RN [facility] [employer] [facility], [employer].; [employer] 10-11-2018 13:43-0400 Diastolic blood pressure 99 mm[Hg] Dilcia Culver RN [facility] [employer] [facility], [employer].; [employer], [employer] Comment on above: Patient Position: Sitting; Cuff Location : Left Arm; Cuff Size: Large 10-11-2018 13:43-0400 Heart rate 81 /min Dilcia Culver RN [facility] [employer] [facility], [employer].; [employer] Comment on above: Pattern: Regular 10-11-2018 13:43-0400 Systolic blood pressure 159 mm[Hg] Dilcia Culver RN [facility] [employer] [facility], [employer].; [employer] Comment on above: Patient Position: Sitting; Cuff Location : Left Arm; Cuff Size: Large 09-29-2018 11:06-0400 Body height 160.02 cm Apple El RN [facility] [employer] [facility], [employer].; [employer] 09-29-2018 11:06-0400 Body mass index (BMI) [Ratio] 24.62 kg/m2 Apple El RN [facility] [employer], [employer].; [employer] 09-29-2018 11:06-0400 Body surface area Derived from formula 1.66 m2 Apple El RN [facility] [employer] [facility], [employer].; [employer] 09-29-2018 11:06-0400 Body temperature 97.9 [degF] Apple El RN [facility] [employer] [facility], [employer].; [employer] Comment on above: Method: Oral 09-29-2018 11:060400 Body weight 63.05 kg Apple El RN [facility] [employer] [facility], [employer].; [employer] 09-29-2018 11:06-0400 Diastolic blood pressure 86 mm[Hg] Apple El RN [facility] [employer] [facility], [employer].; [employer] Comment on above: Patient Position: Sitting; Cuff Location : Left Arm; Cuff Size: Standard 09-29-2018 11:06-0400 Heart rate 77 /min Apple El RN [facility] [employer] [facility], [employer].; [employer] Comment on above: Pattern: Regular 09-29-2018 11:06-0400 Systolic blood pressure 135 mm[Hg] Apple El RN [facility] [employer] [facility], [employer].; [employer] Comment on above: Patient Position: Sitting; Cuff Location : Left Arm; Cuff Size: Standard 03-23-2018 13:090400 Body height 160.02 cm Apple El RN [facility] [employer] [facility], [employer].; [employer] [facility] Antony [employer] [facility] [facility], [employer] 03-23-2018 13:090400 Body mass index (BMI) [Ratio] 24.45 kg/m2 Apple El RN [facility] [employer] [facility], [employer].; [employer] 03-23-2018 13:0400 Body surface area Derived from formula 1.65 m2 Apple El RN [facility] [employer] [facility], [employer].; [employer] 03-23-2018 13:090400 Body temperature 97.7 [degF] Apple El RN [facility] [employer] [facility], [employer].; [employer], [employer] Comment on above: Method: Oral 03-23-2018 13:09040 Body weight 62.6 kg Apple El RN [facility] [employer] [facility], [employer].; [employer] 03-23-2018 13:09040 Diastolic blood pressure 70 mm[Hg] Apple El RN [facility] [employer] [facility], [employer].; [employer] Comment on above: Patient Position: Sitting; Cuff Location : Left Arm; Cuff Size: Standard 03-23-2018 13:090400 Heart rate 60 /min Apple El RN [facility] [employer] [facility], [employer].; [employer], [employer] Comment on above: Pattern: Regular 03-23-2018 13:040 Systolic blood pressure 138 mm[Hg] Apple El RN [facility] [employer] [facility], [employer].; [employer] Comment on above: Patient Position: Sitting; Cuff Location : Left Arm; Cuff Size: Standard 03-16-2018 13:45-0400 Body height 160.02 cm Apple El RN [facility] [employer] [facility], [employer].; [employer] [facility] 03-16-2018 13:45-0400 Body mass index (BMI) [Ratio] 24.09 kg/m2 Apple El RN [facility] [employer] [facility], [employer].; [employer] [facility] [employer] [facility], [employer] 03-16-2018 13:45-0400 Body surface area Derived from formula 1.64 m2 Apple El RN [facility] [employer] [facility], [employer].; [employer] 03-16-2018 13:45-0400 Body temperature 97.7 [degF] Apple El RN [facility] [employer] [facility], [employer].; [employer] Comment on above: Method: Oral 03-16-2018 13:450400 Body weight 61.69 kg Apple El RN [facility] [employer] [facility], [employer].; [employer] 03-16-2018 13:45-0400 Diastolic blood pressure 74 mm[Hg] Apple El RN [facility] [employer] [facility], [employer].; [employer] Comment on above: Patient Position: Sitting; Cuff Location : Left Arm; Cuff Size: Standard 03-16-2018 13:45-0400 Heart rate 71 /min Apple El RN [facility] [employer] [facility], [employer].; [employer] Comment on above: Pattern: Regular 03-16-2018 13:45-0400 Systolic blood pressure 135 mm[Hg] [facility], [facility].; [employer], [employer]. Comment on above: Patient Position: Sitting; Cuff Location : Left Arm; Cuff Size: Standard 03-09-2018 12:49-0400 Body height 160.02 cm Erin Christian RN [facility] [employer] [facility], [employer].; [employer] [facility] [employer] 03-09-2018 12:49-0400 Body mass index (BMI) [Ratio] 24.27 kg/m2 Erin Christian [facility], [facility].; [employer] [facility] [employer] 03-09-2018 12:49-0400 Body surface area Derived from formula 1.65 m2 Erin Christian RN [facility] [employer] [facility], [employer].; [employer] 03-09-2018 12:49-0400 Body temperature 97.9 [degF] Erin Christian RN [facility] [employer] [facility], [employer].; [employer], [employer]. Comment on above: Method: Oral 03-09-2018 12:49-0400 Body weight 62.14 kg Erin Christian RN [facility] [employer] [facility], [employer].; [employer] [facility] [employer] 03-09-2018 12:49-0400 Diastolic blood pressure 77 mm[Hg] Erin Christian RN [facility] [employer] [facility], [employer].; [employer] Comment on above: Patient Position: Sitting; Cuff Location : Left Arm; Cuff Size: Large 03-09-2018 12:49-0400 Heart rate 58 /min Erin Christian RN [facility] [employer] [facility], [employer].; [employer]. Comment on above: Pattern: Regular 03-09-2018 12:49-0400 Systolic blood pressure 123 mm[Hg] Erin Christian RN [facility] [employer] [facility], [employer].; [employer] [facility], [employer] Comment on above: Patient Position: Sitting; Cuff Location : Left Arm; Cuff Size: Large 02-21-2018 09:07-0400 Body height 160.02 cm Apple El RN [facility] [employer] [facility], [employer].; [employer] 02-21-2018 09:07-0400 Body mass index (BMI) [Ratio] 24.45 kg/m2 Apple El RN [facility] [employer] [facility], [employer].; [employer] [facility] [employer] [facility] 02-21-2018 09:07-0400 Body surface area Derived from formula 1.65 m2 Apple El RN [facility] [employer] [facility], [employer].; [employer] [facility] Antony [employer] [facility] [facility], [employer] 02-21-2018 09:07-0400 Body temperature 98 [degF] Apple El RN [facility] [employer] [facility], [employer].; [employer] Comment on above: Method: Oral 02-21-2018 09:07-0400 Body weight 62.6 kg Apple El RN [facility] [employer] [facility], [employer].; [employer] [facility] [employer] 02-21-2018 09:07-0400 Diastolic blood pressure 75 mm[Hg] Apple El RN [facility] [employer] [facility], [employer].; [employer] [facility] Comment on above: Patient Position: Sitting; Cuff Location : Left Arm; Cuff Size: Standard 02-21-2018 09:07-0400 Heart rate 60 /min Apple El RN [facility] [employer] [facility], [employer].; [employer] [facility] [employer] Comment on above: Pattern: Regular 02-21-2018 09:07-0400 Systolic blood pressure 121 mm[Hg] Apple El RN [facility] [employer] [facility], [employer].; [employer] [facility] Comment on above: Patient Position: Sitting; Cuff Location : Left Arm; Cuff Size: Standard 08-16-2017 10:08-0500 Body height 160.02 cm Dilcia Culver RN [facility] [employer] [facility], [employer].; [employer] 08-16-2017 10:08-0500 Body mass index (BMI) [Ratio] 23.91 kg/m2 Dilcia Culver RN [employer] [facility], [employer].; [employer] [facility], [employer] 08-16-2017 10:08-0500 Body surface area Derived from formula 1.64 m2 Dilcia Culver RN [facility] [employer] [facility], [employer].; [employer] [facility], [employer] 08-16-2017 10:08-0500 Body weight 61.24 kg Dilcia Culver RN [facility] [employer] [facility], [employer].; [employer] [facility], [employer] 08-16-2017 10:08-0500 Diastolic blood pressure 68 mm[Hg] Dilcia Culver RN [facility] [employer] [facility] Inc.; [employer] [facility], [employer] Comment on above: Patient Position: Sitting; Cuff Location : Left Arm; Cuff Size: Large 08-16-2017 10:08-0500 Heart rate 59 /min Dilcia Culver RN [facility] [employer] [facility] Healthcare[facility] Inc.; [employer] [facility], [employer]. Comment on above: Pattern: Regular 08-16-2017 10:08-0500 Systolic blood pressure 149 mm[Hg] Dilcia Culver RN [employer] [facility].; [employer] [facility], [employer] Comment on above: Patient Position: Sitting; Cuff Location : Left Arm; Cuff Size: Large 08-02-2017 10:21-0500 Body height 160.02 cm Divina Farah [employer] [facility], [employer].; [employer] [facility] [employer] 08-02-2017 10:21-0500 Body mass index (BMI) [Ratio] 23.74 kg/m2 Divina Farah [employer] [facility], [employer].; [employer] [facility], [employer] 08-02-2017 10:21-0500 Body surface area Derived from formula 1.63 m2 Divina Graham [employer], Inc.; [employer], Inc. 08-02-2017 10:21-0500 Body temperature 97.4 [degF] Divina Coleman [employer], Inc[employer] Comment on above: Method: Oral 08-02-2017 10:210500 Body weight 60.78 kg Divina Graham [employer], [employer] 08-02-2017 10:21-0500 Diastolic blood pressure 78 mm[Hg] Divina Coleman [facility] [employer] [facility], [employer].; [employer] Comment on above: Patient Position: Sitting; Cuff Location : Left Arm; Cuff Size: Standard 08-02-2017 10:21-0500 Heart rate 54 /min Divina Coleman [facility] [employer] [facility], [employer].; [employer], [employer] Comment on above: Pattern: Regular 08-02-2017 10:21-0500 Systolic blood pressure 173 mm[Hg] Divina Coleman [facility] [employer] [facility], [employer].; [employer] [facility] [employer] Comment on above: Patient Position: Sitting; Cuff Location : Left Arm; Cuff Size: Standard 02-09-2017 10:48-0400 Body height 159.38 cm Erin Christian RN [facility] [employer] [facility], [employer].; [employer] [facility] [employer] 02-09-2017 10:48-0400 Body mass index (BMI) [Ratio] 23.57 kg/m2 Erin Christian RN [facility] [employer] [facility], Inc.; [employer] [facility] [employer] 02-09-2017 10:48-0400 Body surface area Derived from formula 1.62 m2 [facility].; [employer] [facility] [employer] [facility] [employer] 02-09-2017 10:48-0400 Body weight 59.88 kg Erin [facility].; [employer] [facility] [employer] [facility] [employer] 02-09-2017 10:48-0400 Diastolic blood pressure 74 mm[Hg] Erin Christian RN [facility] [employer] [facility], [employer].; [employer] [facility] [employer] Comment on above: Patient Position: Sitting; Cuff Location : Left Arm; Cuff Size: Large 02-09-2017 10:48-0400 Heart rate 56 /min Erin Christian RN [facility] [employer] [facility], [employer].; [employer] [facility] [employer] Comment on above: Pattern: Regular 02-09-2017 10:48-0400 Systolic blood pressure 143 mm[Hg] Erin Christian RN [facility] [employer]. Comment on above: Patient Position: Sitting; Cuff Location : Left Arm; Cuff Size: Large 12-23-2016 13:060400 Body height 159.38 cm [employer] Work Phone: [facility] [employer] 12-23-2016 13:06-0400 Body mass index (BMI) [Ratio] 23.75 kg/m2 [employer] Work Phone: [employer]. 12-23-2016 13:060400 Body surface area Derived from formula 1.62 m2 [employer] Work Phone: [employer].; [employer]. 12-23-2016 13:060400 Body weight 60.33 kg Case [employer] Work Phone: [facility] [employer].; [employer]. 12-17-2015 13:50-0400 Body height 160.02 cm Dilcia Culver RN [employer].; [employer]. 12-17-2015 13:50-0400 Body mass index (BMI) [Ratio] 24.98 kg/m2 Dilcia Culver RN [facility] [employer].; [employer] [facility] [employer]. 12-17-2015 13:50-0400 Body surface area Derived from formula 1.67 m2 Dilcia Culver RN [employer].; [employer] [facility] [employer]. 12-17-2015 13:50-0400 Body weight 63.96 kg Dilcia Culver RN [employer]. 12-17-2015 13:50-0400 Diastolic blood pressure 91 mm[Hg] Dilcia Culver RN [facility] [employer].; [employer]. Comment on above: Patient Position: Sitting; Cuff Location : Left Arm; Cuff Size: Standard 12-17-2015 13:50-0400 Heart rate 55 /min Dilcia Culver RN [facility] [employer] [facility], [employer].; [employer] [facility] [employer] Comment on above: Pattern: Regular 12-17-2015 13:50-0400 Systolic blood pressure 152 mm[Hg] Dilcia Culver RN [facility] [employer] [facility], [employer].; [employer] [facility] [employer] Comment on above: Patient Position: Sitting; Cuff Location : Left Arm; Cuff Size: Standard 08-18-2014 09:55-0500 Body height 160.66 cm Apple El RN [facility] [employer] [facility], [employer].; [employer] [facility] [employer] [facility] [employer] 08-18-2014 09:55-0500 Body mass index (BMI) [Ratio] 24.69 kg/m2 Apple El RN [facility], Inc.; [employer] [facility] [employer] [facility] [employer] 08-18-2014 09:55-0500 Body surface area Derived from formula 1.67 m2 Apple El RN [facility] [employer] [facility], [employer].; [employer] [facility] Antony [employer] [facility] [employer] 08-18-2014 09:55-0500 Body temperature 98.4 [degF] Apple El RN [facility] [employer] [facility], [employer].; [employer] [facility] [employer] [facility] [employer] Comment on above: Method: Oral 08-18-2014 09:55-0500 Body weight 63.73 kg Apple El RN [facility] [employer] [facility], [employer].; [employer] [facility] [employer] [facility] [employer] 08-18-2014 09:55-0500 Diastolic blood pressure 85 mm[Hg] Apple El RN [facility] [employer] [facility], [employer].; [employer] [facility] [employer] [facility] [employer] Comment on above: Patient Position: Sitting; Cuff Location : Left Arm; Cuff Size: Standard 08-18-2014 09:55-0500 Heart rate 71 /min Apple El RN [facility] [employer] [facility], [employer].; [employer] [facility] [employer], [employer]. Comment on above: Pattern: Regular 08-18-2014 09:55-0500 Systolic blood pressure 146 mm[Hg] Apple El RN [facility] [employer] [facility], [facility].; [employer] [facility] [employer] [facility] [employer] Comment on above: Patient Position: Sitting; Cuff Location : Left Arm; Cuff Size: Standard 05-06-2014 11:05-0500 Body height 160.02 cm Erin Christian RN [facility], Inc.; [facility] [employer] [facility] [employer] 05-06-2014 11:05-0500 Body mass index (BMI) [Ratio] 25.15 kg/m2 Erin Christian RN [facility], Inc.; [facility] [employer] [facility] [employer] 05-06-2014 11:05-0500 Body surface area Derived from formula 1.67 m2 Erin Christian RN [facility] [employer] [facility], [employer].; [facility] [employer] [facility] [employer] 05-06-2014 11:05-0500 Body temperature 97.7 [degF] Erin Christian RN [facility] [employer] [facility], [employer].; [employer] [facility] [employer] [facility], [employer]. Comment on above: Method: Oral 05-06-2014 11:05-0500 Body weight 64.41 kg Erin Christian RN [facility] [employer] [facility], [employer].; [facility] [employer] [facility] [employer] 05-06-2014 11:05-0500 Diastolic blood pressure 81 mm[Hg] Erin Christian RN [facility] [employer] [facility], [employer].; [employer] [facility] [employer] [facility] [employer] Comment on above: Patient Position: Sitting; Cuff Location : Left Arm; Cuff Size: Large 05-06-2014 11:05-0500 Heart rate 78 /min Erin Christian RN [facility] [employer] [facility], [employer].; [employer] [facility] [employer] [facility], [employer]. Comment on above: Pattern: Regular 05-06-2014 11:05-0500 Systolic blood pressure 136 mm[Hg] Erin Christian RN [facility] [employer] [facility], [employer].; [employer] [facility] [employer] [facility], [employer]. Comment on above: Patient Position: Sitting; Cuff Location : Left Arm; Cuff Size: Large 07-16-2012 14:50-0500 Body height 160.02 cm Erin Christian RN [facility] [employer] [facility], [employer].; [employer] [facility] [employer] [facility] [employer] 07-16-2012 14:50-0500 Body mass index (BMI) [Ratio] 25.86 kg/m2 Erin Christian RN [facility], Inc.; [facility], Inc. 07-16-2012 14:50-0500 Body surface area Derived from formula 1.69 m2 Erin Christian RN [facility], Inc.; [facility], Inc[facility] 07-16-2012 14:50-0500 Body weight 66.23 kg Erin Christian RN [facility], Inc.; [facility], Inc. 07-16-2012 14:50-0500 Diastolic blood pressure 101 mm[Hg] Erin Christian RN [facility], Inc.; [facility], Inc[facility] Comment on above: Patient Position: Sitting; Cuff Location : Left Arm; Cuff Size: Large 07-16-2012 14:50-0500 Heart rate 60 /min Erin Christian RN [facility], Inc.; [facility], Inc. Comment on above: Pattern: Regular 07-16-2012 14:50-0500 Systolic blood pressure 171 mm[Hg] Erin Christian RN [facility], Inc.; [facility], [employer]. Comment on above: Patient Position: Sitting; Cuff Location : Left Arm; Cuff Size: Large 10-24-2011 10:45-0400 Body height 160.02 cm Erin Christian RN [facility], Inc.; [facility], Inc[facility] 10-24-2011 10:45-0400 Body mass index (BMI) [Ratio] 24.8 kg/m2 Erin Christian RN [facility], Inc.; [facility], Inc. 10-24-2011 10:45-0400 Body surface area Derived from formula 1.66 m2 Erin Christian RN [facility], Inc.; [facility], Inc[facility] 10-24-2011 10:45-0400 Body temperature 97.9 [degF] Erin Christian RN [facility], Inc.; [facility], [employer]. Comment on above: Method: Oral 10-24-2011 10:45-0400 Body weight 63.5 kg Erin Christian RN [facility] [employer] [facility], [facility].; [facility] [employer] [facility] [employer] 10-24-2011 10:45-0400 Diastolic blood pressure 88 mm[Hg] Erin Christian RN [facility], [employer].; [facility] [employer] [facility] [employer] Comment on above: Patient Position: Sitting; Cuff Location : Left Arm; Cuff Size: Large 10-24-2011 10:45-0400 Heart rate 71 /min Erin hCristian RN [facility], [employer].; [employer] [facility] [employer] [facility] [employer] Comment on above: Pattern: Regular 10-24-2011 10:45-0400 Systolic blood pressure 144 mm[Hg] Erin Christian RN [facility] [employer] [facility], [employer].; [employer] [facility] [employer] [facility], [employer]. Comment on above: Patient Position: Sitting; Cuff Location : Left Arm; Cuff Size: Large 10-11-2010 11:03-0400 Body height 162.56 cm Erin Christian RN [facility], Inc.; [facility] [employer] [facility] [employer] 10-11-2010 11:03-0400 Body mass index (BMI) [Ratio] 25.06 kg/m2 Erin Christian RN [facility], [facility].; [facility], Inc[facility] 10-11-2010 11:03-0400 Body surface area Derived from formula 1.71 m2 Erin Christian RN [facility], Inc.; [facility] [employer] [facility] [employer] 10-11-2010 11:03-0400 Body weight 66.23 kg Erin Christian RN [facility], [facility].; [employer] [facility] [employer] [facility] [employer] 10-11-2010 11:03-0400 Diastolic blood pressure 74 mm[Hg] Erin Christian RN [facility] [employer] [facility], [employer].; [employer] [facility] [employer] [facility], [employer]. Comment on above: Patient Position: Sitting; Cuff Location : Left Arm; Cuff Size: Large 10-11-2010 11:03-0400 Heart rate 58 /min Erin Christian RN [facility] [employer] [facility], [employer].; [employer] [facility] [employer] [facility]. Comment on above: Pattern: Regular 10-11-2010 11:03-0400 Systolic blood pressure 151 mm[Hg] Erin Christian RN [facility] [employer] [facility].; [facility] [employer] [facility]. Comment on above: Patient Position: Sitting; Cuff Location : Left Arm; Cuff Size: Large 09-03-2010 09:11-0500 Body temperature 97.7 [degF] Erin Christian RN [facility] [employer] [facility].; [facility] [employer] [facility], [employer]. Comment on above: Method: Oral 09-03-2010 09:11-0500 Diastolic blood pressure 81 mm[Hg] Erin [facility].; [employer] [facility] [employer] [facility]. Comment on above: Patient Position: Sitting; Cuff Location : Left Arm; Cuff Size: Large 09-03-2010 09:11-0500 Heart rate 61 /min Erin Christian RN [facility].; [employer] [facility] [employer] [facility]. Comment on above: Pattern: Regular 09-03-2010 09:11-0500 Systolic blood pressure 171 mm[Hg] Erin Christian RN [facility] [employer] [facility].; [employer] [facility] [employer] [facility], [employer]. Comment on above: Patient Position: Sitting; Cuff Location : Left Arm; Cuff Size: Large 09-03-2010 08:56-0500 Body height 160.02 cm ANDREZ [employer] Work Phone: [facility] [employer] [facility].; [employer] [facility] [employer] [facility] Healthcare[employer] 09-03-2010 08:56-0500 Body mass index (BMI) [Ratio] 26.22 kg/m2 [employer] Work Phone: [facility] [employer] [facility].; [facility] [employer] [facility]. 09-03-2010 08:56-0500 Body surface area Derived from formula 1.7 m2 [employer] Work Phone: [facility] [employer] [facility].; [facility] [employer] [facility], [employer] 09-03-2010 08:56-0500 Body weight 67.13 kg ANDREZ RIZZO N[employer]C Work Phone: [facility]; [facility] Encounters Encounter Date Encounter Type Care Provider Facility Start: 09-02-2024 End: 09-02-2024 Office outpatient visit 10 minutes ANDREZ RIZZO N[employer]-C Work Phone: [facility] Start: 08-22-2024 Review ANDREZ MILLER CH N[employer] TH[employer]ER-C Work Phone[facility] Start: 08-16-2022 End: 08-16-2022 Office outpatient visit 15 minutes ANDREZ RIZZO N[employer]-C Work Phone: [facility] Start: 03-15-2022 End: 03-15-2022 ambulatory [facility] Facility:[facility] Start: 03-15-2022 End: 03-15-2022 [facility] Start: 03-15-2022 End: 03-15-2022 ambulatory [facility] Work Phone: Start: 03-15-2022 End: 03-15-2022 Patient encounter procedure [facility] Start: 02-01-2022 End: 02-24-2022 ambulatory [facility] Facility:[facility] Start: 02-01-2022 End: 02-23-2022 ambulatory [facility] Work Phone: Start: 02-01-2022 End: 02-23-2022 [facility] Start: 01-04-2022 End: 01-24-2022 ambulatory [facility] Facility:[facility] Start: 01-04-2022 End: 01-23-2022 [facility] Start: 11-24-2021 End: 11-24-2021 Transition of Care ANDREZ RIZZO NUT THREADER-C Work Phone: [facility] [employer] Start: 11-03-2021 End: 11-03-2021 Office outpatient visit 10 minutes ANDREZ ANALIA NUT THREADER-C Work Phone: [employer] [facility] [employer] Start: 01-21-2021 End: 01-21-2021 Emergency department patient visit DR ENRRIQUE HUNT [facility] Start: 04-15-2020 End: 04-15-2020 Office outpatient visit 10 minutes ANDREZ ANALIA NUT THREADER-C Work Phone: [employer] [facility] [employer] Start: 10-25-2018 End: 10-25-2018 Office outpatient visit 10 minutes ANDREZ ANALIA NUT [employer]ER[employer]C Work Phone: [employer] [facility] [employer] Start: 10-11-2018 End: 10-11-2018 Office outpatient visit 15 minutes ANDREZ ANALIA NUT [employer]ER-C Work Phone: [employer] Start: 09-29-2018 End: 09-29-2018 Office outpatient visit 15 minutes ANDREZ ANALIA NUT THREADER-C Work Phone: [employer] [facility] [employer] Start: 03-23-2018 End: 03-23-2018 Office outpatient visit 10 minutes ANDREZ ANALIA N[employer]ER-C Work Phone: [employer] Start: 03-16-2018 End: 03-16-2018 Office outpatient visit 10 minutes ANDREZ ANALIA NUT [employer]-C Work Phone: [employer] Start: 03-09-2018 End: 03-09-2018 Office outpatient visit 10 minutes ANDREZ ANALIA NUT [employer]ER-C Work Phone: [employer] Start: 02-22-2018 End: 02-22-2018 Results Review ANDREZ ANALIA NUT THREADER-C Work Phone: [facility] [employer] Start: 02-21-2018 End: 02-21-2018 Office outpatient visit 15 minutes ANDREZ TURNERLABACH NUT THREADER-C Work Phone: [employer]. Start: 02-21-2018 End: 02-21-2018 Physical examination ANDREZ TURNERLABACH NUT THREADER-C Work Phone: [employer]. Start: 08-16-2017 End: 08-16-2017 Historical Summary ANDREZ TURNERLABACH NUT THREADER-C Work Phone: [employer] [facility] [employer]. Start: 08-16-2017 End: 08-16-2017 Office outpatient visit 15 minutes ANDREZ ANALIA NUT THREADER-C Work Phone: [employer] [facility] [employer]. Start: 08-08-2017 End: 08-08-2017 Follow-up encounter ANDREZ TURNERLABACH NUT THREADER-C Work Phone: [employer]. Start: 08-03-2017 End: 08-03-2017 Nutrition therapy ANDREZ TURNERLABACH NUT THREADER-C Work Phone: [employer]. Start: 08-02-2017 End: 08-02-2017 Office outpatient visit 15 minutes ANDREZ ANALIA N[employer]-C Work Phone: [employer]. Start: 02-09-2017 End: 02-09-2017 Office outpatient visit 10 minutes ANDREZ ANALIA NUT [employer]ER-C Work Phone: [employer]. Start: 12-23-2016 End: 12-23-2016 Office outpatient visit 10 minutes ANDREZ ANALIA NUT [employer]ER-C Work Phone: [employer]. Start: 04-20-2016 End: 04-20-2016 Historical Summary ANDREZ ANALIA NUT TH[employer]ER-C Work Phone: [employer]. Start: 04-18-2016 End: 04-18-2016 Procedure Order ANDREZ ANALIA NUT THREADER-C Work Phone: [employer] [facility] [employer]. Start: 12-17-2015 End: 12-17-2015 Office outpatient visit 10 minutes ANDREZ ANALIA NUT THREADER-C Work Phone: [employer] [facility] [employer]. Start: 08-18-2014 End: 08-18-2014 Results Review ANDREZ ANALIA NUT [employer]ER-C Work Phone: [employer] [facility] [employer]. Start: 08-18-2014 End: 08-18-2014 Office outpatient visit 10 minutes ANDREZ ANALIA NUT THREADER-C Work Phone: [employer] [facility] [employer]. Start: 05-06-2014 End: 05-06-2014 Office outpatient visit 15 minutes ANDREZ ANALIA NUT THREADER-C Work Phone: [employer] [facility] [employer]. Start: 07-16-2012 End: 07-16-2012 Patient encounter procedure ANDREZ ANALIA NUT THREADER-C Work Phone: [employer] [facility] [employer]. Start: 10-24-2011 End: 10-24-2011 Patient encounter procedure ANDREZ ANALIA NUT THREADER-C Work Phone: [employer] [facility] [employer]. Start: 10-11-2010 End: 10-11-2010 Patient encounter procedure NADREZ ANALIA NUT THREADER-C Work Phone: [employer] [facility] [employer]. Start: 09-03-2010 End: 09-03-2010 Patient encounter procedure ANDREZ ANALIA NUT THREADER-C Work Phone: [employer] [facility] [employer]. Start: 09-03-2010 End: 10-24-2011 Historical Summary ANDREZ TURNERLABACH NUT THREADER-C Work Phone: [employer] [facility] [employer] Physical examination MELONIE CANADA NUT THREADER-C [facility] [employer]; [facility] Procedures Date Procedure Procedure Detail [...] Removal impacted cerumen irrigation/lvg unilat MELONIE SILVER NUT THREADER-C Start: 11-03-2021 End: 11-03-2021 Dischrg meds reconciled w/current med list MELONIE SILVER NUT THREADER-Gemma Start: 04-15-2020 End: 04-15-2020 Dischrg meds reconciled w/current med list MELONIE SILVER NUT THREADER-C Start: 04-15-2020 End: 04-15-2020 Urinary Incontinence Dilcia [...] Phone: Start: 03-09-2018 End: 03-09-2018 Adacel MELONIE SILVER NUT THREADER-C Start: 02-21-2018 End: 02-21-2018 Fall Risk Assessment MELONIE GROSS-Gemma Comment on above: 0 Start: 08-16-2017 End: [...] 04-19-2016 Cardiovascular Stress Test - Lexiscan MELONIE GROSS-C Comment on above: Negative. EF 67% Start: 05-06-2014 End: 05-10-2014 Ct abdomen & pelvis w/contrast material R VAHID DELONG MD Work Phone: Comment on above: Please evaluate for diverticulitis, abce ss, etc. Start: 12-23-2009 End: 12-23-2009 Esophagogastroduodenoscopy MELONIE GROSS-Gemma Comment on above: Abnormal. gastritis Start: 12-23-2009 End: 12-23-2009 Screening colonoscopy MELONIE GROSS-Gemma Comment on above: diverticulosis No Known Past Surgical History MELONIE OLMSTEADP-C Screening mammography WHITNE Caridad GROSS-Gemma Comment on above: iza thompson Plan of Treatment Date Care Activity Detail Author Start: 08-16-2022 Blood occult peroxidase actv qual feces 1 deter OCCULT BLOOD FECES SCREEN X3 (IN OFFICE) (16748) Start: 16-Aug-2022 16:49-05:00 [facility], [facility].; [facility], [facility]. Start: 08-16-2022 Adv care pln/ no alt dcsn mkr docd or refusal ADV CARE PLAN DISCUSSED & DOCUMENTED, NO SURROGATE OR PLAN (1124F) Start: 16-Aug-2022 [facility] [employer]; [employer]. Start: 10-25-2018 Dup-scan xtr veins unilateral/limited study VENOUS US FOR DVT (72740) Start: 25-Oct-2018 [facility] [employer]; [employer]. Start: 09-29-2018 Patient Education SPRAINS Indication: Sprain o f left knee, subsequent encounter Start: 29-Sep-2018 Instruction Type: Patient Education [place]; [employer]. Start: 02-21-2018 End: 02-21-2018 Falls risk assessment documented FALL RISK ASSESSMENT (3938F) Date: 21-Feb-2018 [place]; [employer] Start: 08-16-2017 Patient Education HYPERLIPIDEMIA Indication: Hypercholesteremia (Renamed from Hypercholesterolemia) Start: 16-Aug-2017 Instruction Type: Patient Education [place]; [employer]. Start: 08-02-2017 Patient Education TIA Indication: Transient cerebral ischemia, unspecified type Start: 02-Aug-2017 Instruction Type: Patient Education Porph[place]rio; [employer]. Start: 08-02-2017 End: 08-02-2017 Falls risk assessment documented FALL RISK ASSESSMENT (3288F) Date: 02-Aug-2017 [place]orph[place]rio; [employer]VE[employer] Start: 04-18-2016 Cv strs tst xers&/or rx cont ecg w/si&r CARDIOVASCULAR EXERCISE STRESS TEST - WITH IMAGING (77420) (50492) Start: 18-Apr-2016 [facility] Porphyrio; [employer]. Start: 08-18-2014 Patient Education FATIGUE Indication: Fatigue, unspecified type Start: 18-Aug-2014 Instruction Type: Patient Education [place]; [employer] Start: 05-06-2014 Assay of amylase AMYLASE (99569) Start: 06-May-2014 12:04-05:00 Request [employer].; [facility] Start: 05-06-2014 Assay of lipase LIPASE (22277) Start: 06-May-2014 12:04-05:00 Request [employer].; [employer] [facility] [employer] Start: 05-06-2014 C-reactive protein C-REACTIVE PROTEIN (03439) Start: 06-May-2014 12:03-05:00 Request [employer].; [facility] Start: 05-06-2014 Comprehensive metabolic panel METABOLIC PANEL, COMPREHENSIVE (78835) Start: 06-May-2014 12:03-05:00 Request [facility] [employer].; [employer] [facility] [employer] Start: 09-03-2010 Patient Education DASH Diet: blood pressure Indication: Elevated blood pressure reading Start: 03-Sep-2010 Instruction Type: Patient Education [facility] [employer].; [employer] Work Phone: Immunizations Immunization Date Immunization Notes Care Provider Lizandro roman 03-09-2018 *IMMUNIZATION ADMIN ([id number]) ANDREZ ANALIA NUT THREADER-C Work Phone: [facility] [employer] [facility] [employer]. 03-09-2018 tetanus toxoid, redu anuel diphtheria toxoid, and acellular pertussis vaccine, adsorbed ANDREZ ANALIA NUT THREADER-C Work Phone: [facility] [employer] [facility] [employer]. Comment on above: Site: Right Funmi goodman: * Tdap (Tetanus, Diphtheria, Pertussis) (08/19/14) 07-16-2012 tetanus toxoid, redu anuel diphtheria toxoid, and acellular pertussis vaccine, adsorbed ANDREZ ANALIA NUT THREADER-C Work Phone: [facility] [employer] [facility] [employer]. Comment on above: Site: Gluteus (Right ) 07-16-2012 *IMMUNIZATION ADMIN ([id number]) ANDREZ TURNERLABACH NUT THREADER-C Work Phone: [facility] [email or web address]; [employer] ([employer]) [facility]. influenza virus vaccine, unspecified formulation ANDREZ TURNERLABACH NUT THREADER-C Work Phone: [facility] [employer] [facility]; [facility] Comment on above: Refused. 04/15/2020 pneumococcal conjuga te vaccine, 13 valent ANDREZ TURNERLABACH NUT THREADER-C Work Phone: [facility] [employer] [facility] [employer]; [employer] [facility] [employer] [facility] [facility]. Comment on above: Refused. 08/16/2017 pneumococcal Conjuga te, unspecified formulation ANDREZ TURNERLABACH NUT THREADER-C Work Phone: [facility] [employer] [facility] [facility] [employer]; [employer] ([employer]) [facility] [employer] [facility]. Comment on above: Refused. 08/16/2017 Payers Date Payer Category Payer Unknown . [id number] 2021 Self-pay [id number] 2021 Unknown [id number] 2021 Unknown [id number] 1950 Unknown [id number] [id number] Unknown 74 Unknown [facility] PACKAGE PLAN [id number] Unknown [id number] 2.16.8 [id number] Unknown [id number] 2.16.8 [id number] Unknown [id number] 2.16.8 [id number] Unknown [id number] 2.16.8 [id number] Social History Date Type Detail Facility Tobacco smoking stat [facility] Unknown if ever smoked [facility] Work Phone: Start: 1950 Sex Assigned At Female W [facility] Work Phone: Alcohol Use: Alcohol Use: ; N o Alcohol Use. [employer]; [employer] [facility] [employer] Highest Education Le velma Attained: Highest Education Level Attained: ; Less than high school. Porphyrio; [employer] [facility] [employer] Tobacco use: Tobacco use: ; N ever smoker. [facility] [employer]; [employer] [facility] [employer] Never smoked tobacco [facility] [employer]; [facility] [employer] Work Phone: Evaluation note Note Date & Type Note Facility Evaluation note Diagnosis Onset Date Arthritis acute Leg edema acute Leg swelling acute Spontaneous hemorrhage acute Venous stasis ulcer of ankle acute Venous hypertension, chronic , with ulcer and inflammation chronic Venous insufficiency (chronic) (peripheral) [facility] Work Phone: Evaluation note Note Date & [...] and inflammation chronic Venous insufficiency (chronic) (peripheral) [facility] Work Phone: Evaluation note Note Date & [...] inflammation chronic Venous insufficiency (chronic) (peripheral) chronic [facility] Work Phone: Summary Purpose Family History [...] content) DATE CREATED AUTHOR 01/30/2021 Eren Paredes [facility] DATE CREATED AUTHOR AUTHOR'Eric ROSS 05/05/2022 [facility] Goals (unrecognized section and content) Goals may [...] BE BASED ON THE PRIMARY CLINICAL RECORDS. [facility] [employer] [facility]. provides no warranty or guarantee of the accuracy or completeness of information in this document.
--- NOTE | 2025-05-12 20:26 | CASEMGMT ---
Social Work Initial assessment was completed less than 30 days ago. SW verified there has been no changes. Patients family stated that patient was to start with HH services tomorrow, asked SW to provide phone number for [employer] so family could call and reschedule. Phone number given to family. Anne Kohli, CHIPPER, ADMISSIONS EVALUATOR
[2025-05-12] MEDS: Piperacil/Tazobactam 3.375 GM in 0.9% Normal Saline (50mL MB+) 50 ML IV (20:38)
[2025-05-12] MEDS: Cefepime HCl 1 GM in 0.9% Normal Saline (50mL MB+) 50 ML IV (22:16)
[2025-05-12] MEDS: MELATONIN 3 MG TABLET PO (23:22)
[2025-05-13] MEDS: Lactated Ringers 1,000 ML 150 ML IV (02:08)
[2025-05-13 05:02] VITALS: BP 122/59; PULSE 58; RESP 16; TEMP 36.6; O2SAT 98
[2025-05-13] MEDS: Vancomycin 125 MG/5 ML Susp PO.SYRINGE PO ×2 (05:06→12:13)
[2025-05-13 05:57] LABS: Hematocrit 42.6 % (37-47); Hemoglobin 14.4 g/dL (12.0-15.0); Mean Corp Hgb Conc 33.8 g/dL (32-36); Mean Corpuscular Volume 88.6 fL (81-99); Mean Platelet Vol. 9.9 fl (6.2-12.0); Platelet Count 235 K/mm3 (150-450); RBC Distribution Width CV 12.5 % (11.6-14.6); RBC Distribution Width SD 40.8 fl (35.1-43.9); Red Blood Count 4.81 M/mm3 (4.2-5.4); White Blood Count 9.2 K/mm3 (4.4-11.0)
[2025-05-13 06:38] LABS: AST(SGOT) 31 U/L (<=31); Alanine Aminotransfer ALT/SGPT 23 U/L (<=34); Albumin, Serum 3.4 g/dL (3.4-4.8); Alkaline Phosphatase 62 U/L (35-104); Anion Gap 10 (5-15); BUN 16 mg/dL (4-19); BUN/Creat Ratio 16.6 RATIO (10-20); Calcium,Total 9.1 mg/dL (7.6-11.0); Carbon Dioxide 24.8 mmol/L (21.0-32.0); Chloride 104 mmol/L (98-108); Estimated Creatinine Clearance 44.40 ml/min (50-250); Globulin 2.7 g/dL (2.2-4.2); Glucose 118 mg/dL (70-99); Potassium 3.2 mmol/L (3.3-5.1)
--- NOTE | 2025-05-13 07:50 | PN.HOSP_ITS ---
Reason for Visit Chief Complaint: Recurrent abdominal pain with nausea/vomiting and diarrhea Subjective Subjective Still with abdominal pain. Objective Data Objective Data Vital Signs: Vital Signs Temp Pulse Resp BP Pulse Ox O2 Del Method 36.6 C 58 L 16 122/59 H 98 Room Air 05/13/25 05:02 05/13/25 05:02 05/13/25 05:02 05/13/25 05:02 05/13/25 05:02 05/13/25 05:02 Oxygen Delivery Method Room Air Weight: 63.73 kg Body Mass Index (BMI) 25.7 Intake & Output: Intake and Output for Last 24 Hours 05/11/25 05/12/25 05/13/25 23:59 23:59 23:59 Intake Total 1246.04 / 1246.04 1300 / 1300 Output Total 600 / 600 Balance 646.04 / 646.04 1300 / 1300 Lab / Micro Data 05/13/25 05:31 05/13/25 05:31 Labs: Laboratory Results - last 24 hr 05/12/25 11:52: WBC 20.6 H, RBC 6.35 H, Hgb 19.2 H*, Hct 56.8 H, MCV 89.4, MCH 30.2, MCHC 33.8, RDW Std Deviation 40.2, RDW Coeff of Shane 12.2, Plt Count 355, MPV 10.3, Immature Gran % (Auto) 0.500, Neut % (Auto) 82.6 H, Lymph % (Auto) 9.2 L, [place] % (Auto) 6.9, Eos % (Auto) 0.3, Baso % (Auto) 0.5, Absolute Neuts (auto) 17.0 H, Absolute Lymphs (auto) 1.90, Nucleated RBC % 0, Sodium 138, Potassium 4.3, Chloride 99, Carbon Dioxide 17.5 L, Anion Gap 21 H, BUN 21 H, Creatinine 1.37 H, Estim Creat Clear Calc 32.65 L, Est GFR (MDRD) Non-Af 40 L, BUN/Creatinine Ratio 15.0, Glucose 112 H, Lactic Acid 1.1, Calcium 10.7, Total Bilirubin 0.91, AST 80 H, ALT 38 H, Alkaline Phosphatase 89, Troponin T High Sens < 6, Total Protein 8.5 H, Albumin 4.3, Globulin 4.3 H, Albumin/Globulin Ratio 1.0, Lipase 33 05/12/25 14:19: Urine Color Yellow, Urine Clarity Clear, Urine pH 7.0, Ur Specific [place] 1.010, Urine Protein 30 H, Urine Glucose (UA) Normal, Urine Ketones 5 H, Urine Occult Blood 250 H, Urine Nitrite Negative, Urine Bilirubin Negative, Urine Urobilinogen Normal, Ur Leukocyte Esterase Negative, Urine RBC 50-100 SEEN, Urine WBC 0-5 SEEN, Ur Squamous Epith Cells 5-10 SEEN, Urine Bacteria 2+, Urine Mucus 0 SEEN 05/12/25 14:27: Troponin T Hi Sens 2 Hr < 6 05/13/25 05:31: WBC 9.2, RBC 4.81, Hgb 14.4, Hct 42.6, MCV 88.6, MCH 29.9, MCHC 33.8, RDW Std Deviation 40.8, RDW Coeff of Shane 12.5, Plt Count 235, MPV 9.9, Sodium 139, Potassium 3.2 L, Chloride 104, Carbon Dioxide 24.8, Anion Gap 10, BUN 16, Creatinine 0.96, Estim Creat Clear Calc 44.40 L, Est GFR (MDRD) Non-Af 62, BUN/Creatinine Ratio 16.6, Glucose 118 H, Calcium 9.1, Total Bilirubin 0.77, AST 31, ALT 23, Alkaline Phosphatase 62, Total Protein 6.1, Albumin 3.4, Globulin 2.7, Albumin/Globulin Ratio 1.2 Radiography Diagnostic Testing: Radiology Impression Abdomen/Pelvis CT 05/12/25 13:20 IMPRESSION: Findings suggestive of pryor colitis as well as enteritis of the distal ileum with a small amount of ascites in the pelvis and perihepatic and perisplenic regions. Questionable sludge or tiny gallstones along the dependent portion of the gallbladder lumen. Reading Location: [id number] Brain CT 05/12/25 13:20 IMPRESSION: Cerebral atrophy. Stable focal area of decreased attenuation in the medial aspect of the posterior right cerebellar lobe in keeping with recent infarction. Reading Location: [id number] Gallbladder Ultrasound 05/12/25 14:40 IMPRESSION: No marked sonographic abnormalities apart from mild gallbladder distention. Small amount of ascites in the right upper quadrant. Reading Location: [facility] Physical Exam Const alert and no apparent distress Constitutional Narrative: up in chair HEENT head/scalp atraumatic and moist oral mucous membranes Resp normal respiratory effort, no retractions, no use of accessory muscles and clear to auscultation bilaterally Cardio regular rate, regular rhythm, S1 normal heart sound and S2 normal heart sound GI GI Narrative: non-distended. diffusely TTP. Assessment & Plan Assessment/Plan (1) Pancolitis: PLAN: Plan Pancolitis * 2/2 Campylobacter (C. diff negative) * Recent hospitalization here from 05/08-05/11 for acute diverticulitis and acute CVA as below. CT abdomen pelvis on 05/07 showed thickening of the sigmoid colon consistent with acute diverticulitis without perforation or abscess. Was treated with IV Zosyn while inpatient and then discharged on Augmentin. Repeat CT abdomen pelvis on this admit with finding suggestive of pancolitis as well as enteritis of the distal ileum. Has had new onset diarrhea since discharge as well. * DC vancomycin and cefepime. Start azithromycin. COURTNEY * Creatinine 1.37 on admit, baseline around 0.8. * Resolved w IVF. Recent right cerebellar CVA * Found on MRI brain on 05/08 to have an acute ischemic infarction within the right cerebellum and right side of the cerebellar vermis. Neurology followed and noted that highest concern was for cardioembolic origin. She was discharged on aspirin 325 mg daily as well as a high intensity statin, with plan being to switch to Eliquis 5 mg twice daily on 06/13 if patient continues to improve. Will continue aspirin and statin at this time. Hypokalemia * replace DVT prophylaxis: Lovenox CODE STATUS: Full code, verified Expected disposition: Home, TBD. Monitor overnight and if continued improvement, then possible discharge 05/14. Charges/Coding Visit Charges Inpatient E&M: 79351 Subs Hosp L2
[2025-05-13 08:00] VITALS: BP 149/82; PULSE 58; RESP 15; TEMP 36.4; O2SAT 97
[2025-05-13] MEDS: Potassium Chloride Oral Tablet 20 MEQ 40 MEQ PO (08:07)
[2025-05-13] MEDS: Cefepime HCl 1 GM in 0.9% Normal Saline (50mL MB+) 50 ML IV (09:48)
--- NOTE | 2025-05-13 13:13 | CASEMGMT ---
Social Work SW spoke w/[facility] Lorelei, she indicated pt and family interested in pt completing POA for healthcare. SW met w/pt, son in law Que, daughter Lorelei and all present. Pt agreeable to completing POA for Healthcare. Pt listed son in law Que as POA and daughter Lroelei as the alternate. SW gave pt the original and a copy, and a copy was placed on the chart. JULIAN Caceres
[2025-05-13] MEDS: Azithromycin 500 MG in 0.9% Normal Saline (250mL Bag) 250 ML 250 MG IV (13:48)
[2025-05-13 13:50] VITALS: BP 145/73; PULSE 62; RESP 14; TEMP 36.3; O2SAT 98
[2025-05-13 21:31] VITALS: BP 141/75; PULSE 64; RESP 15; TEMP 36.7; O2SAT 95
[2025-05-13 22:00] VITALS: RESP 15
[2025-05-14 02:40] VITALS: BP 159/79; PULSE 58; RESP 16; TEMP 36.8; O2SAT 96
[2025-05-14] MEDS: MELATONIN 3 MG TABLET PO ×2 (02:48→21:07)
[2025-05-14 04:00] VITALS: RESP 15
[2025-05-14 06:58] LABS: Hematocrit 42.3 % (37-47); Hemoglobin 14.2 g/dL (12.0-15.0); Immature Granulocytes Count 0.020 X10^3/uL (0.0-0.0); Mean Corp Hgb Conc 33.6 g/dL (32-36); Mean Corpuscular Volume 89.2 fL (81-99); Mean Platelet Vol. 10.2 fl (6.2-12.0); NRBC Flagged by Analyzer 0 % (0-5); Platelet Count 235 K/mm3 (150-450); RBC Distribution Width CV 12.3 % (11.6-14.6); RBC Distribution Width SD 40.6 fl (35.1-43.9); Red Blood Count 4.74 M/mm3 (4.2-5.4); White Blood Count 8.0 K/mm3 (4.4-11.0)
--- NOTE | 2025-05-14 07:31 | PN.HOSP_ITS ---
Reason for Visit Chief Complaint: Recurrent abdominal pain with nausea/vomiting and diarrhea Subjective Subjective Feeling better. Tolerating PO. Still with abdominal pain. Objective Data Objective Data Vital Signs: Vital Signs Temp Pulse Resp BP Pulse Ox O2 Del Method 36.8 C 58 L 15 159/79 H 96 Room Air 05/14/25 02:40 05/14/25 02:40 05/14/25 04:00 05/14/25 02:40 05/14/25 02:40 05/14/25 04:00 Oxygen Delivery Method Room Air Weight: 63.7 kg Body Mass Index (BMI) 25.7 Intake & Output: Intake and Output for Last 24 Hours 05/12/25 05/13/25 05/14/25 23:59 23:59 23:59 Intake Total 1246.04 / 1246.04 3300 / 3300 Output Total 600 / 600 Balance 646.04 / 646.04 3300 / 3300 Lab / Micro Data 05/14/25 06:20 05/14/25 08:13 Labs: Laboratory Results - last 24 hr 05/14/25 06:20: WBC 8.0, RBC 4.74, Hgb 14.2, Hct 42.3, MCV 89.2, MCH 30.0, MCHC 33.6, RDW Std Deviation 40.6, RDW Coeff of Shane 12.3, Plt Count 235, MPV 10.2, Immature Gran % (Auto) 0.300, Neut % (Auto) 64.5, Lymph % (Auto) 25.1, [place] % (Auto) 7.0, Eos % (Auto) 2.5, Baso % (Auto) 0.6, Absolute Neuts (auto) 5.1, Absolute Lymphs (auto) 2.00, Nucleated RBC % 0 Micro: Microbiology 05/13/25 05:15 Stool Enteric Bacteriology - Final Campylobacter species 05/13/25 05:15 Stool Clostridioides difficile (PCR) - Final Physical Exam Const alert and no apparent distress HEENT head/scalp atraumatic and moist oral mucous membranes Resp normal respiratory effort, no retractions, no use of accessory muscles and clear to auscultation bilaterally Cardio regular rate, regular rhythm, S1 normal heart sound and S2 normal heart sound GI normal to inspection, nondistended, normoactive bowel sounds, soft to palpation and non-tender GI Narrative: slight TTP. Extremity normal to inspection and full ROM Neuro Sensorium / Orientation: awake and alert Assessment & Plan Assessment/Plan (1) Pancolitis: PLAN: Plan Pancolitis * 2/2 Campylobacter (C. diff negative) * Recent hospitalization here from 05/08-05/11 for acute diverticulitis and acute CVA as below. CT abdomen pelvis on 05/07 showed thickening of the sigmoid colon consistent with acute diverticulitis without perforation or abscess. Was treated with IV Zosyn while inpatient and then discharged on Augmentin. Repeat CT abdomen pelvis on this admit with finding suggestive of pancolitis as well as enteritis of the distal ileum. Has had new onset diarrhea since discharge as well. * Azithromycin started 05/13. * Add probiotics and PRN Bentyl. COURTNEY * Creatinine 1.37 on admit, baseline around 0.8. * Resolved w IVF. Recent right cerebellar CVA * Found on MRI brain on 05/08 to have an acute ischemic infarction within the right cerebellum and right side of the cerebellar vermis. Neurology followed and noted that highest concern was for cardioembolic origin. She was discharged on aspirin 325 mg daily as well as a high intensity statin, with plan being to switch to Eliquis 5 mg twice daily on 06/13 if patient continues to improve. Will continue aspirin and statin at this time. Hypokalemia * replace DVT prophylaxis: Lovenox CODE STATUS: Full code, verified Expected disposition: Home, hopefully in the the next 1-2 days. Charges/Coding Visit Charges Inpatient E&M: 55904 Subs Hosp L2
[2025-05-14 07:34] VITALS: BP 152/69; PULSE 55; RESP 14; TEMP 36.5; O2SAT 96
[2025-05-14 08:55] LABS: Anion Gap 7 (5-15); BUN 7 mg/dL (4-19); BUN/Creat Ratio 9.8 RATIO (10-20); Calcium,Total 9.4 mg/dL (7.6-11.0); Carbon Dioxide 28.9 mmol/L (21.0-32.0); Chloride 104 mmol/L (98-108); Estimated Creatinine Clearance 53.27 ml/min (50-250); Glucose 95 mg/dL (70-99); Potassium 3.3 mmol/L (3.3-5.1)
[2025-05-14] MEDS: Azithromycin 500 MG in 0.9% Normal Saline (250mL Bag) 250 ML 250 MG IV (10:13)
[2025-05-14] MEDS: 0.9% Saline Lock 10 ML Syringe IV (10:13)
[2025-05-14] MEDS: Lactobacillis Acidophilus 1 CAP PO ×4 (11:32→21:06)
[2025-05-14 13:54] VITALS: BP 147/73; PULSE 59; RESP 14; TEMP 36.4; O2SAT 100
[2025-05-14 18:08] VITALS: BP 144/81; PULSE 61; RESP 14; TEMP 36.6; O2SAT 98
--- NOTE | 2025-05-15 07:00 | PN.HOSP_ITS ---
Reason for Visit Chief Complaint: Recurrent abdominal pain with nausea/vomiting and diarrhea Subjective Subjective Had epistaxis last night that resolved spontaneously. Has had periodic epistaxis. Feeling better. Had some mild abdominal pain when she ate too much. Still with liquid stool. Objective Data Objective Data Vital Signs: Vital Signs Temp Pulse Resp BP Pulse Ox O2 Del Method 36.6 C 61 14 144/81 H 98 Room Air 05/14/25 18:08 05/14/25 18:08 05/14/25 18:08 05/14/25 18:08 05/14/25 18:08 05/14/25 20:00 Oxygen Delivery Method Room Air Weight: 63.7 kg Body Mass Index (BMI) 25.7 Intake & Output: Intake and Output for Last 24 Hours 05/13/25 05/14/25 05/15/25 23:59 23:59 23:59 Intake Total 3300 / 3300 250 / 250 Balance 3300 / 3300 250 / 250 Lab / Micro Data 05/15/25 06:42 05/15/25 06:42 Labs: Laboratory Results - last 24 hr 05/14/25 06:20: Sodium Cancelled, Potassium Cancelled, Chloride Cancelled, Carbon Dioxide Cancelled, Anion Gap Cancelled, BUN Cancelled, Creatinine Cancelled, Estim Creat Clear Calc Cancelled, Est GFR (MDRD) Non-Af Cancelled, BUN/Creatinine Ratio Cancelled, Glucose Cancelled, Calcium Cancelled 05/14/25 08:13: Sodium 139, Potassium 3.3, Chloride 104, Carbon Dioxide 28.9, Anion Gap 7, BUN 7, Creatinine 0.77, Estim Creat Clear Calc 53.27, Est GFR (MDRD) Non-Af 81, BUN/Creatinine Ratio 9.8 L, Glucose 95, Calcium 9.4 Micro: Microbiology 05/13/25 05:15 Stool Enteric Bacteriology - Final Campylobacter species 05/13/25 05:15 Stool Clostridioides difficile (PCR) - Final Physical Exam Const alert and no apparent distress HEENT head/scalp atraumatic and moist oral mucous membranes GI normal to inspection, nondistended, normoactive bowel sounds, soft to palpation, non-tender and non-distended Neuro Sensorium / Orientation: awake and alert Assessment & Plan Assessment/Plan (1) Pancolitis: PLAN: Plan Pancolitis * 2/2 Campylobacter (C. diff negative) * Recent hospitalization here from 05/08-05/11 for acute diverticulitis and acute CVA as below. CT abdomen pelvis on 05/07 showed thickening of the sigmoid colon consistent with acute diverticulitis without perforation or abscess. Was treated with IV Zosyn while inpatient and then discharged on Augmentin. Repeat CT abdomen pelvis on this admit with finding suggestive of pancolitis as well as enteritis of the distal ileum. Has had new onset diarrhea since discharge as well. * Azithromycin started 05/13. * Continue probiotics and PRN Bentyl. COURTNEY * resolved. 2/2 prerenal azotemia. * Creatinine 1.37 on admit, baseline around 0.8. * Resolved w IVF. Epistaxis: * resolved spontaneously * continue saline nasal spray * PRN Afrin for episodes with compression. * Start apixaban on 05/17 Recent right cerebellar CVA * Found on MRI brain on 05/08 to have an acute ischemic infarction within the right cerebellum and right side of the cerebellar vermis. Neurology followed and noted that highest concern was for cardioembolic origin. She was discharged on aspirin 325 mg daily as well as a high intensity statin, with plan being to switch to Eliquis 5 mg twice daily on 06/13 if patient continues to improve. Will continue aspirin and statin at this time. But with her severe colitis, we discussed and Pryde be advisable to holding off for couple more days before starting the apixaban. Hypokalemia * replace DVT prophylaxis: Lovenox CODE STATUS: Full code, verified Expected disposition: Home today DW family at bedside.
[2025-05-15 07:09] LABS: Hematocrit 41.9 % (37-47); Hemoglobin 14.0 g/dL (12.0-15.0); Immature Granulocytes Count 0.030 X10^3/uL (0.0-0.0); Mean Corp Hgb Conc 33.4 g/dL (32-36); Mean Corpuscular Volume 89.1 fL (81-99); Mean Platelet Vol. 9.8 fl (6.2-12.0); NRBC Flagged by Analyzer 0 % (0-5); Platelet Count 229 K/mm3 (150-450); RBC Distribution Width CV 12.2 % (11.6-14.6); RBC Distribution Width SD 39.8 fl (35.1-43.9); Red Blood Count 4.70 M/mm3 (4.2-5.4); White Blood Count 7.2 K/mm3 (4.4-11.0)
[2025-05-15 07:38] LABS: Anion Gap 9 (5-15); BUN 11 mg/dL (4-19); BUN/Creat Ratio 14.5 RATIO (10-20); Calcium,Total 9.3 mg/dL (7.6-11.0); Carbon Dioxide 26.2 mmol/L (21.0-32.0); Chloride 106 mmol/L (98-108); Estimated Creatinine Clearance 53.27 ml/min (50-250); Glucose 93 mg/dL (70-99); Potassium 3.8 mmol/L (3.3-5.1)
--- NOTE | 2025-05-15 08:48 | DS.PCM_ITS ---
Providers Date of Admission: 05/12/25 Primary Care Physician: Dr. Jhon Herrera MD Reason For Visit: PANCOLITIS Diagnosis Discharge Diagnosis (1) Pancolitis: Status: Acute Code(s): K52.9 - Noninfective gastroenteritis and colitis, unspecified Plan Pancolitis * 2/2 Campylobacter (C. diff negative) * Recent hospitalization here from 05/08-05/11 for acute diverticulitis and acute CVA as below. CT abdomen pelvis on 05/07 showed thickening of the sigmoid colon consistent with acute diverticulitis without perforation or abscess. Was treated with IV Zosyn while inpatient and then discharged on Augmentin. Repeat CT abdomen pelvis on this admit with finding suggestive of pancolitis as well as enteritis of the distal ileum. Has had new onset diarrhea since discharge as well. * Azithromycin started 05/13. * Continue probiotics and PRN Bentyl. COURTNEY * resolved. 2/2 prerenal azotemia. * Creatinine 1.37 on admit, baseline around 0.8. * Resolved w IVF. Epistaxis: * resolved spontaneously * continue saline nasal spray * PRN Afrin for episodes with compression. * Start apixaban on 05/17 Recent right cerebellar CVA * Found on MRI brain on 05/08 to have an acute ischemic infarction within the right cerebellum and right side of the cerebellar vermis. Neurology followed and noted that highest concern was for cardioembolic origin. She was discharged on aspirin 325 mg daily as well as a high intensity statin, with plan being to switch to Eliquis 5 mg twice daily on 06/13 if patient continues to improve. Will continue aspirin and statin at this time. But with her severe colitis, we discussed and Pryde be advisable to holding off for couple more days before starting the apixaban. Hypokalemia * replace DVT prophylaxis: Lovenox CODE STATUS: Full code, verified Expected disposition: Home today DW family at bedside. Medications at Discharge Home Medications apixaban 5 mg tablet (Eliquis) 5 mg PO BID 1 month #60 tabs 05/11/25 Held on 05/15/25. Instructions: Resume on 05/17/25. atorvastatin 40 mg tablet 40 mg PO QHS 30 days #30 tabs 05/11/25 lisinopril 10 mg tablet 10 mg PO DAILY 30 days #30 tabs 05/11/25 pantoprazole 40 mg tablet,delayed release (Protonix) 40 mg PO DAILY 1 month #30 tabs 05/11/25 L.acidophil,salivari-Bifido bifidum-Strep thermoph 175 mg capsule 1 cap PO 4X/DAY #30 caps 05/15/25 aspirin 325 mg tablet,delayed release 325 mg PO BREAKFAST 2 days #2 tabs 05/15/25 azithromycin 500 mg tablet 500 mg PO DAILY 5 days #5 tabs 05/15/25 dicyclomine 10 mg capsule 10 mg PO TIDAC PRN abdominal cramps #20 caps 05/15/25 oxymetazoline 0.05 % nasal mist (Afrin (oxymetazoline)) 3 spray intranasal Q12H PRN bloody nose 0 days #15 mL 05/15/25 sodium chloride 0.65 % nasal spray aerosol (Saline Nasal Mist) 2 spray intranasal Q4H PRN dry nasal passages #44 mL 05/15/25 Hospital Course Operations None Procedures None Summary of Care Provided Hospital Course: Greater than 30 minutes spent on discharge This is a 74-year-old female presents with abdominal pain. Patient was found to have pancolitis. Previously had had diverticulitis. Stool was positive for Campylobacter and patient was started on azithromycin while she was in the hospital and did have improvements with that. She will continue azithromycin for 7-day course of antibiotics. Patient did have a stroke recently and was to start apixaban on the . That has been held given the severity of her colitis but also the patient did have a period of epistaxis that did resolve spontaneously. Patient to start her apixaban on the . Patient advised to take her diet slow to resume a regular type diet. Patient also advised to slowly ease back into her activity routine given the severity of her illness this admission. Weight / BMI Weight Weight: 63.7 kg Body Mass Index (BMI) 25.7 ABG / Lab / Microbiology Data 05/15/25 06:42 05/15/25 06:42 Laboratory: Laboratory Results - last 24 hr 05/14/25 08:13: Sodium 139, Potassium 3.3, Chloride 104, Carbon Dioxide 28.9, Anion Gap 7, BUN 7, Creatinine 0.77, Estim Creat Clear Calc 53.27, Est GFR (MDRD) Non-Af 81, BUN/Creatinine Ratio 9.8 L, Glucose 95, Calcium 9.4 05/15/25 06:42: WBC 7.2, RBC 4.70, Hgb 14.0, Hct 41.9, MCV 89.1, MCH 29.8, MCHC 33.4, RDW Std Deviation 39.8, RDW Coeff of Shane 12.2, Plt Count 229, MPV 9.8, Immature Gran % (Auto) 0.400, Neut % (Auto) 57.4, Lymph % (Auto) 29.8, [place] % (Auto) 8.0, Eos % (Auto) 3.3, Baso % (Auto) 1.1 H, Absolute Neuts (auto) 4.1, Absolute Lymphs (auto) 2.15, Nucleated RBC % 0, Sodium 141, Potassium 3.8, Chloride 106, Carbon Dioxide 26.2, Anion Gap 9, BUN 11, Creatinine 0.77, Estim Creat Clear Calc 53.27, Est GFR (MDRD) Non-Af 80, BUN/Creatinine Ratio 14.5, Glucose 93, Calcium 9.3 Microbiology: Microbiology 05/13/25 05:15 Stool Enteric Bacteriology - Final Campylobacter species 05/13/25 05:15 Stool Clostridioides difficile (PCR) - Final D/C Instructions DC O2, CPAP, BIPAP Needs Home O2 Discharge instructions: No Meaningful Use Info Meaningful Use Meaningful Use Diagnoses (Choose all that apply): None applicable Discharge Plan Admission Admit Date/Time: 05/12/25 14:49 Primary Reason for Your Visit: Colitis Attending Provider: Zohaib Wilder Primary Care Provider: Jhon Herrera Consulting Providers: Yoel Gray Instructions Patient Instructions: Campylobacter Culture (Stool), Campylobacter Infect Additional Instructions / Restrictions: You had colitis (infection of your intestine) due to bacteria called Campylobacter. The treatment is azithromycin which we have started in the hospital and you will continue upon discharge. If you have worsening symptoms, such as abdominal pain, worsening diarrhea etc., notify your physician or return to the emergency room. Discharge Orders/Prescriptions Prescriptions: New dicyclomine 10 mg Capsule 10 mg PO TIDAC PRN (Reason: abdominal cramps) Qty: 20 0RF L.acidoph,saliva-B.bif-S.therm 175 mg Capsule 1 cap PO 4X/DAY Qty: 30 0RF azithromycin 500 mg tablet 500 mg PO DAILY 5 Days Qty: 5 0RF Afrin (oxymetazoline) 0.05 % mist 3 spray intranasal Q12H PRN (Reason: bloody nose) Qty: 15 0RF Saline Nasal Mist 0.65 % aerosol,spray 2 spray intranasal Q4H PRN (Reason: dry nasal passages) Qty: 44 0RF Continued atorvastatin 40 mg Tablet 40 mg PO QHS 30 Days Qty: 30 2RF lisinopril 10 mg Tablet 10 mg PO DAILY 30 Days Qty: 30 2RF pantoprazole [Protonix] 40 mg tablet,delayed release (DR/EC) 40 mg PO DAILY 30 Days Qty: 30 2RF aspirin 325 mg Tablet,Delayed Release (Dr/Ec) 325 mg PO BREAKFAST 2 Days Qty: 2 0RF Rx Instructions: last dose on 05/16 as you will start Eliquis on 05/17. Held Eliquis 5 mg tablet 5 mg PO BID 30 Days Qty: 60 2RF Hold Instructions: Resume on 05/17/25. Rx Instructions: Start from 05/14/2025. Discontinue if platelet count drops less than 50,000 or hemoglobin less than 8 g% Discontinued amoxicillin-pot clavulanate 875-125 mg tablet 1 tab PO BID 5 Days Qty: 10 0RF metoprolol succinate [Toprol XL] 25 mg tablet extended release 24 hr 12.5 mg PO DAILY 60 Days Qty: 30 1RF Rx Instructions: Hold for heart less than 60 or systolic blood pressure less than 100 mmHg. Referrals / Follow Up: [facility] [Provider Group] - Within 1 Month Jhon Herrera MD [Primary Care Provider, Medical] - Within 2 Weeks Disposition Disposition (needs filled in before D/C Order can be placed): Home, Self Care Charges/Coding Visit Charges Inpatient E&M: 88492 Disch Hosp >30min
[2025-05-15] MEDS: Lactobacillis Acidophilus 1 CAP PO (09:13)
[2025-05-15] MEDS: Potassium Chloride Oral Tablet 20 MEQ 40 MEQ PO (09:13)
[2025-05-15] MEDS: 0.9% Saline Lock 10 ML Syringe IV (09:14)
[2025-05-15] MEDS: Azithromycin 500 MG in 0.9% Normal Saline (250mL Bag) 250 ML 250 MG IV (09:16)
--- NOTE | 2025-05-15 09:22 | CASEMGMT ---
Addendum entered by Danya Atkinson 05/15/25 09:25: DC summary faxed to [employer] at this time. Original Note: TC to [employer], spoke with Gabby, she is aware that pt will dc today and requesting PT and OT to see pt. She states they do not need another order and requested dc instructions be faxed.
[2025-05-15 10:02] VITALS: BP 162/73; PULSE 61; RESP 16; TEMP 36.4; O2SAT 99
--- NOTE | 2025-05-15 10:02 | PHA.DC_ITS ---
Pharmacy [facility] has performed discharge medication counseling for this patient. The patient was counseled on the following discharge medications and changes in medications for homegoing review. - Afrin nasal spray, Azithromycin 500 mg tablet, Dicyclomine 10 mg capsule, Saline nasal mist The Reason for Use, instructions for use, and potential side effects were reviewed for all new medications. The patient's questions regarding all of their medications were answered. The patient was able to verbally demonstrate an understanding of their discharge medications. Medications at Discharge Home Medications apixaban 5 mg tablet (Eliquis) 5 mg PO BID 1 month #60 tabs 05/11/25 Held on 05/15/25. Instructions: Resume on 05/17/25. atorvastatin 40 mg tablet 40 mg PO QHS 30 days #30 tabs 05/11/25 lisinopril 10 mg tablet 10 mg PO DAILY 30 days #30 tabs 05/11/25 pantoprazole 40 mg tablet,delayed release (Protonix) 40 mg PO DAILY 1 month #30 tabs 05/11/25 L.acidophil,salivari-Bifido bifidum-Strep thermoph 175 mg capsule 1 cap PO 4X/DAY #30 caps 05/15/25 aspirin 325 mg tablet,delayed release 325 mg PO BREAKFAST 2 days #2 tabs 05/15/25 azithromycin 500 mg tablet 500 mg PO DAILY 5 days #5 tabs 05/15/25 dicyclomine 10 mg capsule 10 mg PO TIDAC PRN abdominal cramps #20 caps 05/15/25 oxymetazoline 0.05 % nasal mist (Afrin (oxymetazoline)) 3 spray intranasal Q12H PRN bloody nose 0 days #15 mL 05/15/25 sodium chloride 0.65 % nasal spray aerosol (Saline Nasal Mist) 2 spray intranasal Q4H PRN dry nasal passages #44 mL 05/15/25
[2025-05-15 10:09] VITALS: O2SAT 99
== END 2025-05-15 10:52 | disposition home health service (06) | DRG 372 ==
LOC: ED 14:56 → MS3 15:40
PROVIDERS: Admitting Provider Hospitalist; Emergency Provider Emergency Medicine; PCP Family Medicine
DX: A04.5 Campylobacter enteritis (principal); N17.9 Acute kidney failure, unspecified; K57.12 Diverticulitis of small intestine without perforation or abscess without bleeding; E87.6 Hypokalemia; K52.9 Noninfective gastroenteritis and colitis, unspecified; Z86.73 Personal history of transient ischemic attack (TIA), and cerebral infarction without residual deficits; R04.0 Epistaxis
CPT/HCPCS: 36415; 70450; 74177; 76705; 80048; 80053; 81001; 83605; 83690; 84484; 85025; 85027; 87493; 87506; 93005; 94668; 99285; Q9967; A4216; J2405